=== PATIENT | female | born 1995 | race Caucasian/White ===

== ENCOUNTER 2019-07-26 04:01 | Emergency (ER) | payer BC, SELFPAY ==
[2019-07-26] VITALS (8 sets, daily range): BP systolic 132–150; BP diastolic 93–110; PULSE 84; RESP 18; TEMP 36.7; O2SAT 95–98; BMI 46.5
--- NOTE | 2019-07-26 04:10 | ED_ITS ---
Entered by Kiki Amaya, acting as scribe for Adrianna Mcdaniel HPI - Chest Pain General: Chief Complaint: Chest Pain Stated Complaint: CP Time Seen by Provider: 07/26/19 04:09 Source: patient and family Mode of arrival: ambulatory History of Present Illness: HPI narrative: 23 y/o female presents to the ED with complaint of chest pain. Pt states she has GERD and has been seen here several times for the same complaint. Pt states none of the medications have helped. This pain is intermittent and sharp in nature. MD complaint: chest pain Timing of current episode: episodic Severity: mild Quality: sharp Associated symptoms: Deny abdominal pain, diaphoresis, dyspnea, fever(s), nausea or vomiting Risk Factors: Thoracic aortic dissection risk factors: none Review of Systems Const: Denies: fever, chills, body aches, fatigue, malaise or diaphoresis Eyes: Denies: change in vision or blurry vision ENMT: Denies: throat pain, painful swallowing, hoarseness, ear pain, ear discharge, Change in hearing or nasal discharge Card: Reports: other (see HPI) Resp: Reports: other (pt has a chronic cough due to smoking); Denies: shortness of breath, wheezing, coughing up blood or chest congestion GI: Denies: abdominal pain, nausea, vomiting, vomiting blood, coffee grounds in vomit, diarrhea, constipation, cramping, blood in stool or black tarry stool : Denies: flank pain, painful urination, urinary frequency, urinary urgency, decreased urine ouput, urinary incontinence or blood in urine Musc: Denies: neck pain, back pain, extremity pain, extremity swelling, joint pain, joint swelling, joint warmth or joint stiffness Skin/Breast: Denies: rash, skin tenderness or yellow skin Neuro: Denies: headache, numbness in extremities, weakness in extremities, ch anges in sensation, lack of coordination, difficulty walking, dizziness, vertigo or confusion Endo: Denies: excessive thirst, tired all the time, cold intolerance, excessive sweating, flushing or hot flashes George/Lymph: Denies: easy bruising, easy bleeding, petechiae or enlarged lymph nodes All/Imm: Denies: hives, throat swelling, tongue swelling, facial swelling or acute wheezing PFSH ED PFSH: Statuses (acute, chronic, etc) shown below reflect problem list status as previously entered and may not be historically accurate Medical History Anxiety (Acute) Blind left eye (Acute) Migraine without aura and without status migrainosus, not intractable (Acute) Surgical History History of tonsillectomy and adenoidectomy (Acute) Family History Grandmother Cancer High cholesterol Family/Other Cancer Grandfather Cataract Father Heart attack Mother Fibromyalgia Arthritis Bulging disc Gastroesophageal reflux disease Social History Smoking and tobacco status: current every day smoker cigarettes Packs smoked per day: 1 Second hand smoke exposure: Yes Smoking risk assessment/counseling performed?: No Alcohol intake: current Alcohol intake frequency: holidays/special occasions only Alcohol type: hard liquor Desire information about alcohol rehabilitation?: No Desire information about substance/drug rehabilitation?: No Counseling given: No Last substance use date: 07/05/19 Other details last substance use: weed Adopted: No Caregiver/support person: No Lives independently: Yes Household members: spouse Marital status: Highest education level completed: Some College, No Degree service: No Current occupational status: employed History of recent travel: No Sexually active: Yes Current gender identity: Female Special alex needs: No Agree to transfusion: Yes Female Reproductive History: Date of last menstrual period: 06/23/19 Physical Exam Const: COMMON NORMALS: no apparent distress, oriented x3, no limitations, healthy appearing and well nourished EXAM LIMITATIONS: no altered mental status GENERAL APPEARANCE: cooperative, well kempt and well developed ORIENTATION/CONSCIOUSNESS: Yes awake HENMT: COMMON NORMALS: normocephalic, head/scalp atraumatic, hearing grossly normal bilaterally, external ears normal, EAC's normal, external nose normal and moist oral mucous membranes HEAD & SCALP: normal to inspection, normocephalic and atraumatic FACE & SINUS: normal facial exam and face symmetric NOSE: external nose normal and nares normal EXTERNAL EAR: Yes external ears normal EXTERNAL AUDITORY CANAL: EAC's normal MOUTH: oral and palatal mucosa normal and tongue normal Eye: COMMON NORMALS: PERRL, EOMs intact bilaterally, conjunctivae normal and no scleral icterus GENERAL EYE: normal appearance of both eyes and normal light reflex CONJUNCTIVA: Yes conjunctivae normal SCLERA: sclerae normal CORNEA: Yes corneas normal PUPIL: Yes PERRL DIRECT OPHTHALMOSCOPY: Yes normal light reflex Neck/C-Spine: COMMON NORMALS: full ROM, no lymphadenopathy, supple, no meningeal signs and no JVD GENERAL: Yes normal visual inspection and Yes trachea midline CERVICAL SPINE: Yes cervical ROM normal Resp: COMMON NORMALS: normal respiratory effort, no retractions, no use of accessory muscles and clear to auscultation bilaterally EFFORT & INSPECTION: Yes able to speak in complete sentences AUSCULTATION: clear to auscultation bilaterally Cardio: COMMON NORMALS: no JVD, regular rate, regular rhythm, S1 normal heart sound, S2 normal heart sound, no gallops, no clicks, no murmurs and no rub JUGULAR VENOUS DISTENTION: no JVD RATE: regular rate RHYTHM: regular rhythm HEART SOUNDS: S1 normal and S2 normal GI: COMMON NORMALS: soft to palpation, non-tender, no hepatosplenomegaly and no masses INSPECTION: Yes normal to inspection PALPATION: Yes soft and Yes no hepatosplenomegaly : COMMON NORMALS: Yes no CVA tenderness BLADDER/KIDNEY EXAM: Yes no CVA tenderness Back/Pelvis: COMMON NORMALS: no CVA tenderness, thoracic and lumbar spine normal to inspection, no thoracic nor lumbar tenderness and thoraco-lumbar ROM normal Extremity: COMMON NORMALS: normal to inspection, full ROM, normal capillary refill, no joint enlargement, no clubbing, cyanosis or edema and no calf tenderness Neuro: COMMON NORMALS: oriented x3, CN's II-XII intact bilaterally, moves all extremities, no focal motor deficits and no sensory deficits noted MENINGEAL SIGNS: Yes no meningeal signs Psych: COMMON NORMALS: mental status grossly normal, thought process normal, cooperative, affect normal, speech normal and activity/motor behavior normal APPEARANCE: Yes well kempt SPEECH: Yes normal speech THOUGHT PROCESS: normal thought process Skin: COMMON NORMALS: no rashes or lesions noted, skin turgor normal, no jaundice, no petechiae and no mottling GENERAL SKIN EXAM: no rashes or lesions noted and turgor normal Course Vital Signs: Vital signs: Vital Signs Temperature 98.1 F 07/26/19 04:09 Pulse Rate 84 07/26/19 04:09 Respiratory Rate 18 07/26/19 04:09 Blood Pressure 132/93 07/26/19 04:50 Pulse Oximetry 98 07/26/19 04:50 MDM - Chest Pain MDM Narrative: Medical decision making narrative: Patient comes in with recurrent pain in her chest. It is made worse with movement. She is been here multiple times for this in the past and she states nothing really seems to help. Her greatest complaint is that of worsening pain with movement. I will go and place her on Motrin but also give her something here for anxiety. She declines any further evaluation and care including lab work and IV. She will follow-up with her regular doctor and possibly Dr. Mock for consideration of EGD. Imaging Data^: CXR: My impression: No acute cardiopulmonary findings. EKG Data^: EKG 1: Attestation: I personally reviewed and interpreted this EKG as follows: Interpretation: Normal sinus rhythm at 77 beats a minute, normal KS interval, normal QRS, no acute ST segment changes. Normal EKG. Discharge Plan Discharge Patient Disposition: Home, Self-Care Clinical Impression: Atypical chest pain, Costochondritis Condition: Stable Prescriptions: No Action norgestimate-ethinyl estradiol [Tri-Estarylla] 0.18/0.215/0.25 mg-35 mcg (28) tablet 1 tab PO ONCE RF: 0 pantoprazole [Protonix] 20 mg tablet,delayed release (DR/EC) 40 mg PO ONCE RF: 0 hydroxyzine HCl 25 mg tablet 25 mg PO TID PRNRF: 0 Discharge Orders: Discharge Order (Routine); Ordered 07/26/19 Ordered By: Adrianna Mcdaniel Referrals: Tommie Mock MD [Physician] - 4-7 days Diandra Ponce FNP [Primary Care Provider] - Discharge Diet: Advance as tolerated Discharge Activity: Increase activity as tolerated Activity Restrictions/Additional Instructions: Please return to the ER immediately for any of the signs or symptoms listed on your discharge instruction sheets, worsening/changing of your symptoms, you are not getting better as quickly as expected, or for ANY other cause or concerns. Coding Level of Care Code ED Halal Butcher for Chg Fwd Exam Problem Focused The documentation recorded by the Jose Luis barnard Ashley, accurately reflects the service I personally performed and the decisions made by Jonas martines Eli N Jul 26, 2019 04:01
--- NOTE | 2019-07-26 04:13 | XR_ITS ---
WS: [id number] PORTABLE CHEST HISTORY: CHEST PAIN COMPARISON: 05/09/2019 Lungs are clear and well expanded. No pleural effusion or pneumothorax. Cardiac size: Normal. Mediastinum/Aorta: Normal mediastinum. No osseous abnormality seen. XR/XR chest 1V portable [id number] IMPRESSION: Unremarkable portable chest.
--- NOTE | 2019-07-26 04:13 | ECG_ITS ---
Measurements Intervals [place] Rate: 77 P: 19 VA: 192 QRS: 13 QRSD: 96 T: 5 QT: 365 QTc: 415 SINUS RHYTHM No previous ECG available for comparison Electronically Signed On 07-26-2019 15:26:18 [employer] by Tee Mckeon M.D. [email or web address]
[2019-07-26] MEDS: CLONazepam 0.5 mg Tablet PO (04:40)
== END 2019-07-26 05:36 | disposition home or self-care (01) ==
PROVIDERS: Emergency Provider Emergency Medicine; Family Provider Nurse Practitioner; PCP Nurse Practitioner
DX: R07.89 Other chest pain (principal); M94.0 Chondrocostal junction syndrome [Tietze]; F17.210 Nicotine dependence, cigarettes, uncomplicated
CPT/HCPCS: 71045; 93005; 99282

== ENCOUNTER → 2019-08-03 11:08 | Outpatient (BNVA) | payer BC, SELFPAY | PROVIDERS: Family Provider Nurse Practitioner; PCP Nurse Practitioner; Visit Provider Nurse Practitioner | DX: R11.2 Nausea with vomiting, unspecified (principal); R19.7 Diarrhea, unspecified; K52.9 Noninfective gastroenteritis and colitis, unspecified | CPT/HCPCS: 87804 ==

== ENCOUNTER 2019-11-04 20:00 | Emergency (ER) | payer OTHER, SELFPAY ==
--- NOTE | 2019-11-04 20:03 | XR_ITS ---
WS: [id number] XR chest 2V* [id number] REASON FOR EXAM: cp FINDINGS: Comparisons were made to July 26, 2019. The lung daigle are well aerated. No pneumonia, pleural effusion, pulmonary edema, or mass effect. The hilum and apices normal. The lung show no osseous abnormality. XR/XR chest 2V* [id number] IMPRESSION: Negative chest for acute pathology
[2019-11-04 20:15] VITALS: BP 154/97; PULSE 100; RESP 20; TEMP 36.7; O2SAT 98; BMI 52.2
--- NOTE | 2019-11-04 20:27 | ED_ITS ---
HPI - Chest Pain General: Chief Complaint: Chest Pain Stated Complaint: chest discomfort Time Seen by Provider: 11/04/19 20:21 Source: patient Mode of arrival: ambulatory Limitations: no limitations History of Present Illness: HPI narrative: 23-year-old female who states she has had a sharp chest pain over the last week. She states the pain is worse if she coughs or moves and is tender to palpation. She denies any shortness of breath. She denies any fever. She denies any vomiting. MD complaint: chest pain Onset (ago): week(s) Timing of current episode: constant Prior episodes: Yes Pain location: substernal Pain radiation: none Severity: mild Quality: sharp Relieving factors: rest Exacerbating factors: movement Associated symptoms: Deny abdominal pain, dyspnea, fever(s), nausea or vomiting Review of Systems Const: Denies: fever, chills, body aches or change in appetite Eyes: Denies: blurry vision or eye discomfort ENMT: Denies: throat pain or dental pain Card: Reports: chest pain Resp: Denies: shortness of breath GI: Denies: abdominal pain, nausea, vomiting or diarrhea : Denies: painful urination Musc: Denies: neck pain or back pain Skin/Breast: Denies: rash Neuro: Denies: headache Psych: Denies: depression George/Lymph: Denies: easy bruising All/Imm: Denies: hives PFSH ED PFSH: Social History Smoking and tobacco status: current every day smoker cigarettes Packs smoked per day: 1 Second hand smoke exposure: Yes Smoking risk assessment/counseling performed?: No Alcohol intake: current Alcohol intake frequency: holidays/special occasions only Alcohol type: hard liquor Desire information about alcohol rehabilitation?: No Desire information about substance/drug rehabilitation?: No Counseling given: No Last substance use date: 07/05/19 Other details last substance use: weed Adopted: No Caregiver/support person: No Lives independently: Yes Household members: spouse Marital status: Highest education level completed: Some College, No Degree service: No Current occupational status: employed History of recent travel: No Sexually active: Yes Current gender identity: Female Special alex needs: No Agree to transfusion: Yes Female Reproductive History: Date of last menstrual period: 06/23/19 Physical Exam Const: COMMON NORMALS: no apparent distress, oriented x3 and healthy appearing HENMT: COMMON NORMALS: normocephalic and head/scalp atraumatic HEAD & SCALP: normocephalic and atraumatic Eye: COMMON NORMALS: PERRL and EOMs intact bilaterally PUPIL: Yes PERRL Neck/C-Spine: COMMON NORMALS: full ROM and supple Chest: COMMONS NORMALS: inspection of chest normal OTHER: point tender center of chest Resp: COMMON NORMALS: normal respiratory effort, no retractions, no use of acc essory muscles and clear to auscultation bilaterally AUSCULTATION: clear to auscultation bilaterally Cardio: COMMON NORMALS: regular rate, regular rhythm and no murmurs RATE: regular rate RHYTHM: regular rhythm GI: COMMON NORMALS: normal to inspection, nondistended, normoactive bowel sounds, soft to palpation, non-tender and no masses PALPATION: Yes soft Extremity: COMMON NORMALS: normal to inspection and full ROM Neuro: COMMON NORMALS: oriented x3, moves all extremities and no focal motor deficits Psych: COMMON NORMALS: mental status grossly normal, thought process normal and cooperative THOUGHT PROCESS: normal thought process Skin: COMMON NORMALS: no rashes or lesions noted and no wounds GENERAL SKIN EXAM: no rashes or lesions noted Course Vital Signs: Vital signs: Vital Signs Temperature 98.1 F 11/04/19 20:15 Pulse Rate 100 11/04/19 20:15 Respiratory Rate 20 H 11/04/19 20:15 Blood Pressure 154/97 11/04/19 20:15 Pulse Oximetry 98 11/04/19 20:15 MDM - Chest Pain MDM Narrative: Medical decision making narrative: Patient presents with chest pain that is atypical in nature. Is likely muscular as she is point tender on exam. Patient's EKG and x-ray are normal. Patient is stable for discharge and is return if worsening. She has no signs of cardiac cause or pulmonary embolism. Imaging Data^: CXR: Attestation: I personally reviewed and interpreted this imaging study as follows: My impression: no acute abnormalities EKG Data^: EKG 1: Attestation: I personally reviewed and interpreted this EKG as follows: EKG interpretation date: 11/04/19 EKG interpretation time: 20:29 Interpretation: nsr hr 97 qrs 100 qtc 383 Discharge Plan Discharge Patient Disposition: Home, Self-Care Clinical Impression: Chest pain Qualifiers: Chest pain type: other chest pain Qualified Code(s): R07.89 - Other chest pain Condition: Stable Prescriptions: New EC-Naprosyn 500 mg tablet,delayed release (DR/EC) 500 mg PO BID PRN (Reason: pain) Qty: 20 RF: 0 No Action norgestimate-ethinyl estradiol [Tri-Estarylla] 0.18/0.215/0.25 mg-35 mcg (28) tablet 1 tab PO ONCE RF: 0 metformin 500 mg tablet 500 mg PO QDAY RF: 0 Discharge Orders: Discharge Order (Routine); Ordered 11/04/19 Ordered By: Lori Duncan Referrals: Diandra Ponce FNP [Primary Care Provider] - Discharge Diet: Advance as tolerated Discharge Activity: Resume usual activity Patient Instructions: Chest Pain (ED) Coding Level of Care Code ED Fourth Officer for Kelin Fwd Exam Comprehensive
--- NOTE | 2019-11-04 20:50 | PC.NURSE ---
i agree with the chest pain assessment
[2019-11-04 20:54] VITALS: PULSE 92; RESP 16; O2SAT 97
== END 2019-11-04 20:55 | disposition home or self-care (01) ==
PROVIDERS: Emergency Provider Emergency Medicine; Family Provider Nurse Practitioner; PCP Nurse Practitioner
DX: R07.89 Other chest pain (principal); F17.210 Nicotine dependence, cigarettes, uncomplicated
CPT/HCPCS: 12345; 71046; 99281; 99283

== ENCOUNTER 2020-01-23 14:54 | Emergency (ER) | payer OTHER, SELFPAY ==
[2020-01-23 14:59] VITALS: PULSE 98; RESP 18; TEMP 37.2; O2SAT 96; BMI 51.8
--- NOTE | 2020-01-23 15:10 | XR_ITS ---
WS: [id number] PORTABLE CHEST HISTORY: chest pain COMPARISON: 11/04/2019 Lungs are clear and well expanded. No pleural effusion or pneumothorax. Cardiac size: Normal. Mediastinum/Aorta: Normal mediastinum. No osseous abnormality seen. XR/XR chest 1V portable [id number] IMPRESSION: Unremarkable portable chest.
--- NOTE | 2020-01-23 16:18 | W.ED.GENADLT ---
Documented by User: Franko Schaefer DO 01/25/20 05:57 HPI - General Adult General: Chief complaint: General Medical Stated complaint: hurts when pt breathes Time Seen by Provider: 01/23/20 16:18 History of Present Illness: HPI narrative: 24-year-old female comes in complaining burning lungs. She seen her PCP couple times has been treated with antibiotics and inhalers has not really had any results. She has no history of breathing problems no history of asthma or COPD she not had a fever at all she is not had any change in sputum she does smoke regularly and has a chronic productive cough that has not changed from her baseline. She not had any fever she not been around anyone is been tested positive for COVID. She is not on any inhalers at this point. [facility] ED PFSH: Medical History (Updated 01/23/20 @ 20:13 by Lori Duncan MD) Anxiety Blind left eye Migraine without aura and without status migrainosus, not intractable Surgical History History of tonsillectomy and adenoidectomy Family History Grandmother Cancer High cholesterol Family/Other Cancer Grandfather Cataract Father Heart attack Mother Fibromyalgia Arthritis Bulging disc Gastroesophageal reflux disease Social History Smoking and tobacco status: current every day smoker cigarettes Packs smoked per day: 1 Second hand smoke exposure: Yes Smoking risk assessment/counseling performed?: No Alcohol intake: current Alcohol intake frequency: holidays/special occasions only Alcohol type: hard liquor Desire information about alcohol rehabilitation?: No Desire information about substance/drug rehabilitation?: No Counseling given: No Last substance use date: 07/05/19 Other details last substance use: weed Adopted: No Caregiver/support person: No Lives independently: Yes Household members: spouse Marital status: Highest education level completed: Some College, No Degree service: No Current occupational status: employed History of recent travel: No Sexually active: Yes Current gender identity: Female Special alex needs: No Agree to transfusion: Yes Female Reproductive History: Date of last menstrual period: 06/23/19 Course Vital Signs: Vital signs: Vital Signs Temperature 98.9 F 01/23/20 14:59 Pulse Rate 81 07/22/20 20:06 Respiratory Rate 18 01/23/20 20:06 Blood Pressure 165/74 01/23/20 20:06 Pulse Oximetry 99 01/23/20 20:06 MDM - General Adult MDM Narrative: Medical decision making narrative: Care turned over to Dr. Duncan at change of shift. See his notes for final diagnosis and disposition Lab Data: Labs: Lab Results 01/23/20 01/23/20 01/23/20 Range/Units 16:19 16:19 16:20 WBC 10.3 H (4.0-10.0) 10^3/ uL RBC 4.37 (4.1-5.3) 10^6/u L Hgb 12.3 (11.5-15.3) g/dL Hct 38.7 (37.0-47.0) % MCV 88.6 (81-99) fL MCH 28.1 (28.0-34.0) pg MCHC 31.8 (30.0-36.0) g/dL RDW 13.2 (12.1-15.1) % Plt Count 354 (130-400) 10^3/c mm MPV 10.5 H (7.4-10.4) fL Neut % (Auto) 59.6 % Lymph % (Auto) 32.6 % [place] % (Auto) 4.0 % Eos % (Auto) 3.2 % Baso % (Auto) 0.3 % Neut # (Auto) 6.11 (1.8-7.7) 10^3/u L Lymph # (Auto) 3.3 (0.8-4.8) 10^3/u L [place] # (Auto) 0.4 (0.2-0.9) 10^3/u L Eos # (Auto) 0.3 (0.0-0.8) 10^3/u L Baso # (Auto) 0.0 (0.0-0.1) 10^3/u L Nucleated RBC % (a uto) 0 % Nucleated RBCs # 0.0 /100WBC D-Dimer 0.76 H (0-0.59) ug/mIFE U Sodium 140 (136-145) mmol/L Potassium 4.1 (3.5-5.1) mmol/L Chloride 103 (98-107) mmol/L Carbon Dioxide 25 (22-29) mmol/L Anion Gap 16.1 (5-19) BUN 11 (6-20) mg/dL Creatinine 0.5 (0.5-0.9) mg/dL GFR Calculation 154.3 H (90-130) mL/min Glucose 132 H (65-115) mg/dL Calculated Osmolal ity 288 (285-295) mOsm/k g Calcium 9.8 (8.5-10.5) mg/dL Total Bilirubin 0.2 (0.15-1.2) mg/dL AST 16 (0-32) U/L ALT 23 (0-33) U/L Alkaline Phosphata se 59 (35-105) IU/L Total Protein 6.7 (6.6-8.7) g/dL Albumin 4.3 (3.5-5.2) g/dL Globulin 2.4 (1.3-4.6) g/dL HCG, Qual (Negative) 01/23/20 Range/Units 18:55 WBC (4.0-10.0) 10^3/ uL RBC (4.1-5.3) 10^6/u L Hgb (11.5-15.3) g/dL Hct (37.0-47.0) % MCV (81-99) fL MCH (28.0-34.0) pg MCHC (30.0-36.0) g/dL RDW (12.1-15.1) % Plt Count (130-400) 10^3/c mm MPV (7.4-10.4) fL Neut % (Auto) % Lymph % (Auto) % [place] % (Auto) % Eos % (Auto) % Baso % (Auto) % Neut # (Auto) (1.8-7.7) 10^3/u L Lymph # (Auto) (0.8-4.8) 10^3/u L [place] # (Auto) (0.2-0.9) 10^3/u L Eos # (Auto) (0.0-0.8) 10^3/u L Baso # (Auto) (0.0-0.1) 10^3/u L Nucleated RBC % (a uto) % Nucleated RBCs # /100WBC D-Dimer (0-0.59) ug/mIFE U Sodium (136-145) mmol/L Potassium (3.5-5.1) mmol/L Chloride (98-107) mmol/L Carbon Dioxide (22-29) mmol/L Anion Gap (5-19) BUN (6-20) mg/dL Creatinine (0.5-0.9) mg/dL GFR Calculation (90-130) mL/min Glucose (65-115) mg/dL Calculated Osmolal ity (285-295) mOsm/k g Calcium (8.5-10.5) mg/dL Total Bilirubin (0.15-1.2) mg/dL AST (0-32) U/L ALT (0-33) U/L Alkaline Phosphata se (35-105) IU/L Total Protein (6.6-8.7) g/dL Albumin (3.5-5.2) g/dL Globulin (1.3-4.6) g/dL HCG, Qual Negative (Negative) Discharge Plan Discharge Patient Disposition: Home Clinical Impression: Chest pain Qualifiers: Chest pain type: chest pain on breathing Qualified Code(s): R07.1 - Chest pain on breathing Condition: Stable Prescriptions: New Naprosyn 500 mg tablet 500 mg PO BID PRN (Reason: pain) Qty: 20 RF: 0 No Action norgestimate-ethinyl estradiol [Tri-Estarylla] 0.18/0.215/0.25 mg-35 mcg (28) tablet 1 tab PO DAILY RF: 0 metformin 500 mg tablet 500 mg PO DAILY RF: 0 Discharge Orders: Discharge Order (Routine); Ordered 01/23/20 Ordered By: Lori Duncan Referrals: Diandra Ponce FNP [Primary Care Provider] - 1-3 days Discharge Diet: Advance as tolerated Discharge Activity: Resume usual activity Patient Instructions: Chest Pain (ED) Discharge Date/Time: 01/23/20 20:21 Coding Level of Care Code ED Rope Maker for Paramg Fwd Exam Comprehensive Documented by User: Lori Duncan MD 01/23/20 20:27 HPI - General Adult General: Chief complaint: General Medical Stated complaint: hurts when pt breathes Time Seen by Provider: 01/23/20 16:18 History of Present Illness: Associated symptoms: Deny chest pain, headache(s), nausea, rash or vomiting Review of Systems Const: Denies: fever(s), chills, body aches or change in appetite Eyes: Denies: blurry vision or eye discomfort ENMT: Denies: throat pain or dental pain Card: Denies: chest pain Resp: Reports: pain on inspiration GI: Denies: abdominal pain, nausea, vomiting or diarrhea : Denies: dysuria Musc: Denies: neck pain or back pain Skin/Breast: Denies: rash Neuro: Denies: headache(s) Psych: Denies: depression George/Lymph: Denies: easy bruising All/Imm: Denies: urticaria PFSH ED PFSH: Medical History (Updated 01/23/20 @ 20:13 by Lori Duncan MD) Anxiety Blind left eye Migraine without aura and without status migrainosus, not intractable Surgical History History of tonsillectomy and adenoidectomy Family History Grandmother Cancer High cholesterol Family/Other Cancer Grandfather Cataract Father Heart attack Mother Fibromyalgia Arthritis Bulging disc Gastroesophageal reflux disease Social History Smoking and tobacco status: current every day smoker cigarettes Packs smoked per day: 1 Second hand smoke exposure: Yes Smoking risk assessment/counseling performed?: No Alcohol intake: current Alcohol intake frequency: holidays/special occasions only Alcohol type: hard liquor Desire information about alcohol rehabilitation?: No Desire information about substance/drug rehabilitation?: No Counseling given: No Last substance use date: 07/05/19 Other details last substance use: weed Adopted: No Caregiver/support person: No Lives independently: Yes Household members: spouse Marital status: Highest education level completed: Some College, No Degree service: No Current occupational status: employed History of recent travel: No Sexually active: Yes Current gender identity: Female Special alex needs: No Agree to transfusion: Yes Physical Exam Const: COMMON NORMALS: no acute distress, patient oriented x3 and healthy appearing HENMT: COMMON NORMALS: normocephalic and atraumatic HEAD & SCALP: normocephalic and atraumatic Eye: COMMON NORMALS: Equal, round and reactive pupils present and EOMs intact bilaterally PUPIL: Yes Equal, round and reactive pupils present Neck/C-Spine: COMMON NORMALS: full ROM and supple Chest: COMMONS NORMALS: normal inspection of the chest and normal palpation of entire chest wall Resp: COMMON NORMALS: normal respiratory effort, No retractions, No use of accessory muscles and clear to auscultation bilaterally AUSCULTATION: clear to auscultation bilaterally Cardio: COMMON NORMALS: regular rate, regular rhythm and No murmurs present (Cardio) RATE: regular rate RHYTHM: regular rhythm GI: COMMON NORMALS: Normal to inspection, nondistended, normoactive bowel sounds present, Soft to palpation, non-tender and no masses PALPATION: Yes Soft to palpation Extremity: COMMON NORMALS: normal to inspection and full ROM Neuro: COMMON NORMALS: patient oriented x3, moves all extremities and no focal motor deficits Psych: COMMON NORMALS: mental status grossly normal, Normal thought process present and cooperative THOUGHT PROCESS: Normal thought process present Skin: COMMON NORMALS: no rashes or lesions noted and no wounds GENERAL SKIN EXAM: no rashes or lesions noted Course Vital Signs: Vital signs: Vital Signs Temperature 98.9 F 01/23/20 14:59 Pulse Rate 81 01/23/20 20:06 Respiratory Rate 18 01/23/20 20:06 Blood Pressure 165/74 01/23/20 20:06 Pulse Oximetry 99 01/23/20 20:06 MDM - General Adult MDM Narrative: Medical decision making narrative: Sharon presents here with pain with inspiration is likely pleurisy. CT shows no signs of pulmonary embolism or pneumonia. Will place patient on Naprosyn she is stable for discharge. She has no signs of cardiac cause. Lab Data: Labs: Lab Results 01/23/20 01/23/20 01/23/20 Range/Units 16:19 16:19 16:20 WBC 10.3 H (4.0-10.0) 10^3/ uL RBC 4.37 (4.1-5.3) 10^6/u L Hgb 12.3 (11.5-15.3) g/dL Hct 38.7 (37.0-47.0) % MCV 88.6 (81-99) fL MCH 28.1 (28.0-34.0) pg MCHC 31.8 (30.0-36.0) g/dL RDW 13.2 (12.1-15.1) % Plt Count 354 (130-400) 10^3/c mm MPV 10.5 H (7.4-10.4) fL Neut % (Auto) 59.6 % Lymph % (Auto) 32.6 % [place] % (Auto) 4.0 % Eos % (Auto) 3.2 % Baso % (Auto) 0.3 % Neut # (Auto) 6.11 (1.8-7.7) 10^3/u L Lymph # (Auto) 3.3 (0.8-4.8) 10^3/u L [place] # (Auto) 0.4 (0.2-0.9) 10^3/u L Eos # (Auto) 0.3 (0.0-0.8) 10^3/u L Baso # (Auto) 0.0 (0.0-0.1) 10^3/u L Nucleated RBC % (a uto) 0 % Nucleated RBCs # 0.0 /100WBC D-Dimer 0.76 H (0-0.59) ug/mIFE U Sodium 140 (136-145) mmol/L Potassium 4.1 (3.5-5.1) mmol/L Chloride 103 (98-107) mmol/L Carbon Dioxide 25 (22-29) mmol/L Anion Gap 16.1 (5-19) BUN 11 (6-20) mg/dL Creatinine 0.5 (0.5-0.9) mg/dL GFR Calculation 154.3 H (90-130) mL/min Glucose 132 H (65-115) mg/dL Calculated Osmolal ity 288 (285-295) mOsm/k g Calcium 9.8 (8.5-10.5) mg/dL Total Bilirubin 0.2 (0.15-1.2) mg/dL AST 16 (0-32) U/L ALT 23 (0-33) U/L Alkaline Phosphata se 59 (35-105) IU/L Total Protein 6.7 (6.6-8.7) g/dL Albumin 4.3 (3.5-5.2) g/dL Globulin 2.4 (1.3-4.6) g/dL HCG, Qual (Negative) 01/23/20 Range/Units 18:55 WBC (4.0-10.0) 10^3/ uL RBC (4.1-5.3) 10^6/u L Hgb (11.5-15.3) g/dL Hct (37.0-47.0) % MCV (81-99) fL MCH (28.0-34.0) pg MCHC (30.0-36.0) g/dL RDW (12.1-15.1) % Plt Count (130-400) 10^3/c mm MPV (7.4-10.4) fL Neut % (Auto) % Lymph % (Auto) % [place] % (Auto) % Eos % (Auto) % Baso % (Auto) % Neut # (Auto) (1.8-7.7) 10^3/u L Lymph # (Auto) (0.8-4.8) 10^3/u L [place] # (Auto) (0.2-0.9) 10^3/u L Eos # (Auto) (0.0-0.8) 10^3/u L Baso # (Auto) (0.0-0.1) 10^3/u L Nucleated RBC % (a uto) % Nucleated RBCs # /100WBC D-Dimer (0-0.59) ug/mIFE U Sodium (136-145) mmol/L Potassium (3.5-5.1) mmol/L Chloride (98-107) mmol/L Carbon Dioxide (22-29) mmol/L Anion Gap (5-19) BUN (6-20) mg/dL Creatinine (0.5-0.9) mg/dL GFR Calculation (90-130) mL/min Glucose (65-115) mg/dL Calculated Osmolal ity (285-295) mOsm/k g Calcium (8.5-10.5) mg/dL Total Bilirubin (0.15-1.2) mg/dL AST (0-32) U/L ALT (0-33) U/L Alkaline Phosphata se (35-105) IU/L Total Protein (6.6-8.7) g/dL Albumin (3.5-5.2) g/dL Globulin (1.3-4.6) g/dL HCG, Qual Negative (Negative) Imaging Data^: CT Chest: Attestation: I personally reviewed and interpreted this imaging study as follows: Radiologist's impression: [address] [address] [address] Scan Report Signed Patient: Sharon Camacho Unit #: [id number] : 1995 Age/Sex: 24 / F ADM Date: 01/23/20 Loc: ER Room/Bed: Attending Dr: Ordering Provider/Ordering MD: Franko Schaefer DO Date of Service: 01/23/20 Procedure(s): CT angio chest PE prot [id number] Accession Number(s): [id number] Report Number: [id number] PROCEDURE INFORMATION: Exam: CT Angiography Chest With Contrast Exam date and time: 01/23/2020 5:04 PM Age: 24 years old Clinical indication: Angina and shortness of breath; Additional info: Dyspnea, chest pain TECHNIQUE: Imaging protocol: Computed tomographic angiography of the chest with intravenous contrast. 3D rendering (Not supervised by radiologist): MIP and/or 3D reconstructed images were created by the technologist. Radiation optimization: All CT scans at this facility use at least one of these dose optimization techniques: automated exposure control; mA and/or kV adjustment per patient size (includes targeted exams where dose is matched to clinical indication); or iterative reconstruction. Contrast material: OMNI 350; Contrast volume: 65 ml; Contrast route: INTRAVENOUS (IV); COMPARISON: CR XR chest 1V portable [id number] 01/23/2020 3:35 PM RADIATION DOSE METRICS: Total DLP (mGy-cm): 624.56 FINDINGS: Pulmonary arteries: No visible pulmonary embolism/pulmonary arterial thrombus. Aorta: The thoracic aorta is nonaneurysmal. No visible intimal flap or dissection. Lungs: No visible active interstitial or alveolar airspace disease. Pleural space: Unremarkable. No pneumothorax. No pleural effusion. Heart: Unremarkable. No cardiomegaly. No pericardial effusion. Lymph nodes: No visible active middle mediastinal or hilar lymphadenopathy. Bones/joints: No visible active or acute osseous pathology. Soft tissues: Patient's obesity results in increased quantum mottle artifact which degrades image quality in detail assessment. Other findings: A total of 975 images acquired that will require assessment and interpretation. Upper abdominal contents within the field of view unremarkable. CT/CT angio chest PE protcl [id number] IMPRESSION: No visible pulmonary embolism/pulmonary arterial thrombus. Radiation Dose CTDIVOL = (mGy): DLP = 624.56 (mGy-cm) Discharge Plan Discharge Patient Disposition: Home Clinical Impression: Chest pain Qualifiers: Chest pain type: chest pain on breathing Qualified Code(s): R07.1 - Chest pain on breathing Condition: Stable Prescriptions: New Naprosyn 500 mg tablet 500 mg PO BID PRN (Reason: pain) Qty: 20 RF: 0 No Action norgestimate-ethinyl estradiol [Tri-Estarylla] 0.18/0.215/0.25 mg-35 mcg (28) tablet 1 tab PO DAILY RF: 0 metformin 500 mg tablet 500 mg PO DAILY RF: 0 Discharge Orders: Discharge Order (Routine); Ordered 01/23/20 Ordered By: Lori Duncan Referrals: Diandra Ponce FNP [Primary Care Provider] - 1-3 days Discharge Diet: Advance as tolerated Discharge Activity: Resume usual activity Patient Instructions: Chest Pain (ED) Discharge Date/Time: 01/23/20 20:21 Coding Level of Care Code ED Rope Maker for Chg Fwd Exam Comprehensive
[2020-01-23 16:26] LABS: Basophils % 0.3 %; Eosinophils # 0.3 10^3/uL (0.0-0.8); Eosinophils % 3.2 %; Hematocrit 38.7 % (37.0-47.0); Hemoglobin 12.3 g/dL (11.5-15.3); Lymphocytes # 3.3 10^3/uL (0.8-4.8); Lymphocytes % 32.6 %; Mean Corpuscular HGB Conc 31.8 g/dL (30.0-36.0); Mean Corpuscular Hemoglobin 28.1 pg (28.0-34.0); Mean Corpuscular Volume 88.6 fL (81-99); Mean Platelet Volume 10.5 fL (7.4-10.4); Monocytes # 0.4 10^3/uL (0.2-0.9); Neutrophils # 6.11 10^3/uL (1.8-7.7); Neutrophils % 59.6 %; Nucleated Red Blood Cells % 0 %; Platelet Count 354 10^3/cmm (130-400); Red Blood Count 4.37 10^6/uL (4.1-5.3); Red Cell Distribution Width 13.2 % (12.1-15.1); White Blood Count 10.3 10^3/uL (4.0-10.0)
[2020-01-23 16:40] LABS: D Dimer 0.76 ug/mIFEU (0-0.59)
[2020-01-23 16:46] LABS: Alanine Aminotransferase 23 U/L (0-33); Albumin Level 4.3 g/dL (3.5-5.2); Alkaline Phosphatase 59 IU/L (35-105); Anion Gap 16.1 (5-19); Aspartate Amino Transferase 16 U/L (0-32); Blood Urea Nitrogen 11 mg/dL (6-20); Calcium 9.8 mg/dL (8.5-10.5); Carbon Dioxide 25 mmol/L (22-29); Chloride 103 mmol/L (98-107); Globulin 2.4 g/dL (1.3-4.6); Glomerular Filtration Rate 154.3 mL/min (90-130); Glucose 132 mg/dL (65-115); Osmolality Calculated 288 mOsm/kg (285-295); Potassium 4.1 mmol/L (3.5-5.1); Sodium 140 mmol/L (136-145); Total Bilirubin 0.2 mg/dL (0.15-1.2); Total Protein 6.7 g/dL (6.6-8.7)
--- NOTE | 2020-01-23 17:00 | CTR_ITS ---
PROCEDURE INFORMATION: Exam: CT Angiography Chest With Contrast Exam date and time: 01/23/2020 5:04 PM Age: 24 years old Clinical indication: Angina and shortness of breath; Additional info: Dyspnea, chest pain TECHNIQUE: Imaging protocol: Computed tomographic angiography of the chest with intravenous contrast. 3D rendering (Not supervised by radiologist): MIP and/or 3D reconstructed images were created by the technologist. Radiation optimization: All CT scans at this facility use at least one of these dose optimization techniques: automated exposure control; mA and/or kV adjustment per patient size (includes targeted exams where dose is matched to clinical indication); or iterative reconstruction. Contrast material: OMNI 350; Contrast volume: 65 ml; Contrast route: INTRAVENOUS (IV); COMPARISON: CR XR chest 1V portable [id number] 01/23/2020 3:35 PM RADIATION DOSE METRICS: Total DLP (mGy-cm): 624.56 FINDINGS: Pulmonary arteries: No visible pulmonary embolism/pulmonary arterial thrombus. Aorta: The thoracic aorta is nonaneurysmal. No visible intimal flap or dissection. Lungs: No visible active interstitial or alveolar airspace disease. Pleural space: Unremarkable. No pneumothorax. No pleural effusion. Heart: Unremarkable. No cardiomegaly. No pericardial effusion. Lymph nodes: No visible active middle mediastinal or hilar lymphadenopathy. Bones/joints: No visible active or acute osseous pathology. Soft tissues: Patient's obesity results in increased quantum mottle artifact which degrades image quality in detail assessment. Other findings: A total of 975 images acquired that will require assessment and interpretation. Upper abdominal contents within the field of view unremarkable. CT/CT angio chest PE protcl [id number] IMPRESSION: No visible pulmonary embolism/pulmonary arterial thrombus. Radiation Dose CTDIVOL = (mGy): DLP = 624.56 (mGy-cm)
[2020-01-23 17:01] VITALS: BP 105/70; PULSE 94; RESP 22; O2SAT 94
[2020-01-23 19:21] VITALS: BP 115/93; PULSE 85; RESP 16; O2SAT 95
[2020-01-23 19:24] LABS: HCG, Serum Qual Negative (Negative)
--- NOTE | 2020-01-23 19:35 | PC.NURSE ---
Pt in radiology for CTA.
[2020-01-23] MEDS: iohexol 350 mg/mL 100 mL Btl IV (19:39)
[2020-01-23 20:06] VITALS: BP 165/74; PULSE 81; RESP 18; O2SAT 99
== END 2020-01-23 20:21 | disposition home or self-care (01) ==
PROVIDERS: Family Medicine; Physician Assistant; Emergency Provider Emergency Medicine; PCP Nurse Practitioner
DX: R07.1 Chest pain on breathing (principal); F17.210 Nicotine dependence, cigarettes, uncomplicated
CPT/HCPCS: 12345; 36415; 71045; 71275; 80053; 84703; 85025; 85378; 99282; 99284; Q9967

== ENCOUNTER 2020-02-10 20:52 | Emergency (ER) | payer OTHER, SELFPAY ==
[2020-02-10 21:11] VITALS: BP 145/106; PULSE 88; RESP 14; TEMP 37.4; O2SAT 98; BMI 51.8
--- NOTE | 2020-02-10 21:24 | XRR_ITS ---
PROCEDURE INFORMATION: Exam: XR Chest, 1 View Exam date and time: 02/10/2020 9:31 PM Age: 24 years old Clinical indication: Condition or disease; Lung condition and disease; Other: Uri; Patient HX: Sore throat x 5 days TECHNIQUE: Imaging protocol: XR of the chest Views: 1 view. COMPARISON: CR XR chest 1V portable [id number] 01/23/2020 3:35 PM FINDINGS: Lungs: Unremarkable. No consolidation. Pleural space: Unremarkable. No pleural effusion. No pneumothorax. Heart/Mediastinum: Unremarkable. No cardiomegaly. Bones/joints: No acute findings. XR/XR chest 1V portable [id number] IMPRESSION: No acute findings.
--- NOTE | 2020-02-10 21:24 | W.ED.URI ---
HPI - URI/Sore Throat General: Chief Complaint: Upper Respiratory Infection Stated Complaint: sore/swollen throat Time Seen by Provider: 02/10/20 21:09 Source: patient Mode of arrival: ambulatory Limitations: no limitations History of Present Illness: HPI Narrative: 44-year-old female who states she has had a sore throat over the last 5 days. She states also had some sharp chest pains and a recent cough that is resolved. Patient states her throat is a 7 out of 10 is worse with eating. She denies any difficulty swallowing. She denies any fever. Patient did get COVID swab yesterday. Denies any vomiting or diarrhea. Associated symptoms: Deny abdominal pain, chills, chest pain, diarrhea, fever(s), headache(s), nausea or vomiting Review of Systems Const: Denies: fever(s), chills, body aches or change in appetite Eyes: Denies: blurry vision or eye discomfort ENMT: Reports: throat pain and odynophagia Card: Denies: chest pain Resp: Reports: non-productive cough GI: Denies: abdominal pain, nausea, vomiting or diarrhea : Denies: dysuria Musc: Denies: neck pain or back pain Skin/Breast: Denies: rash Neuro: Denies: headache(s) Psych: Denies: depression George/Lymph: Denies: easy bruising All/Imm: Denies: urticaria PFSH ED PFSH: Medical History (Updated 02/10/20 @ 21:24 by Lori Duncan MD) Anxiety Blind left eye Migraine without aura and without status migrainosus, not intractable Surgical History History of tonsillectomy and adenoidectomy Family History Grandmother Cancer High cholesterol Family/Other Cancer Grandfather Cataract Father Heart attack Mother Fibromyalgia Arthritis Bulging disc Gastroesophageal reflux disease Social History Smoking and tobacco status: current every day smoker cigarettes Packs smoked per day: 1 Second hand smoke exposure: Yes Smoking risk assessment/counseling performed?: No Alcohol intake: current Alcohol intake frequency: holidays/special occasions only Alcohol type: hard liquor Desire information about alcohol rehabilitation?: No Desire information about substance/drug rehabilitation?: No Counseling given: No Last substance use date: 07/05/19 Other details last substance use: weed Adopted: No Caregiver/support person: No Lives independently: Yes Household members: spouse Marital status: Highest education level completed: Some College, No Degree service: No Current occupational status: employed History of recent travel: No Sexually active: Yes Current gender identity: Female Special alex needs: No Agree to transfusion: Yes Female Reproductive History: Date of last menstrual period: 06/23/19 Physical Exam Const: COMMON NORMALS: no acute distress, patient oriented x3 and healthy appearing HENMT: COMMON NORMALS: normocephalic and atraumatic HEAD & SCALP: normocephalic and atraumatic OTHER: Slight erythema to throat. No uvula deviation or signs of abscess. Patient is handling her secretions well. No cervical lymphadenopathy. Eye: COMMON NORMALS: Equal, round and reactive pupils present and EOMs intact bilaterally PUPIL: Yes Equal, round and reactive pupils present Neck/C-Spine: COMMON NORMALS: full ROM and supple Chest: COMMONS NORMALS: normal inspection of the chest and normal palpation of entire chest wall Resp: COMMON NORMALS: normal respiratory effort, No retractions, No use of accessory muscles and clear to auscultation bilaterally AUSCULTATION: clear to auscultation bilaterally Cardio: COMMON NORMALS: regular rate, regular rhythm and No murmurs present (Cardio) RATE: regular rate RHYTHM: regular rhythm GI: COMMON NORMALS: Normal to inspection, nondistended, normoactive bowel sounds present, Soft to palpation, non-tender and no masses PALPATION: Yes Soft to palpation Extremity: COMMON NORMALS: normal to inspection and full ROM Neuro: COMMON NORMALS: patient oriented x3, moves all extremities and no focal motor deficits Psych: COMMON NORMALS: mental status grossly normal, Normal thought process present and cooperative THOUGHT PROCESS: Normal thought process present Skin: COMMON NORMALS: no rashes or lesions noted and no wounds GENERAL SKIN EXAM: no rashes or lesions noted Course Vital Signs: Vital signs: Vital Signs Temperature 99.4 F 02/10/20 21:11 Pulse Rate 88 02/10/20 21:11 Respiratory Rate 14 02/10/20 21:11 Blood Pressure 145/106 02/10/20 21:11 Pulse Oximetry 98 02/10/20 21:11 MDM - URI/Sore Throat MDM Narrative: Medical decision making narrative: Patient presents here with a likely viral URI with a viral pharyngitis. She is well-appearing here and has no signs of abscess. Patient is to follow with her COVID test. Patient given Decadron here and is to take Naprosyn at home. She is stable for discharge and return if worsening. Imaging Data^: CXR: My impression: No acute abnormality Discharge Plan Discharge Patient Disposition: Home Clinical Impression: Pharyngitis Qualifiers: Pharyngitis/tonsillitis etiology: unspecified etiology Qualified Code(s): J02.9 - Acute pharyngitis, unspecified Condition: Stable Prescriptions: New Naprosyn 500 mg tablet 500 mg PO BID PRN (Reason: pain) Qty: 20 RF: 0 No Action norgestimate-ethinyl estradiol [Tri-Estarylla] 0.18/0.215/0.25 mg-35 mcg (28) tablet 1 tab PO DAILY RF: 0 metformin 500 mg tablet 500 mg PO DAILY RF: 0 Naprosyn 500 mg tablet 500 mg PO BID PRN (Reason: pain) Qty: 20 RF: 0 Discharge Orders: Discharge Order (Routine); Ordered 02/10/20 Ordered By: Lori Duncan Referrals: Diandra Ponce FNP [Primary Care Provider] - 1-3 days Discharge Diet: Advance as tolerated Discharge Activity: Resume usual activity Patient Instructions: Pharyngitis (ED) Coding Level of Care Code ED Candy Forming Machine Operator for Kelin Rivas
[2020-02-10] MEDS: dexamethasone 10 mg/mL INJ IM (21:36)
[2020-02-10 21:41] VITALS: BP 144/62; PULSE 82; RESP 18; O2SAT 98
== END 2020-02-10 21:42 | disposition home or self-care (01) ==
PROVIDERS: Emergency Provider Emergency Medicine; PCP Nurse Practitioner
DX: J02.9 Acute pharyngitis, unspecified (principal); F17.210 Nicotine dependence, cigarettes, uncomplicated
CPT/HCPCS: 12345; 71045; 96372; 99281; 99283; J1100

== ENCOUNTER → 2020-02-15 11:57 | Outpatient (BNVA) | payer OTHER, SELFPAY | PROVIDERS: PCP Nurse Practitioner; Referring Provider Family Medicine; Visit Provider Nurse Practitioner | DX: N89.8 Other specified noninflammatory disorders of vagina (principal); N99.89 Other postprocedural complications and disorders of genitourinary system; Z68.43 Body mass index [BMI] 50.0-59.9, adult; F17.210 Nicotine dependence, cigarettes, uncomplicated | CPT/HCPCS: 81000; 81025; 87086 ==

== ENCOUNTER 2020-03-09 20:44 | Emergency (ER) | payer OTHER, SELFPAY ==
[2020-03-09 21:11] VITALS: BP 165/118; PULSE 75; RESP 18; TEMP 36.6; O2SAT 98; BMI 51.8
[2020-03-09] MEDS: pantoprazole DR 40 mg Tablet PO (22:03)
--- NOTE | 2020-03-09 22:10 | ED_ITS ---
HPI - Abdominal Pain General: Chief Complaint: Abdominal Pain Stated Complaint: cp Time Seen by Provider: 03/09/20 21:44 History of Present Illness: HPI narrative: Patient come in here complaining about reflux heartburn pain while laying down. Says feel like acid coming up in her throat she would like to have a prescription to help with that. Been worked up here multiple times for abdominal pain gallbladder reflux has not followed through probably with prescriptions. MD elicited complaint: abdominal pain Onset (ago): month(s) Pain Consistency: intermittent Location: Epigastric Severity: mild Quality: burning Radiation: none Migration to: no migration Exacerbating factors: eating and other (Laying down) Relieving factors: medication and rest Associated Symptoms: Reports no associated symptoms and heartburn; Denies chills, fever(s), nausea and vomiting Review of Systems Const: Denies: fever(s), chills or body aches Eyes: Denies: change in vision or blurry vision ENMT: Denies: throat pain or nasal congestion Card: Denies: chest pain or dyspnea on exertion Resp: Denies: dyspnea, productive cough or non-productive cough GI: Reports: heartburn; Denies: abdominal pain, nausea or vomiting Musc: Denies: extremity pain Skin/Breast: Denies: rash Neuro: Denies: headache(s) Psych: Denies: anxiety or depression George/Lymph: Denies: easy bruising PFSH ED PFSH: Medical History (Updated 03/09/20 @ 22:09 by IVELISSE Stevens) Anxiety Blind left eye Migraine without aura and without status migrainosus, not intractable Surgical History History of tonsillectomy and adenoidectomy Family History Grandmother Cancer High cholesterol Family/Other Cancer Grandfather Cataract Father Heart attack Mother Fibromyalgia Arthritis Bulging disc Gastroesophageal reflux disease Social History Smoking and tobacco status: current every day smoker cigarettes Packs smoked per day: 1 Second hand smoke exposure: Yes Smoking risk assessment/counseling performed?: No Alcohol intake: current Alcohol intake frequency: holidays/special occasions only Alcohol type: hard liquor Desire information about alcohol rehabilitation?: No Desire information about substance/drug rehabilitation?: No Counseling given: No Last substance use date: 07/05/19 Other details last substance use: weed Adopted: No Caregiver/support person: No Lives independently: Yes Household members: spouse Marital status: Highest education level completed: Some College, No Degree service: No Current occupational status: employed History of recent travel: No Sexually active: Yes Current gender identity: Female Special alex needs: No Agree to transfusion: Yes Physical Exam Const: COMMON NORMALS: no acute distress, average body habitus and patient oriented x3 HENMT: COMMON NORMALS: normocephalic HEAD & SCALP: normal to inspection and normocephalic FACE & SINUS: normal facial exam Eye: COMMON NORMALS: conjunctivae normal GENERAL EYE: appearance normal, both eyes and all related structures CONJUNCTIVA: Yes conjunctivae normal Neck/C-Spine: COMMON NORMALS: no JVD Chest: COMMONS NORMALS: normal inspection of the chest Cardio: COMMON NORMALS: no JVD GI: COMMON NORMALS: Normal to inspection, nondistended, normoactive bowel sounds present PALPATION: Yes Tenderness to palpation present (GI) (Epigastric) Extremity: COMMON NORMALS: normal to inspection and full ROM Neuro: COMMON NORMALS: patient oriented x3 Course Vital Signs: Vital signs: Vital Signs Temperature 97.9 F 03/09/20 21:11 Pulse Rate 75 03/09/20 21:11 Respiratory Rate 18 03/09/20 21:11 Blood Pressure 165/118 03/09/20 21:11 Pulse Oximetry 98 03/09/20 21:11 Discharge Plan Discharge Patient Disposition: Home Clinical Impression: Chronic GERD Condition: Stable Prescriptions: New Protonix 40 mg tablet,delayed release (DR/EC) 40 mg PO DAILY Qty: 14 RF: 0 No Action metronidazole 500 mg tablet 500 mg PO BID 7 Days Qty: 14 RF: 0 metformin 500 mg tablet 500 mg PO DAILY RF: 0 Discharge Orders: Discharge Order (Routine); Ordered 03/09/20 Ordered By: Eugene Plunkett Referrals: Mallory Kelly FNP [Primary Care Provider] - Discharge Diet: As Directed Discharge Activity: Resume usual activity Patient Instructions: Diet for Ulcers and Gastritis (ED), Gastroesophageal Reflux Disease (ED) Activity Restrictions/Additional Instructions: Follow-up with medical provider as directed. Take medications as prescribed. Return to the ER or your medical provider if condition worsens. Please read and understand discharge instructions. If any questions ask please. Continue Protonix for at least another 6 weeks follow-up with your medical provider and see if they want to do any further testing make sure you follow a diet that is compatible with the GERD Monitor blood pressure taken twice daily and take 1 weeks with readings into your family provider Coding Level of Care Code ED [employer] Prom[employer] Specialist for Kelin Fwd Exam Comprehensive
[2020-03-09 22:29] VITALS: BP 141/93; PULSE 81; RESP 16; O2SAT 96
== END 2020-03-09 22:29 | disposition home or self-care (01) ==
PROVIDERS: Emergency Provider Nurse Practitioner Family; PCP Nurse Practitioner Family
DX: K21.9 Gastro-esophageal reflux disease without esophagitis (principal); F17.210 Nicotine dependence, cigarettes, uncomplicated
CPT/HCPCS: 12345; 99281; 99283

== ENCOUNTER 2020-03-16 18:32 | Emergency (ER) | payer OTHER, SELFPAY ==
--- NOTE | 2020-03-16 18:56 | XRR_ITS ---
PROCEDURE INFORMATION: Exam: XR Left Humerus Exam date and time: 03/16/2020 7:38 PM Age: 24 years old Clinical indication: Pain; Upper arm; Left TECHNIQUE: Imaging protocol: XR Left humerus Views: 2 or more views. COMPARISON: No relevant prior studies available. FINDINGS: Bones/joints: Normal. Soft tissues: Normal. XR/[place] [id number] IMPRESSION: No acute findings.
[2020-03-16 19:13] VITALS: BP 154/91; PULSE 86; RESP 16; TEMP 37.5; O2SAT 98; BMI 53.8
--- NOTE | 2020-03-16 19:16 | XRR_ITS ---
PROCEDURE INFORMATION: Exam: XR Left Forearm Exam date and time: 03/16/2020 7:34 PM Age: 24 years old Clinical indication: Pain; Lower or forearm; Left; Additional info: Injury TECHNIQUE: Imaging protocol: XR Left forearm. Views: 2 views. COMPARISON: No relevant prior studies available. FINDINGS: Bones/joints: Normal. Soft tissues: Normal. XR/XR forearm LT 2V [id number] IMPRESSION: No acute findings.
--- NOTE | 2020-03-16 19:17 | W.ED.UPPEXIN ---
HPI - Extremity Injury (Upper) General: Chief Complaint: Dizziness Stated Complaint: pain in L upper arm Time Seen by Provider: 03/16/20 19:13 Source: patient Mode of arrival: ambulatory Limitations: no limitations History of Present Illness: HPI narrative: 24-year-old female states started having left forearm pain just 1 to 2 hours ago. States that cramping type pain she rates a 2 out of 10. Denies any worsening or improving factors. Denies any fever or known injury. Associated symptoms: Denies neck pain Review of Systems Const: Denies: fever(s), chills, body aches or change in appetite Eyes: Denies: blurry vision or eye discomfort ENMT: Denies: throat pain or dental pain Card: Denies: chest pain Resp: Denies: dyspnea GI: Denies: abdominal pain, nausea, vomiting or diarrhea : Denies: dysuria Musc: Reports: extremity pain; Denies: neck pain or back pain Skin/Breast: Denies: rash Neuro: Denies: headache(s) Psych: Denies: depression George/Lymph: Denies: easy bruising All/Imm: Denies: urticaria PFSH ED PFSH: Medical History (Updated 03/16/20 @ 19:42 by Lori Duncan MD) Anxiety Blind left eye Migraine without aura and without status migrainosus, not intractable Surgical History History of tonsillectomy and adenoidectomy Family History Grandmother Cancer High cholesterol Family/Other Cancer Grandfather Cataract Father Heart attack Mother Fibromyalgia Arthritis Bulging disc Gastroesophageal reflux disease Social History Smoking and tobacco status: current every day smoker cigarettes Packs smoked per day: 1 Second hand smoke exposure: Yes Smoking risk assessment/counseling performed?: No Alcohol intake: current Alcohol intake frequency: holidays/special occasions only Alcohol type: hard liquor Desire information about alcohol rehabilitation?: No Desire information about substance/drug rehabilitation?: No Counseling given: No Last substance use date: 07/05/19 Other details last substance use: weed Adopted: No Caregiver/support person: No Lives independently: Yes Household members: spouse Marital status: Highest education level completed: Some College, No Degree service: No Current occupational status: employed History of recent travel: No Sexually active: Yes Current gender identity: Female Special alex needs: No Agree to transfusion: Yes Physical Exam Const: COMMON NORMALS: no acute distress, patient oriented x3 and healthy appearing HENMT: COMMON NORMALS: normocephalic and atraumatic HEAD & SCALP: normocephalic and atraumatic Eye: COMMON NORMALS: Equal, round and reactive pupils present and EOMs intact bilaterally PUPIL: Yes Equal, round and reactive pupils present Neck/C-Spine: COMMON NORMALS: full ROM and supple Chest: COMMONS NORMALS: normal inspection of the chest and normal palpation of entire chest wall Resp: COMMON NORMALS: normal respiratory effort, No retractions, No use of accessory muscles and clear to auscultation bilaterally AUSCULTATION: clear to auscultation bilaterally Cardio: COMMON NORMALS: regular rate, regular rhythm and No murmurs present (Cardio) RATE: regular rate RHYTHM: regular rhythm GI: COMMON NORMALS: Normal to inspection, nondistended, normoactive bowel sounds present, Soft to palpation, non-tender and no masses PALPATION: Yes Soft to palpation Extremity: COMMON NORMALS: normal to inspection and full ROM NARRATIVE EXTREMITY EXAM: Tenderness to left forearm with no deformity or erythema. Neuro: COMMON NORMALS: patient oriented x3, moves all extremities and no focal motor deficits Psych: COMMON NORMALS: mental status grossly normal, Normal thought process present and cooperative THOUGHT PROCESS: Normal thought process present Skin: COMMON NORMALS: no rashes or lesions noted and no wounds GENERAL SKIN EXAM: no rashes or lesions noted Course Vital Signs: Vital signs: Vital Signs Temperature 99.5 F 03/16/20 19:13 Pulse Rate 86 03/16/20 19:13 Respiratory Rate 16 03/16/20 19:13 Blood Pressure 154/91 03/16/20 19:13 Pulse Oximetry 98 03/16/20 19:13 MDM - Extremity Injury (Upper) MDM Narrative: Medical decision making narrative: Patient presents here with forearm pain. Patient has no sign DVT. Patient has no signs of abscess. X-ray is normal. Patient is stable for discharge and is return if worsening. Imaging Data^: xr l forearm: Attestation: I personally reviewed and interpreted this imaging study as follows: My impression: no acute abnormality Discharge Plan Discharge Patient Disposition: Home Clinical Impression: Arm pain, left Condition: Stable Prescriptions: No Action metronidazole 500 mg tablet 500 mg PO BID 7 Days Qty: 14 RF: 0 metformin 500 mg tablet 500 mg PO DAILY RF: 0 Protonix 40 mg tablet,delayed release (DR/EC) 40 mg PO DAILY Qty: 14 RF: 0 Discharge Orders: Discharge Order (Routine); Ordered 03/16/20 Ordered By: Lori Duncan Referrals: Mallory Kelly FNP [Primary Care Provider] - Discharge Diet: Advance as tolerated Discharge Activity: Resume usual activity Patient Instructions: Arthralgia (ED) Coding Level of Care Code ED Business Development Analyst for Chg Fwd Exam Comprehensive
[2020-03-16 20:52] VITALS: BP 120/62; PULSE 70; RESP 18; O2SAT 97
== END 2020-03-16 20:50 | disposition home or self-care (01) ==
PROVIDERS: Emergency Provider Emergency Medicine; PCP Nurse Practitioner Family
DX: M79.602 Pain in left arm (principal); F17.210 Nicotine dependence, cigarettes, uncomplicated
CPT/HCPCS: 12345; 73060; 73090; 99281; 99282

== ENCOUNTER → 2020-04-03 14:34 | Outpatient (BNVA) | payer OTHER, SELFPAY | PROVIDERS: PCP Nurse Practitioner Family; Visit Provider Nurse Practitioner Women's Health | DX: N91.1 Secondary amenorrhea (principal) | CPT/HCPCS: 84702 ==

== ENCOUNTER → 2020-04-11 14:22 | Outpatient (BNVA) | payer OTHER, SELFPAY | PROVIDERS: PCP Nurse Practitioner Family; Visit Provider Family Medicine | DX: Z20.828 Contact with and (suspected) exposure to other viral communicable diseases (principal) | CPT/HCPCS: 87635 ==

== ENCOUNTER 2020-04-14 05:14 | Emergency (ER) | payer OTHER, SELFPAY ==
[2020-04-14 05:20] VITALS: BP 148/82; PULSE 77; RESP 16; TEMP 36.8; O2SAT 100; BMI 53.3
--- NOTE | 2020-04-14 05:31 | ED_ITS ---
HPI - Anxiety General: Chief Complaint: Anxiety Stated Complaint: woke with trembling panicky Time Seen by Provider: 04/14/20 05:27 Source: patient Mode of arrival: ambulatory Limitations: no limitations History of Present Illness: HPI narrative: Sharon is a nice 24-year-old female who comes in complaining of severe anxiety. She states she is had several panic attacks throughout the night secondary to bad dreams. She just recently stopped taking sertraline for her anxiety because she did not think it was working. She states her symptoms tonight were that of feeling trembling and shaky along with palpitations. She had no chest pain or shortness of breath. She states it is just tremendous fear that is what bothers her. Because of this she is not been able to sleep but now she feels tired and exhausted. She denies any new complaints and states this is pretty standard for her. Associated symptoms: Reports nausea and palpitations; Deny chest pain, chills, confusion, diaphoresis, fever(s), headache(s), malaise, syncope or vomiting Review of Systems Const: Denies: fever(s), chills, body aches, fatigue, malaise or diaphoresis Eyes: Denies: change in vision, blurry vision, photophobia, eye discomfort, eye discharge, eye redness or yellow eyes ENMT: Denies: throat pain, odynophagia, hoarseness, swelling of lips/tongue, ear or mastoid pain, ear discharge, change in hearing or nasal discharge Card: Reports: palpitations; Denies: chest pain, irregular heart rhythm, edema, lightheadedness, syncope, pre-syncope, dyspnea on exertion or orthopnea Resp: Denies: dyspnea, productive cough, non-productive cough, wheezing, hemoptysis or chest congestion GI: Reports: nausea; Denies: abdominal pain, vomiting, hematemesis, coffee ground emesis, heartburn, diarrhea, constipation, GI cramping, hematochezia or melena : Denies: flank pain, dysuria, urinary frequency, urinary urgency or hematuria Musc: Denies: neck pain, back pain, extremity pain, extremity swelling, joint pain, joint swelling, joint redness, joint warmth or joint stiffness Skin/Breast: Denies: rash, pruritus, erythema, skin pain or skin tenderness Neuro: Denies: headache(s), numbness in extremities, weakness in extremities, sensory changes, lack of coordination, difficulty walking, dizziness, vertigo, confusion, Slurred speech present or seizure-like activity Psych: Reports: anxiety and sleeping less George/Lymph: Denies: easy bruising, easy bleeding, petechiae, purpura or enlarged lymph nodes All/Imm: Denies: urticaria, throat swelling, tongue swelling, facial swelling or acute wheezing PFSH ED PFSH: Medical History Anxiety Blind left eye Chronic GERD Migraine without aura and without status migrainosus, not intractable Secondary amenorrhea Surgical History History of tonsillectomy and adenoidectomy Family History Grandmother Breast cancer Great- maternal High cholesterol Maternal Hypertension Maternal Family/Other Diabetes Paternal aunt Hypertension Paternal Aunts and Uncles Stroke Paternal Great Aunt Grandfather Heart disease Paternal Denies family history of Colon cancer Ovarian cancer Bleeding disorder Uterine cancer Thyroid disease Social History Additional social history: - Tobacco use: current- 1 pack per day Alcohol use: Special occasions/holidays Drug use: Marijuana- twice/week Physical Exam Const: COMMON NORMALS: no acute distress, patient oriented x3, no limitations and alert GENERAL APPEARANCE: cooperative HENMT: COMMON NORMALS: normocephalic, atraumatic, external ears normal, EAC's normal and Normal external nose present HEAD & SCALP: normal to inspection, normocephalic and atraumatic FACE & SINUS: normal facial exam and face symmet lv NOSE: Normal external nose present and Normal nares present EXTERNAL EAR: Yes external ears normal EXTERNAL AUDITORY CANAL: EAC's normal MOUTH: Normal oral and palatal mucosa present, lip normal and tongue normal Eye: COMMON NORMALS: Equal, round and reactive pupils present and conjunctivae normal GENERAL EYE: appearance normal, both eyes and all related structures ALIGNMENT: Yes alignment normal PERIORBITAL: periorbital findings normal EYELID: eyelids normal CONJUNCTIVA: Yes conjunctivae normal SCLERA: sclerae normal PUPIL: Yes Equal, round and reactive pupils present Neck/C-Spine: COMMON NORMALS: full ROM, no lymphadenopathy, supple, no meningeal signs and no JVD GENERAL: Yes normal visual inspection and Yes trachea midline Chest: COMMONS NORMALS: normal inspection of the chest and normal palpation of entire chest wall Resp: COMMON NORMALS: normal respiratory effort, No retractions, No use of accessory muscles and clear to auscultation bilaterally EFFORT & INSPECTION: Yes able to speak in complete sentences and Yes symmetric chest movement AUSCULTATION: clear to auscultation bilaterally, no crackles, no rales, no rhonchi and no wheezes Cardio: COMMON NORMALS: no JVD, regular rate, regular rhythm, S1 normal heart sound present and S2 normal heart sound present RATE: regular rate RHYTHM: regular rhythm HEART SOUNDS: S1 normal heart sound present, S2 normal heart sound present, no click, no gallops, no murmurs and no rubs GI: COMMON NORMALS: Soft to palpation and No hepatosplenomegaly present PALPATION: Yes Soft to palpation, No Tenderness to palpation present (GI), No Guarding due to palpation present (GI), No Rigid due to palpation, Yes No hepat osplenomegaly present, No Hernia present, No Palpable mass present and No Pulsatile mass present : COMMON NORMALS: Yes no CVA tenderness BLADDER/KIDNEY EXAM: Yes no CVA tenderness EXTERNAL FEMALE EXAM: No Hernia present Back/Pelvis: COMMON NORMALS: no CVA tenderness, thoracic and lumbar spine normal to inspection, no thoracic nor lumbar tenderness and thoraco-lumbar ROM normal Extremity: COMMON NORMALS: normal to inspection, full ROM, capillary refill normal, no joint enlargement, no clubbing, cyanosis or edema and no calf tenderness Neuro: COMMON NORMALS: patient oriented x3, CN's II-XII intact bilaterally, moves all extremities, no focal motor deficits and no sensory deficits noted SENSORIUM/ORIENTATION: Yes alert MENINGEAL SIGNS: Yes no meningeal signs SPEECH: speech normal Psych: COMMON NORMALS: mental status grossly normal, Normal thought process present, cooperative, normal affect, speech normal and activity/motor behavior normal SPEECH: Yes normal speech THOUGHT PROCESS: Normal thought process present Skin: COMMON NORMALS: no rashes or lesions noted, turgor normal, no jaundice, no petechiae and no mottling GENERAL SKIN EXAM: no rashes or lesions noted and turgor normal Course Vital Signs: Vital signs: Vital Signs Temperature 98.2 F 04/14/20 05:20 Pulse Rate 77 04/14/20 05:20 Respiratory Rate 16 04/14/20 05:20 Blood Pressure 148/82 04/14/20 05:20 Pulse Oximetry 100 04/14/20 05:20 MDM - Anxiety MDM Narrative: Medical decision making narrative: Patient states this is a typical panic attack for her and the dreams are more precipitating it. Patient understands she will likely need to be on something else for her anxiety. This time she is declining any work-up and I do not believe one is absolutely necessary. She agrees to return should her symptoms change or worsen but at this time she is requesting discharge but with something to help her sleep. Discharge Plan Discharge Patient Disposition: Home Condition: Stable Prescriptions: New hydroxyzine HCl 25 mg tablet 25 mg PO QID PRN (Reason: anxiety) Qty: 30 RF: 0 No Action sertraline [Zoloft] 25 mg tablet 25 mg PO DAILY RF: 0 medroxyprogesterone [Provera] 10 mg tablet 10 mg PO QDAY Qty: 10 RF: 0 metformin 500 mg tablet 500 mg PO DAILY RF: 0 Protonix 40 mg tablet,delayed release (DR/EC) 40 mg PO DAILY Qty: 14 RF: 0 Discharge Orders: Discharge Order (Routine); Ordered 04/14/20 Ordered By: Adrianna Mcdaniel Referrals: Mallory Kelly FNP [Primary Care Provider] - 1-3 days Discharge Diet: Usual diet Discharge Activity: Increase activity as tolerated Patient Instructions: Anxiety (ED), Panic Attack Activity Restrictions/Additional Instructions: Please return to the ER immediately for any of the signs or symptoms listed on your discharge instruction sheets, worsening/changing of your symptoms, you are not getting better as quickly as expected, or for ANY other cause or concerns. Be certain to follow-up with your primary care provider as soon as possible to discuss a long-term medication for your anxiety. Coding Level of Care Code ED Hogshead Stripper for Kelin Fwradha Exam Comprehensive
[2020-04-14] MEDS: LORazepam 1 mg Tablet PO (05:45)
[2020-04-14 05:47] VITALS: BP 151/99; PULSE 78; RESP 14; O2SAT 99
== END 2020-04-14 05:49 | disposition home or self-care (01) ==
PROVIDERS: Emergency Provider Emergency Medicine; PCP Nurse Practitioner Family
DX: F41.9 Anxiety disorder, unspecified (principal); Z79.84 Long term (current) use of oral hypoglycemic drugs; F17.210 Nicotine dependence, cigarettes, uncomplicated
CPT/HCPCS: 12345; 99281

== ENCOUNTER → 2020-04-22 14:04 | Outpatient (BNVA) | payer OTHER, SELFPAY | PROVIDERS: PCP Nurse Practitioner Family; Visit Provider Nurse Practitioner Women's Health | DX: N91.2 Amenorrhea, unspecified (principal) | CPT/HCPCS: 76830 ==

== ENCOUNTER 2020-04-23 06:34 | Emergency (ER) | payer OTHER, SELFPAY ==
[2020-04-23 06:37] VITALS: BP 154/93; PULSE 112; RESP 20; TEMP 36.6; O2SAT 97; BMI 53.4
[2020-04-23 07:25] VITALS: BP 129/63; PULSE 86; RESP 17; O2SAT 98
--- NOTE | 2020-04-23 07:28 | W.ED.URI ---
HPI - URI/Sore Throat General: Chief Complaint: Upper Respiratory Infection Stated Complaint: swollen throat/SOB Time Seen by Provider: 04/23/20 06:37 History of Present Illness: HPI Narrative: 24-year-old female reports waking up with a sore throat and cough this morning some myalgias and headache and no vomiting or diarrhea cough is been nonproductive. She is not been around anyone with Covid that she knows of she denies any fever. MD elicited complaint: cough and sore throat Onset (ago): hour(s) Consistency: constant Severity: moderate Exacerbating factors: swallowing and speaking Relieving factors: nothing Associated symptoms: Reports headache(s), nasal congestion, nausea and sore throat; Deny abdominal pain, change in voice, chills, chest pain, congestion, cough, diarrhea, epistaxis, ear or mastoid pain, fever(s), myalgias, rash, rhinorrhea, short of breath, sinus pain, stiffness or vomiting Treatments prior to arrival: none Review of Systems Const: Denies: fever(s) or chills ENMT: Reports: nasal congestion; Denies: ear or mastoid pain, epistaxis or sinus pain Card: Denies: chest pain Resp: Denies: dyspnea, productive cough or non-productive cough GI: Reports: nausea; Denies: abdominal pain, vomiting or diarrhea : Denies: flank pain, difficulty voiding, dysuria, urinary frequency or urinary urgency Skin/Breast: Denies: rash or pruritus Neuro: Reports: headache(s) PFSH ED PFSH: Medical History Anxiety Blind left eye Chronic GERD Migraine without aura and without status migrainosus, not intractable Secondary amenorrhea Surgical History History of tonsillectomy and adenoidectomy Family History Grandmother Breast cancer Great- maternal High cholesterol Maternal Hypertension Maternal Family/Other Diabetes Paternal aunt Hypertension Paternal Aunts and Uncles Stroke Paternal Great Aunt Grandfather Heart disease Paternal Denies family history of Colon cancer Ovarian cancer Bleeding disorder Uterine cancer Thyroid disease Social History Additional social history: - Tobacco use: current- 1 pack per day Alcohol use: Special occasions/holidays Drug use: Marijuana- twice/week Physical Exam Const: COMMON NORMALS: no acute distress GENERAL APPEARANCE: cooperative and comfortable ORIENTATION/CONSCIOUSNESS: Yes awake, Yes oriented to person, Yes oriented to place and Yes oriented to time HENMT: COMMON NORMALS: normocephalic, atraumatic, hearing grossly normal bilaterally, external ears normal, EAC's normal, TM's normal bilaterally, Normal nasal mucous membranes and turbinates present, moist oral mucous membranes and oropharynx normal HEAD & SCALP: normocephalic and atraumatic NOSE: Normal nasal mucous membranes and turbinates present EXTERNAL EAR: Yes external ears normal EXTERNAL AUDITORY CANAL: EAC's normal TYMPANIC MEMBRANE: TM's normal bilaterally THROAT: posterior oropharynx abnormal erythema Eye: COMMON NORMALS: Equal, round and reactive pupils present, EOMs intact bilaterally, conjunctivae normal and no scleral icterus CONJUNCTIVA: Yes conjunctivae normal PUPIL: Yes Equal, round and reactive pupils present Neck/C-Spine: COMMON NORMALS: full ROM, no lymphadenopathy, supple and no JVD Lymph: LYMPHATIC: no lymphadenopathy noted and no lymphedema noted Resp: COMMON NORMALS: normal respiratory effort, No retractions, No use of accessory muscles and clear to auscultation bilaterally AUSCULTATION: clear to auscultation bilaterally Cardio: COMMON NORMALS: no JVD, regular rate, regular rhythm and No murmurs present (Cardio) RATE: regular rate RHYTHM: regular rhythm Extremity: COMMON NORMALS: normal to inspection, capillary refill normal, no clubbing, cyanosis or edema, no calf tenderness and no pedal edema Neuro: SENSORIUM/ORIENTATION: Yes oriented to person, Yes oriented to place and Yes oriented to time Skin: COMMON NORMALS: no rashes or lesions noted GENERAL SKIN EXAM: no rashes or lesions noted Course Vital Signs: Vital signs: Vital Signs Temperature 97.9 F 04/23/20 06:37 Pulse Rate 86 04/23/20 07:25 Respiratory Rate 17 04/23/20 07:25 Blood Pressure 129/63 04/23/20 07:25 Pulse Oximetry 98 04/23/20 07:25 MDM - URI/Sore Throat MDM Narrative: Medical decision making narrative: Throat does not look particularly swollen or abnormal on exam I suspect she has a little viral upper respiratory infection. She has worsening problems return discussed with the patient she still is able to swallow well. Follow-up with primary care return to the emergency room if needed. Lab Data: Labs: Lab Results 04/23/20 04/23/20 Range/Units 07:22 07:22 SARS-CoV-2 RNA (RT -PCR) Not detected (NOT DETECTED) Group A Strep Rapi d Negative (Negative) Discharge Plan Discharge Patient Disposition: Home Clinical Impression: Upper respiratory infection, viral Condition: Stable Prescriptions: No Action sertraline [Zoloft] 25 mg tablet 25 mg PO DAILY RF: 0 medroxyprogesterone [Provera] 10 mg tablet 10 mg PO QDAY Qty: 10 RF: 0 metformin 500 mg tablet 500 mg PO DAILY RF: 0 hydroxyzine HCl 25 mg tablet 25 mg PO QID PRN (Reason: anxiety) Qty: 30 RF: 0 Protonix 40 mg tablet,delayed release (DR/EC) 40 mg PO DAILY Qty: 14 RF: 0 Discharge Orders: Discharge Order (Routine); Ordered 04/23/20 Ordered By: Franko Schaefer Referrals: Mallory Kelly FNP [Primary Care Provider] - Discharge Activity: Increase activity as tolerated Activity Restrictions/Additional Instructions: Rapid strep test was negative. Your sore throat is most likely viral in origin. You were also tested for Covid. Recommend that you remain quarantined until the results are available. Discharge Date/Time: 04/23/20 08:09 Coding Level of Care Code ED Yarn Mercerizer Operator Helper for Kelin Fwradha Exam Comprehensive
--- NOTE | 2020-04-23 07:36 | XRR_ITS ---
PROCEDURE INFORMATION: Exam: XR Chest, 1 View Exam date and time: 04/23/2020 7:39 AM Age: 24 years old Clinical indication: Cough and dyspnea; Additional info: Dyspnea/cough TECHNIQUE: Imaging protocol: XR of the chest Views: 1 view. COMPARISON: CR XR chest 1V portable [id number] 02/10/2020 9:22 PM FINDINGS: Lungs: Unremarkable. No consolidation. Pleural space: Unremarkable. No pleural effusion. No pneumothorax. Heart/Mediastinum: Unremarkable. No cardiomegaly. Bones/joints: Unremarkable. XR/XR chest 1V portable [id number] IMPRESSION: No acute findings.
[2020-04-23 07:38] LABS: Rapid Strep A Test Negative (Negative)
[2020-04-27 07:12] LABS: Quest SARS-CoV-2 RNA NOT DETECTED (NOT DETECTED)
--- NOTE | 2020-04-27 10:42 | PC.NURSE ---
Pt called and notified of negative COVID result.
== END 2020-04-23 08:09 | disposition home or self-care (01) ==
PROVIDERS: Emergency Provider Family Medicine; PCP Nurse Practitioner Family
DX: J06.9 Acute upper respiratory infection, unspecified (principal); Z79.84 Long term (current) use of oral hypoglycemic drugs
CPT/HCPCS: 12345; 71045; 87081; 87635; 87880; 99282; 99283

== ENCOUNTER → 2020-05-01 09:56 | Outpatient (BNVA) | payer OTHER, SELFPAY | PROVIDERS: PCP Nurse Practitioner Family; Visit Provider Nurse Practitioner Women's Health | DX: Z01.812 Encounter for preprocedural laboratory examination (principal); N91.1 Secondary amenorrhea | CPT/HCPCS: 81025; 88305 ==

== ENCOUNTER 2020-06-01 23:23 | Emergency (ER) | payer OTHER, SELFPAY ==
[2020-06-01 23:27] VITALS: BP 137/93; PULSE 80; RESP 18; O2SAT 98; BMI 51.8
--- NOTE | 2020-06-01 23:35 | ECG_ITS ---
[facility] Test Date: 2020-06-01 Pat Name: Sharon Camacho Department: Room: Gender: Female Pit Manager: : 1995 Requested By: Lori Duncan Order Number: [id number] Richard MD: RADHA BELLO Measurements Intervals [place] Rate: 75 P: 20 [place]: 179 QRS: 29 QRSD: 110 T: 15 QT: 358 QTc: 401 Interpretive Statements SINUS RHYTHM Compared to ECG 07/26/2019 04:41:31 No significant changes Electronically Signed On 06-02-2020 17:31:25 HEMODIALYSIS CHARGE NURSE by RADHA BELLO [id number]
--- NOTE | 2020-06-01 23:35 | XRR_ITS ---
PROCEDURE INFORMATION: Exam: XR Chest, 1 View Exam date and time: 06/01/2020 11:38 PM Age: 24 years old Clinical indication: Chest pain; Type not specified; Patient HX: Covid symptoms; Additional info: Cp TECHNIQUE: Imaging protocol: XR of the chest Views: 1 view. COMPARISON: CR XR chest 1V portable [id number] 04/23/2020 7:37 AM FINDINGS: Lungs: Unremarkable. No consolidation. Pleural space: Unremarkable. No pleural effusion. No pneumothorax. Heart/Mediastinum: Unremarkable. No cardiomegaly. Bones/joints: Unremarkable. XR/XR chest 1V portable [id number] IMPRESSION: No acute findings.
[2020-06-01 23:53] VITALS: BP 151/94; PULSE 79; RESP 17; O2SAT 100
[2020-06-01] MEDS: lidocaine 2% viscous 15 ML, aluminum-mag hydrox-simethicon 30 ML, sucralfate oral liq 1 GM PO (23:53)
--- NOTE | 2020-06-01 23:54 | ED_ITS ---
HPI - Chest Pain General: Chief Complaint: Chest Pain Stated Complaint: chest pain Time Seen by Provider: 06/01/20 23:41 Source: patient Mode of arrival: ambulatory Limitations: no limitations History of Present Illness: HPI narrative: 24-year-old female who states she has been having chest pain over the last 2 days. She states that sharp pain that seems to come and go. States she has a history of reflux and anxiety and it feels similar. She denies any worsening or improving factors. She denies any shortness of breath. She denies any vomiting or diarrhea. MD complaint: chest pain Associated symptoms: Deny abdominal pain, dyspnea, fever(s), nausea or vomiting Review of Systems Const: Denies: fever(s), chills, body aches or change in appetite Eyes: Denies: blurry vision or eye discomfort ENMT: Denies: throat pain or dental pain Card: Reports: chest pain Resp: Denies: dyspnea GI: Denies: abdominal pain, nausea, vomiting or diarrhea : Denies: dysuria Musc: Denies: neck pain or back pain Skin/Breast: Denies: rash Neuro: Denies: headache(s) Psych: Denies: depression George/Lymph: Denies: easy bruising All/Imm: Denies: urticaria PFSH ED PFSH: Medical History (Updated 06/02/20 @ 00:41 by Lori Duncan MD) Anxiety Blind left eye Chronic GERD Migraine without aura and without status migrainosus, not intractable Secondary amenorrhea Surgical History History of tonsillectomy and adenoidectomy Family History Grandmother Breast cancer Great- maternal High cholesterol Maternal Hypertension Maternal Family/Other Diabetes Paternal aunt Hypertension Paternal Aunts and Uncles Stroke Paternal Great Aunt Grandfather Heart disease Paternal Denies family history of Colon cancer Ovarian cancer Bleeding disorder Uterine cancer Thyroid disease Social History Additional social history: - Tobacco use: current- 1 pack per day Alcohol use: Special occasions/holidays Drug use: Marijuana- twice/week Physical Exam Const: COMMON NORMALS: no acute distress, patient oriented x3 and healthy appearing HENMT: COMMON NORMALS: normocephalic and atraumatic HEAD & SCALP: normocephalic and atraumatic Eye: COMMON NORMALS: Equal, round and reactive pupils present and EOMs intact bilaterally PUPIL: Yes Equal, round and reactive pupils present Neck/C-Spine: COMMON NORMALS: full ROM and supple Chest: COMMONS NORMALS: normal inspection of the chest OTHER: point tender in center of chest Resp: COMMON NORMALS: normal respiratory effort, No retractions, No use of accessory muscles and clear to auscultation bilaterally AUSCULTATION: clear to auscultation bilaterally Cardio: COMMON NORMALS: regular rate, regular rhythm and No murmurs present (Cardio) RATE: regular rate RHYTHM: regular rhythm GI: COMMON NORMALS: Normal to inspection, nondistended, normoactive bowel sounds present, Soft to palpation, non-tender and no masses PALPATION: Yes Soft to palpation Extremity: COMMON NORMALS: normal to inspection and full ROM Neuro: COMMON NORMALS: patient oriented x3, moves all extremities and no focal motor deficits Psych: COMMON NORMALS: mental status grossly normal, Normal thought process present and cooperative THOUGHT PROCESS: Normal thought process present Skin: COMMON NORMALS: no rashes or lesions noted and no wounds GENERAL SKIN EXAM: no rashes or lesions noted Course Vital Signs: Vital signs: Vital Signs Pulse Rate 79 06/01/20 23:53 Respiratory Rate 17 06/01/20 23:53 Blood Pressure 151/94 06/01/20 23:53 Pulse Oximetry 100 06/01/20 23:53 MDM - Chest Pain MDM Narrative: Medical decision making narrative: Sharon presents with chest pain that is atypical in nature. Is likely muscular or GI related. Abdominal exam is benign. Patient's EKG and x-ray are normal. She is stable for discharge and is to follow-up with PCP and return if worsening. Imaging Data^: CXR: Attestation: I personally reviewed and interpreted this imaging study as follows: My impression: No acute abnormality EKG Data^: EKG 1: Attestation: I personally reviewed and interpreted this EKG as follows: EKG interpretation date: 06/02/20 EKG interpretation time: 23:35 Interpretation: nsr hr [address] or t wave abnormalities qrs 110 qtc 387 Discharge Plan Discharge Patient Disposition: Home Clinical Impression: Atypical chest pain Condition: Stable Prescriptions: No Action sertraline [Zoloft] 25 mg tablet 25 mg PO DAILY RF: 0 metformin 500 mg tablet 500 mg PO DAILY RF: 0 azithromycin 250 mg tablet See Rx Instructions PO .COMPLEX Qty: 6 RF: 0 prednisone 20 mg tablet 20 mg PO DAILY 5 Days Qty: 5 RF: 0 Discharge Orders: Discharge Order (Routine); Ordered 06/02/20 Ordered By: Lori Duncan Referrals: Mallory Kelly FNP [Primary Care Provider] - 1-3 days Discharge Diet: Advance as tolerated Discharge Activity: Resume usual activity Patient Instructions: Chest Pain (ED) Coding Level of Care Code ED Communications Department Head for Paramg Fwd Exam Comprehensive
[2020-06-02 00:48] VITALS: BP 148/90; PULSE 77; RESP 18; O2SAT 98
== END 2020-06-02 00:50 | disposition home or self-care (01) ==
PROVIDERS: Emergency Provider Emergency Medicine; PCP Nurse Practitioner Family
DX: R07.89 Other chest pain (principal); F17.210 Nicotine dependence, cigarettes, uncomplicated
CPT/HCPCS: 12345; 71045; 93005; 99281; 99283

== ENCOUNTER → 2020-06-13 14:51 | Outpatient (BNVA) | payer OTHER, SELFPAY | PROVIDERS: PCP Nurse Practitioner Family; Visit Provider Obstetrics & Gynecology | DX: N85.00 Endometrial hyperplasia, unspecified (principal) | CPT/HCPCS: 87635 ==

== ENCOUNTER 2020-06-15 18:55 | Emergency (ER) | payer OTHER, SELFPAY ==
[2020-06-15 19:01] VITALS: BP 139/92; PULSE 78; RESP 18; TEMP 37.2; O2SAT 98; BMI 51.6
--- NOTE | 2020-06-15 19:09 | ECG_ITS ---
[facility] Test Date: 2020-06-15 Pat Name: Sharon Camacho Department: Room: Gender: Female Multimedia Manager: : 1995 Requested By: Momo Al Order Number: [id number] Ramos MD: Edwina Weaver M.D. Measurements Intervals [place] Rate: 65 P: 28 CO: 174 QRS: 32 QRSD: 114 T: 19 QT: 364 QTc: 379 Interpretive Statements SINUS RHYTHM WITH SINUS ARRHYTHMIA MODERATE INTRAVENTRICULAR CONDUCTION DELAY [110+ ms QRS DURATION] NON SPECIFIC T WAVE ABNORMALITY Compared to ECG 06/01/2020 23:35:17 Intraventricular conduction delay now present Electronically Signed On 06-17-2020 19:54:35 PIANO MACHINE OPERATOR by Edwina Weaver M.D. [id number]
--- NOTE | 2020-06-15 19:09 | ED_ITS ---
HPI - General Adult General: Chief complaint: General Medical Stated complaint: heartburn/Gerd/would like GI cocktail Time Seen by Provider: 06/15/20 19:07 History of Present Illness: HPI narrative: Patient is a 24-year-old female comes to the ED with acid reflux. Patient has a history of GERD and takes omeprazole. She has been seen here in the ED for same symptoms in the past and says that the GI cocktail provides relief. She says symptoms started around midday today. The last thing she ate was hard-boiled eggs. Denies any nausea/vomiting, abdominal pain, fever, chills, diarrhea. She has been struggling with acid reflux for a while now and was on pantoprazole before and it was not helping then will switch to omeprazole and she still having problems with acid reflux. Pain is described as a burning that starts right at her stomach and goes up the middle of her chest. Associated symptoms: Deny chest pain, dyspnea, headache(s), nausea, rash, palpitations or vomiting Review of Systems Const: Denies: fever(s), chills or fatigue Eyes: Denies: change in vision or eye discomfort ENMT: Denies: throat pain, odynophagia, nasal discharge or nasal congestion Card: Denies: chest pain, palpitations, edema, swelling of feet/ankles, dyspnea on exertion or orthopnea Resp: Denies: dyspnea, productive cough or non-productive cough GI: Reports: heartburn; Denies: abdominal pain, nausea, vomiting, diarrhea, constipation or hematochezia : Denies: flank pain, dysuria or hematuria Musc: Denies: neck pain, back pain or extremity swelling Skin/Breast: Denies: rash or new lesions Neuro: Denies: headache(s), numbness in extremities or weakness in extremities PFS ED PFSH: Medical History Anxiety Blind left eye Chronic GERD Migraine without aura and without status migrainosus, not intractable Secondary amenorrhea Surgical History History of tonsillectomy and adenoidectomy Family History Grandmother Breast cancer Great- maternal High cholesterol Maternal Hypertension Maternal Family/Other Diabetes Paternal aunt Hypertension Paternal Aunts and Uncles Stroke Paternal Great Aunt Grandfather Heart disease Paternal Denies family history of Colon cancer Ovarian cancer Bleeding disorder Uterine cancer Thyroid disease Social History Additional social history: - Tobacco use: current- 1 pack per day Alcohol use: Special occasions/holidays Drug use: Marijuana- twice/week Female Reproductive History: Date of last menstrual period: 02/16/20 Physical Exam Const: COMMON NORMALS: no acute distress, patient oriented x3 and alert GENERAL APPEARANCE: cooperative and comfortable NUTRITIONAL APPEARANCE: obese HENMT: COMMON NORMALS: normocephalic HEAD & SCALP: normocephalic MOUTH: Normal oral and palatal mucosa present THROAT: posterior oropharynx normal and uvula midline Eye: COMMON NORMALS: Equal, round and reactive pupils present PUPIL: Yes Equal, round and reactive pupils present Neck/C-Spine: COMMON NORMALS: supple GENERAL: Yes normal visual inspection Resp: COMMON NORMALS: normal respiratory effort, No retractions, No use of accessory muscles and clear to auscultation bilaterally EFFORT & INSPECTION: Yes able to speak in complete sentences, No tachypneic and No respiratory distress AUSCULTATION: clear to auscultation bilaterally Cardio: COMMON NORMALS: regular rate, regular rhythm, S1 normal heart sound present, S2 normal heart sound present, No gallops present (Cardio), No clicks present (Cardio), No murmurs present (Cardio) and Peripheral pulses 2+ throughout RATE: regular rate RHYTHM: regular rhythm HEART SOUNDS: S1 normal heart sound present and S2 normal heart sound present PERIPHERAL PULSES: Peripheral pulses 2+ throughout GI: COMMON NORMALS: Normal to inspection, nondistended, normoactive bowel sounds present, Soft to palpation, non-tender and no masses PALPATION: Yes Soft to palpation : COMMON NORMALS: Yes no CVA tenderness BLADDER/KIDNEY EXAM: Yes no CVA tenderness Back/Pelvis: COMMON NORMALS: no CVA tenderness Extremity: COMMON NORMALS: normal to inspection and no pedal edema Neuro: COMMON NORMALS: patient oriented x3 and moves all extremities SENSORIUM/ORIENTATION: Yes alert Skin: GENERAL SKIN EXAM: dry skin Course Reevaluation(s): Reevaluation #1: After patient was given GI cocktail her symptoms greatly improved. Patient says she is ready to be discharged and will follow up with her PCP for further management of her chronic GERD symptoms. Time: 19:25 Vital Signs: Vital signs: Vital Signs Temperature 99.0 F 06/15/20 19:01 Pulse Rate 78 06/15/20 19:01 Respiratory Rate 16 06/15/20 19:28 Blood Pressure 139/92 06/15/20 19:01 Pulse Oximetry 98 06/15/20 19:01 MDM - General Adult MDM Narrative: Medical decision making narrative: Patient is a 24-year-old female comes to the ED with acid reflux. Patient has had acid reflux in the past and has been seen here in the ED for same complaint on March 09. Patient says the GI cocktail usually really helps her. Denies any abdominal pain nausea, vomiting, diarrhea or fevers. Exam showed no abdominal tenderness. EKG showed normal sinus rhythm with no ST segment elevation or depression seen. Patient was given GI cocktail and her symptoms improved greatly. She was discharged and sent with a prescription for Maalox and told to continue taking her omeprazole. Follow-up with PCP in 7 to 10 days for reevaluation. Return to ED precautions given. Patient understood and agreed with plan. EKG Data^: EKG 1: Attestation: I personally reviewed and interpreted this EKG as follows: EKG interpretation date: 06/15/20 Interpretation: Normal sinus rhythm, 65 bpm, no ST segment elevation or depression seen. Discharge Plan Discharge Patient Disposition: Home Clinical Impression: Chronic GERD Condition: Stable Prescriptions: New Maalox Maximum Strength 400-400-40 mg/5 mL suspension 10 ml PO Q6H PRN (Reason: indigestion) Qty: 3000 RF: 0 No Action sertraline [Zoloft] 25 mg tablet 25 mg PO DAILY RF: 0 omeprazole 20 mg tablet,delayed release (DR/EC) 20 mg PO DAILY RF: 0 metformin 500 mg tablet 500 mg PO DAILY RF: 0 Discharge Orders: Discharge ED (Routine); Ordered 06/15/20 Ordered By: Momo Al Referrals: Mallory Kelly FNP [Primary Care Provider] - Discharge Diet: Regular Discharge Activity: Resume usual activity Patient Instructions: Gastroesophageal Reflux Disease (ED) Activity Restrictions/Additional Instructions: Follow-up with medical provider as directed in 7-10 days for reevaluation. Take medications as prescribed. Return to the ER or your medical provider if condition worsens. Please read and understand discharge instructions. If any questions, please ask. Coding Level of Care Code ED Telephone Order Supervisor for Chg Fwd Exam Comprehensive
[2020-06-15] MEDS: lidocaine 2% viscous 15 ML, aluminum-mag hydrox-simethicon 30 ML, sucralfate oral liq 1 GM PO (19:21)
[2020-06-15 19:28] VITALS: RESP 16
== END 2020-06-15 19:29 | disposition home or self-care (01) ==
PROVIDERS: Emergency Provider Physician Assistant; PCP Nurse Practitioner Family
DX: K21.9 Gastro-esophageal reflux disease without esophagitis (principal); F17.210 Nicotine dependence, cigarettes, uncomplicated
CPT/HCPCS: 12345; 93005; 99281; 99282

== ENCOUNTER 2020-06-17 05:50 | Day surgery (SDC) | payer OTHER, SELFPAY ==
[2020-06-11 11:53] VITALS: BMI 52.3
--- NOTE | 2020-06-11 11:55 | SUR.PREOP ---
works in Emergency Room
--- NOTE | 2020-06-11 12:20 | SUR.PREOP ---
Anesthesia unable to see patient at preop. Will see day of surgery.
[2020-06-17 06:01] VITALS: BP 165/134; PULSE 100; RESP 18; TEMP 36.3; O2SAT 98
--- NOTE | 2020-06-17 06:28 | P.ANESASSM_ITS ---
Pre-Anesthetic Assessment Pre-Anesthetic Assessment: Height/Weight: Height 1.63 m Weight 138.346 kg Temp Pulse Resp BP Pulse Ox 97.3 F L 100 18 165/134 98 06/17/20 06:01 06/17/20 06:01 06/17/20 06:01 06/17/20 06:01 06/17/20 06:01 Preop Diagnosis: Endometrial hyperplasia without atypia Proposed Procedure: Operation Date: 06/17/20 07:00 Proposed Procedures p Hysteroscopy w/ poss Myosure [id number] N85.00(Not Applicable) - Hemant Silva MD s Dilation And Curettage (D&C), Paracervical block(Not Applicable) - Hemant Silva MD Familial anesthetic complications: None Was Beta Emilee taken within 24 ho urs: N/A Last intake: Intake Last Liquid Date 06/16/20 Last Liquid Time 23:30 Last Solid Date 06/16/20 Last Solid Time 20:30 Social: Social History: Tobacco and No alcohol Exam: Pre-Anes Outpt Exam: alert, oriented x 3, clear to auscultation bilaterally and regular rate & rhythm Airway: Cervical ROM: WNL MP: 4 Dentition: Full Pulmonary: Pulmonary: None reported Metabolic: Metabolic: Morbid obesity Comments: pcos Anesthetic Plan: ASA status: 3 Anesthesia: MAC Other: MAC with cervical block, advanced airway if unable to tolerate Risk of > 500 ml blood loss (7ml/kg in children): No PFSH Anesthesia PFSH: Medical History Anxiety Blind left eye Chronic GERD Migraine without aura and without status migrainosus, not intractable Secondary amenorrhea Surgical History History of tonsillectomy and adenoidectomy Family History Grandmother Breast cancer Great- maternal High cholesterol Maternal Hypertension Maternal Family/Other Diabetes Paternal aunt Hypertension Paternal Aunts and Uncles Stroke Paternal Great Aunt Grandfather Heart disease Paternal Denies family history of Colon cancer Ovarian cancer Bleeding disorder Uterine cancer Thyroid disease Social History Additional social history: - Tobacco use: current- 1 pack per day Alcohol use: Special occasions/holidays Drug use: Marijuana- twice/week Female Reproductive History: Date of last menstrual period: 02/16/20 Data Anesthesia Cardiac Studies: No Data to Display
[2020-06-17] MEDS: ketorolac 30 mg/mL INJ IVP (06:29)
[2020-06-17] MEDS: gabapentin 300 mg Capsule PO (06:29)
[2020-06-17] MEDS: sodium chloride 0.9% 1,000 ML 30 ML IV (06:30)
[2020-06-17] MEDS: midazolam 1 mg/mL INJ 2 mL 2 MG IVP (06:30)
[2020-06-17 06:34] LABS: Glucose Point of Care 99 mg/dL (70-110)
[2020-06-17 06:37] LABS: OR HCG Qualitative Urine Negative (Negative)
[2020-06-17 06:40] LABS: Basophils # 0.1 10^3/uL (0.0-0.1); Basophils % 0.4 %; Eosinophils # 0.4 10^3/uL (0.0-0.8); Eosinophils % 3.9 %; Hematocrit 40.2 % (37.0-47.0); Hemoglobin 12.6 g/dL (11.5-15.3); Lymphocytes # 4.6 10^3/uL (0.8-4.8); Lymphocytes % 41.2 %; Mean Corpuscular HGB Conc 31.3 g/dL (30.0-36.0); Mean Corpuscular Hemoglobin 28.4 pg (28.0-34.0); Mean Corpuscular Volume 90.5 fL (81-99); Mean Platelet Volume 10.7 fL (7.4-10.4); Monocytes # 0.5 10^3/uL (0.2-0.9); Monocytes % 4.4 %; Neutrophils # 5.62 10^3/uL (1.8-7.7); Neutrophils % 49.9 %; Nucleated Red Blood Cells % 0 %; Platelet Count 366 10^3/cmm (130-400); Red Blood Count 4.44 10^6/uL (4.1-5.3); Red Cell Distribution Width 13.3 % (12.1-15.1); White Blood Count 11.3 10^3/uL (4.0-10.0)
--- NOTE | 2020-06-17 06:41 | P.HPUD_ITS ---
Surgery/Procedure H&P Update DATE OF PROCEDURE: June 17, 2020 DATE H&P PERFORMED: 06/09/20 H&P UPDATE INFORMATION: I have reviewed H&P completed within last 30 days, I have examined patient prior to procedure, No changes to prior documentation and H&P is in [facility] [place] EMR on date indicated PREOP DIAGNOSIS: Endometrial hyperplasia without atypia PLANNED PROCEDURE: Operation Date: 06/17/20 07:00 Proposed Procedures p Hysteroscopy w/ poss Myosure [id number] N85.00(Not Applicable) - Hemant Silva MD s Dilation And Curettage (D&C), Paracervical block(Not Applicable) - Hemant olvera MD
[2020-06-17 07:58] VITALS: BP 133/93; PULSE 97; RESP 18; TEMP 36.5; O2SAT 100
--- NOTE | 2020-06-17 08:02 | ANE.PACU2 ---
Inpatient post-anesthesia follow up: Airway intact: Yes Vital signs: Temperature 97.3 F Pulse Rate 100 Respiratory Rate 18 Blood Pressure 165/134 Pulse Oximetry 98 Oxygen Delivery Me thod Room Air Oxygen Flow Rate Fraction of Inspir ed Oxygen Hydration adequate: Yes Nausea and vomiting: No Pain level: 1 Mental status: Baseline
--- NOTE | 2020-06-17 08:02 | PM.OP ---
Operative Report Date of procedure: June 17, 2020 Pre-op Diagnosis: Endometrial hyperplasia without atypia Post-op Diagnosis: Endometrial hyperplasia without atypia, Endometrial polyps Procedure Done: Hysteroscopy with dilation and curettage Specimens removed/disposition: Endometrial curettings Surgeon: Hemant Silva Medical Lab Technologist: None Anesthesia: General Estimated blood loss (mL): 5 Complications: None Findings: Thickened endometrial lining with small polyp-like structures throughout the cavity. Brief History: Patient is a 24-year-old female, nulligravida, who presented to the office due to not having periods. She was diagnosed with probable polycystic ovarian syndrome. Due to the prolonged time was without a menses, an endometrial biopsy had been performed. This that showed endometrial hyperplasia without atypia. Findings suspicious for some polyps were also noted on the biopsy. She also had an ultrasound which had shown a thickened lining with a possible polyp-like structure seen. As a result, she is presenting for hysteroscopy with D&C. Procedure: The patient was taken to the operating room where general anesthesia was obtained. She was prepped and draped in the usual sterile fashion in the dorsal supine position with legs in Augusto style stirrups. Sequential compression boots had been placed prior to starting the case. Patient had voided just before coming to the operating room. Exam under anesthesia was performed and the patient was noted to have no significant prolapse. A weighted speculum was placed in the vagina and the cervix was grasped with a single-tooth tenaculum. A paracervical block was performed with a total of 12 mL of 2% lidocaine with epinephrine used. The cervix was serially dilated until a operative hysteroscope could be passed. Crystalloid solution was used as a distention media. The endometrial cavity was inspected. She had a thickened endometrial lining with multiple small polyp-like structures throughout the cavity of the uterus. Sharp curettage was performed until no further tissue obtained. Hysteroscope was reinserted and cavity reinspected. The polyp-like structures were no longer present. The tenaculum was removed and there was minimal bleeding from the tenaculum site. Patient tolerated the procedure well. Sponge and needle counts were correct. DRAINS: None POSTOPERATIVE STATUS: The patient was transferred to the recovery room in satisfactory condition DISPOSITION: Discharge to home when criteria was met. FOLLOWUP APPOINTMENT: Followup appointment had been scheduled on 07/02/2020 in my office. MEDICATIONS: Tramadol 50 mg, 1 to 2 tablets every 6 hours as needed for pain, #10, 0 refills May use [id number] ibuprofen. May resume usual home medications.
[2020-06-17] MEDS: ondansetron 2 mg/ML SDV 2 mL 4 MG IVP (08:04)
[2020-06-17 08:05] VITALS: BP 135/87; PULSE 91; RESP 16; O2SAT 100
[2020-06-17 08:10] VITALS: BP 137/86; PULSE 88; RESP 17; TEMP 36.5; O2SAT 98
[2020-06-17 08:15] VITALS: BP 143/79; PULSE 84; RESP 18; TEMP 36.5; O2SAT 97
[2020-06-17 08:24] VITALS: BP 123/92; PULSE 88; RESP 18; O2SAT 98
--- NOTE | 2020-06-17 10:00 | ANE.PACU2 ---
Inpatient post-anesthesia follow up: Airway intact: Yes Vital signs: Temperature 97.7 F Pulse Rate 88 Respiratory Rate 18 Blood Pressure 123/92 Pulse Oximetry 98 Oxygen Delivery Me thod Room Air Oxygen Flow Rate 8 Fraction of Inspir ed Oxygen Hydration adequate: Yes Nausea and vomiting: No Pain level: 3 Mental status: Baseline
== END 2020-06-17 08:47 | disposition home or self-care (01) ==
PROVIDERS: Obstetrics & Gynecology; PCP Nurse Practitioner Family; Visit Provider Pathology Anatomic Pathology & Clinical Pathology
PROC: 0UDB8ZZ Extraction of Endometrium, Via Natural or Artificial Opening Endoscopic (ICD-10-PCS; CPT 58558; principal; 2020-06-17 07:00)
PROC: (CPT 58120; 2020-06-17 07:00)
DX: N85.00 Endometrial hyperplasia, unspecified (principal); F17.210 Nicotine dependence, cigarettes, uncomplicated
CPT/HCPCS: 58558; 12345; 36416; 81025; 82962; 84703; 85025; 88305; J0131; J1100; J1885; J2250; J2405; J2704; J2765; J3010; J7030

== ENCOUNTER 2020-06-23 00:15 | Emergency (ER) | payer OTHER, SELFPAY ==
[2020-06-23 00:20] VITALS: BP 125/94; PULSE 93; RESP 22; TEMP 36.5; O2SAT 98; BMI 51.6
--- NOTE | 2020-06-23 01:08 | W.ED.PSYCH ---
HPI - Psych General: Chief Complaint: Psychiatric Symptoms Stated Complaint: anxiety, possible panic attack Time Seen by Provider: 06/23/20 00:26 History of Present Illness: HPI Narrative: 24-year-old female with a history of anxiety disorder and panic attack. She presents after an episode at home, where she had began to feel increasing anxiety. She went to bed, and slept for around 20 minutes, but then awoke with palpitations, hyperventilation, and shaking. She was able to drive herself here, and is improved on arrival, but still somewhat anxious. She says she is no more depressed than usual, and does not having thoughts of harming herself or anyone else. complaint: other Onset (ago): minute(s) Duration: changing over time History of same: Yes Relieving factors: none Exacerbating factors: other Context: significant life stressor Associated psychiatric symptoms: depression Associated symptoms: Deny auditory hallucinations, visual hallucinations, homicidal ideation or suicidal ideation Review of Systems Const: Denies: fever(s) or chills Eyes: Denies: change in vision ENMT: Denies: odynophagia or sinus pain Card: Reports: chest pain (reports stable hx of gerd); Denies: palpitations or irregular heart rhythm Resp: Reports: dyspnea; Denies: productive cough, non-productive cough or wheezing GI: Denies: abdominal pain, nausea or vomiting : Denies: dysuria or hematuria Musc: Denies: neck pain or joint warmth Skin/Breast: Denies: rash or erythema Neuro: Denies: headache(s), dizziness or vertigo Psych: Denies: visual hallucinations, auditory hallucinations, suicidal ideation or homicidal ideation [facility] ED PFSH: Medical History (Updated 06/23/20 @ 01:08 by Carl Humphrey DO) Anxiety Blind left eye Chronic GERD Migraine without aura and without status migrainosus, not intractable Secondary amenorrhea Surgical History History of tonsillectomy and adenoidectomy Family History Grandmother Breast cancer Great- maternal High cholesterol Maternal Hypertension Maternal Family/Other Diabetes Paternal aunt Hypertension Paternal Aunts and Uncles Stroke Paternal Great Aunt Grandfather Heart disease Paternal Denies family history of Colon cancer Ovarian cancer Bleeding disorder Uterine cancer Thyroid disease Social History Additional social history: - Tobacco use: current- 1 pack per day Alcohol use: Special occasions/holidays Drug use: Marijuana- twice/week Female Reproductive History: Date of last menstrual period: 02/16/20 Physical Exam Const: GENERAL APPEARANCE: well developed and anxious (mild) ORIENTATION/CONSCIOUSNESS: Yes oriented to person, Yes oriented to place and Yes oriented to time HENMT: COMMON NORMALS: normocephalic, external ears normal and Normal external nose present HEAD & SCALP: normocephalic FACE & SINUS: normal facial exam NOSE: Normal external nose present and No nasal discharge present EXTERNAL EAR: Yes external ears normal Eye: COMMON NORMALS: Equal, round and reactive pupils present, EOMs intact bilaterally and conjunctivae normal EYELID: eyelids normal CONJUNCTIVA: Yes conjunctivae normal PUPIL: Yes Equal, round and reactive pupils present Neck/C-Spine: GENERAL: No tracheal deviation Chest: COMMONS NORMALS: normal inspection of the chest CHEST: No tenderness Resp: COMMON NORMALS: clear to auscultation bilaterally EFFORT & INSPECTION: No tachypneic, No respiratory distress, No retractions, No uses accessory muscles and No tracheal deviation AUSCULTATION: clear to auscultation bilaterally, no rhonchi, no wheezes and lung sounds not diminished Cardio: COMMON NORMALS: regular rate and regular rhythm RATE: regular rate RHYTHM: regular rhythm HEART SOUNDS: no murmurs PERIPHERAL PULSES: radial pulses present GI: INSPECTION: No abdominal distension AUSCULTATION: No Hyperactive bowel sounds present and No Hypoactive bowel sounds present PALPATION: No Guarding due to palpation present (GI) and No Rigid due to palpation PERCUSSION: no dullness to percussion and no tympanic to percussion Neuro: SENSORIUM/ORIENTATION: Yes oriented to person, Yes oriented to place and Yes oriented to time Psych: COMMON NORMALS: Normal thought process present, speech normal, denies hallucinations and denies suicidal ideation APPEARANCE: Yes grossly normal ATTITUDE: No agitated SPEECH: Yes normal speech MOOD & AFFECT: Yes anxious (mild) THOUGHT PROCESS: Normal thought process present THOUGHT CONTENT: Yes Normal thought content present ATTENTION/CONCENTRATION: Yes attention grossly intact and Yes concentration grossly intact MEMORY/COGNITION: Yes memory grossly intact and Yes cognition grossly intact INSIGHT: Good insight present (Psych) JUDGEMENT: Good judgement present (Psych) Skin: COMMON NORMALS: no rashes or lesions noted GENERAL SKIN EXAM: no rashes or lesions noted MDM - Psych MDM Narrative: Medical decision making narrative: EKG shows a normal sinus rhythm with a normal axis and a rate of 75. Her symptoms are essentially resolved, but she is worried about going home and getting them back. She will be dispensed Ativan 1 mg and oral form to take when she gets home to help her rest. She states that she usually feels better after a night's sleep. She will be prescribed 7 Ativan for breakthrough anxiety/panic as needed. She was encouraged to take her sertraline more regularly. Discharge Plan Discharge Patient Disposition: Home Clinical Impression: Acute anxiety Condition: Stable Prescriptions: New lorazepam 1 mg tablet 1 mg PO DAILY PRN (Reason: anxiety) Qty: 7 RF: 0 No Action sertraline [Zoloft] 25 mg tablet 25 mg PO DAILY RF: 0 omeprazole 20 mg tablet,delayed release (DR/EC) 20 mg PO DAILY RF: 0 Maalox Maximum Strength 400-400-40 mg/5 mL suspension 10 ml PO Q6H PRN (Reason: indigestion) Qty: 3000 RF: 0 metformin 500 mg tablet 500 mg PO DAILY RF: 0 tramadol 50 mg Tablet 50 - 100 mg PO Q6H PRN (Reason: Moderate To Severe Pain) Qty: 10 RF: 0 Discharge Orders: Discharge ED (Routine); Ordered 06/23/20 Ordered By: Carl Humphrey Referrals: Mallory Kelly FNP [Primary Care Provider] - 4-7 days Discharge Diet: Advance as tolerated Discharge Activity: Increase activity as tolerated Patient Instructions: Anxiety (ED) Activity Restrictions/Additional Instructions: Return for any concerning symptoms Coding Level of Care Code ED Physician Support Coordinator for Kelin Rivas
[2020-06-23] MEDS: LORazepam 1 mg Tablet PO (01:16)
[2020-06-23 01:19] VITALS: BP 148/83; PULSE 95; RESP 17; TEMP 36.6; O2SAT 99
== END 2020-06-23 01:19 | disposition home or self-care (01) ==
PROVIDERS: Emergency Provider Emergency Medicine; PCP Nurse Practitioner Family
DX: F41.9 Anxiety disorder, unspecified (principal); F17.210 Nicotine dependence, cigarettes, uncomplicated
CPT/HCPCS: 12345; 99281; 99283

== ENCOUNTER 2020-06-29 01:13 | Emergency (ER) | payer OTHER, SELFPAY ==
[2020-06-29 01:33] VITALS: BP 135/96; PULSE 76; RESP 16; O2SAT 97; BMI 50.8
--- NOTE | 2020-06-29 02:52 | XRR_ITS ---
PROCEDURE INFORMATION: Exam: XR Chest, 1 View Exam date and time: 06/29/2020 2:59 AM Age: 24 years old Clinical indication: Dyspnea TECHNIQUE: Imaging protocol: XR of the chest Views: 1 view. COMPARISON: CR XR chest 1V portable [id number] 06/02/2020 12:35 AM FINDINGS: Lungs: Unremarkable. No consolidation. Pleural space: Unremarkable. No pleural effusion. No pneumothorax. Heart/Mediastinum: Unremarkable. No cardiomegaly. Bones/joints: Unremarkable. XR/XR chest 1V portable [id number] IMPRESSION: No acute findings.
--- NOTE | 2020-06-29 03:43 | W.ED.NAVMDI ---
HPI - Nausea/Vomiting/Diarrhea General: Chief complaint: Nausea/Vomiting/Diarrhea Stated complaint: nausea/vomiting Time Seen by Provider: 06/29/20 02:49 Source: patient Mode of arrival: ambulatory Limitations: no limitations History of Present Illness: HPI Narrative: Sharon is a nice 24-year-old female who comes in complaining of multiple complaints. She states that she has had numerous episodes of nausea vomiting today. She feels dizzy and lightheaded. States she has right-sided chest discomfort. States she feels weak and achy and poorly all over. Patient states any type of exertion or taxing physical activity makes her feel worse. Rest does make her feel some better. Patient states that she just felt worse and the vomiting became worse and that is primarily why she came in tonight. Patient denies having anything similar in the past. She denies any known known ill contacts. She denies any respiratory symptoms. Associated nausea: Yes Associated symtoms: Reports fatigue, malaise and nausea; Denies change in vision, chest pain, diaphoresis, dizziness, dysuria, headache(s), palpitations or syncope Review of Systems Const: Reports: body aches, fatigue and malaise; Denies: fever(s), chills or diaphoresis Eyes: Denies: change in vision, blurry vision, photophobia, eye discomfort, eye discharge, eye redness or yellow eyes ENMT: Denies: throat pain, odynophagia, hoarseness, swelling of lips/tongue, ear or mastoid pain, ear discharge, change in hearing or nasal discharge Card: Denies: chest pain, palpitations, irregular heart rhythm, edema, lightheadedness, syncope, pre-syncope, dyspnea on exertion or orthopnea Resp: Denies: dyspnea, productive cough, non-productive cough, wheezing, hemoptysis or chest congestion GI: Reports: nausea and vomiting; Denies: abdominal pain, hematemesis, coffee ground emesis, heartburn, diarrhea, constipation, GI cramping, hematochezia or melena : Denies: flank pain, dysuria, urinary frequency, urinary urgency or hematuria Musc: Denies: neck pain, back pain, extremity pain, extremity swelling, joint pain, joint swelling, joint redness, joint warmth or joint stiffness Skin/Breast: Denies: rash, pruritus, erythema, skin pain or skin tenderness Neuro: Denies: headache(s), numbness in extremities, weakness in extremities, sensory changes, lack of coordination, difficulty walking, dizziness, vertigo, confusion, Slurred speech present or seizure-like activity George/Lymph: Denies: easy bruising, easy bleeding, petechiae, purpura or enlarged lymph nodes All/Imm: Denies: urticaria, throat swelling, tongue swelling, facial swelling or acute wheezing PFSH ED PFSH: Medical History (Updated 06/29/20 @ 03:47 by Adrianna Mcdaniel) Anxiety Blind left eye Chronic GERD Migraine without aura and without status migrainosus, not intractable Secondary amenorrhea Surgical History History of tonsillectomy and adenoidectomy Family History Grandmother Breast cancer Great- maternal High cholesterol Maternal Hypertension Maternal Family/Other Diabetes Paternal aunt Hypertension Paternal Aunts and Uncles Stroke Paternal Great Aunt Grandfather Heart disease Paternal Denies family history of Colon cancer Ovarian cancer Bleeding disorder Uterine cancer Thyroid disease Social History Additional social history: - Tobacco use: current- 1 pack per day Alcohol use: Special occasions/holidays Drug use: Marijuana- twice/week Female Reproductive History: Date of last menstrual period: 02/16/20 Physical Exam Const: COMMON NORMALS: no acute distress, patient oriented x3, no limitations and alert GENERAL APPEARANCE: cooperative HENMT: COMMON NORMALS: normocephalic, atraumatic, external ears normal, EAC's normal and Normal external nose present HEAD & SCALP: normal to inspection, normocephalic and atraumatic FACE & SINUS: normal facial exam and face symmetric NOSE: Normal external nose present and Normal nares present EXTERNAL EAR: Yes external ears normal EXTERNAL AUDITORY CANAL: EAC's normal MOUTH: Normal oral and palatal mucosa present, lip normal and tongue normal Eye: COMMON NORMALS: Equal, round and reactive pupils present and conjunctivae normal GENERAL EYE: appearance normal, both eyes and all related structures ALIGNMENT: Yes alignment normal PERIORBITAL: periorbital findings normal EYELID: eyelids normal CONJUNCTIVA: Yes conjunctivae normal SCLERA: sclerae normal PUPIL: Yes Equal, round and reactive pupils present Neck/C-Spine: COMMON NORMALS: full ROM, no lymphadenopathy, supple, no meningeal signs and no JVD GENERAL: Yes normal visual inspection and Yes trachea midline Chest: COMMONS NORMALS: normal inspection of the chest and normal palpation of entire chest wall Resp: COMMON NORMALS: normal respiratory effort, No retractions, No use of accessory muscles and clear to auscultation bilaterally EFFORT & INSPECTION: Yes able to speak in complete sentences and Yes symmetric chest movement AUSCULTATION: clear to auscultation bilaterally, no crackles, no rales, no rhonchi and no wheezes Cardio: COMMON NORMALS: no JVD, regular rate, regular rhythm, S1 normal heart sound present and S2 normal heart sound present RATE: regular rate RHYTHM: regular rhythm HEART SOUNDS: S1 normal heart sound present, S2 normal heart sound present, no click, no gallops, no murmurs and no rubs GI: COMMON NORMALS: Soft to palpation and No hepatosplenomegaly present PALPATION: Yes Soft to palpation, No Tenderness to palpation present (GI), No Guarding due to palpation present (GI), No Rigid due to palpation, Yes No hepatosplenomegaly present, No Hernia present, No Palpable mass present and No Pulsatile mass present : COMMON NORMALS: Yes no CVA tenderness BLADDER/KIDNEY EXAM: Yes no CVA tenderness EXTERNAL FEMALE EXAM: No Hernia present Back/Pelvis: COMMON NORMALS: no CVA tenderness, thoracic and lumbar spine normal to inspection, no thoracic nor lumbar tenderness and thoraco-lumbar ROM normal Extremity: COMMON NORMALS: normal to inspection, full ROM, capillary refill normal, no joint enlargement, no clubbing, cyanosis or edema and no calf tenderness Neuro: COMMON NORMALS: patient oriented x3, CN's II-XII intact bilaterally, moves all extremities, no focal motor deficits and no sensory deficits noted SENSORIUM/ORIENTATION: Yes alert MENINGEAL SIGNS: Yes no meningeal signs SPEECH: speech normal Psych: COMMON NORMALS: mental status grossly normal, Normal thought process present, cooperative, normal affect, speech normal and activity/motor behavior normal SPEECH: Yes normal speech THOUGHT PROCESS: Normal thought process present Skin: COMMON NORMALS: no rashes or lesions noted, turgor normal, no jaundice, no petechiae and no mottling GENERAL SKIN EXAM: no rashes or lesions noted and turgor normal Course Vital Signs: Vital signs: Vital Signs Pulse Rate 75 06/29/20 04:26 Respiratory Rate 16 06/29/20 01:33 Blood Pressure 135/96 06/29/20 01:33 Pulse Oximetry 97 06/29/20 04:26 MDM - Nausea/Vomiting/Diarrhea MDM Narrative: Medical decision making narrative: 351 -the patient is feeling better and declines any further evaluation and care. At this point the only result I have is that of a chest x-ray. She understands that my her work-up is very limited and I cannot tell her that everything is okay without further evaluation and care but she refuses. She states she is tired and she wants to go home. Patient understands she is leaving AGAINST MEDICAL ADVICE but at this time based upon her exam and the work-up that I have that I do not see any life-threatening findings. Patient agrees to return should her symptoms change or worsen but at this time she request something for indigestion, nausea and to be discharged. Patient has been warned but she is also been welcomed to return. Imaging Data^: CXR: Attestation: I personally reviewed and interpreted this imaging study as follows: My impression: No acute cardiopulmonary findings. Discharge Plan Discharge Patient Disposition: Left Against Medical Advice Clinical Impression: Drug-induced nausea and vomiting Condition: Stable Prescriptions: New Zofran 4 mg tablet 4 mg PO Q6H PRN (Reason: nausea and vomiting) Qty: 20 RF: 0 No Action sertraline [Zoloft] 25 mg tablet 25 mg PO DAILY RF: 0 omeprazole 20 mg tablet,delayed release (DR/EC) 20 mg PO DAILY RF: 0 Maalox Maximum Strength 400-400-40 mg/5 mL suspension 10 ml PO Q6H PRN (Reason: indigestion) Qty: 3000 RF: 0 lorazepam 1 mg tablet 1 mg PO DAILY PRN (Reason: anxiety) Qty: 7 RF: 0 metformin 500 mg tablet 500 mg PO DAILY RF: 0 tramadol 50 mg Tablet 50 - 100 mg PO Q6H PRN (Reason: Moderate To Severe Pain) Qty: 10 RF: 0 Discharge Orders: Discharge ED (Routine); Ordered 06/29/20 Ordered By: Adrianna Mcdaniel Referrals: Mallory Kelly, [employer] SAL[employer] ACCOUNT EXECUTIVE [Primary Care Provider] - 1-3 days Discharge Diet: Advance as tolerated and Clear Liquid Discharge Activity: Increase activity as tolerated Patient Instructions: Acute Nausea and Vomiting (ED), Abdominal Pain (ED) Activity Restrictions/Additional Instructions: You're leaving AGAINST MEDICAL ADVICE and are at risk for or severe permanent disability by doing so. You are more than welcome to return at any time for recheck and for further evaluation and care suture change you change your mind. Coding Level of Care Code ED Consulting Technical Manager for Chg Fwd Exam Comprehensive
--- NOTE | 2020-06-29 03:47 | PC.NURSE ---
Pt refused IV, IV medications, EKG, and cardiac monitoring. Pt states I want the results of the chest xray and maybe something to take by mouth for nausea.
[2020-06-29] MEDS: ondansetron 4 MG Tablet 8 MG PO (04:19)
[2020-06-29] MEDS: lidocaine 2% viscous 15 ML, aluminum-mag hydrox-simethicon 30 ML, sucralfate oral liq 1 GM PO (04:19)
[2020-06-29 04:26] VITALS: PULSE 75; O2SAT 97
== END 2020-06-29 04:26 | disposition left against medical advice (07) ==
PROVIDERS: Emergency Provider Emergency Medicine; PCP Nurse Practitioner Family
DX: R11.2 Nausea with vomiting, unspecified (principal); Z53.21 Procedure and treatment not carried out due to patient leaving prior to being seen by health care provider; Z79.84 Long term (current) use of oral hypoglycemic drugs; F17.210 Nicotine dependence, cigarettes, uncomplicated
CPT/HCPCS: 12345; 71045; 99281; 99283; Q0162

== ENCOUNTER 2020-09-17 13:11 | Emergency (ER) | payer OTHER, SELFPAY ==
[2020-09-17 13:14] VITALS: BP 155/112; PULSE 81; RESP 16; TEMP 36.6; O2SAT 96; BMI 51.6
--- NOTE | 2020-09-17 13:32 | W.ED.ABDPA2 ---
HPI - Abdominal Pain General: Chief Complaint: Abdominal Pain Stated Complaint: ABD PAIN Time Seen by Provider: 09/17/20 13:22 Source: patient Mode of arrival: ambulatory Limitations: no limitations History of Present Illness: HPI narrative: She stopped her medications for about 2 weeks, then the symptoms started. She also has been taking more NSAIDs because she had swelling in her throat and she will needed the anti-inflammatory effect. MD elicited complaint: abdominal pain Onset (ago): week(s) (1.5) Pain Consistency: intermittent Location: Epigastric Severity: moderate Quality: stabbing Radiation: R flank Migration to: no migration Exacerbating factors: eating Relieving factors: nothing Associated Symptoms: Reports constipation, heartburn and nausea; Denies anorexia, belching, bloating, change in bowel habits, change in stool character, chills, coffee ground emesis, GI cramping, diarrhea, dyspepsia, dysuria, excessive flatus, fever(s), hematochezia, hematuria, hematemesis, fecal incontinence, loose stools, melena, poor appetite, syncope and vomiting Treatments prior to arrival: NSAIDs Related Data: Date of Last Menstrual Period: 08/20/20 Review of Systems General: Reports: 10 or more systems reviewed and unremarkable except in HPI and below Const: Denies: fever(s) or chills Eyes: Denies: change in vision or blurry vision ENMT: Denies: throat pain, enlarged tonsils, odynophagia, hoarseness, mouth pain or swelling of lips/tongue Card: Denies: syncope Resp: Denies: dyspnea, productive cough or non-productive cough GI: Reports: nausea, heartburn and constipation; Denies: vomiting, hematemesis, coffee ground emesis, diarrhea, bloating, GI cramping, belching, excessive flatus, fecal incontinence, change in bowel habits, change in stool character, hematochezia or melena : Denies: dysuria or hematuria Musc: Denies: neck pain, back pain or extremity swelling Skin/Breast: Denies: rash, pruritus or erythema Neuro: Denies: headache(s), numbness in extremities or weakness in extremities Endo: Denies: polyuria, polydipsia or tired all the time PFS ED PFSH: Medical History Anxiety Blind left eye Chronic GERD Migraine without aura and without status migrainosus, not intractable Secondary amenorrhea Surgical History History of tonsillectomy and adenoidectomy Status post hysteroscopy (06/17/20) With D&C. 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 [place] [facility] [place] Family History Grandmother Breast cancer Great- maternal High cholesterol Maternal Hypertension Maternal Family/Other Diabetes Paternal aunt Hypertension Paternal Aunts and Uncles Stroke Paternal Great Aunt Grandfather Heart disease Paternal Denies family history of Colon cancer Ovarian cancer Bleeding disorder Uterine cancer Thyroid disease Social History Smoking and tobacco status: current every day smoker cigarettes Packs smoked per day: 1 Alcohol intake: current Alcohol intake frequency: holidays/special occasions only Substance/Drug Use: current Substance/Drug use frequency: Special occassions/opportunity only Substance/Drug use type: Marijuana Additional social history: - Tobacco use: current- 1 pack per day Alcohol use: Special occasions/holidays Drug use: Marijuana- twice/week Female Reproductive History: Date of last menstrual period: 08/20/20 Physical Exam Const: COMMON NORMALS: no acute distress, average body habitus, patient oriented x3, no limitations, healthy appearing, alert and well nourished HENMT: COMMON NORMALS: normocephalic, atraumatic and moist oral mucous membranes HEAD & SCALP: normocephalic and atraumatic Neck/C-Spine: COMMON NORMALS: no meningeal signs and no JVD Resp: COMMON NORMALS: normal respiratory effort, No retractions, No use of accessory muscles, clear to auscultation bilaterally and percussion normal AUSCULTATION: clear to auscultation bilaterally PERCUSSION: percussion normal Cardio: COMMON NORMALS: no JVD, regular rate, regular rhythm, S1 normal heart sound present, S2 normal heart sound present, No gallops present (Cardio), No clicks present (Cardio), No murmurs present (Cardio), No rub (Cardio) and Peripheral pulses 2+ throughout RATE: regular rate RHYTHM: regular rhythm HEART SOUNDS: S1 normal heart sound present and S2 normal heart sound present PERIPHERAL PULSES: Peripheral pulses 2+ throughout GI: COMMON NORMALS: Normal to inspection, nondistended, normoactive bowel sounds present, Soft to palpation, No hepatosplenomegaly present, no masses and no bruits PALPATION: Yes Soft to palpation, Yes Tenderness to palpation present (GI) (epigastric) and Yes No hepatosplenomegaly present : COMMON NORMALS: Yes no CVA tenderness BLADDER/KIDNEY EXAM: Yes no CVA tenderness Back/Pelvis: COMMON NORMALS: no CVA tenderness Extremity: COMMON NORMALS: normal to inspection, full ROM, capillary refill normal, no calf tenderness and no pedal edema Neuro: COMMON NORMALS: patient oriented x3 SENSORIUM/ORIENTATION: Yes alert MENINGEAL SIGNS: Yes no meningeal signs Skin: COMMON NORMALS: no rashes or lesions noted, no wounds, turgor normal, no jaundice, no petechiae and no mottling GENERAL SKIN EXAM: no rashes or lesions noted and turgor normal Course Reevaluation(s): Reevaluation #1: Discussed her lab findings with her. Negative for acute findings. We will manage her as a case of acute gastritis. She already is on 20 mg of omeprazole daily. She is advised to increase it to 40 mg daily for about 2 weeks and will add sucralfate to her medications. She is advised to return for any concerns. She voiced understanding and is in agreement with the plan. Time: 15:15 Vital Signs: Vital signs: Vital Signs Temperature 97.9 F 09/17/20 13:14 Pulse Rate 81 09/17/20 13:14 Respiratory Rate 20 H 09/17/20 15:25 Blood Pressure 146/105 09/17/20 15:25 Pulse Oximetry 96 09/17/20 13:14 MDM - Abdominal Pain MDM Narrative: Medical decision making narrative: 24-year-old female patient with clinical features consistent with acute gastritis. She has epigastric pain for about 1-1/2 weeks, labs are unremarkable and she had been taking NSAIDs. No indication for imaging at this time. She is discharged home with a prescription for sucralfate, she is already on omeprazole 20 mg daily and advised that she increase to 40 mg daily for 2 weeks. Medical Records: Attestation: I reviewed the patient's medical records. Lab Data: Attestation: I reviewed the patient's lab results. Labs: Lab Results 09/17/20 09/17/20 09/17/20 Range/Units 13:45 13:45 13:45 WBC 11.8 H (4.0-10.0) 10^3/ uL RBC 4.30 (4.1-5.3) 10^6/u L Hgb 12.1 (11.5-15.3) g/dL Hct 38.0 (37.0-47.0) % MCV 88.4 (81-99) fL MCH 28.1 (28.0-34.0) pg MCHC 31.8 (30.0-36.0) g/dL RDW 13.2 (12.1-15.1) % Plt Count 375 (130-400) 10^3/c mm MPV 10.4 (7.4-10.4) fL Neut % (Auto) 63.5 % Lymph % (Auto) 27.7 % [place] % (Auto) 3.5 % Eos % (Auto) 4.7 % Baso % (Auto) 0.3 % Neut # (Auto) 7.52 (1.8-7.7) 10^3/u L Lymph # (Auto) 3.3 (0.8-4.8) 10^3/u L [place] # (Auto) 0.4 (0.2-0.9) 10^3/u L Eos # (Auto) 0.6 (0.0-0.8) 10^3/u L Baso # (Auto) 0.0 (0.0-0.1) 10^3/u L Nucleated RBC % (a uto) 0 % Nucleated RBCs # 0.0 /100WBC Sodium 138 (136-145) mmol/L Potassium 3.5 (3.5-5.1) mmol/L Chloride 103 (98-107) mmol/L Carbon Dioxide 23 (22-29) mmol/L Anion Gap 15.5 (5-19) BUN 6 (6-20) mg/dL Creatinine 0.5 (0.5-0.9) mg/dL GFR Calculation 154.3 H (90-130) mL/min Glucose 76 (65-115) mg/dL Calculated Osmolal ity 282 L (285-295) mOsm/k g Calcium 8.7 (8.5-10.5) mg/dL Total Bilirubin 0.4 (0.15-1.2) mg/dL AST 13 (0-32) U/L ALT 24 (0-33) U/L Alkaline Phosphata se 71 (35-105) IU/L C-Reactive Protein 38.1 H (0.0-4.9) mg/L Total Protein 7.2 (6.6-8.7) g/dL Albumin 3.7 (3.5-5.2) g/dL Globulin 3.5 (1.3-4.6) g/dL Lipase 11 L (13-60) U/L HCG, Qual Negative (Negative) Urine Color (Yellow) Urine Appearance (CLEAR) Urine pH (5-7) Ur Specific Gravit y (1.005-1.030) Urine Protein (Negative) Urine Glucose (UA) (Normal) Urine Ketones (Negative) Urine Blood (Negative) Urine Nitrate (Negative) Urine Bilirubin (Negative) Urine Urobilinogen (Negative) mg/dL Ur Leukocyte Ileana ase (Negative) Urine RBC (0-2) /hpf Urine WBC (0-5) /hpf Ur Squamous Epith Cells (0-5) /hpf Amorphous Sediment Urine Bacteria (NONE) /hpf 09/17/20 Range/Units 14:00 WBC (4.0-10.0) 10^3/ uL RBC (4.1-5.3) 10^6/u L Hgb (11.5-15.3) g/dL Hct (37.0-47.0) % MCV (81-99) fL MCH (28.0-34.0) pg MCHC (30.0-36.0) g/dL RDW (12.1-15.1) % Plt Count (130-400) 10^3/c mm MPV (7.4-10.4) fL Neut % (Auto) % Lymph % (Auto) % [place] % (Auto) % Eos % (Auto) % Baso % (Auto) % Neut # (Auto) (1.8-7.7) 10^3/u L Lymph # (Auto) (0.8-4.8) 10^3/u L [place] # (Auto) (0.2-0.9) 10^3/u L Eos # (Auto) (0.0-0.8) 10^3/u L Baso # (Auto) (0.0-0.1) 10^3/u L Nucleated RBC % (a uto) % Nucleated RBCs # /100WBC Sodium (136-145) mmol/L Potassium (3.5-5.1) mmol/L Chloride (98-107) mmol/L Carbon Dioxide (22-29) mmol/L Anion Gap (5-19) BUN (6-20) mg/dL Creatinine (0.5-0.9) mg/dL GFR Calculation (90-130) mL/min Glucose (65-115) mg/dL Calculated Osmolal ity (285-295) mOsm/k g Calcium (8.5-10.5) mg/dL Total Bilirubin (0.15-1.2) mg/dL AST (0-32) U/L ALT (0-33) U/L Alkaline Phosphata se (35-105) IU/L C-Reactive Protein (0.0-4.9) mg/L Total Protein (6.6-8.7) g/dL Albumin (3.5-5.2) g/dL Globulin (1.3-4.6) g/dL Lipase (13-60) U/L HCG, Qual (Negative) Urine Color Yellow (Yellow) Urine Appearance Cloudy (CLEAR) Urine pH 6.5 (5-7) Ur Specific Gravit y 1.015 (1.005-1.030) Urine Protein Neg (Negative) Urine Glucose (UA) Norm (Normal) Urine Ketones 2+ H (Negative) Urine Blood Neg (Negative) Urine Nitrate Negative (Negative) Urine Bilirubin Neg (Negative) Urine Urobilinogen 1 H (Negative) mg/dL Ur Leukocyte Ileana ase Negative (Negative) Urine RBC 0-4 H (0-2) /hpf Urine WBC None (0-5) /hpf Ur Squamous Epith Cells 15-25 H (0-5) /hpf Amorphous Sediment Not Reportable Urine Bacteria 1+ H (NONE) /hpf Discharge Plan Discharge Patient Disposition: Home Clinical Impression: Acute gastritis Qualifiers: Gastritis type: unspecified gastritis Gastritis bleeding: without bleeding Qualified Code(s): K29.00 - Acute gastritis without bleeding Condition: Stable Prescriptions: New sucralfate 1 gram tablet 1 g PO TID 14 Days Qty: 42 RF: 0 Continued omeprazole 20 mg tablet,delayed release (DR/EC) 20 mg PO DAILY RF: 0 norgestimate-ethinyl estradiol [Sprintec (28)] 0.25-35 mg-mcg tablet 1 tab PO DAILY Qty: 28 RF: 12 aspirin 325 mg Tablet 325 mg PO PRN RF: 0 brompheniramine-PPA 12-75 mg Tablet Extended Release 12 Hr 2 tab PO PRN RF: 0 ProAir HFA 90 mcg/actuation Hfa Aerosol Inhaler 2 puff INHALATION Q4H PRN (Reason: Shortness Of Breath) RF: 0 sertraline 50 mg tablet 50 mg PO DAILY RF: 0 metformin 500 mg tablet 500 mg PO DAILY RF: 0 Discharge Orders: Discharge ED (Routine); Ordered 09/17/20 Ordered By: Sridevi Vail Referrals: Mallory Kelly FNP [Primary Care Provider] - 1-3 days Discharge Diet: As Directed Discharge Activity: Increase activity as tolerated Patient Instructions: Gastritis (ED), Diet for Ulcers and Gastritis (ED) Activity Restrictions/Additional Instructions: Return for any new or worsening symptoms. Follow-up with your primary care provider within 3 days. Follow the diet as instructed, the diet plan is with your discharge instructions. Take medication as prescribed. Increase omeprazole to 40 mg a day for 2 weeks, then you can reduce it back to 20 mg. Coding Level of Care Code ED Risk Control Product Liability Director for [facility] Exam Comprehensive
[2020-09-17 13:57] LABS: Basophils % 0.3 %; Eosinophils # 0.6 10^3/uL (0.0-0.8); Eosinophils % 4.7 %; Hemoglobin 12.1 g/dL (11.5-15.3); Lymphocytes # 3.3 10^3/uL (0.8-4.8); Lymphocytes % 27.7 %; Mean Corpuscular HGB Conc 31.8 g/dL (30.0-36.0); Mean Corpuscular Hemoglobin 28.1 pg (28.0-34.0); Mean Corpuscular Volume 88.4 fL (81-99); Mean Platelet Volume 10.4 fL (7.4-10.4); Monocytes # 0.4 10^3/uL (0.2-0.9); Monocytes % 3.5 %; Neutrophils # 7.52 10^3/uL (1.8-7.7); Neutrophils % 63.5 %; Nucleated Red Blood Cells % 0 %; Platelet Count 375 10^3/cmm (130-400); Red Cell Distribution Width 13.2 % (12.1-15.1); White Blood Count 11.8 10^3/uL (4.0-10.0)
[2020-09-17 14:11] LABS: HCG, Serum Qual Negative (Negative)
[2020-09-17 14:18] LABS: Alanine Aminotransferase 24 U/L (0-33); Albumin Level 3.7 g/dL (3.5-5.2); Alkaline Phosphatase 71 IU/L (35-105); Anion Gap 15.5 (5-19); Aspartate Amino Transferase 13 U/L (0-32); Blood Urea Nitrogen 6 mg/dL (6-20); C Reactive Protein 38.1 mg/L (0.0-4.9); Calcium 8.7 mg/dL (8.5-10.5); Carbon Dioxide 23 mmol/L (22-29); Chloride 103 mmol/L (98-107); Globulin 3.5 g/dL (1.3-4.6); Glomerular Filtration Rate 154.3 mL/min (90-130); Glucose 76 mg/dL (65-115); Lipase 11 U/L (13-60); Osmolality Calculated 282 mOsm/kg (285-295); Potassium 3.5 mmol/L (3.5-5.1); Sodium 138 mmol/L (136-145); Total Bilirubin 0.4 mg/dL (0.15-1.2); Total Protein 7.2 g/dL (6.6-8.7)
[2020-09-17 14:45] LABS: Add Urine Microscopic? YES; Bilirubin Urine Neg (Negative); Blood Urine Neg (Negative); Glucose Urine UA Norm (Normal); Ketones Urine 2+ (Negative); Leukocyte Esterase Urine Negative (Negative); Nitrate Urine Negative (Negative); Protein Urine Neg (Negative); Specific Gravity, Urine 1.015 (1.005-1.030); Urine Appearance Cloudy (CLEAR); Urine Color Yellow (Yellow); Urobilinogen Urine 1 mg/dL (Negative); pH Urine 6.5 (5-7)
[2020-09-17 15:07] LABS: Add Urine Culture? No; Bacteria Urine 1+ /hpf; RBC Urine 0-4 /hpf (0-2); Squamous Epithelial Cell Urine 15-25 /hpf (0-5)
[2020-09-17 15:25] VITALS: BP 146/105; RESP 20
== END 2020-09-17 15:22 | disposition home or self-care (01) ==
PROVIDERS: Emergency Provider Family Medicine; PCP Nurse Practitioner Family
DX: K29.00 Acute gastritis without bleeding (principal); Z79.82 Long term (current) use of aspirin; F17.210 Nicotine dependence, cigarettes, uncomplicated
CPT/HCPCS: 80053; 81001; 83690; 84703; 85025; 86140; 99282

== ENCOUNTER 2020-10-03 08:09 | Emergency (ER) | payer OTHER, SELFPAY ==
[2020-10-03 08:20] VITALS: BP 119/96; PULSE 86; RESP 18; TEMP 37.2; O2SAT 96; BMI 51.5
[2020-10-03 08:24] VITALS: BP 119/96; PULSE 80; RESP 18; TEMP 37.2; O2SAT 98
--- NOTE | 2020-10-03 08:24 | ED_ITS ---
HPI - Nausea/Vomiting/Diarrhea General: Chief complaint: Nausea/Vomiting/Diarrhea Stated complaint: N/V/D, L SIDE AB PAIN Time Seen by Provider: 10/03/20 08:11 Source: patient Mode of arrival: ambulatory Limitations: no limitations History of Present Illness: HPI Narrative: 24-year-old female patient presents to the emergency department with complaints of nausea vomiting diarrhea since this morning. She reports woke up nauseated, vomited x1 with one episode of diarrhea. History of GERD/gastritis, remains on the mop resolved, however, she did not take her medication yesterday. She reports ate [employer] around 4 PM yesterday then ate a burrito prior to going to bed. Denies hematemesis or hematochezia. She reports left upper quadrant pain, feels as a gas bubble in her abdomen, she reports heartburn symptoms this morning along with nausea. She denies fever chills. She reports recent adjustment from her chiropractor for upper back pain, approximately 3 days ago. She reports regular adjustments by her chiropractor. MD elicited complaint: nausea, vomiting, diarrhea and abdominal pain Pertinent past history: other (Gastritis, GERD) Onset (ago): hour(s) (3) Description of vomiting: food contents and bilious Description of diarrhea: watery Associated nausea: Yes Associated abdominal pain: Yes Location of pain: Epigastric Pain consistency: intermittent Severity: mild Quality: cramping and aching Exacerbating factors: none Relieving factors: none Associated symtoms: Reports nausea; Denies chest pain, diaphoresis, dysuria, epistaxis, fatigue, headache(s), malaise or palpitations Treatment prior to arrival: none Review of Systems General: Reports: 10 or more systems reviewed and unremarkable except in HPI and below Const: Denies: fever(s), chills, fatigue, malaise or diaphoresis Eyes: Denies: blurry vision or eye redness ENMT: Reports: nasal discharge, nasal congestion and other (reports seasonal allgeries); Denies: throat pain, dental pain, disequilibrium, epistaxis or post nasal drip Card: Denies: chest pain, palpitations, irregular heart rhythm, edema, swelling of feet/ankles, lightheadedness, dyspnea on exertion or orthopnea Resp: Denies: dyspnea, productive cough, non-productive cough, wheezing, pain on inspiration or chest congestion GI: Reports: abdominal pain (LUQ), nausea, vomiting, heartburn, diarrhea and GI cramping; Denies: dysphagia, constipation, excessive flatus, change in bowel habits or melena : Denies: difficulty voiding or dysuria Musc: Denies: neck pain, back pain, joint pain, joint stiffness, muscle cramps or muscle weakness Skin/Breast: Denies: rash or pruritus Neuro: Denies: headache(s), weakness in extremities or behavioral changes George/Lymph: Denies: easy bruising PFSH ED PFSH: Medical History Anxiety Blind left eye Chronic GERD Migraine without aura and without status migrainosus, not intractable Secondary amenorrhea Surgical History History of tonsillectomy and adenoidectomy Status post hysteroscopy (06/17/20) With D&C. 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 Performed [place] Dr. Silva at [facility] [place], [place]. Family History Grandmother Breast cancer Great- maternal High cholesterol Maternal Hypertension Maternal Family/Other Diabetes Paternal aunt Hypertension Paternal Aunts and Uncles Stroke Paternal Great Aunt Grandfather Heart disease Paternal Denies family history of Colon cancer Ovarian cancer Bleeding disorder Uterine cancer Thyroid disease Social History Smoking and tobacco status: current every day smoker cigarettes Packs smoked per day: 1 Alcohol intake: current Alcohol intake frequency: holidays/special occasions only Additional social history: - Tobacco use: current- 1 pack per day Alcohol use: Special occasions/holidays Drug use: Marijuana- twice/week Female Reproductive History: Date of last menstrual period: 08/20/20 Physical Exam Const: COMMON NORMALS: no acute distress, patient oriented x3, healthy appearing, alert and well nourished GENERAL APPEARANCE: cooperative, comfortable, well kempt, well developed and well hydrated NUTRITIONAL APPEARANCE: thin ORIENTATION/CONSCIOUSNESS: Yes awake, Yes oriented to person, Yes oriented to place and Yes oriented to time HENMT: COMMON NORMALS: normocephalic, atraumatic, external ears normal, EAC's normal, Normal external nose present and moist oral mucous membranes HEAD & SCALP: normal to inspection, normocephalic and atraumatic FACE & SINUS: normal facial exam and face symmetric NOSE: Normal external nose present EXTERNAL EAR: Yes external ears normal EXTERNAL AUDITORY CANAL: EAC's normal MOUTH: Normal oral and palatal mucosa present, lip normal and tongue normal THROAT: posterior oropharynx normal, tonsils normal and uvula midline Eye: COMMON NORMALS: Equal, round and reactive pupils present and EOMs intact bilaterally GENERAL EYE: appearance normal, both eyes and all related structures PUPIL: Yes Equal, round and reactive pupils present Neck/C-Spine: COMMON NORMALS: full ROM and no lymphadenopathy GENERAL: Yes normal visual inspection and Yes trachea midline CERVICAL SPINE: Yes cervical ROM normal Lymph: LYMPHATIC: no lymphadenopathy noted Chest: COMMONS NORMALS: normal inspection of the chest CHEST: Yes Symmetrical chest wall rise and Yes tenderness costal cartilage Laterality: left (pain reproduced with palpation of the left lower ribs) Costal cartilage location (left): 8th-9th rib, 9th-10th rib, 10th-11th rib and 11th-12 rib Resp: COMMON NORMALS: normal respiratory effort, No retractions, No use of accessory muscles and clear to auscultation bilaterally EFFORT & INSPECTION: Yes able to speak in complete sentences AUSCULTATION: clear to auscultation bilaterally Cardio: COMMON NORMALS: regular rate, regular rhythm, S1 normal heart sound present, S2 normal heart sound present and Peripheral pulses 2+ throughout RATE: regular rate RHYTHM: regular rhythm HEART SOUNDS: S1 normal heart sound present and S2 normal heart sound present PERIPHERAL PULSES: Peripheral pulses 2+ throughout GI: COMMON NORMALS: Soft to palpation INSPECTION: Yes normal to inspection, No abdominal wall ecchymosis, No abdominal distension and Yes central obesity AUSCULTATION: Yes normoactive bowel sounds PALPATION: Yes Soft to palpation and Yes Tenderness to palpation present (GI) Details: LUQ : COMMON NORMALS: Yes no CVA tenderness BLADDER/KIDNEY EXAM: Yes no CVA tenderness Back/Pelvis: COMMON NORMALS: no CVA tenderness, thoracic and lumbar spine normal to inspection and no thoracic nor lumbar tenderness Extremity: COMMON NORMALS: normal to inspection, full ROM, capillary refill normal, no clubbing, cyanosis or edema, no calf tenderness and no pedal edema GENERAL: Yes normal exam except as noted Neuro: COMMON NORMALS: patient oriented x3 and no focal motor deficits SENSORIUM/ORIENTATION: Yes alert, Yes oriented to person and Yes oriented to place MOTOR EXAM: 5/5 motor strength present throughout Psych: COMMON NORMALS: mental status grossly normal, Normal thought process present and cooperative APPEARANCE: Yes well kempt ACTIVITY/MOTOR BEHAVIOR: Yes appropriate eye contact THOUGHT PROCESS: Normal thought process present Skin: COMMON NORMALS: no rashes or lesions noted, no wounds, turgor normal, no petechiae and no mottling GENERAL SKIN EXAM: no rashes or lesions noted, elasticity normal and turgor normal Course Vital Signs: Vital signs: Vital Signs Temperature 99.0 F 10/03/20 08:24 Pulse Rate 76 10/03/20 10:00 Respiratory Rate 18 10/03/20 10:00 Blood Pressure 123/84 10/03/20 10:00 Pulse Oximetry 97 10/03/20 10:00 MDM - Nausea/Vomiting/Diarrhea MDM Narrative: Medical decision making narrative: 24-year-old female patient presents to the emergency room with 3-hour onset of nausea vomiting diarrhea, she only had one occurrence of nausea vomiting and diarrhea, negative hematochezia, hematemesis. She denied nausea upon exam, she reports recent adjustment of her upper back by her chiropractor, she was noted to have moderate tenderness along the left lateral and anterior lower ribs. Pain was worse with movement and reproduced with palpation. She did not take her PPI for chronic GERD x2 days, today or yesterday. She ate spicy meal yesterday, [employer] and [employer]. She was able to tolerate p.o. fluids here in the ED. She had alleviation of heartburn symptom with GI cocktail, Toradol alleviated rib pain. She had improved and was requesting to go home. Vital signs were stable, she is not tachycardic and O2 saturation was normal. She did not experience shortness of breath/dyspnea or chest pain. She was advised to continue current medications with encouraged compliance of PPI. Prilosec was increased to 40 mg daily x14 days with prescription of Carafate. She was also provided naproxen for rib pain. Advised to withhold chiropractic adjustments until rib pain improved. Lab Data: Labs: Lab Results 10/03/20 10/03/20 10/03/20 Range/Units 08:50 08:50 08:50 WBC 10.1 H (4.0-10.0) 10^3/ uL RBC 4.35 (4.1-5.3) 10^6/u L Hgb 12.3 (11.5-15.3) g/dL Hct 39.5 (37.0-47.0) % MCV 90.8 (81-99) fL MCH 28.3 (28.0-34.0) pg MCHC 31.1 (30.0-36.0) g/dL RDW 13.4 (12.1-15.1) % Plt Count 325 (130-400) 10^3/c mm MPV 10.5 H (7.4-10.4) fL Neut % (Auto) 62.3 % Lymph % (Auto) 29.6 % Teller % (Auto) 3.7 % Eos % (Auto) 3.9 % Baso % (Auto) 0.3 % Neut # (Auto) 6.28 (1.8-7.7) 10^3/u L Lymph # (Auto) 3.0 (0.8-4.8) 10^3/u L Teller # (Auto) 0.4 (0.2-0.9) 10^3/u L Eos # (Auto) 0.4 (0.0-0.8) 10^3/u L Baso # (Auto) 0.0 (0.0-0.1) 10^3/u L Nucleated RBC % (a uto) 0 % Nucleated RBCs # 0.0 /100WBC Sodium 138 (136-145) mmol/L Potassium 4.1 (3.5-5.1) mmol/L Chloride 102 (98-107) mmol/L Carbon Dioxide 24 (22-29) mmol/L Anion Gap 16.1 (5-19) BUN 11 (6-20) mg/dL Creatinine 0.4 L (0.5-0.9) mg/dL GFR Calculation 199.6 H (90-130) mL/min Glucose 104 (65-115) mg/dL Calculated Osmolal ity 286 (285-295) mOsm/k g Lactate 0.9 (0.5-2.2) mmol/L Calcium 9.0 (8.5-10.5) mg/dL Total Bilirubin 0.2 (0.15-1.2) mg/dL AST 10 (0-32) U/L ALT 16 (0-33) U/L Alkaline Phosphata se 63 (35-105) IU/L Total Protein 7.6 (6.6-8.7) g/dL Albumin 3.8 (3.5-5.2) g/dL Globulin 3.8 (1.3-4.6) g/dL Lipase 14 (13-60) U/L HCG, Qual (Negative) 10/03/20 Range/Units 08:50 WBC (4.0-10.0) 10^3/ uL RBC (4.1-5.3) 10^6/u L Hgb (11.5-15.3) g/dL Hct (37.0-47.0) % MCV (81-99) fL MCH (28.0-34.0) pg MCHC (30.0-36.0) g/dL RDW (12.1-15.1) % Plt Count (130-400) 10^3/c mm MPV (7.4-10.4) fL Neut % (Auto) % Lymph % (Auto) % Teller % (Auto) % Eos % (Auto) % Baso % (Auto) % Neut # (Auto) (1.8-7.7) 10^3/u L Lymph # (Auto) (0.8-4.8) 10^3/u L Teller # (Auto) (0.2-0.9) 10^3/u L Eos # (Auto) (0.0-0.8) 10^3/u L Baso # (Auto) (0.0-0.1) 10^3/u L Nucleated RBC % (a uto) % Nucleated RBCs # /100WBC Sodium (136-145) mmol/L Potassium (3.5-5.1) mmol/L Chloride (98-107) mmol/L Carbon Dioxide (22-29) mmol/L Anion Gap (5-19) BUN (6-20) mg/dL Creatinine (0.5-0.9) mg/dL GFR Calculation (90-130) mL/min Glucose (65-115) mg/dL Calculated Osmolal ity (285-295) mOsm/k g Lactate (0.5-2.2) mmol/L Calcium (8.5-10.5) mg/dL Total Bilirubin (0.15-1.2) mg/dL AST (0-32) U/L ALT (0-33) U/L Alkaline Phosphata se (35-105) IU/L Total Protein (6.6-8.7) g/dL Albumin (3.5-5.2) g/dL Globulin (1.3-4.6) g/dL Lipase (13-60) U/L HCG, Qual Negative (Negative) Discharge Plan Discharge Patient Disposition: Home Clinical Impression: Chronic GERD, Gastroenteritis, Acute costochondritis Condition: Stable Prescriptions: New Carafate 1 gram tablet 1 g PO Q6H Qty: 30 RF: 0 Zofran 4 mg tablet 4 mg PO Q4H 5 Days Qty: 14 RF: 0 naproxen 500 mg tablet 500 mg PO BID PRN (Reason: pain) Qty: 10 RF: 0 omeprazole 40 mg capsule,delayed release(DR/EC) 40 mg PO DAILY Qty: 14 RF: 0 Discontinued omeprazole 20 mg tablet,delayed release (DR/EC) 20 mg PO DAILY PRN (Reason: Heartburn) RF: 0 sucralfate [Carafate] 1 gram Tablet 1 g PO TID RF: 0 No Action aspirin 325 mg Tablet 325 mg PO PRN RF: 0 sertraline 50 mg tablet 50 mg PO DAILY RF: 0 metformin 500 mg tablet 500 mg PO DAILY RF: 0 Estarylla 0.25-35 mg-mcg tablet 1 tab PO DAILY RF: 0 Discharge Orders: Discharge ED (Routine); Ordered 10/03/20 Ordered By: Latesha Bose Referrals: Mallory Kelly, HOSPITAL CLINIC ASSISTANT [Primary Care Provider] - Discharge Diet: Advance as tolerated and Clear Liquid Discharge Activity: Limit activity as instructed Patient Instructions: Diet for Ulcers and Gastritis (ED), Costochondritis (ED), Gastroenteritis (ED), Opioid Safety Activity Restrictions/Additional Instructions: Follow-up with your primary care in 2 to 3 days if not improved Return to the emergency department if you develop worsening chest pain, inability to breathe or other concerning symptoms Clear liquid diet x12 hours then advance as tolerated, avoid fried greasy fatty spicy foods as this will increase your risk of experiencing stomach pain Take omeprazole, 40 mg p.o. daily, take 30 minutes prior to am meal Coding Level of Care Code ED Quantitative Researcher for Kelin Fwd Exam Comprehensive
[2020-10-03] MEDS: lidocaine 2% viscous 15 ML, aluminum-mag hydrox-simethicon 30 ML, sucralfate oral liq 1 GM PO (08:57)
[2020-10-03] MEDS: lactated ringers 500 ML 999 ML IV (08:58)
[2020-10-03 09:03] LABS: Basophils % 0.3 %; Eosinophils # 0.4 10^3/uL (0.0-0.8); Eosinophils % 3.9 %; Hematocrit 39.5 % (37.0-47.0); Hemoglobin 12.3 g/dL (11.5-15.3); Lymphocytes % 29.6 %; Mean Corpuscular HGB Conc 31.1 g/dL (30.0-36.0); Mean Corpuscular Hemoglobin 28.3 pg (28.0-34.0); Mean Corpuscular Volume 90.8 fL (81-99); Mean Platelet Volume 10.5 fL (7.4-10.4); Monocytes # 0.4 10^3/uL (0.2-0.9); Monocytes % 3.7 %; Neutrophils # 6.28 10^3/uL (1.8-7.7); Neutrophils % 62.3 %; Nucleated Red Blood Cells % 0 %; Platelet Count 325 10^3/cmm (130-400); Red Blood Count 4.35 10^6/uL (4.1-5.3); Red Cell Distribution Width 13.4 % (12.1-15.1); White Blood Count 10.1 10^3/uL (4.0-10.0)
[2020-10-03 09:18] LABS: Lactate (Lactic Acid level) 0.9 mmol/L (0.5-2.2)
[2020-10-03 09:19] LABS: Alanine Aminotransferase 16 U/L (0-33); Albumin Level 3.8 g/dL (3.5-5.2); Alkaline Phosphatase 63 IU/L (35-105); Anion Gap 16.1 (5-19); Aspartate Amino Transferase 10 U/L (0-32); Blood Urea Nitrogen 11 mg/dL (6-20); Carbon Dioxide 24 mmol/L (22-29); Chloride 102 mmol/L (98-107); Globulin 3.8 g/dL (1.3-4.6); Glomerular Filtration Rate 199.6 mL/min (90-130); Glucose 104 mg/dL (65-115); Lipase 14 U/L (13-60); Osmolality Calculated 286 mOsm/kg (285-295); Potassium 4.1 mmol/L (3.5-5.1); Sodium 138 mmol/L (136-145); Total Bilirubin 0.2 mg/dL (0.15-1.2); Total Protein 7.6 g/dL (6.6-8.7)
[2020-10-03 09:20] LABS: HCG, Serum Qual Negative (Negative)
[2020-10-03] MEDS: ketorolac 30 mg/mL INJ IVP (09:44)
[2020-10-03] MEDS: famotidine 20 mg/2 mL INJ 40 MG IVP (09:44)
[2020-10-03 10:00] VITALS: BP 123/84; PULSE 76; RESP 18; O2SAT 97
[2020-10-03 10:16] LABS: Add Urine Microscopic? NO
[2020-10-03 10:22] LABS: Bilirubin Urine Neg (Negative); Blood Urine Neg (Negative); Glucose Urine UA Norm (Normal); Ketones Urine Negative (Negative); Leukocyte Esterase Urine Negative (Negative); Nitrate Urine Negative (Negative); Protein Urine Neg (Negative); Urine Appearance Clear (CLEAR); Urine Color Yellow (Yellow); Urobilinogen Urine Norm (Negative); pH Urine 6.5 (5-7)
[2020-10-03 11:01] VITALS: BP 116/69; PULSE 72; RESP 18; TEMP 37.2; O2SAT 98
== END 2020-10-03 11:04 | disposition home or self-care (01) ==
PROVIDERS: Emergency Provider Nurse Practitioner Family; PCP Nurse Practitioner Family
DX: K21.9 Gastro-esophageal reflux disease without esophagitis (principal); K52.9 Noninfective gastroenteritis and colitis, unspecified; M94.0 Chondrocostal junction syndrome [Tietze]; Z79.82 Long term (current) use of aspirin; F17.210 Nicotine dependence, cigarettes, uncomplicated
CPT/HCPCS: 80053; 81003; 83605; 83690; 84703; 85025; 96374; 96375; 99283; J1885; J3490

== ENCOUNTER 2020-12-17 23:25 | Emergency (ER) | payer OTHER, SELFPAY ==
[2020-12-17 23:29] VITALS: BP 141/95; PULSE 85; RESP 17; TEMP 36.9; O2SAT 96; BMI 51.6
--- NOTE | 2020-12-18 00:36 | ED_ITS ---
HPI - Headache General: Chief Complaint: Headache Stated Complaint: SILVA X 8 DAYS Time Seen by Provider: 12/17/20 23:42 Source: patient Mode of arrival: ambulatory Limitations: no limitations History of Present Illness: HPI Narrative: Patient is a 25-year-old female who presents to ED today for complaints of a migraine headache over the past 8 days. Patient tells me she has experienced migraine headaches since the age of 12. She states she normally gets 2-3 migraines monthly. She does not take any preventative or abortive medications. She states she did see a specialist a long time ago but has not seen anybody in several years. She states headache feels identical to previous headaches and affects the left side of her head. She is having sensitivity to light and sound. MD elicited complaint: headache and migraine Pertinent past history: migraines Onset (ago): day(s) Onset description: gradually Location: left, frontal, temporal and occipital Severity: moderate Pain scale (0-10): 6 Exacerbating factors: light and noise Relieving factors: rest and sleep Associated symptoms: Reports no associated symptoms; Deny chest pain, fever(s), malaise, nausea, rash or vomiting Review of Systems Const: Denies: fever(s), chills, body aches, fatigue or malaise Eyes: Reports: photophobia; Denies: change in vision, blurry vision, floaters or seeing flashes ENMT: Denies: throat pain, odynophagia, nasal discharge, nasal congestion or sinus pain Card: Denies: chest pain or palpitations Resp: Denies: dyspnea GI: Denies: abdominal pain, nausea or vomiting Musc: Denies: neck pain Skin/Breast: Denies: rash Neuro: Reports: headache(s); Denies: numbness in extremities, weakness in extremities, sensory changes or dizziness PFS ED PFSH: Medical History Anxiety Blind left eye Chronic GERD Migraine without aura and without status migrainosus, not intractable Secondary amenorrhea Surgical History History of tonsillectomy and adenoidectomy Status post hysteroscopy (06/17/20) With D&C. 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 Performed by Dr. Silva at [facility] in [place], [place]. Family History Grandmother Breast cancer Great- maternal High cholesterol Maternal Hypertension Maternal Family/Other Diabetes Paternal aunt Hypertension Paternal Aunts and Uncles Stroke Paternal Great Aunt Grandfather Heart disease Paternal Denies family history of Colon cancer Ovarian cancer Bleeding disorder Uterine cancer Thyroid disease Social History (Reviewed 09/17/20 @ 13:37 by Sridevi Vail MD, [facility] [place]) Smoking and tobacco status: current every day smoker cigarettes Packs smoked per day: 1 Alcohol intake: current Alcohol intake frequency: holidays/special occasions only Additional social history: - Tobacco use: current- 1 pack per day Alcohol use: Special occasions/holidays Drug use: Marijuana- twice/week Female Reproductive History: Date of last menstrual period: 12/17/20 Physical Exam Const: COMMON NORMALS: no acute distress, patient oriented x3, no limitations and alert GENERAL APPEARANCE: cooperative NUTRITIONAL APPEARANCE: obese morbidly obese ORIENTATION/CONSCIOUSNESS: Yes awake, Yes oriented to person, Yes oriented to place and Yes oriented to time HENMT: COMMON NORMALS: normocephalic and atraumatic HEAD & SCALP: normocephalic and atraumatic Neck/C-Spine: COMMON NORMALS: full ROM, no lymphadenopathy and no meningeal signs Resp: COMMON NORMALS: normal respiratory effort Neuro: RON COMA SCALE: document GCS findings Media coma scale eye opening: Spontaneous Ron coma scale verbal response: Orientated Ron coma scale motor response: Obey commands Media coma scale total score: 15 COMMON NORMALS: patient oriented x3, CN's II-XII intact bilaterally, moves all extremities, no focal motor deficits, no sensory deficits noted and gait normal SENSORIUM/ORIENTATION: Yes alert, Yes oriented to person, Yes oriented to place and Yes oriented to time MENINGEAL SIGNS: Yes no meningeal signs Skin: COMMON NORMALS: no rashes or lesions noted GENERAL SKIN EXAM: no rashes or lesions noted Course Vital Signs: Vital signs: Vital Signs Temperature 98.5 F 12/17/20 23:29 Pulse Rate 85 12/17/20 23:29 Respiratory Rate 17 12/17/20 23:29 Blood Pressure 141/95 12/17/20 23:29 Pulse Oximetry 96 12/17/20 23:29 MDM - Headache MDM Narrative: Medical decision making narrative: SILVA has improved and patient feels comfortable going home at this time. Discharge Plan Discharge Patient Disposition: Home Clinical Impression: Migraine Qualifiers: Migraine type: unspecified Status migrainosus presence: with status migrainosus Intractability: not intractable Qualified Code(s): G43.901 - Migraine, unspecified, not intractable, with status migrainosus Condition: Stable Prescriptions: No Action aspirin 325 mg Tablet 325 mg PO PRN RF: 0 sertraline 50 mg tablet 50 mg PO DAILY RF: 0 metformin 500 mg tablet 500 mg PO DAILY RF: 0 Estarylla 0.25-35 mg-mcg tablet 1 tab PO DAILY RF: 0 Carafate 1 gram tablet 1 g PO Q6H Qty: 30 RF: 0 naproxen 500 mg tablet 500 mg PO BID PRN (Reason: pain) Qty: 10 RF: 0 omeprazole 40 mg capsule,delayed release(DR/EC) 40 mg PO DAILY Qty: 14 RF: 0 Discharge Orders: Discharge ED (Routine); Ordered 12/18/20 Ordered By: Lorene Frazier Referrals: Mallory Kelly FNP [Primary Care Provider] - Patient Instructions: Headache - Migraine (Adult) Coding Level of Care Code ED Atm Technician for Chg Fwd Exam Detailed
[2020-12-18] MEDS: sodium chloride 0.9% 1,000 ML 999 ML IV (01:15)
[2020-12-18] MEDS: ondansetron 2 mg/ML SDV 2 mL 4 MG IVP (01:30)
[2020-12-18] MEDS: dexamethasone 10 mg/mL INJ 8 MG IV (01:35)
[2020-12-18] MEDS: acetaminophen 1,000 MG/100 ML PIGGYBACK 400 MG IV (02:23)
[2020-12-18] MEDS: calcium carbonate 500 mg Chew Tablet PO (02:24)
[2020-12-18 02:45] VITALS: BP 100/78; PULSE 75; RESP 16; TEMP 36.9; O2SAT 98
== END 2020-12-18 02:49 | disposition home or self-care (01) ==
PROVIDERS: Emergency Provider Physician Assistant; PCP Nurse Practitioner Family
DX: G43.901 Migraine, unspecified, not intractable, with status migrainosus (principal); Z79.82 Long term (current) use of aspirin; Z79.84 Long term (current) use of oral hypoglycemic drugs; F17.210 Nicotine dependence, cigarettes, uncomplicated
CPT/HCPCS: 96361; 96374; 96375; 99283; J1100; J2405; J7030

== ENCOUNTER → 2020-12-24 10:11 | Outpatient (BNVA) | payer OTHER, SELFPAY | PROVIDERS: PCP Nurse Practitioner Family; Visit Provider Nurse Practitioner Women's Health | DX: N85.01 Benign endometrial hyperplasia (principal); Z30.011 Encounter for initial prescription of contraceptive pills | CPT/HCPCS: 81025; 88305 ==

== ENCOUNTER → 2021-01-22 12:14 | Outpatient (BNVA) | payer OTHER, SELFPAY | PROVIDERS: PCP Nurse Practitioner Family; Visit Provider Emergency Medicine | DX: Z20.822 Contact with and (suspected) exposure to COVID-19 (principal) | CPT/HCPCS: 87635 ==

== ENCOUNTER 2021-01-24 20:16 | Emergency (ER) | payer SELFPAY ==
[2021-01-24 21:56] VITALS: BP 140/95; PULSE 96; RESP 22; TEMP 37.4; O2SAT 97; BMI 51.0
[2021-01-24] MEDS: metoclopramide 5 mg/mL SDV 2 mL 10 MG IVP (23:16)
--- NOTE | 2021-01-24 23:22 | PC.NURSE ---
Patient refused IVP benadryl and IM benadryl then asked to be signed out AMA. Dr. Duncan notified.
--- NOTE | 2021-01-24 23:24 | W.ED.HA ---
HPI - Headache General: Chief Complaint: Headache Stated Complaint: COVID+: H/A, R EARACHE Time Seen by Provider: 01/24/21 22:51 Source: patient Mode of arrival: ambulatory Limitations: no limitations History of Present Illness: HPI Narrative: 25-year-old female states she has diagnosed Covid earlier this week and has been having anxiety about the Covid diagnosis since then. She states that today she started having a migraine headache and has a history of migraines. States headache is a 7 out of 10. Has photosensitivity. Denies this being the worst headache of her life and is started gradually. Denies any fever. Associated symptoms: Deny chest pain, fever(s), nausea, rash or vomiting Review of Systems Const: Denies: fever(s), chills, body aches or change in appetite Eyes: Denies: blurry vision or eye discomfort ENMT: Denies: throat pain or dental pain Card: Denies: chest pain Resp: Denies: dyspnea GI: Denies: abdominal pain, nausea, vomiting or diarrhea : Denies: dysuria Musc: Denies: neck pain or back pain Skin/Breast: Denies: rash Neuro: Reports: headache(s) Psych: Denies: depression George/Lymph: Denies: easy bruising All/Imm: Denies: urticaria PFSH ED PFSH: Medical History Anxiety Blind left eye Chronic GERD Migraine without aura and without status migrainosus, not intractable Secondary amenorrhea Surgical History History of tonsillectomy and adenoidectomy Status post hysteroscopy (06/17/20) With D&C. 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 Performed [place] Dr. Silva [place] [facility], [place]. Family History Grandmother Breast cancer Great- maternal High cholesterol Maternal Hypertension Maternal Family/Other Diabetes Paternal aunt Hypertension Paternal Aunts and Uncles Stroke Paternal Great Aunt Grandfather Heart disease Paternal Denies family history of Colon cancer Ovarian cancer Bleeding disorder Uterine cancer Thyroid disease Female Reproductive History: Date of last menstrual period: 12/17/20 Physical Exam Const: COMMON NORMALS: no acute distress, patient oriented x3 and healthy appearing HENMT: COMMON NORMALS: normocephalic and atraumatic HEAD & SCALP: normocephalic and atraumatic Eye: COMMON NORMALS: Equal, round and reactive pupils present and EOMs intact bilaterally PUPIL: Yes Equal, round and reactive pupils present Neck/C-Spine: COMMON NORMALS: full ROM and supple Chest: COMMONS NORMALS: normal inspection of the chest and normal palpation of entire chest wall Resp: COMMON NORMALS: normal respiratory effort, No retractions, No use of accessory muscles and clear to auscultation bilaterally AUSCULTATION: clear to auscultation bilaterally Cardio: COMMON NORMALS: regular rate, regular rhythm and No murmurs present (Cardio) RATE: regular rate RHYTHM: regular rhythm GI: COMMON NORMALS: Normal to inspection, nondistended, normoactive bowel sounds present, Soft to palpation, non-tender and no masses PALPATION: Yes Soft to palpation Extremity: COMMON NORMALS: normal to inspection and full ROM Neuro: COMMON NORMALS: patient oriented x3, moves all extremities and no focal motor deficits Psych: COMMON NORMALS: mental status grossly normal, Normal thought process present and cooperative THOUGHT PROCESS: Normal thought process present Skin: COMMON NORMALS: no rashes or lesions noted and no wounds GENERAL SKIN EXAM: no rashes or lesions noted Course Vital Signs: Vital signs: Vital Signs Temperature 99.4 F 01/24/21 21:56 Pulse Rate 96 01/24/21 21:56 Respiratory Rate 22 H 01/24/21 21:56 Blood Pressure 140/95 01/24/21 21:56 Pulse Oximetry 97 01/24/21 21:56 MDM - Headache MDM Narrative: Medical decision making narrative: Patient presents here with headache is likely a migraine headache along with some anxiety and Covid. Patient refused any Benadryl refused an IM injection and refused any antianxiety's. After patient got Reglan she states she is wants to go home. She is well-appearing here and vitals are normal. Patient left the ER. Discharge Plan Discharge Patient Disposition: Home Clinical Impression: Headache Qualifiers: Headache type: unspecified Headache chronicity pattern: unspecified pattern Intractability: not intractable Qualified Code(s): R51.9 - Headache, unspecified Condition: Stable Prescriptions: No Action Carafate 1 gram tablet 1 g PO Q6H PRNRF: 0 Estarylla 0.25-35 mg-mcg tablet 1 tab PO DAILY Qty: 84 RF: 3 sertraline 50 mg tablet 50 mg PO DAILY PRNRF: 0 metformin 500 mg tablet 500 mg PO DAILY RF: 0 omeprazole 40 mg capsule,delayed release(DR/EC) 40 mg PO DAILY Qty: 14 RF: 0 Discharge Orders: Discharge ED (Routine); Ordered 01/24/21 Ordered By: Lori Duncan Referrals: Mallory Kelly FNP [Primary Care Provider] - Patient Instructions: Opioid Safety Coding Level of Care Code ED Concrete [employer] [place] for Kelin Rivas
[2021-01-24 23:32] VITALS: PULSE 92; O2SAT 98
--- NOTE | 2021-01-24 23:32 | PC.NURSE ---
AMA form signed
== END 2021-01-24 23:34 | disposition home or self-care (01) ==
PROVIDERS: Emergency Provider Emergency Medicine; PCP Nurse Practitioner Family
DX: R51.9 Headache, unspecified (principal)
CPT/HCPCS: 96374; 99283; J2765

== ENCOUNTER → 2021-02-23 07:40 | Outpatient (BNVA) | payer SELFPAY | PROVIDERS: PCP Nurse Practitioner Family; Visit Provider Registered Nurse Neonatal Intensive Care | DX: Z11.3 Encounter for screening for infections with a predominantly sexual mode of transmission (principal); B37.3 Candidiasis of vulva and vagina | CPT/HCPCS: 81000; 87491; 87591; 87661 ==

== ENCOUNTER 2021-03-12 23:53 | Emergency (ER) | payer SELFPAY ==
--- NOTE | 2021-03-12 23:55 | XRR_ITS ---
PROCEDURE INFORMATION: Exam: XR Chest Exam date and time: 03/12/2021 11:55 PM Age: 25 years old Clinical indication: Chest pressure; Patient HX: Central chest pain. ; Additional info: Cp TECHNIQUE: Imaging protocol: XR of the chest. Views: 2 views. COMPARISON: CR XR chest 1V portable [id number] 06/29/2020 2:48 AM FINDINGS: Lungs: Unremarkable. No consolidation. Pleural spaces: Unremarkable. No pleural effusion. No pneumothorax. Heart/Mediastinum: Unremarkable. No cardiomegaly. Bones/joints: Unremarkable. XR/XR chest 2V* [id number] IMPRESSION: No acute findings.
--- NOTE | 2021-03-12 23:55 | ECG_ITS ---
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 Measurements Intervals Tracy Rate: 69 P: 22 [place]: 163 QRS: 30 QRSD: 93 T: 18 QT: 363 QTc: 390 Interpretive Statements SINUS RHYTHM Compared to ECG 06/15/2020 19:17:39 Sinus arrhythmia no longer present Intraventricular conduction delay no longer present T-wave abnormality no longer present Electronically Signed On 03-13-2021 20:33:45 CDT by Fredi Mcfadden M.D. [id number]
[2021-03-13 00:14] VITALS: BP 155/95; PULSE 66; RESP 17; TEMP 36.8; O2SAT 96; BMI 50.6
[2021-03-13 00:37] VITALS: BP 159/87; RESP 15; O2SAT 99
--- NOTE | 2021-03-13 00:41 | W.ED.CHESTPA ---
HPI - Chest Pain General: Chief Complaint: Chest Pain Stated Complaint: Chest Pain Time Seen by Provider: 03/12/21 23:55 Source: patient Mode of arrival: ambulatory Limitations: no limitations History of Present Illness: HPI narrative: 25-year-old female who states she has been having chest pain over the last 24 hours. States she is had reflux multiple times in the past states this feels similar. She states she did take a Tums though and had minimal relief. She denies any shortness of breath. Denies any radiation of her pains. States pain is sharp nature and rates it a 3 out of 10. She has had no vomiting. Associated symptoms: Deny abdominal pain, dyspnea, fever(s), nausea or vomiting Review of Systems Const: Denies: fever(s), chills, body aches or change in appetite Eyes: Denies: blurry vision or eye discomfort ENMT: Denies: throat pain or dental pain Card: Reports: chest pain Resp: Denies: dyspnea GI: Denies: abdominal pain, nausea, vomiting or diarrhea : Denies: dysuria Musc: Denies: neck pain or back pain Skin/Breast: Denies: rash Neuro: Denies: headache(s) Psych: Denies: depression George/Lymph: Denies: easy bruising All/Imm: Denies: urticaria PFSH ED PFSH: Medical History Anxiety Blind left eye Chronic GERD Migraine without aura and without status migrainosus, not intractable Secondary amenorrhea Surgical History History of tonsillectomy and adenoidectomy Status post hysteroscopy (06/17/20) With D&C. 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 Performed by Dr. Silva at [facility] in [place], [place]. Family History Grandmother Breast cancer Great- maternal High cholesterol Maternal Hypertension Maternal Family/Other Diabetes Paternal aunt Hypertension Paternal Aunts and Uncles Stroke Paternal Great Aunt Grandfather Heart disease Paternal Denies family history of Colon cancer Ovarian cancer Bleeding disorder Uterine cancer Thyroid disease Social History Smoking and tobacco status: current every day smoker Alcohol intake: current Female Reproductive History: Date of last menstrual period: 02/12/21 Physical Exam Const: COMMON NORMALS: no acute distress, patient oriented x3 and healthy appearing HENMT: COMMON NORMALS: normocephalic and atraumatic HEAD & SCALP: normocephalic and atraumatic Eye: COMMON NORMALS: Equal, round and reactive pupils present and EOMs intact bilaterally PUPIL: Yes Equal, round and reactive pupils present Neck/C-Spine: COMMON NORMALS: full ROM and supple Chest: COMMONS NORMALS: normal inspection of the chest and normal palpation of entire chest wall Resp: COMMON NORMALS: normal respiratory effort, No retractions, No use of accessory muscles and clear to auscultation bilaterally AUSCULTATION: clear to auscultation bilaterally Cardio: COMMON NORMALS: regular rate, regular rhythm and No murmurs present (Cardio) RATE: regular rate RHYTHM: regular rhythm GI: COMMON NORMALS: Normal to inspection, nondistended, normoactive bowel sounds present, Soft to palpation, non-tender and no masses PALPATION: Yes Soft to palpation Extremity: COMMON NORMALS: normal to inspection and full ROM Neuro: COMMON NORMALS: patient oriented x3, moves all extremities and no focal motor deficits Psych: COMMON NORMALS: mental status grossly normal, Normal thought process present and cooperative THOUGHT PROCESS: Normal thought process present Skin: COMMON NORMALS: no rashes or lesions noted and no wounds GENERAL SKIN EXAM: no rashes or lesions noted Course Vital Signs: Vital signs: Vital Signs Temperature 98.3 F 03/13/21 00:14 Pulse Rate 97 03/13/21 01:26 Respiratory Rate 16 03/13/21 01:26 Blood Pressure 115/93 03/13/21 01:26 Pulse Oximetry 97 03/13/21 01:26 MDM - Chest Pain MDM Narrative: Medical decision making narrative: Presents for chest pains atypical in nature. Patient is well-appearing here EKG and x-ray are normal. Her pain is relieved with a GI cocktail and she states the pain was similar to her previous reflux which I believe is causing her pain again. She is stable for discharge is to follow-up PCP and return if worsening. Imaging Data^: CXR: Attestation: I personally reviewed and interpreted this imaging study as follows: Radiologist's impression: no acute abnormality EKG Data^: EKG 1: Attestation: I personally reviewed and interpreted this EKG as follows: EKG interpretation date: 03/13/21 EKG interpretation time: 00:28 Interpretation: nsr hr [address] or t wave abnormalities qrs 93 qtc 382 Discharge Plan Discharge Patient Disposition: Home Clinical Impression: Chest pain Qualifiers: Chest pain type: unspecified Qualified Code(s): R07.9 - Chest pain, unspecified Condition: Stable Prescriptions: No Action Carafate 1 gram tablet 1 g PO Q6H PRNRF: 0 Estarylla 0.25-35 mg-mcg tablet 1 tab PO DAILY Qty: 84 RF: 3 fluconazole 150 mg tablet 150 mg PO Q3D Qty: 2 RF: 0 omeprazole 40 mg capsule,delayed release(DR/EC) 40 mg PO DAILY Qty: 14 RF: 0 Discharge Orders: Discharge ED (Routine); Ordered 03/13/21 Ordered By: Lori Duncan Referrals: Mallory Kelly FNP [Primary Care Provider] - 1-3 days Discharge Diet: Advance as tolerated Discharge Activity: Resume usual activity Patient Instructions: Chest Pain (ED) Coding Level of Care Code ED Expert Medical Writer for Chg Fwd Exam Comprehensive
[2021-03-13] MEDS: LORazepam 1 mg Tablet PO (01:22)
[2021-03-13] MEDS: lidocaine 2% viscous 15 ML, aluminum-mag hydrox-simethicon 30 ML, sucralfate oral liq 1 GM PO (01:23)
[2021-03-13 01:26] VITALS: BP 115/93; PULSE 97; RESP 16; O2SAT 97
[2021-03-13 01:48] VITALS: BP 146/78; PULSE 69; RESP 16; O2SAT 97
== END 2021-03-13 01:47 | disposition home or self-care (01) ==
PROVIDERS: Emergency Provider Emergency Medicine; PCP Nurse Practitioner Family
DX: R07.9 Chest pain, unspecified (principal); F17.210 Nicotine dependence, cigarettes, uncomplicated
CPT/HCPCS: 71046; 93005; 99283

== ENCOUNTER 2021-04-26 14:09 | Emergency (ER) | payer SELFPAY ==
[2021-04-26 14:25] VITALS: BP 156/95; PULSE 84; RESP 17; TEMP 36.9; O2SAT 95; BMI 50.6
--- NOTE | 2021-04-26 15:10 | XRR_ITS ---
PROCEDURE INFORMATION: Exam: XR Chest Exam date and time: 04/26/2021 3:10 PM Age: 25 years old Clinical indication: Cough; Additional info: Cough, congestion, fevers TECHNIQUE: Imaging protocol: XR of the chest. Views: 1 view. COMPARISON: CR (CHEST, ) 03/13/2021 12:13 AM FINDINGS: Lungs: Unremarkable. No consolidation. Pleural spaces: Unremarkable. No pleural effusion. No pneumothorax. Heart/Mediastinum: Unremarkable. No cardiomegaly. Bones/joints: Unremarkable. XR/XR chest 1V portable [id number] IMPRESSION: No acute findings. Radiation Dose CTDIVOL = (mGy): DLP = (mGy-cm)
--- NOTE | 2021-04-26 15:10 | ED_ITS ---
HPI - URI/Sore Throat General: Chief Complaint: COVID symptoms Stated Complaint: COVID SX:COUGH,NAUSEA,H/A,THROAT PAIN,CONGESTION Time Seen by Provider: 04/26/21 14:58 Source: patient Mode of arrival: ambulatory Limitations: no limitations History of Present Illness: HPI Narrative: Patient is a 25-year-old female here for concerns that I have COVID again . Patient states she was diagnosed with COVID approximately 3 months ago. She states over the past 3 days she has had a sore throat, rhinorrhea, nasal congestion, sinus pain/pressure, nonproductive cough, and a headache. She is also reporting subjective fevers. No sick contacts. No diarrhea. MD elicited complaint: fever, cough, sore throat, rhinorrhea, nasal congestion and sinus pain Onset (ago): day(s) Consistency: constant Description of mucous: clear Able to tolerate fluids by mouth: Yes Associated symptoms: Reports chills, fever(s), headache(s), nasal congestion and sinus pain; Deny abdominal pain, chest pain, diarrhea, ear or mastoid pain, nausea or vomiting Review of Systems Const: Reports: fever(s), chills and fatigue; Denies: body aches Eyes: Denies: change in vision or blurry vision ENMT: Reports: throat pain, odynophagia, nasal discharge, nasal congestion and sinus pain; Denies: ear or mastoid pain, ear discharge or change in hearing Card: Denies: chest pain, palpitations, irregular heart rhythm, edema, swelling of feet/ankles, lightheadedness, syncope, pre-syncope, dyspnea on exertion or orthopnea Resp: Reports: non-productive cough and chest congestion; Denies: dyspnea, productive cough, wheezing, stridor, pain on inspiration, change in phlegm color or hemoptysis GI: Denies: abdominal pain, nausea, vomiting or diarrhea Musc: Denies: neck pain, back pain, extremity pain or joint pain Skin/Breast: Denies: rash Neuro: Reports: headache(s); Denies: numbness in extremities, weakness in extremities, sensory changes or dizziness [facility] ED PFSH: Medical History Anxiety Blind left eye Chronic GERD Migraine without aura and without status migrainosus, not intractable Secondary amenorrhea Surgical History History of tonsillectomy and adenoidectomy Status post hysteroscopy (06/17/20) With D&C. 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 [place] [facility] [place]. Family History Grandmother Breast cancer Great- maternal High cholesterol Maternal Hypertension Maternal Family/Other Diabetes Paternal aunt Hypertension Paternal Aunts and Uncles Stroke Paternal Great Aunt Grandfather Heart disease Paternal Denies family history of Colon cancer Ovarian cancer Bleeding disorder Uterine cancer Thyroid disease Social History Smoking and tobacco status: current every day smoker Alcohol intake: current Female Reproductive History: Date of last menstrual period: 02/12/21 Physical Exam Const: COMMON NORMALS: no acute distress, patient oriented x3, no limitations and alert GENERAL APPEARANCE: cooperative NUTRITIONAL APPEARANCE: obese morbidly obese ORIENTATION/CONSCIOUSNESS: Yes awake, Yes oriented to person, Yes oriented to place and Yes oriented to time HENMT: COMMON NORMALS: normocephalic, atraumatic, hearing grossly normal bilaterally, external ears normal, EAC's normal, TM's normal bilaterally, Normal external nose present, Normal nasal mucous membranes and turbinates present, moist oral mucous membranes, dentition normal and gingiva normal HEAD & SCALP: normal to inspection, normocephalic and atraumatic FACE & SINUS: normal facial exam and sinus tenderness maxillary NOSE: Normal external nose present and Normal nasal mucous membranes and turbinates present EXTERNAL EAR: Yes external ears normal EXTERNAL AUDITORY CANAL: EAC's normal TYMPANIC MEMBRANE: TM's normal bilaterally MOUTH: Normal oral and palatal mucosa present, lip normal and tongue normal THROAT: tonsils normal, uvula midline and posterior oropharynx abnormal erythema; no peritonsillar mass and no postnasal drainage Eye: GENERAL EYE: appearance normal, both eyes and all related structures Neck/C-Spine: COMMON NORMALS: full ROM, no lymphadenopathy and no meningeal signs Resp: COMMON NORMALS: normal respiratory effort and clear to auscultation bilaterally AUSCULTATION: clear to auscultation bilaterally Cardio: COMMON NORMALS: regular rate and regular rhythm RATE: regular rate RHYTHM: regular rhythm Neuro: COMMON NORMALS: patient oriented x3 and CN's II-XII intact bilaterally SENSORIUM/ORIENTATION: Yes alert, Yes oriented to person, Yes oriented to place and Yes oriented to time MENINGEAL SIGNS: Yes no meningeal signs Skin: COMMON NORMALS: no rashes or lesions noted GENERAL SKIN EXAM: no rashes or lesions noted Course Vital Signs: Vital signs: Vital Signs Temperature 98.4 F 04/26/21 14:25 Pulse Rate 84 04/26/21 14:25 Respiratory Rate 17 04/26/21 14:25 Blood Pressure 156/95 04/26/21 14:25 Pulse Oximetry 98 04/26/21 15:48 MDM - URI/Sore Throat MDM Narrative: Medical decision making narrative: Patient here with complaints and symptoms consistent with a viral upper respiratory illness. Her vital signs are stable. CXR is normal. Rapid COVID is negative. Patient has had a previous COVID infection 3 months ago and re-infection rates are still incredibly low making a repeat infection very unlikely. Discussed how treatment is geared toward symptomatic relief and that antibiotics are not indicated. She states the cough seems to be her most bothersome symptom therefore will treat this. Return to ED precautions given. Lab Data: Attestation: I reviewed the patient's lab results. Labs: Lab Results 04/26/21 15:42 SARS-CoV-2 Ag (Rap id) Negative (Negative) Imaging Data^: CXR: My impression: NAD Discharge Plan Discharge Patient Disposition: Home Clinical Impression: Viral upper respiratory infection Condition: Stable Prescriptions: New promethazine-codeine 6.25-10 mg/5 mL syrup 5 ml PO Q6H PRN (Reason: cough) Qty: 118 RF: 0 No Action Carafate 1 gram tablet 1 g PO Q6H PRNRF: 0 Estarylla 0.25-35 mg-mcg tablet 1 tab PO DAILY Qty: 84 RF: 3 fluconazole 150 mg tablet 150 mg PO Q3D Qty: 2 RF: 0 omeprazole 40 mg capsule,delayed release(DR/EC) 40 mg PO DAILY Qty: 14 RF: 0 Discharge Orders: Discharge ED (Routine); Ordered 04/26/21 Ordered By: Lorene Frazier Referrals: Mallory Kelly FNP [Primary Care Provider] - Patient Instructions: Upper Respiratory Infection (ED) Coding Level of Care Code ED Distribution Manager for Chg Fwd Exam Comprehensive
[2021-04-26 15:48] VITALS: O2SAT 98
[2021-04-26 16:17] LABS: SARS Covid-2 Antigen Negative (Negative)
[2021-04-26 16:41] VITALS: BP 135/99; PULSE 80; RESP 16; O2SAT 98
== END 2021-04-26 16:42 | disposition home or self-care (01) ==
PROVIDERS: Emergency Provider Physician Assistant; PCP Nurse Practitioner Family
DX: J06.9 Acute upper respiratory infection, unspecified (principal); F17.200 Nicotine dependence, unspecified, uncomplicated; H54.7 Unspecified visual loss; K21.9 Gastro-esophageal reflux disease without esophagitis; F41.9 Anxiety disorder, unspecified; G43.909 Migraine, unspecified, not intractable, without status migrainosus; Z86.16 Personal history of COVID-19
CPT/HCPCS: 71045; 87426; 99282

== ENCOUNTER 2021-06-09 21:40 | Emergency (ER) | payer SELFPAY ==
[2021-06-09 21:48] VITALS: BP 136/80; PULSE 79; RESP 18; TEMP 36.3; O2SAT 97; BMI 48.9
[2021-06-09 22:21] LABS: Add Urine Microscopic? YES; Bacteria Urine TRACE /hpf; Bilirubin Urine Neg (Negative); Blood Urine 2+ (Negative); Calcium Oxalate Crystals Urine 0-4 /hpf; Glucose Urine UA Norm (Normal); Ketones Urine 1+ (Negative); Leukocyte Esterase Urine Negative (Negative); Mucus Urine 3+ /hpf; Nitrate Urine Negative (Negative); Protein Urine Neg (Negative); RBC Urine 0-4 /hpf (0-2); Urine Appearance Clear (CLEAR); Urine Color Yellow (Yellow); Urobilinogen Urine 4 mg/dL (Negative); WBC Urine 0-4 /hpf (0-5); pH Urine 5 (5-7)
[2021-06-09 22:22] LABS: Add Urine Culture? No; Hyaline Casts Urine 0-4 /lpf
--- NOTE | 2021-06-09 23:04 | ED_ITS ---
HPI - Abdominal Pain General: Chief Complaint: Abdominal Pain Stated Complaint: sever abd pain Time Seen by Provider: 06/09/21 22:20 History of Present Illness: HPI narrative: 25-year-old female comes in today with complaints of midepigastric abdominal pain that radiates to the right. Patient reports pain on and off for months. Patient has been treated in the past for GERD but states that this pain seems worse than usual. Patient denies any blood in vomit or stool. Patient appears well. Patient appears in mild to no pain at this time. Patient reports the pain is there at all time and eating makes it worse. Related Data: Date of Last Menstrual Period: 06/09/21 Review of Systems General: Reports: 10 or more systems reviewed and unremarkable except in HPI and below GI: Reports: abdominal pain PFSH ED PFSH: Medical History Anxiety Blind left eye Chronic GERD Migraine without aura and without status migrainosus, not intractable Secondary amenorrhea Surgical History History of tonsillectomy and adenoidectomy Status post hysteroscopy (06/17/20) With D&C. 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 [place] [facility] [place]. Family History Grandmother Breast cancer Great- maternal High cholesterol Maternal Hypertension Maternal Family/Other Diabetes Paternal aunt Hypertension Paternal Aunts and Uncles Stroke Paternal Great Aunt Grandfather Heart disease Paternal Denies family history of Colon cancer Ovarian cancer Bleeding disorder Uterine cancer Thyroid disease Social History Smoking and tobacco status: current every day smoker Alcohol intake: current Female Reproductive History: Date of last menstrual period: 06/09/21 Physical Exam Const: COMMON NORMALS: no acute distress and patient oriented x3 GENERAL APPEARANCE: cooperative HENMT: COMMON NORMALS: normocephalic HEAD & SCALP: normal to inspection and normocephalic MOUTH: Normal oral and palatal mucosa present THROAT: posterior oropharynx normal Eye: GENERAL EYE: appearance normal, both eyes and all related structures Neck/C-Spine: COMMON NORMALS: full ROM Lymph: LYMPHATIC: no lymphadenopathy noted Chest: COMMONS NORMALS: normal inspection of the chest Resp: COMMON NORMALS: normal respiratory effort EFFORT & INSPECTION: Yes able to speak in complete sentences Cardio: COMMON NORMALS: regular rate and regular rhythm RATE: regular rate RHYTHM: regular rhythm GI: COMMON NORMALS: Soft to palpation PALPATION: Yes Soft to palpation, Yes Tenderness to palpation present (GI) (Midepigastric and right upper quadrant with deep pressure), No Guarding due to palpation present (GI) and No Rebound tenderness present : COMMON NORMALS: Yes no CVA tenderness BLADDER/KIDNEY EXAM: Yes no CVA tenderness Back/Pelvis: COMMON NORMALS: no CVA tenderness and thoracic and lumbar spine normal to inspection Extremity: COMMON NORMALS: normal to inspection Neuro: COMMON NORMALS: patient oriented x3 and moves all extremities Psych: COMMON NORMALS: mental status grossly normal and cooperative Skin: COMMON NORMALS: no rashes or lesions noted GENERAL SKIN EXAM: no rashes or lesions noted Course Vital Signs: Vital signs: Vital Signs Temperature 97.4 F L 06/09/21 21:48 Pulse Rate 79 06/09/21 21:48 Respiratory Rate 18 06/09/21 21:48 Blood Pressure 136/80 06/09/21 21:48 Pulse Oximetry 97 06/09/21 21:48 MDM - Abdominal Pain MDM Narrative: Medical decision making narrative: GERDPatient comes in tonight with complaints of dyspepsia. Patient reports she chronically has GERD and has constant abdominal discomfort in the midepigastric region. Patient reports after she eats she has worsening pain and discomfort. Patient is obese. Vital signs are normal. On exam abdomen soft without any rebound tenderness or guarding. Patient does have some pain with deep palpation in the midepigastrium. Differential diagnosis includes but not limited to gallbladder disease,, dyspepsia, peptic ulcer disease, pancreatitis. Laboratory values were unremarkable. H. pylori was negative. Urinalysis showed a concentrated urine. Encourage patient to drink plenty of water. We will do a trial of Reglan for the next 2 weeks to see if we can help with patient's discomfort. Patient was strongly encouraged to follow-up with primary care for further evaluation and to include possible endoscopy exam. Patient reported understanding and agreed to plan. Lab Data: Labs: Lab Results 12/07/21 12/07/21 12/07/21 21:53 23:21 23:21 WBC 11.4 10^3/uL H 10 ^3/uL (4.0-10.0) RBC 4.67 10^6/uL 10^6 /uL (4.1-5.3) Hgb 13.5 g/dL g/dL (11.5-15.3) Hct 41.9 % % (37.0-47.0) MCV 89.7 fl fl (81-99) MCH 28.9 pg pg (28.0-34.0) MCHC 32.2 g/dL g/dL (30.0-36.0) RDW 13.4 % % (12.1-15.1) Plt Count 188 10^3/cmm 10^3 /cmm (130-400) MPV 11.0 fL H fL (7.4-10.4) Neut % (Auto) 51.3 % % Lymph % (Auto) 35.4 % % [place] % (Auto) 5.0 % % Eos % (Auto) 7.8 % % Baso % (Auto) 0.3 % % Neut # (Auto) 5.83 10^3/uL 10^3 /uL (1.8-7.7) Lymph # (Auto) 4.0 10^3/uL 10^3/ uL (0.8-4.8) [place] # (Auto) 0.6 10^3/uL 10^3/ uL (0.2-0.9) Eos # (Auto) 0.9 10^3/uL H 10^ 3/uL (0.0-0.8) Baso # (Auto) 0.0 10^3/uL 10^3/ uL (0.0-0.1) Nucleated RBC % (a uto) 0 % % Nucleated RBCs # 0.0 /100WBC /100W BC Sodium 142 mmol/L mmol/L (136-145) Potassium 4.4 mmol/L mmol/L (3.5-5.1) Chloride 105 mmol/L mmol/L (98-107) Carbon Dioxide 22 mmol/L mmol/L (22-29) Anion Gap 19.4 H (5-19) BUN 13 mg/dL mg/dL (6-20) Creatinine 0.6 mg/dL mg/dL (0.5-0.9) GFR Calculation 123.9 mL/min mL/m in (90-130) Glucose 103 mg/dL mg/dL (65-115) Calculated Osmolal ity 294 mOsm/kg mOsm/ kg (285-295) Calcium 9.3 mg/dL mg/dL (8.5-10.5) Total Bilirubin 0.2 mg/dL mg/dL (0.15-1.2) AST 9 U/L U/L (0-32) ALT 15 U/L U/L (0-33) Alkaline Phosphata se 74 IU/L IU/L (35-105) Total Protein 7.4 g/dL g/dL (6.6-8.7) Albumin 4.1 g/dL g/dL (3.5-5.2) Globulin 3.3 g/dL g/dL (1.3-4.6) Lipase 20 U/L U/L (13-60) HCG, Qual Urine Color Yellow (Yellow) Urine Appearance Clear (CLEAR) Urine pH 5 (5-7) Ur Specific Gravit y 1.030 (1.005-1.030) Urine Protein Neg (Negative) Urine Glucose (UA) Norm (Normal) Urine Ketones 1+ H (Negative) Urine Blood 2+ H (Negative) Urine Nitrate Negative (Negative) Urine Bilirubin Neg (Negative) Urine Urobilinogen 4 mg/dL H mg/dL (Negative) Ur Leukocyte Ileana ase Negative (Negative) Urine RBC 0-4 /hpf H /hpf (0-2) Urine WBC 0-4 /hpf H /hpf (0-5) Ur Squamous Epith Cells 10-15 /hpf H /hpf (0-5) Calcium Oxalate Cr ystal 0-4 /hpf H /hpf Amorphous Sediment Not Reportable Urine Bacteria Trace /hpf /hpf (NONE) Hyaline Casts 0-4 /lpf H /lpf Urine Mucus 3+ /hpf /hpf H. pylori IgG Anti body 06/09/21 06/09/21 23:21 23:21 WBC RBC Hgb Hct MCV MCH MCHC RDW Plt Count MPV Neut % (Auto) Lymph % (Auto) [place] % (Auto) Eos % (Auto) Baso % (Auto) Neut # (Auto) Lymph # (Auto) [place] # (Auto) Eos # (Auto) Baso # (Auto) Nucleated RBC % (a uto) Nucleated RBCs # Sodium Potassium Chloride Carbon Dioxide Anion Gap BUN Creatinine GFR Calculation Glucose Calculated Osmolal ity Calcium Total Bilirubin AST ALT Alkaline Phosphata se Total Protein Albumin Globulin Lipase HCG, Qual Negative (Negative) Urine Color Urine Appearance Urine pH Ur Specific Gravit y Urine Protein Urine Glucose (UA) Urine Ketones Urine Blood Urine Nitrate Urine Bilirubin Urine Urobilinogen Ur Leukocyte Ileana ase Urine RBC Urine WBC Ur Squamous Epith Cells Calcium Oxalate Cr ystal Amorphous Sediment Urine Bacteria Hyaline Casts Urine Mucus H. pylori IgG Anti body Negative (Negative) Discharge Plan Discharge Patient Disposition: Home Clinical Impression: Dyspepsia, Chronic GERD Condition: Stable Prescriptions: New metoclopramide HCl 10 mg tablet 10 mg PO Q6H Qty: 30 RF: 0 Continued omeprazole 40 mg capsule,delayed release(DR/EC) 40 mg PO DAILY Qty: 14 RF: 0 No Action Carafate 1 gram tablet 1 g PO Q6H PRNRF: 0 Estarylla 0.25-35 mg-mcg tablet 1 tab PO DAILY Qty: 84 RF: 3 fluconazole 150 mg tablet 150 mg PO Q3D Qty: 2 RF: 0 promethazine-codeine 6.25-10 mg/5 mL syrup 5 ml PO Q6H PRN (Reason: cough) Qty: 118 RF: 0 Discharge Orders: Discharge ED (Routine); Ordered 06/09/21 Ordered By: Jostin Jackson Referrals: Mallory Kelly FNP [Primary Care Provider] - Discharge Diet: Advance as tolerated Discharge Activity: Increase activity as tolerated Patient Instructions: GERD (Gastroesophageal Reflux Disease) (ED) Activity Restrictions/Additional Instructions: Home and rest. Drink plenty of fluids. Continue with omeprazole daily. Make sure to take omeprazole 30 minutes before your first meal of the day. It is important to eat 30 minutes after taking the omeprazole. Use Reglan 1 tablet 30 minutes before each meal, and 30 minutes before bedtime. Drink plenty of water. Follow-up with primary care for further evaluation and treatment. Return to the ER as needed. Coding Level of Care Code ED Shipping And Receiving Specialist for Kelin Fwd Exam Comprehensive
[2021-06-09 23:27] LABS: Basophils % 0.3 %; Eosinophils # 0.9 10^3/uL (0.0-0.8); Eosinophils % 7.8 %; Hematocrit 41.9 % (37.0-47.0); Hemoglobin 13.5 g/dL (11.5-15.3); Lymphocytes % 35.4 %; Mean Corpuscular HGB Conc 32.2 g/dL (30.0-36.0); Mean Corpuscular Hemoglobin 28.9 pg (28.0-34.0); Mean Corpuscular Volume 89.7 fl (81-99); Monocytes # 0.6 10^3/uL (0.2-0.9); Neutrophils # 5.83 10^3/uL (1.8-7.7); Neutrophils % 51.3 %; Nucleated Red Blood Cells % 0 %; Platelet Count 188 10^3/cmm (130-400); Positive C 1; Red Blood Count 4.67 10^6/uL (4.1-5.3); Red Cell Distribution Width 13.4 % (12.1-15.1); White Blood Count 11.4 10^3/uL (4.0-10.0)
[2021-06-09 23:39] LABS: HCG, Serum Qual Negative (Negative)
[2021-06-09 23:45] LABS: H. Pylori IgG Antibody Negative (Negative)
[2021-06-09 23:48] LABS: Alanine Aminotransferase 15 U/L (0-33); Albumin Level 4.1 g/dL (3.5-5.2); Alkaline Phosphatase 74 IU/L (35-105); Anion Gap 19.4 (5-19); Aspartate Amino Transferase 9 U/L (0-32); Blood Urea Nitrogen 13 mg/dL (6-20); Calcium 9.3 mg/dL (8.5-10.5); Carbon Dioxide 22 mmol/L (22-29); Chloride 105 mmol/L (98-107); Globulin 3.3 g/dL (1.3-4.6); Glomerular Filtration Rate 123.9 mL/min (90-130); Glucose 103 mg/dL (65-115); Lipase 20 U/L (13-60); Osmolality Calculated 294 mOsm/kg (285-295); Potassium 4.4 mmol/L (3.5-5.1); Sodium 142 mmol/L (136-145); Total Bilirubin 0.2 mg/dL (0.15-1.2); Total Protein 7.4 g/dL (6.6-8.7)
[2021-06-10 00:08] VITALS: BP 133/82; PULSE 78; RESP 16; O2SAT 97
== END 2021-06-10 00:10 | disposition home or self-care (01) ==
PROVIDERS: Emergency Medicine; Emergency Provider Nurse Practitioner Family; PCP Nurse Practitioner Family
DX: R10.13 Epigastric pain (principal); K21.9 Gastro-esophageal reflux disease without esophagitis; F17.210 Nicotine dependence, cigarettes, uncomplicated
CPT/HCPCS: 80053; 81001; 83690; 84703; 85025; 86677; 99281

== ENCOUNTER → 2021-06-23 11:49 | Outpatient (BNVA) | payer OTHER, SELFPAY | PROVIDERS: PCP Nurse Practitioner Family; Visit Provider Nurse Practitioner Women's Health | DX: N85.01 Benign endometrial hyperplasia (principal) | CPT/HCPCS: 81025; 88305 ==

== ENCOUNTER 2021-08-03 21:34 | Emergency (ER) | payer OTHER, SELFPAY ==
[2021-08-03 21:46] VITALS: BP 133/91; PULSE 81; RESP 18; TEMP 36.6; O2SAT 98; BMI 50.4
== END 2021-08-03 23:09 | disposition left against medical advice (07) ==
PROVIDERS: Emergency Provider Family Medicine; PCP Nurse Practitioner Family
DX: Z53.21 Procedure and treatment not carried out due to patient leaving prior to being seen by health care provider (principal)

== ENCOUNTER 2021-08-21 17:59 | Emergency (ER) | payer SELFPAY ==
[2021-08-21 18:10] VITALS: BP 151/96; PULSE 82; RESP 18; TEMP 36.7; O2SAT 98; BMI 50.5
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
[2021-08-21] MEDS: acetaminophen 500 mg Tablet 1000 MG PO (18:52)
[2021-08-21 19:14] VITALS: BP 150/92; PULSE 88; RESP 18; O2SAT 99
--- NOTE | 2021-08-24 09:28 | DCPLANNER ---
Addendum entered by Coty Mccarthy 08/28/21 09:31: Patient had a follow up appointment scheduled with ortho - patient did attend appointment. Addendum entered by Coty Mccarthy 08/25/21 06:40: Patient has a follow up appointment scheduled for , August 27, [address] at 8:[address] Edmonds at ortho. Clinic will call patient with appointment information. Original Note: assistant community manager had message to schedule a follow up appointment for patient with ortho. assistant community manager called the ortho clinic, spoke with Evangelina, gave clinic patients information. assistant community manager was told that patients information would be printed and reviewed. Clinic will call patient with appointment information.
== END 2021-08-21 19:15 | disposition home or self-care (01) ==
PROVIDERS: Emergency Provider Physician Assistant; PCP Nurse Practitioner Family
DX: S49.91XA Unspecified injury of right shoulder and upper arm, initial encounter (principal); F17.210 Nicotine dependence, cigarettes, uncomplicated; V69.9XXA Occupant (driver) (passenger) of heavy transport vehicle injured in unspecified traffic accident, initial encounter
CPT/HCPCS: 73030; 99283

== ENCOUNTER → 2021-08-26 08:06 | Outpatient (BNVA) | payer SELFPAY | PROVIDERS: PCP Nurse Practitioner Family; Referring Provider Physician Assistant; Visit Provider Specialist | DX: S49.91XA Unspecified injury of right shoulder and upper arm, initial encounter (principal); X58.XXXA Exposure to other specified factors, initial encounter | CPT/HCPCS: 73030 ==

== ENCOUNTER 2021-08-29 21:02 | Emergency (ER) | payer OTHER, SELFPAY ==
[2021-08-29 21:06] VITALS: BP 154/106; PULSE 105; RESP 20; TEMP 36.6; O2SAT 97; BMI 52.0
--- NOTE | 2021-08-29 21:17 | ECG_ITS ---
[facility] Test Date: 2021-08-29 Pat Name: Sharon Camacho Department: Room: Gender: Female Sql [employer] D[employer] Developer: : 1995 Requested By: Eugene Plunkett Order Number: [id number] Richard MD: Sylwia Wilson M.D. Measurements Intervals [place] Rate: 103 P: 49 [place]: 216 QRS: 29 QRSD: 92 T: 15 QT: 326 QTc: 427 Interpretive Statements SINUS TACHYCARDIA WITH FIRST DEGREE AV BLOCK POSSIBLE ANTERIOR MYOCARDIAL INFARCTION , PROBABLY OLD [30 ms Q WAVE IN V3/V4, OR R < 0.2 mV IN V4] Compared to ECG 03/13/2021 00:28:19 First degree AV block now present Myocardial infarct finding now present Sinus rhythm no longer present Electronically Signed On 08-30-2021 21:37:08 SPORTS ADMINISTRATOR by Sylwia Wilson M.D. [email or web address]
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
--- NOTE | 2021-08-29 21:17 | XRR_ITS ---
PROCEDURE INFORMATION: Exam: XR Chest Exam date and time: 08/29/2021 9:17 PM Age: 25 years old Clinical indication: Dyspnea; Additional info: SOB TECHNIQUE: Imaging protocol: XR of the chest. Views: 1 view. COMPARISON: CR XR chest 1V portable [id number] 04/26/2021 3:36 PM FINDINGS: Lungs: Unremarkable. No consolidation. Pleural spaces: Unremarkable. No pleural effusion. No pneumothorax. Heart/Mediastinum: Unremarkable. No cardiomegaly. Bones/joints: Unremarkable. XR/XR chest 1V portable [id number] IMPRESSION: No acute findings.
[2021-08-29] MEDS: LORazepam 0.5 mg Tablet PO (21:23)
== END 2021-08-29 22:09 | disposition home or self-care (01) ==
PROVIDERS: Emergency Provider Nurse Practitioner Family; PCP Nurse Practitioner Family
DX: F41.9 Anxiety disorder, unspecified (principal); F17.210 Nicotine dependence, cigarettes, uncomplicated
CPT/HCPCS: 71045; 93005; 99283

== ENCOUNTER → 2021-09-03 13:51 | Outpatient (BNVA) | payer OTHER, SELFPAY | PROVIDERS: PCP Nurse Practitioner Family; Visit Provider Physician Assistant | DX: M54.2 Cervicalgia (principal); M54.6 Pain in thoracic spine | CPT/HCPCS: 72050; 72070; 72110 ==

== ENCOUNTER 2021-09-15 06:00 | Outpatient (RCR) | payer OTHER, SELFPAY | END 2021-10-01 23:59 | disposition home or self-care (01) | LOC: SPT 06:00 | PROVIDERS: PCP Nurse Practitioner Family; Referring Provider Physician Assistant; Visit Provider Physician Assistant | DX: M54.2 Cervicalgia (principal); M54.9 Dorsalgia, unspecified | CPT/HCPCS: 97110; 97140; 97161 ==

== ENCOUNTER 2021-09-29 10:05 | Emergency (ER) | payer OTHER, SELFPAY ==
[2021-09-29 11:11] VITALS: BP 161/109; PULSE 107; RESP 22; TEMP 36.7; O2SAT 97; BMI 52.2
--- NOTE | 2021-09-29 11:14 | XR_ITS ---
WS: [id number] Exam: XR chest 2V* [id number] Date/Time of Exam: 09/29/2021 11:18 AM Reason For Exam: cough Comparison 08/29/2021. Findings: The lungs are clear and fully expanded. Costophrenic angles are sharp. No infiltrates. Bronchovascula r relief appears normal. Cardiac silhouette is unremarkable. Bony elements are intact. XR/XR chest 2V* [id number] IMPRESSION: Unremarkable chest radiograph.
--- NOTE | 2021-09-29 11:36 | W.ED.URI ---
HPI - URI/Sore Throat General: Chief Complaint: Upper Respiratory Infection Stated Complaint: fever; snotty nose; cough; burning lungs Time Seen by Provider: 09/29/21 10:18 History of Present Illness: Patient is a 25-year-old female comes to the ED with upper respiratory symptoms. Symptoms started yesterday. Patient is having some cold sweats, runny nose, cough and fever. She endorses having some mild shortness of breath as well. Cough is dry nonproductive. She did an at-home Covid test yesterday and it was negative. She did go to urgent care yesterday and was evaluated and discharged home with a prescription for azithromycin and Medrol Dosepak. She just started taking the steroid and antibiotic yesterday. Patient has had COVID-19 twice. Associated symptoms: Reports chills and fever(s); Deny abdominal pain, chest pain, diarrhea, headache(s), nasal congestion, nausea or vomiting Review of Systems Const: Reports: fever(s), chills and body aches; Denies: fatigue Eyes: Denies: change in vision or eye discomfort ENMT: Reports: nasal discharge; Denies: throat pain, odynophagia or nasal congestion Card: Denies: chest pain, palpitations, edema, swelling of feet/ankles, dyspnea on exertion or orthopnea Resp: Reports: dyspnea and non-productive cough; Denies: productive cough GI: Denies: abdominal pain, nausea, vomiting, diarrhea, constipation or hematochezia : Denies: flank pain, dysuria or hematuria Musc: Denies: neck pain, back pain or extremity swelling Skin/Breast: Denies: rash or new lesions Neuro: Denies: headache(s), numbness in extremities or weakness in extremities PFS ED PFSH: Medical History Anxiety Blind left eye Chronic GERD Migraine without aura and without status migrainosus, not intractable Secondary amenorrhea Surgical History History of tonsillectomy and adenoidectomy Status post hysteroscopy (06/17/20) With D&C. 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 Performed by Dr. Silva at [facility] [place], [place] Family History Grandmother Breast cancer Great- maternal High cholesterol Maternal Hypertension Maternal Family/Other Diabetes Paternal aunt Hypertension Paternal Aunts and Uncles Stroke Paternal Great Aunt Grandfather Heart disease Paternal Denies family history of Colon cancer Ovarian cancer Bleeding disorder Uterine cancer Thyroid disease Social History Smoking and tobacco status: current every day smoker Female Reproductive History: Date of last menstrual period: 07/25/21 Physical Exam Const: COMMON NORMALS: no acute distress, patient oriented x3 and alert GENERAL APPEARANCE: cooperative and comfortable HENMT: COMMON NORMALS: normocephalic HEAD & SCALP: normocephalic MOUTH: Normal oral and palatal mucosa present THROAT: posterior oropharynx normal and uvula midline Neck/C-Spine: COMMON NORMALS: supple GENERAL: Yes normal visual inspection Resp: COMMON NORMALS: normal respiratory effort, No retractions, No use of accessory muscles and clear to auscultation bilaterally AUSCULTATION: clear to auscultation bilaterally Cardio: COMMON NORMALS: regular rate, regular rhythm, S1 normal heart sound present, S2 normal heart sound present, No gallops present (Cardio), No clicks present (Cardio), No murmurs present (Cardio) and Peripheral pulses 2+ throughout RATE: regular rate RHYTHM: regular rhythm HEART SOUNDS: S1 normal heart sound present and S2 normal heart sound present PERIPHERAL PULSES: Peripheral pulses 2+ throughout GI: COMMON NORMALS: Normal to inspection, nondistended, normoactive bowel sounds present, Soft to palpation, non-tender and no masses PALPATION: Yes Soft to palpation : COMMON NORMALS: Yes no CVA tenderness BLADDER/KIDNEY EXAM: Yes no CVA tenderness Back/Pelvis: COMMON NORMALS: no CVA tenderness Extremity: COMMON NORMALS: normal to inspection Neuro: COMMON NORMALS: patient oriented x3 and moves all extremities SENSORIUM/ORIENTATION: Yes alert Skin: GENERAL SKIN EXAM: dry skin Course Vital Signs: Vital signs: Vital Signs Temperature 98.1 F 09/29/21 11:11 Pulse Rate 94 09/29/21 11:42 Respiratory Rate 18 09/29/21 11:42 Blood Pressure 161/109 09/29/21 11:42 Pulse Oximetry 97 09/29/21 11:42 MDM - URI/Sore Throat Medical Decision Making Patient is a 25-year-old female comes to the ED with upper respiratory symptoms. Symptoms started yesterday. She went and saw urgent care yesterday as well and they put her on a steroid and antibiotic. Vitals are stable. Patient appears in no acute distress or pain. Lungs are clear to auscultation bilaterally. Influenza A positive. Covid negative. Chest x-ray shows no acute findings or infiltrates. Patient was diagnosed with influenza A and discharged home. She was told to continue taking her previously prescribed meds. Return to ED precautions given. Follow-up with PCP in the next 7 to 10 days reevaluation. Patient understood and agreed with plan. Lab Data I reviewed the patient's lab results. Radiology Impressions Chest X-Ray 09/29/21 11:14 IMPRESSION: Unremarkable chest radiograph. Laboratory Results Nasal Influ A H1 2009 PCR Not detected (NOT DETECT) 09/29/21 11:50 Coronavirus 229E (PCR) Not detected (NOT DETECT) 09/29/21 11:50 Influenza A (H1) PCR Not detected (NOT DETECT) 09/29/21 11:50 Influenza A (H3) PCR Detected (NOT DETECT) A 09/29/21 11:50 Influenza Type A Ag Cancelled 09/29/21 11:51 Influenza Type A (PCR) Detected (NOT DETECT) A 09/29/21 11:50 Influenza Type B Ag Cancelled 09/29/21 11:51 Influenza Type B (PCR) Not detected (NOT DETECT) 09/29/21 11:50 SARS-CoV-2 (PCR) Not detected (NOT DETECT) 09/29/21 11:50 Discharge Plan Discharge Patient Disposition: Home Clinical Impression: Influenza A, Viral syndrome Condition: Stable Prescriptions: No Action azithromycin 250 mg tablet See Rx Instructions PO .COMPLEX Qty: 6 0RF Rx Instructions: take 500 mg today (day 1), then 250 mg for 4 days (days 2-5) PO methylprednisolone [Medrol (Rahul)] 4 mg tablets,dose pack See Rx Instructions PO PER PKG DIR Qty: 21 0RF Rx Instructions: PO PER PKG DIR albuterol sulfate [Ventolin HFA] 90 mcg/actuation HFA aerosol inhaler 2 puff inhalation Q6H PRN (Reason: shortness of breath or wheezing) Qty: 8.5 0RF norgestimate-ethinyl estradiol [Estarylla] 0.25-35 mg-mcg tablet 1 tab PO DAILY Qty: 28 0RF Discharge Orders: Discharge ED (Routine); Ordered 09/29/21 Ordered By: Momo Al Referrals: Mallory Kelly FNP [Primary Care Provider] - Discharge Diet: Regular Discharge Activity: Increase activity as tolerated Patient Instructions: Viral Syndrome (ED) Activity Restrictions/Additional Instructions: Follow-up with medical provider as directed in the next 7 to 10 days reevaluation. Your influenza and Covid test are pending and results should be back within the next couple hours. Call [facility] later today to find out test results. Continue taking your previously prescribed antibiotic and steroid. Use your previously prescribed albuterol inhaler as needed for any shortness of breath. Return to the ER or your medical provider if condition worsens. Please read and understand discharge instructions. Thank you for choosing [facility] for your healthcare needs today. Please realize this is an emergency room and that we are providing you with a medical screening exam and this may not be complete and all inclusive of all the testing and or work up that you may need to determine your ailment or severity of your illness. It is very important that you follow up as instructed or that you return to the Emergency Department should you have concerns or if your condition changes or worsens in any way. Coding Level of Care Code ED Case Liner for Kelin Rivas Exam Comprehensive
[2021-09-29 11:42] VITALS: BP 161/109; PULSE 94; RESP 18; O2SAT 97
[2021-09-29 13:40] LABS: Adenovirus Not Detected (NOT DETECT); Chlamydia Pneumoniae Not Detected (NOT DETECT); Coronavirus 229E,HKU1,NL63,OC4 Not Detected (NOT DETECT); Human Metapneumovirus Not Detected (NOT DETECT); Human Rhinovirus/Enterovirus Not Detected (NOT DETECT); Influenza A Detected (NOT DETECT); Influenza A H1 Not Detected (NOT DETECT); Influenza A H1-2009 Not Detected (NOT DETECT); Influenza A H3 Detected (NOT DETECT); Influenza B Not Detected (NOT DETECT); Mycoplasma Pneumoniae Not Detected (NOT DETECT); Parainfluenza Virus Type 1 Not Detected (NOT DETECT); Parainfluenza Virus Type 2 Not Detected (NOT DETECT); Parainfluenza Virus Type 3 Not Detected (NOT DETECT); Parainfluenza Virus Type 4 Not Detected (NOT DETECT); Respiratory Syncytial Virus A Not Detected (NOT DETECT); Respiratory Syncytial Virus B Not Detected (NOT DETECT); SARS-COV-2 Not Detected (NOT DETECT)
[2021-09-29 13:44] LABS: Influenza A Detected (NOT DETECT); Influenza A H1 Not Detected (NOT DETECT); Influenza A H1-2009 Not Detected (NOT DETECT); Influenza A H3 Detected (NOT DETECT); Influenza B Not Detected (NOT DETECT); Results from GENMARK
== END 2021-09-29 11:56 | disposition home or self-care (01) ==
PROVIDERS: Emergency Medicine; Emergency Provider Physician Assistant; PCP Nurse Practitioner Family
DX: J10.1 Influenza due to other identified influenza virus with other respiratory manifestations (principal); Z86.16 Personal history of COVID-19; F17.200 Nicotine dependence, unspecified, uncomplicated
CPT/HCPCS: 71046; 87631; 87635; 99282

== ENCOUNTER 2021-10-02 06:00 | Outpatient (RCR) | payer OTHER, SELFPAY | END 2021-10-31 23:59 | disposition home or self-care (01) | LOC: SPT 06:00 | PROVIDERS: PCP Nurse Practitioner Family; Referring Provider Physician Assistant; Visit Provider Physician Assistant | DX: M54.2 Cervicalgia (principal); M54.6 Pain in thoracic spine | CPT/HCPCS: 97110 ==

== ENCOUNTER 2021-10-26 10:58 | Outpatient (CLI) | payer OTHER, SELFPAY ==
--- NOTE | 2021-10-26 11:07 | MR_ITS ---
WS: [id number] MRI RIGHT SHOULDER NONCONTRAST TECHNIQUE: Sagittal T2, coronal T1, T2 and proton density imaging. Axial gradient PDE imaging. CLINICAL INFORMATION: S49.90XA - Unspecified injury of shoulder and upper arm, ... COMPARISON: None. FINDINGS: Some imaging is limited due to positioning. Mild degenerative arthritis at the AC joint. Mild downsloping acromion. Distal supraspinatus and infr aspinatus appear normal. Normal subscapularis. Normal teres minor. Rotator cuff is intact. Normal biceps tendon in the bicipital groove. Normal biceps labral anchor. Somewhat diminutive biceps tendon. Normal intra-articular biceps tendon. Normal bone marrow signal in the humerus and glenoid. Glenoid labrum appears grossly normal. Normal soft tissues. MR/MR shoulder RT wo con* [id number] IMPRESSION: 1. Mild degenerative arthritis AC joint with mild downsloping acromion. 2. Normal supraspinatus and infraspinatus. No acute rotator cuff tears. 3. Somewhat diminutive biceps tendon appears intact within the bicipital groov e. Normal biceps labral anchor. 4. Glenoid labrum appears grossly normal. 5. Normal bone marrow signal in the humerus and glenoid.
== END 2021-10-26 10:59 | disposition home or self-care (01) ==
PROVIDERS: PCP Nurse Practitioner Family; Visit Provider Specialist
DX: S49.91XA Unspecified injury of right shoulder and upper arm, initial encounter (principal); X58.XXXA Exposure to other specified factors, initial encounter; M19.011 Primary osteoarthritis, right shoulder
CPT/HCPCS: 73221

== ENCOUNTER 2021-11-01 | Outpatient (RCR) | payer OTHER, SELFPAY | END 2021-12-01 23:59 | disposition home or self-care (01) | LOC: SPT | PROVIDERS: PCP Nurse Practitioner Family; Referring Provider Physician Assistant; Visit Provider Physician Assistant | DX: M54.2 Cervicalgia (principal); M54.9 Dorsalgia, unspecified | CPT/HCPCS: 97110; 97140 ==

== ENCOUNTER 2021-11-11 21:10 | Emergency (ER) | payer OTHER, SELFPAY ==
[2021-11-11 21:22] VITALS: BP 139/86; PULSE 84; RESP 18; TEMP 36.6; O2SAT 98; BMI 54.2
--- NOTE | 2021-11-11 21:36 | CTR_ITS ---
PROCEDURE INFORMATION: Exam: CT Head Without Contrast Exam date and time: 11/11/2021 9:59 PM Age: 25 years old Clinical indication: Pain; Headache not specified; Patient HX: -head pressure on and off since 3 pm today; Additional info: Headache-pressure at top of head TECHNIQUE: Imaging protocol: Computed tomography of the head without contrast. Radiation optimization: All CT scans at this facility use at least one of these dose optimization techniques: automated exposure control; mA and/or kV adjustment per patient size (includes targeted exams where dose is matched to clinical indication); or iterative reconstruction. COMPARISON: CT head wo con* [id number] 09/28/2018 7:31 PM RADIATION DOSE METRICS: Total DLP (mGy-cm): 804.9 FINDINGS: Brain: Normal. No hemorrhage. Unremarkable white matter. No mass effect. Cerebral ventricles: No ventriculomegaly. Paranasal sinuses: Visualized sinuses are unremarkable. No fluid levels. Mastoid air cells: Visualized mastoid air cells are well aerated. Bones/joints: Unremarkable. No acute fracture. Soft tissues: Unremarkable. CT/CT head wo con* [id number] IMPRESSION: No acute intracranial abnormality.
--- NOTE | 2021-11-11 21:36 | W.ED.GENADLT ---
HPI - General Adult General: Chief complaint: General Medical Stated complaint: D/pressure built up head Time Seen by Provider: 11/11/21 21:28 History of Present Illness: Patient is a 25-year-old female comes to the ED with a headache. She has a history of migraines and says this does not feel like her typical migraine. Symptoms started this afternoon. She describes the headache as pressure that pulsates into the top of her head. Pain comes and goes and is not constant. Here in the ED she is not having any current pain. Denies any head trauma or any other injury to cause symptoms. She is not taking any medications for her headache today. Denies any vision changes, numbness tingling or weakness to 1 side of body or face. Associated symptoms: Reports headache(s); Deny chest pain, dyspnea, nausea, rash, palpitations or vomiting Review of Systems Const: Denies: fever(s), chills or fatigue Eyes: Denies: change in vision or eye discomfort ENMT: Denies: throat pain, odynophagia, nasal discharge or nasal congestion Card: Denies: chest pain, palpitations, edema, swelling of feet/ankles, dyspnea on exertion or orthopnea Resp: Denies: dyspnea, productive cough or non-productive cough GI: Denies: abdominal pain, nausea, vomiting, diarrhea, constipation or hematochezia : Denies: flank pain, dysuria or hematuria Musc: Denies: neck pain, back pain or extremity swelling Skin/Breast: Denies: rash or new lesions Neuro: Reports: headache(s); Denies: numbness in extremities or weakness in extremities PFS ED PFSH: Medical History Anxiety Blind left eye Chronic GERD Migraine without aura and without status migrainosus, not intractable Secondary amenorrhea Surgical History History of tonsillectomy and adenoidectomy Status post hysteroscopy (06/17/20) With D&C. 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 Performed by Dr. Silva at [facility] in [place], [place]. Family History Grandmother Breast cancer Great- maternal High cholesterol Maternal Hypertension Maternal Family/Other Diabetes Paternal aunt Hypertension Paternal Aunts and Uncles Stroke Paternal Great Aunt Grandfather Heart disease Paternal Denies family history of Colon cancer Ovarian cancer Bleeding disorder Uterine cancer Thyroid disease Social History Smoking and tobacco status: current every day smoker Female Reproductive History: Date of last menstrual period: 11/11/21 Physical Exam Const: COMMON NORMALS: no acute distress, patient oriented x3 and alert GENERAL APPEARANCE: cooperative and comfortable HENMT: COMMON NORMALS: normocephalic HEAD & SCALP: normocephalic MOUTH: Normal oral and palatal mucosa present THROAT: posterior oropharynx normal and uvula midline Eye: COMMON NORMALS: Equal, round and reactive pupils present and conjunctivae normal CONJUNCTIVA: Yes conjunctivae normal PUPIL: Yes Equal, round and reactive pupils present Neck/C-Spine: COMMON NORMALS: supple GENERAL: Yes normal visual inspection Resp: COMMON NORMALS: normal respiratory effort, No retractions, No use of accessory muscles and clear to auscultation bilaterally AUSCULTATION: clear to auscultation bilaterally Cardio: COMMON NORMALS: regular rate, regular rhythm, S1 normal heart sound present, S2 normal heart sound present, No gallops present (Cardio), No clicks present (Cardio), No murmurs present (Cardio) and Peripheral pulses 2+ throughout RATE: regular rate RHYTHM: regular rhythm HEART SOUNDS: S1 normal heart sound present and S2 normal heart sound present PERIPHERAL PULSES: Peripheral pulses 2+ throughout GI: COMMON NORMALS: Normal to inspection, nondistended, normoactive bowel sounds present, Soft to palpation, non-tender and no masses PALPATION: Yes Soft to palpation : COMMON NORMALS: Yes no CVA tenderness BLADDER/KIDNEY EXAM: Yes no CVA tenderness Back/Pelvis: COMMON NORMALS: no CVA tenderness Extremity: COMMON NORMALS: normal to inspection Neuro: COMMON NORMALS: patient oriented x3, CN's II-XII intact bilaterally, moves all extremities, no focal motor deficits and no sensory deficits noted SENSORIUM/ORIENTATION: Yes alert COORDINATION/BALANCE: [id number] test normal SPEECH: speech normal GAIT: Yes Normal gait present SENSORY EXAM: Yes extremities (intact) MOTOR EXAM: 5/5 motor strength present throughout COORDINATION: [id number] test normal Skin: GENERAL SKIN EXAM: dry skin Course Vital Signs: Vital signs: Vital Signs Temperature 97.9 F 11/11/21 21:22 Pulse Rate 84 11/11/21 21:22 Respiratory Rate 18 11/11/21 21:22 Blood Pressure 139/86 11/11/21 21:22 Pulse Oximetry 98 11/11/21 21:22 [facility] - General Adult Medical Decision Making Patient is a 25-year-old female comes to the ED with a headache. She says this is unlike any headache she is ever had before. Vitals are stable. Patient appears nontoxic and in no acute distress or pain. Exam of patient is benign and neuro exam shows no deficits. CT of head shows no acute findings. Patient was diagnosed with a headache and discharged home. She was told to follow-up with her PCP in the next week for reevaluation. Return to ED precautions given. Patient understood and agree with plan. Lab Data Radiology Impressions Head CT 11/11/21 21:36 IMPRESSION: No acute intracranial abnormality. Discharge Plan Discharge Patient Disposition: Home Clinical Impression: Headache Qualifiers: Headache type: unspecified Headache chronicity pattern: acute headache Intractability: not intractable Qualified Code(s): R51.9 - Headache, unspecified Condition: Stable Prescriptions: No Action sucralfate [Carafate] 1 gram tablet 1 g PO QID 30 Days Qty: 120 0RF pantoprazole [Protonix] 20 mg tablet,delayed release (DR/EC) 20 mg PO DAILY Qty: 30 0RF aloe vera Gel 1 applic topical 6XD Qty: 170 0RF norgestimate-ethinyl estradiol [Estarylla] 0.25-35 mg-mcg tablet 1 tab PO DAILY Qty: 28 0RF Discharge Orders: Discharge ED (Routine); Ordered 11/11/21 Ordered By: Momo Al Referrals: Mallory Kelly FNP [Primary Care Provider] - Discharge Diet: Regular Discharge Activity: Increase activity as tolerated Patient Instructions: Headache Activity Restrictions/Additional Instructions: Follow-up with medical provider as directed in the next 5 to 7 days reevaluation.Take [id number] Tylenol or Motrin for any headaches. Return to the ER or your medical provider if condition worsens. Please read and understand discharge instructions. Thank you for choosing [facility] for your healthcare needs today. Please realize this is an emergency room and that we are providing you with a medical screening exam and this may not be complete and all inclusive of all the testing and or work up that you may need to determine your ailment or severity of your illness. It is very important that you follow up as instructed or that you return to the Emergency Department should you have concerns or if your condition changes or worsens in any way. Coding Level of Care Code ED Loan Review Analyst for Paramg Fwd Exam Comprehensive
[2021-11-11] MEDS: meclizine 25 mg tablet PO (22:51)
[2021-11-11 23:11] VITALS: BP 134/82; PULSE 79; RESP 16; TEMP 36.6; O2SAT 97
[2021-11-11 23:23] LABS: Glucose Point of Care 100 mg/dL (70-110)
== END 2021-11-11 23:12 | disposition home or self-care (01) ==
PROVIDERS: Emergency Provider Physician Assistant; PCP Nurse Practitioner Family
DX: R51.9 Headache, unspecified (principal); F17.200 Nicotine dependence, unspecified, uncomplicated
CPT/HCPCS: 36416; 70450; 82962; 99283; J8597

== ENCOUNTER 2021-11-17 10:00 | Emergency (ER) | payer OTHER, SELFPAY ==
[2021-11-17 10:16] VITALS: BP 174/125; PULSE 62; RESP 18; O2SAT 98; BMI 53.1
[2021-11-17 10:20] VITALS: BP 164/105; PULSE 70; RESP 22; TEMP 36.6; O2SAT 96
[2021-11-17 10:50] VITALS: BP 115/51; PULSE 55; RESP 18; O2SAT 99
--- NOTE | 2021-11-17 11:22 | ECG_ITS ---
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 Measurements Intervals [place] Rate: 73 P: 15 [place]: 182 QRS: 21 QRSD: 97 T: 9 QT: 382 QTc: 421 Interpretive Statements SINUS RHYTHM Compared to ECG 08/29/2021 21:10:55 Sinus tachycardia no longer present First degree AV block no longer present Myocardial infarct finding no longer present Electronically Signed On 11-17-2021 17:10:20 CDT by Fredi Mcfadden M.D. [id number]
--- NOTE | 2021-11-17 11:22 | XRR_ITS ---
PROCEDURE INFORMATION: Exam: XR Chest Exam date and time: 11/17/2021 11:49 AM Age: 25 years old Clinical indication: Chest pain/angina pectoris. TECHNIQUE: Imaging protocol: XR of the chest. Views: 1 view. COMPARISON: CR XR chest 2V* [id number] 09/29/2021 11:23 AM FINDINGS: Lungs: No pulmonary consolidation. Pleural spaces: No pleural effusion. No pneumothorax. Heart/Mediastinum: The cardiac silhouette is unremarkable. No gross evidence of pneumomediastinum. Bones/joints: No gross fracture. XR/XR chest 1V portable [id number] IMPRESSION: No acute cardiopulmonary abnormality identified.
--- NOTE | 2021-11-17 11:23 | W.ED.GENADLT ---
Documented by User: JAS Ansari 11/18/21 07:01 [facility] - General Adult General: Chief complaint: Dizziness Stated complaint: Dizziness Time Seen by Provider: 11/17/21 10:05 Source: patient Mode of arrival: ambulatory Limitations: no limitations History of Present Illness: Patient is a 25-year-old female with a history of PCOS, GERD, anxiety, and morbid obesity here for for complaints of dizziness and chest pain. Patient states she has had intermittent chest pains for 2 years now. She seems frustrated that she keeps getting diagnosed with GERD as she does not feel like this is an appropriate diagnosis. She states she has been on pantoprazole and sucralfate without much relief. She states pain seems to wax and wane and cannot find any aggravating or alleviating factors to her discomfort. It is not provoked by exertion. She does not have any shortness of breath or difficulty breathing. She states that she sometimes will get palpitations and feel anxious when she starts developing chest pains. Has never had any form of outpatient evaluation or further work-up for this. She does states she has been seen in the ED several times seems overall fairly dissatisfied with her care here previously. Patient tells me today she began feeling dizzy which made her concerned. Patient's gait is not affected and she was able to ambulate back to her room without assistance. She does not complain of visual changes. No tinnitus, hearing loss, ear pain. No neurologic complaints. Associated symptoms: Reports chest pain and palpitations; Deny dyspnea, headache(s), malaise, nausea, rash, syncope or vomiting Review of Systems Const: Denies: fever(s), chills, body aches, fatigue or malaise Card: Reports: chest pain and palpitations; Denies: edema, swelling of feet/ankles, syncope, pre-syncope, dyspnea on exertion, orthopnea, leg pain with exertion or acrocyanosis Resp: Denies: dyspnea, productive cough, non-productive cough, pain on inspiration, hemoptysis or chest congestion GI: Reports: heartburn; Denies: abdominal pain, nausea, vomiting or diarrhea : Denies: flank pain, dysuria or hematuria Musc: Denies: neck pain, back pain, extremity pain or joint pain Skin/Breast: Denies: rash Neuro: Reports: dizziness; Denies: headache(s), numbness in extremities, weakness in extremities, sensory changes, difficulty walking, frequent falls or difficulty communicating thoughts PFSH ED PFSH: Medical History Anxiety Blind left eye Chronic GERD Migraine without aura and without status migrainosus, not intractable Secondary amenorrhea Surgical History History of tonsillectomy and adenoidectomy Status post hysteroscopy (06/17/20) With D&C. 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 Performed by Dr. Silva at [facility] in [place], [place]. Family History Grandmother Breast cancer Great- maternal High cholesterol Maternal Hypertension Maternal Family/Other Diabetes Paternal aunt Hypertension Paternal Aunts and Uncles Stroke Paternal Great Aunt Grandfather Heart disease Paternal Denies family history of Colon cancer Ovarian cancer Bleeding disorder Uterine cancer Thyroid disease Social History Smoking and tobacco status: current every day smoker Female Reproductive History: Date of last menstrual period: 11/11/21 Physical Exam Const: COMMON NORMALS: no acute distress, patient oriented x3, no limitations and alert GENERAL APPEARANCE: cooperative NUTRITIONAL APPEARANCE: obese morbidly obese ORIENTATION/CONSCIOUSNESS: Yes awake, Yes oriented to person, Yes oriented to place and Yes oriented to time HENMT: COMMON NORMALS: normocephalic and atraumatic HEAD & SCALP: normal to inspection, normocephalic and atraumatic Eye: GENERAL EYE: appearance normal, both eyes and all related structures OTHER: no nystagmus Chest: COMMONS NORMALS: normal inspection of the chest OTHER: patient does have pain to palpation of anterior chest although states this does not directly reproduce all of her chest discomfort Resp: COMMON NORMALS: normal respiratory effort and clear to auscultation bilaterally AUSCULTATION: clear to auscultation bilaterally Cardio: COMMON NORMALS: regular rate and regular rhythm RATE: regular rate RHYTHM: regular rhythm GI: COMMON NORMALS: Normal to inspection, nondistended, normoactive bowel sounds present, Soft to palpation, non-tender, No hepatosplenomegaly present and no masses PALPATION: Yes Soft to palpation and Yes No hepatosplenomegaly present Extremity: COMMON NORMALS: normal to inspection, full ROM, no clubbing, cyanosis or edema, no calf tenderness and no pedal edema GENERAL: Yes normal exam except as noted Neuro: RON COMA SCALE: document GCS findings [place] coma scale eye opening: Spontaneous [place] coma scale verbal response: Orientated Ron coma scale motor response: Obey commands [place] coma scale total score: 15 COMMON NORMALS: patient oriented x3, moves all extremities, no focal motor deficits, no sensory deficits noted and gait normal SENSORIUM/ORIENTATION: Yes alert, Yes oriented to person, Yes oriented to place and Yes oriented to time Skin: COMMON NORMALS: no rashes or lesions noted GENERAL SKIN EXAM: no rashes or lesions noted Course Vital Signs: Vital signs: Vital Signs Temperature 98 F 11/17/21 14:11 Pulse Rate 75 11/17/21 14:11 Respiratory Rate 18 11/17/21 14:11 Blood Pressure 164/96 11/17/21 14:11 Pulse Oximetry 100 11/17/21 14:11 [facility] - General Adult Lab Data : 11/17/21 11:55 11/17/21 11:55 Radiology Impressions Chest X-Ray 11/17/21 11:22 IMPRESSION: No acute cardiopulmonary abnormality identified. Laboratory Results WBC 9.6 10^3/uL (4.0-10.0) 11/17/21 11:55 RBC 4.64 10^6/uL (4.1-5.3) 11/17/21 11:55 Hgb 13.3 g/dL (11.5-15.3) 11/17/21 11:55 Hct 41.6 % (37.0-47.0) 11/17/21 11:55 MCV 89.7 fl (81-99) 11/17/21 11:55 MCH 28.7 pg (28.0-34.0) 11/17/21 11:55 MCHC 32.0 g/dL (30.0-36.0) 11/17/21 11:55 RDW 13.4 % (12.1-15.1) 11/17/21 11:55 Plt Count 303 10^3/cmm (130-400) 11/17/21 11:55 MPV 10.8 fL (7.4-10.4) H 11/17/21 11:55 Neut % (Auto) 61.6 % 11/17/21 11:55 Lymph % (Auto) 30.5 % 11/17/21 11:55 [place] % (Auto) 4.5 % 11/17/21 11:55 Eos % (Auto) 2.9 % 11/17/21 11:55 Baso % (Auto) 0.2 % 11/17/21 11:55 Neut # (Auto) 5.93 10^3/uL (1.8-7.7) 11/17/21 11:55 Lymph # (Auto) 2.9 10^3/uL (0.8-4.8) 11/17/21 11:55 [place] # (Auto) 0.4 10^3/uL (0.2-0.9) 11/17/21 11:55 Eos # (Auto) 0.3 10^3/uL (0.0-0.8) 11/17/21 11:55 Baso # (Auto) 0.0 10^3/uL (0.0-0.1) 11/17/21 11:55 Nucleated RBC % (auto) 0 % 11/17/21 11:55 Nucleated RBCs # 0.0 /100WBC 11/17/21 11:55 Sodium 137 mmol/L (136-145) 11/17/21 11:55 Potassium 4.0 mmol/L (3.5-5.1) 11/17/21 11:55 Chloride 103 mmol/L (98-107) 11/17/21 11:55 Carbon Dioxide 23 mmol/L (22-29) 11/17/21 11:55 Anion Gap 15.0 (5-19) 11/17/21 11:55 BUN 8 mg/dL (6-20) 11/17/21 11:55 Creatinine 0.4 mg/dL (0.5-0.9) L 11/17/21 11:55 GFR Calculation 197.8 mL/min (90-130) H 11/17/21 11:55 Glucose 106 mg/dL (65-115) 11/17/21 11:55 Calculated Osmolality 283 mOsm/kg (285-295) L 11/17/21 11:55 Calcium 8.5 mg/dL (8.5-10.5) 11/17/21 11:55 Total Bilirubin 0.3 mg/dL (0.15-1.2) 11/17/21 11:55 AST 14 U/L (0-32) 11/17/21 11:55 ALT 16 U/L (0-33) 11/17/21 11:55 Alkaline Phosphatase 75 IU/L (35-105) 11/17/21 11:55 Troponin T Baseline 6 ng/L (0-10) 11/17/21 11:55 Troponin T 120 Minute 6.00 ng/L (0-10) 11/17/21 12:50 Delta Troponin T 0 ABS# (0-10) 11/17/21 12:50 Total Protein 7.2 g/dL (6.6-8.7) 11/17/21 11:55 Albumin 4.2 g/dL (3.5-5.2) 11/17/21 11:55 Globulin 3.0 g/dL (1.3-4.6) 11/17/21 11:55 HCG, Qual Negative (Negative) 11/17/21 11:55 Discharge Plan Discharge Patient Disposition: Home Clinical Impression: Vertigo Condition: Stable Prescriptions: No Action sucralfate [Carafate] 1 gram tablet 1 g PO QID 30 Days Qty: 120 0RF pantoprazole [Protonix] 20 mg tablet,delayed release (DR/EC) 20 mg PO DAILY Qty: 30 0RF norgestimate-ethinyl estradiol [Estarylla] 0.25-35 mg-mcg tablet 1 tab PO DAILY Qty: 28 0RF albuterol sulfate 90 mcg/actuation Hfa Aerosol Inhaler 2 puff INHALATION 6XD PRN (Reason: Shortness Of Breath) 0RF Discharge Orders: Discharge ED (Routine); Ordered 11/17/21 Ordered By: Sweta Brooks Referrals: Mallory Kelly, PATIENT OFFICE REP [Primary Care Provider] - Discharge Diet: Usual diet Discharge Activity: Resume usual activity Patient Instructions: Opioid Safety Activity Restrictions/Additional Instructions: Rest tonight increase water eat lots of green, leafy vegetables, and antioxidant rich foods Consider functional medicine approach to your care Sign Out Sign Out Data: Patient Sign Out occurred on 11/17/21 at 12:41. Patient's care was discussed, and care was transferred from to Sweta Brooks. Coding Level of Care Code ED Security Control Center Operator for Chg Fwd Exam Comprehensive Documented by User: Sweta Fowlerlivan 11/17/21 14:08 HPI - General Adult General: Chief complaint: Dizziness Stated complaint: Dizziness Time Seen by Provider: 11/17/21 10:05 PFSH ED PFSH: Medical History Anxiety Blind left eye Chronic GERD Migraine without aura and without status migrainosus, not intractable Secondary amenorrhea Surgical History History of tonsillectomy and adenoidectomy Status post hysteroscopy (06/17/20) With D&C. 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 Performed by Dr. Silva at [facility] in [place], [place]. Family History Grandmother Breast cancer Great- maternal High cholesterol Maternal Hypertension Maternal Family/Other Diabetes Paternal aunt Hypertension Paternal Aunts and Uncles Stroke Paternal Great Aunt Grandfather Heart disease Paternal Denies family history of Colon cancer Ovarian cancer Bleeding disorder Uterine cancer Thyroid disease Social History Smoking and tobacco status: current every day smoker Physical Exam Neuro: RON COMA SCALE: document GCS findings Ron coma scale total score: 15 Course ED course: Pt second EKG shows NSR. Trop is not elevated. She does still state she feels dizzy and has a headache. The meclizine helped some so we will proceed with valium that will also help with her ongoing anxiety. Vital Signs: Vital signs: Vital Signs Temperature 98 F 11/17/21 14:11 Pulse Rate 75 11/17/21 14:11 Respiratory Rate 18 11/17/21 14:11 Blood Pressure 164/96 11/17/21 14:11 Pulse Oximetry 100 11/17/21 14:11 MDM - General Adult Medical Decision Making We will proceed with DC. Pt had some resolution with her dizziness with meclizine. Antihistamines suggested as well as further work up. She states she has PCOS and heavy periods and was just off of her period which could have also caused some of her symptoms. Her BP was initially very elevated due to anxiety but prior to DC it was WNL. Suggest she follow up with PCP for more insight to her symptoms as nothing acute today is of concern other than vertigo which has mostly resolved. Lab Data : 11/17/21 11:55 11/17/21 11:55 Radiology Impressions Chest X-Ray 11/17/21 11:22 IMPRESSION: No acute cardiopulmonary abnormality identified. Laboratory Results WBC 9.6 10^3/uL (4.0-10.0) 11/17/21 11:55 RBC 4.64 10^6/uL (4.1-5.3) 11/17/21 11:55 Hgb 13.3 g/dL (11.5-15.3) 11/17/21 11:55 Hct 41.6 % (37.0-47.0) 11/17/21 11:55 MCV 89.7 fl (81-99) 11/17/21 11:55 MCH 28.7 pg (28.0-34.0) 11/17/21 11:55 MCHC 32.0 g/dL (30.0-36.0) 11/17/21 11:55 RDW 13.4 % (12.1-15.1) 11/17/21 11:55 Plt Count 303 10^3/cmm (130-400) 11/17/21 11:55 MPV 10.8 fL (7.4-10.4) H 11/17/21 11:55 Neut % (Auto) 61.6 % 11/17/21 11:55 Lymph % (Auto) 30.5 % 11/17/21 11:55 [place] % (Auto) 4.5 % 11/17/21 11:55 Eos % (Auto) 2.9 % 11/17/21 11:55 Baso % (Auto) 0.2 % 11/17/21 11:55 Neut # (Auto) 5.93 10^3/uL (1.8-7.7) 11/17/21 11:55 Lymph # (Auto) 2.9 10^3/uL (0.8-4.8) 11/17/21 11:55 [place] # (Auto) 0.4 10^3/uL (0.2-0.9) 11/17/21 11:55 Eos # (Auto) 0.3 10^3/uL (0.0-0.8) 11/17/21 11:55 Baso # (Auto) 0.0 10^3/uL (0.0-0.1) 11/17/21 11:55 Nucleated RBC % (auto) 0 % 11/17/21 11:55 Nucleated RBCs # 0.0 /100WBC 11/17/21 11:55 Sodium 137 mmol/L (136-145) 11/17/21 11:55 Potassium 4.0 mmol/L (3.5-5.1) 11/17/21 11:55 Chloride 103 mmol/L (98-107) 11/17/21 11:55 Carbon Dioxide 23 mmol/L (22-29) 11/17/21 11:55 Anion Gap 15.0 (5-19) 11/17/21 11:55 BUN 8 mg/dL (6-20) 11/17/21 11:55 Creatinine 0.4 mg/dL (0.5-0.9) L 11/17/21 11:55 GFR Calculation 197.8 mL/min (90-130) H 11/17/21 11:55 Glucose 106 mg/dL (65-115) 11/17/21 11:55 Calculated Osmolality 283 mOsm/kg (285-295) L 11/17/21 11:55 Calcium 8.5 mg/dL (8.5-10.5) 11/17/21 11:55 Total Bilirubin 0.3 mg/dL (0.15-1.2) 11/17/21 11:55 AST 14 U/L (0-32) 11/17/21 11:55 ALT 16 U/L (0-33) 11/17/21 11:55 Alkaline Phosphatase 75 IU/L (35-105) 11/17/21 11:55 Troponin T Baseline 6 ng/L (0-10) 11/17/21 11:55 Troponin T 120 Minute 6.00 ng/L (0-10) 11/17/21 12:50 Delta Troponin T 0 ABS# (0-10) 11/17/21 12:50 Total Protein 7.2 g/dL (6.6-8.7) 11/17/21 11:55 Albumin 4.2 g/dL (3.5-5.2) 11/17/21 11:55 Globulin 3.0 g/dL (1.3-4.6) 11/17/21 11:55 HCG, Qual Negative (Negative) 11/17/21 11:55 Discharge Plan Discharge Patient Disposition: Home Clinical Impression: Vertigo Condition: Stable Prescriptions: No Action sucralfate [Carafate] 1 gram tablet 1 g PO QID 30 Days Qty: 120 0RF pantoprazole [Protonix] 20 mg tablet,delayed release (DR/EC) 20 mg PO DAILY Qty: 30 0RF norgestimate-ethinyl estradiol [Estarylla] 0.25-35 mg-mcg tablet 1 tab PO DAILY Qty: 28 0RF albuterol sulfate 90 mcg/actuation Hfa Aerosol Inhaler 2 puff INHALATION 6XD PRN (Reason: Shortness Of Breath) 0RF Discharge Orders: Discharge ED (Routine); Ordered 11/17/21 Ordered By: Sweta Brooks Referrals: Mallory Kelly FNP [Primary Care Provider] - Discharge Diet: Usual diet Discharge Activity: Resume usual activity Patient Instructions: Opioid Safety Activity Restrictions/Additional Instructions: Rest tonight increase water eat lots of green, leafy vegetables, and antioxidant rich foods Consider functional medicine approach to your care Sign Out Sign Out Data: Patient Sign Out occurred on 11/17/21 at 12:41. Patient's care was discussed, and care was transferred from to Sweta Brooks. Coding Level of Care Code ED Security Control Center Operator for Kelin Fwd Exam Comprehensive
[2021-11-17] MEDS: sodium chloride 0.9% 1,000 ML 999 ML IV (11:38)
[2021-11-17] MEDS: meclizine 25 mg tablet 50 MG PO (11:39)
[2021-11-17 11:50] VITALS: BP 107/51; PULSE 49; RESP 18; O2SAT 99
[2021-11-17 12:13] LABS: Basophils % 0.2 %; Eosinophils # 0.3 10^3/uL (0.0-0.8); Eosinophils % 2.9 %; Hematocrit 41.6 % (37.0-47.0); Hemoglobin 13.3 g/dL (11.5-15.3); Lymphocytes # 2.9 10^3/uL (0.8-4.8); Lymphocytes % 30.5 %; Mean Corpuscular Hemoglobin 28.7 pg (28.0-34.0); Mean Corpuscular Volume 89.7 fl (81-99); Mean Platelet Volume 10.8 fL (7.4-10.4); Monocytes # 0.4 10^3/uL (0.2-0.9); Monocytes % 4.5 %; Neutrophils # 5.93 10^3/uL (1.8-7.7); Neutrophils % 61.6 %; Nucleated Red Blood Cells % 0 %; Platelet Count 303 10^3/cmm (130-400); Red Blood Count 4.64 10^6/uL (4.1-5.3); Red Cell Distribution Width 13.4 % (12.1-15.1); White Blood Count 9.6 10^3/uL (4.0-10.0)
[2021-11-17 12:30] LABS: HCG, Serum Qual Negative (Negative)
[2021-11-17 12:38] LABS: Troponin(5th) Baseline 6 ng/L (0-10)
[2021-11-17 12:40] LABS: Alanine Aminotransferase 16 U/L (0-33); Albumin Level 4.2 g/dL (3.5-5.2); Alkaline Phosphatase 75 IU/L (35-105); Blood Urea Nitrogen 8 mg/dL (6-20); Calcium 8.5 mg/dL (8.5-10.5); Carbon Dioxide 23 mmol/L (22-29); Chloride 103 mmol/L (98-107); Glomerular Filtration Rate 197.8 mL/min (90-130); Glucose 106 mg/dL (65-115); Osmolality Calculated 283 mOsm/kg (285-295); Sodium 137 mmol/L (136-145); Total Bilirubin 0.3 mg/dL (0.15-1.2); Total Protein 7.2 g/dL (6.6-8.7)
[2021-11-17 12:45] LABS: Aspartate Amino Transferase 14 U/L (0-32)
--- NOTE | 2021-11-17 13:22 | ECG_ITS ---
[facility] Test Date: 2021-11-17 Pat Name: Sharon Camacho Department: Room: Gender: Female Pastry Wrapper: : 1995 Requested By: Lorene Frazier Order Number: [id number] Ramos MD: Fredi Mcfadden M.D. Measurements Intervals [place] Rate: 66 P: 16 WV: 198 QRS: 13 QRSD: 93 T: 6 QT: 391 QTc: 413 Interpretive Statements SINUS RHYTHM Compared to ECG 11/17/2021 11:29:18 No significant changes Electronically Signed On 11-17-2021 17:15:39 CDT by Fredi Mcfadden M.D. [id number]
[2021-11-17 13:38] VITALS: BP 123/66; PULSE 45; RESP 18; O2SAT 96
[2021-11-17] MEDS: diazePAM 2 mg Tablet PO (13:40)
[2021-11-17 14:11] VITALS: BP 164/96; PULSE 75; RESP 18; TEMP 36.6; O2SAT 100
[2021-11-17 14:22] LABS: Troponin 5 2HR Delta 0 ABS# (0-10)
== END 2021-11-17 14:20 | disposition home or self-care (01) ==
PROVIDERS: Physician Assistant; Emergency Provider Nurse Practitioner Family; PCP Nurse Practitioner Family
DX: R42 Dizziness and giddiness (principal)
CPT/HCPCS: 71045; 80053; 84484; 84703; 85025; 93005; 96360; 99284; J7030; J8597

== ENCOUNTER 2021-12-02 06:00 | Outpatient (RCR) | payer OTHER, SELFPAY | END 2021-12-31 23:59 | disposition home or self-care (01) | LOC: SPT 06:00 | PROVIDERS: PCP Nurse Practitioner Family; Referring Provider Physician Assistant; Visit Provider Physician Assistant | DX: M54.2 Cervicalgia (principal); M54.6 Pain in thoracic spine | CPT/HCPCS: 97110 ==

== ENCOUNTER 2021-12-13 00:27 | Emergency (ER) | payer OTHER, SELFPAY ==
[2021-12-13 00:35] VITALS: BP 145/88; PULSE 89; RESP 18; TEMP 36.5; O2SAT 98; BMI 52.7
--- NOTE | 2021-12-13 00:38 | ECG_ITS ---
[facility] Test Date: 2021-12-13 Pat Name: Sharon Camacho Department: Room: Gender: Female Bedspread Folder: : 1995 Requested By: Lori Duncan Order Number: [id number] Richard MD: Sylwia Wilson M.D. Measurements Intervals [place] Rate: 78 P: 47 [place]: 195 QRS: 63 QRSD: 94 T: 52 QT: 372 QTc: 425 Interpretive Statements SINUS RHYTHM Compared to ECG 11/17/2021 13:23:44 No significant changes Electronically Signed On 12-13-2021 21:13:01 CDT by Sylwia Wilson M.D. [email or web address] [email or web address].[email or web address]/store/[id number]
--- NOTE | 2021-12-13 00:39 | W.ED.DIZZY ---
HPI - Dizziness General: Chief Complaint: Dizziness Stated Complaint: D/N/V Time Seen by Provider: 12/13/21 00:34 Source: patient Mode of arrival: ambulatory Limitations: no limitations History of Present Illness: HPI Narrative: 26-year-old female who has a history of chronic dizziness states she been having worsening dizziness today with severe nausea. She states she has not vomited but she still feels extremely nauseous and Feel like the room is spinning. States its worse with sudden movements improved with rest she denies any abdominal pain she has had some slight chest pain she states. Denies any shortness of breath or headache. Associated symptoms: Reports nausea; Denies chest pain or chills Review of Systems Const: Denies: fever(s), chills, body aches or change in appetite Eyes: Denies: blurry vision or eye discomfort ENMT: Denies: throat pain or dental pain Card: Denies: chest pain Resp: Denies: dyspnea GI: Reports: nausea : Denies: dysuria Musc: Denies: neck pain or back pain Skin/Breast: Denies: rash Neuro: Reports: dizziness Psych: Denies: depression George/Lymph: Denies: easy bruising All/Imm: Denies: urticaria PFSH ED PFSH: Medical History Anxiety Blind left eye Chronic GERD Migraine without aura and without status migrainosus, not intractable Secondary amenorrhea Surgical History History of tonsillectomy and adenoidectomy Status post hysteroscopy (06/17/20) With D&C. 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 Performed by Dr. Silva at [facility] in [place], [place]. Family History Grandmother Breast cancer Great- maternal High cholesterol Maternal Hypertension Maternal Family/Other Diabetes Paternal aunt Hypertension Paternal Aunts and Uncles Stroke Paternal Great Aunt Grandfather Heart disease Paternal Denies family history of Colon cancer Ovarian cancer Bleeding disorder Uterine cancer Thyroid disease Social History Smoking and tobacco status: current every day smoker Female Reproductive History: Date of last menstrual period: 11/12/21 Physical Exam Const: COMMON NORMALS: no acute distress, patient oriented x3 and healthy appearing HENMT: COMMON NORMALS: normocephalic and atraumatic HEAD & SCALP: normocephalic and atraumatic Eye: COMMON NORMALS: Equal, round and reactive pupils present and EOMs intact bilaterally PUPIL: Yes Equal, round and reactive pupils present Neck/C-Spine: COMMON NORMALS: full ROM and supple Chest: COMMONS NORMALS: normal inspection of the chest and normal palpation of entire chest wall Resp: COMMON NORMALS: normal respiratory effort, No retractions, No use of accessory muscles and clear to auscultation bilaterally AUSCULTATION: clear to auscultation bilaterally Cardio: COMMON NORMALS: regular rate, regular rhythm and No murmurs present (Cardio) RATE: regular rate RHYTHM: regular rhythm GI: COMMON NORMALS: Normal to inspection, nondistended, normoactive bowel sounds present, Soft to palpation, non-tender and no masses PALPATION: Yes Soft to palpation Extremity: COMMON NORMALS: normal to inspection and full ROM Neuro: COMMON NORMALS: patient oriented x3, moves all extremities and no focal motor deficits Psych: COMMON NORMALS: mental status grossly normal, Normal thought process present and cooperative THOUGHT PROCESS: Normal thought process present Skin: COMMON NORMALS: no rashes or lesions noted and no wounds GENERAL SKIN EXAM: no rashes or lesions noted Course Vital Signs: Vital signs: Vital Signs Temperature 97.7 F 12/13/21 00:35 Pulse Rate 82 12/13/21 01:10 Respiratory Rate 20 H 12/13/21 01:10 Blood Pressure 149/93 12/13/21 01:10 Pulse Oximetry 94 12/13/21 01:10 [facility] - Dizziness Medical Decision Making Patient presents with dizziness that is chronic in nature she feels improved here after Zofran and Valium will prescribe her Zofran and Antivert for home her blood work here is normal she been able to tolerate p.o. here. She is to follow-up with PCP and return if worsening. Lab Data : 12/13/21 01:06 12/13/21 01:06 Laboratory Results WBC 13.0 10^3/uL (4.0-10.0) H 12/13/21 01:06 RBC 4.45 10^6/uL (4.1-5.3) 12/13/21 01:06 Hgb 13.1 g/dL (11.5-15.3) 12/13/21 01:06 Hct 37.8 % (37.0-47.0) 12/13/21 01:06 MCV 84.9 fl (81-99) 12/13/21 01:06 MCH 29.4 pg (28.0-34.0) 12/13/21 01:06 MCHC 34.7 g/dL (30.0-36.0) 12/13/21 01:06 RDW 13.0 % (12.1-15.1) 12/13/21 01:06 Plt Count 339 10^3/cmm (130-400) 12/13/21 01:06 MPV 10.3 fL (7.4-10.4) 12/13/21 01:06 Lymph % (Auto) Not Reportable 12/13/21 01:06 [place] % (Auto) Not Reportable 12/13/21 01:06 Lymph # (Auto) Not Reportable 12/13/21 01:06 [place] # (Auto) Not Reportable 12/13/21 01:06 Total Counted 100 (0-100) 12/13/21 01:06 Atypical Lymphs % 4.0 % (0-5) 12/13/21 01:06 Absolute Neutrophils 6.6 10^3/cmm (1.4-6.5) H 12/13/21 01:06 Segmented Neutrophils 51 % 12/13/21 01:06 Abs Segm Neuts (Man) 6.6 10/cmm (1.6-7.1) 12/13/21 01:06 Band Neutrophils 0.0 % 12/13/21 01:06 Abs Band Neuts (Man) 0.0 10^3/cmm (0.0-1.2) 12/13/21 01:06 Absolute Lymphocytes 5.6 10^3/cmm (1.2-3.4) H 12/13/21 01:06 Lymphocytes (Manual) 39 % 12/13/21 01:06 Monocytes (Manual) 5.0 % 12/13/21 01:06 Absolute Monocytes 0.7 10^3/cmm (0.1-0.6) H 12/13/21 01:06 Eosinophils (Manual) 1 % 12/13/21 01:06 Absolute Eosinophils 0.1 10^3/cmm (0.0-0.7) 12/13/21 01:06 Basophils (Manual) 0.0 % 12/13/21 01:06 Absolute Basophils 0.0 10^3/cmm (0.0-0.2) 12/13/21 01:06 Platelet Estimate Normal (Normal) 12/13/21 01:06 Sodium 139 mmol/L (136-145) 12/13/21 01:06 Potassium 4.1 mmol/L (3.5-5.1) 12/13/21 01:06 Chloride 102 mmol/L (98-107) 12/13/21 01:06 Carbon Dioxide 23 mmol/L (22-29) 12/13/21 01:06 Anion Gap 18.1 (5-19) 12/13/21 01:06 BUN 14 mg/dL (6-20) 12/13/21 01:06 Creatinine 0.5 mg/dL (0.5-0.9) 12/13/21 01:06 GFR Calculation 151.6 mL/min (90-130) H 12/13/21 01:06 Glucose 96 mg/dL (65-115) 12/13/21 01:06 Calculated Osmolality 288 mOsm/kg (285-295) 12/13/21 01:06 Calcium 9.4 mg/dL (8.5-10.5) 12/13/21 01:06 Total Bilirubin 0.3 mg/dL (0.15-1.2) 12/13/21 01:06 AST 11 U/L (0-32) 12/13/21 01:06 ALT 14 U/L (0-33) 12/13/21 01:06 Alkaline Phosphatase 73 IU/L (35-105) 12/13/21 01:06 Total Protein 7.3 g/dL (6.6-8.7) 12/13/21 01:06 Albumin 4.0 g/dL (3.5-5.2) 12/13/21 01:06 Globulin 3.3 g/dL (1.3-4.6) 12/13/21 01:06 Lipase 16 U/L (13-60) 12/13/21 01:06 HCG, Qual Negative (Negative) 12/13/21 01:06 Urine Color Colorless (Yellow) 12/13/21 01:00 Urine Appearance Clear (CLEAR) 12/13/21 01:00 Urine pH 6.5 (5-7) 12/13/21 01:00 Ur Specific Gallion 1.005 (1.005-1.030) 12/13/21 01:00 Urine Protein Neg (Negative) 12/13/21 01:00 Urine Glucose (UA) Norm (Normal) 12/13/21 01:00 Urine Ketones Negative (Negative) 12/13/21 01:00 Urine Blood Neg (Negative) 12/13/21 01:00 Urine Nitrate Negative (Negative) 12/13/21 01:00 Urine Bilirubin Neg (Negative) 12/13/21 01:00 Urine Urobilinogen Norm mg/dL (Negative) 12/13/21 01:00 Ur Leukocyte Esterase Negative (Negative) 12/13/21 01:00 EKG Data EKG 1: I personally reviewed and interpreted this EKG as follows: EKG interpretation date: 12/13/21 EKG interpretation time: 01:18 Interpretation: nsr hr [address] or t wave abnormalities qrs 94 qtc 405 Discharge Plan Discharge Patient Disposition: Home Clinical Impression: Dizziness, Nausea Condition: Stable Prescriptions: New ondansetron 4 mg tablet,disintegrating 4 mg PO Q6H PRN (Reason: nausea and vomiting) Qty: 14 0RF Antivert 50 mg tablet 50 mg PO BID PRN (Reason: dizziness) Qty: 20 0RF No Action sucralfate [Carafate] 1 gram tablet 1 g PO QID 30 Days Qty: 120 0RF pantoprazole [Protonix] 20 mg tablet,delayed release (DR/EC) 20 mg PO DAILY Qty: 30 0RF norgestimate-ethinyl estradiol [Estarylla] 0.25-35 mg-mcg tablet 1 tab PO DAILY Qty: 28 0RF albuterol sulfate 90 mcg/actuation Hfa Aerosol Inhaler 2 puff INHALATION 6XD PRN (Reason: Shortness Of Breath) 0RF Discharge Orders: Discharge ED (Routine); Ordered 12/13/21 Ordered By: Lori Duncan Referrals: Mallory Kelly FNP [Primary Care Provider] - 1-3 days Discharge Diet: Advance as tolerated Discharge Activity: Resume usual activity Patient Instructions: Acute Nausea and Vomiting (ED) Coding Level of Care Code ED Gauge And Weigh Machine Operator for Chg Fwd Exam Comprehensive
[2021-12-13] MEDS: ondansetron 2 mg/ML SDV 2 mL 4 MG IVP (01:06)
[2021-12-13 01:10] VITALS: BP 149/93; PULSE 82; RESP 20; O2SAT 94
[2021-12-13 01:12] LABS: Add Urine Microscopic? NO; Charge for UA Resulting for Rev
[2021-12-13 01:12] LABS: Hematocrit 37.8 % (37.0-47.0); Hemoglobin 13.1 g/dL (11.5-15.3); Mean Corpuscular HGB Conc 34.7 g/dL (30.0-36.0); Mean Corpuscular Hemoglobin 29.4 pg (28.0-34.0); Mean Corpuscular Volume 84.9 fl (81-99); Mean Platelet Volume 10.3 fL (7.4-10.4); Platelet Count 339 10^3/cmm (130-400); Red Blood Count 4.45 10^6/uL (4.1-5.3)
[2021-12-13] MEDS: sodium chloride 0.9% 1,000 ML 999 ML IV (01:12)
[2021-12-13] MEDS: meclizine 25 mg tablet 50 MG PO (01:12)
[2021-12-13 01:16] LABS: Bilirubin Urine Neg (Negative); Blood Urine Neg (Negative); Glucose Urine UA Norm (Normal); Ketones Urine Negative (Negative); Leukocyte Esterase Urine Negative (Negative); Nitrate Urine Negative (Negative); Protein Urine Neg (Negative); Specific Gravity, Urine 1.005 (1.005-1.030); Urine Appearance Clear (CLEAR); Urine Color Colorless (Yellow); Urobilinogen Urine Norm (Negative); pH Urine 6.5 (5-7)
[2021-12-13 01:26] LABS: Absolute Eosinophils 0.1 10^3/cmm (0.0-0.7); Absolute Segmented Neutrophil 6.6 10/cmm (1.6-7.1); Eosinophils 1 %; Lymphocytes 39 %; Lymphocytes Absolute 5.6 10^3/cmm (1.2-3.4); Monocytes Absolute 0.7 10^3/cmm (0.1-0.6); Segmented Neutrophils 51 %; Total Cells Counted 100 (0-100)
[2021-12-13 01:27] LABS: Absolute Neutrophil 6.6 10^3/cmm (1.4-6.5); Platelet Estimate Normal (Normal)
[2021-12-13 01:30] VITALS: BP 135/98; PULSE 86; RESP 18; O2SAT 99
[2021-12-13 01:33] LABS: Alanine Aminotransferase 14 U/L (0-33); Alkaline Phosphatase 73 IU/L (35-105); Anion Gap 18.1 (5-19); Aspartate Amino Transferase 11 U/L (0-32); Blood Urea Nitrogen 14 mg/dL (6-20); Calcium 9.4 mg/dL (8.5-10.5); Carbon Dioxide 23 mmol/L (22-29); Chloride 102 mmol/L (98-107); Globulin 3.3 g/dL (1.3-4.6); Glomerular Filtration Rate 151.6 mL/min (90-130); Glucose 96 mg/dL (65-115); Lipase 16 U/L (13-60); Osmolality Calculated 288 mOsm/kg (285-295); Potassium 4.1 mmol/L (3.5-5.1); Sodium 139 mmol/L (136-145); Total Bilirubin 0.3 mg/dL (0.15-1.2); Total Protein 7.3 g/dL (6.6-8.7)
[2021-12-13 01:34] LABS: HCG, Serum Qual Negative (Negative)
[2021-12-13] MEDS: diazePAM 5 mg Tablet PO (01:51)
[2021-12-13 02:20] VITALS: BP 135/98; PULSE 86; RESP 18; O2SAT 99
== END 2021-12-13 02:21 | disposition home or self-care (01) ==
PROVIDERS: Emergency Provider Emergency Medicine; PCP Nurse Practitioner Family
DX: R42 Dizziness and giddiness (principal); R11.0 Nausea
CPT/HCPCS: 80053; 81003; 83690; 84703; 85007; 85025; 93005; 96361; 96374; 99284; J2405; J7030; J8597

== ENCOUNTER 2021-12-26 00:15 | Emergency (ER) | payer OTHER, SELFPAY ==
[2021-12-26 00:26] VITALS: BP 166/100; PULSE 86; RESP 24; TEMP 36.4; O2SAT 98; BMI 53.1
== END 2021-12-26 01:42 | disposition left against medical advice (07) ==
PROVIDERS: Emergency Provider Family Medicine; PCP Nurse Practitioner Family
DX: Z53.21 Procedure and treatment not carried out due to patient leaving prior to being seen by health care provider (principal); R07.9 Chest pain, unspecified

== ENCOUNTER 2022-01-01 06:00 | Outpatient (RCR) | payer OTHER, SELFPAY | END 2022-01-31 23:59 | disposition home or self-care (01) | LOC: SPT 06:00 | PROVIDERS: PCP Nurse Practitioner Family; Referring Provider Physician Assistant; Visit Provider Physician Assistant | DX: R42 Dizziness and giddiness (principal); R55 Syncope and collapse | CPT/HCPCS: 83036; 83525; 88175 ==

== ENCOUNTER 2022-01-18 08:01 | Outpatient (CLI) | payer OTHER, SELFPAY ==
--- NOTE | 2022-01-18 08:00 | USCV_ITS ---
Sharon Camacho Age: 26 Gender: F : 1995 Exam Date: 01/18/2022 08:26 Ordering Phys: Whitney Antunez Technologist: Althea Snow Exam Location: [facility] [place] Indication: postural dizziness, w/ presyncopy BP: 140 / 80 HR: 62 Rhythm: Sinus Technical Quality: Adequate MEASUREMENTS (Male / Female) Normal Values 2D ECHO LV Diastolic Diameter PLAX 3.9 cm 4.2 - 5.9 / 3.9 - 5.3 cm LV Systolic Diameter PLAX 2.6 cm IVS Diastolic Thickness 1.2 cm 0.6 - 1.0 / 0.6 - 0.9 cm IVS Systolic Thickness 1.4 cm LVPW Diastolic Thickness 1.7 cm 0.6 - 1.0 / 0.6 - 0.9 cm LVPW Systolic Thickness 1.8 cm LVOT Diameter 2.1 cm LV Ejection Fraction 2D Teich 61.7 % LV Ejection Fraction MOD 2C 71.0 % LV Ejection Fraction 2C AL 70.9 % LA Diameter 2.8 cm LA Width 3.3 cm LA Height 4.6 cm RA Width 4.4 cm RA Height 4.2 cm Aorta at Sinotubular Diameter 2.9 cm IVC Diameter 1.2 cm DOPPLER AV Peak Velocity 132.0 cm/s LVOT Peak Velocity 133.0 cm/s AV Area Cont Eq vti 3.1 cm squared AV Area Cont Eq pk 3.5 cm squared MV Peak Velocity 108.0 cm/s MV Area PHT 3.9 cm squared Mitral E to A Ratio 1.7 MV E' Velocity 64.5 cm/s Mitral E to MV E' Ratio 9.1 Mitral E to LV E' Lateral Ratio 7.5 Mitral E to LV E' Septal Ratio 11.4 TR Peak Velocity 78.3 cm/s TR Peak Gradient 2.5 mmHg Right Atrial Pressure 3.0 mmHg Pulmonary Artery Systolic Pressu 5.5 mmHg PV Peak Velocity 75.0 cm/s RV Acceleration Time 0.1 s FINDINGS Left Ventricle Normal left ventricular size. LV systolic function is normal with EF of 55-60%. No regional wall motion abnormalities. Normal diastolic filling pattern. Right Ventricle The right ventricle is normal in size and function. Right Atrium The right atrium is normal in size. Left Atrium The left atrium is normal in size. Mitral Valve Structurally normal mitral valve without significant stenosis or prolapse. There is no mitral regurgitation. Aortic Valve Structurally normal aortic valve without significant sclerosis or stenosis. There is no aortic regurgitation. Tricuspid Valve Structurally normal tricuspid valve without significant stenosis. Trace tricuspid regurgitation. Pulmonary artery systolic pressure is normal. Pulmonic Valve Grossly normal Pericardium Normal pericardium without effusion. Aorta Normal ascending aorta dimension. IVC CONCLUSIONS LV systolic function is normal with EF of 55-60% Diastolic function is normal No significant valvular heart disease Trace tricuspid regurgitation. No comparison studies are available Fredi Mcfadden MD (Electronically Signed) Final Date: 18 January 2022 15:18 S
== END 2022-01-18 08:02 | disposition home or self-care (01) ==
PROVIDERS: PCP Nurse Practitioner Family; Visit Provider Physician Assistant
DX: R42 Dizziness and giddiness (principal); R55 Syncope and collapse
CPT/HCPCS: 83516; 84439; 84443; 84480; 86376; 86800; 93306

== ENCOUNTER 2022-05-15 16:11 | Emergency (ER) | payer OTHER, SELFPAY ==
[2022-05-15] VITALS (9 sets, daily range): BP systolic 111–150; BP diastolic 67–106; PULSE 58–90; RESP 16–18; TEMP 36.8; O2SAT 89–100; BMI 44.6
--- NOTE | 2022-05-15 16:35 | ED_ITS ---
HPI - Dizziness General: Chief Complaint: Dizziness Stated Complaint: dizziness Time Seen by Provider: 05/15/22 16:25 Source: patient Mode of arrival: ambulatory History of Present Illness: HPI Narrative: 26-year-old female who presents to the emergency room with complaints of dizziness. No syncopal episode while she was dancing in her apartment she got mild headache and nausea. She is recently started on steroids and antibiotics for presumed sinus infection he picked the prescription up but she has not started it yet. She denies any fever sweats or chills. MD elicited complaint: dizziness and lightheadedness Onset (ago): minute(s) Timing: sudden onset Severity: moderate Description: lightheadedness Exacerbating factors: nothing Relieving factors: nothing Associated symptoms: Denies change in hearing, chest pain, chills, cough, diaphoresis, ear discharge, ear pressure, fevers/chills, headache(s), malaise, nausea, nasal congestion, palpitations, rash, short of breath, syncope, tinnitus or vomiting Associated neuro symptoms: Deny confusion, difficulty speaking, dysphagia, diplopia, extremity weakness, facial numbness, facial weakness, gait changes, numbness in extremities or visual changes Review of Systems Const: Denies: chills, malaise or diaphoresis ENMT: Denies: ear discharge, change in hearing, tinnitus or nasal congestion Card: Denies: chest pain, palpitations or syncope Resp: Denies: dyspnea, productive cough or non-productive cough GI: Denies: nausea, vomiting or dysphagia : Denies: flank pain, difficulty voiding, dysuria, urinary frequency or urinary urgency Skin/Breast: Denies: rash or pruritus Neuro: Denies: headache(s), numbness in extremities or confusion PFSH ED PFSH: Medical History Anxiety Blind left eye Chronic GERD Migraine without aura and without status migrainosus, not intractable Secondary amenorrhea Surgical History History of tonsillectomy and adenoidectomy Status post hysteroscopy (06/17/20) With D&C. 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 Performed by Dr. Silva at [facility] in [place], [place]. Family History Grandmother Breast cancer Great- maternal High cholesterol Maternal Hypertension Maternal Family/Other Diabetes Paternal aunt Hypertension Paternal Aunts and Uncles Stroke Paternal Great Aunt Grandfather Heart disease Paternal Denies family history of Colon cancer Ovarian cancer Bleeding disorder Uterine cancer Thyroid disease Social History Smoking and tobacco status: never smoked Female Reproductive History: Date of last menstrual period: 11/12/21 Spontaneous abortions: No Physical Exam Const: COMMON NORMALS: no acute distress GENERAL APPEARANCE: cooperative and comfortable ORIENTATION/CONSCIOUSNESS: Yes awake, Yes oriented to person, Yes oriented to place and Yes oriented to time HENMT: COMMON NORMALS: normocephalic, atraumatic and hearing grossly normal bilaterally HEAD & SCALP: normocephalic and atraumatic Resp: COMMON NORMALS: normal respiratory effort, No retractions, No use of accessory muscles and clear to auscultation bilaterally AUSCULTATION: clear to auscultation bilaterally Cardio: COMMON NORMALS: regular rate, regular rhythm and No murmurs present (Cardio) RATE: regular rate RHYTHM: regular rhythm GI: COMMON NORMALS: Soft to palpation and No hepatosplenomegaly present AUSCULTATION: Yes normoactive bowel sounds PALPATION: Yes Soft to palpation, No Tenderness to palpation present (GI), No Guarding due to palpation present (GI) and Yes No hepatosplenomegaly present Extremity: COMMON NORMALS: normal to inspection, capillary refill normal, no clubbing, cyanosis or edema, no calf tenderness and no pedal edema Neuro: SENSORIUM/ORIENTATION: Yes oriented to person, Yes oriented to place and Yes oriented to time Skin: COMMON NORMALS: no rashes or lesions noted GENERAL SKIN EXAM: no rashes or lesions noted Course Vital Signs: Vital signs: Vital Signs Temperature 98.2 F 05/15/22 16:18 Pulse Rate 58 L 05/15/22 18:52 Respiratory Rate 18 05/15/22 18:59 Blood Pressure 139/77 05/15/22 18:52 Pulse Oximetry 99 05/15/22 18:30 Oxygen Delivery Me thod 05/15/22 16:18 MDM - Dizziness Medical Decision Making Near syncopal episode resolves. She may have just had some orthostatic hypotension. She has no other significant findings labs imaging and EKGs reviewed we will discharge patient home. Follow-up with her primary care. Medical Records I reviewed the patient's medical records. Lab Data I reviewed the patient's lab results. 05/15/22 17:16 05/15/22 17:19 Laboratory Results WBC 10.0 10^3/uL (4.0-10.0) 05/15/22 17:16 Corrected WBC Cancelled 05/15/22 17:09 RBC 4.48 10^6/uL (4.1-5.3) 05/15/22 17:16 Hgb 13.2 g/dL (11.5-15.3) 05/15/22 17:16 Hct 40.8 % (37.0-47.0) 05/15/22 17:16 MCV 91.1 fl (81-99) 05/15/22 17:16 MCH 29.5 pg (28.0-34.0) 05/15/22 17:16 MCHC 32.4 g/dL (30.0-36.0) 05/15/22 17:16 RDW 13.3 % (12.1-15.1) 05/15/22 17:16 Plt Count 294 10^3/cmm (130-400) 05/15/22 17:16 MPV 10.7 fL (7.4-10.4) H 05/15/22 17:16 Gran % Cancelled 05/15/22 17:09 Neut % (Auto) 64.2 % 05/15/22 17:16 Lymph % (Auto) 28.9 % 05/15/22 17:16 [place] % (Auto) 4.5 % 05/15/22 17:16 Eos % (Auto) 1.9 % 05/15/22 17:16 Baso % (Auto) 0.3 % 05/15/22 17:16 Neut # (Auto) 6.44 10^3/uL (1.8-7.7) 05/15/22 17:16 Lymph # (Auto) 2.9 10^3/uL (0.8-4.8) 05/15/22 17:16 [place] # (Auto) 0.5 10^3/uL (0.2-0.9) 05/15/22 17:16 Eos # (Auto) 0.2 10^3/uL (0.0-0.8) 05/15/22 17:16 Baso # (Auto) 0.0 10^3/uL (0.0-0.1) 05/15/22 17:16 Absolute Gran (auto) Cancelled 05/15/22 17:09 Nucleated RBC % (auto) 0 % 05/15/22 17:16 Nucleated RBCs # 0.0 /100WBC 05/15/22 17:16 Sodium 137 mmol/L (136-145) 05/15/22 17:19 Potassium 3.4 mmol/L (3.5-5.1) L 05/15/22 17:19 Chloride 102 mmol/L (98-107) 05/15/22 17:19 Carbon Dioxide 24 mmol/L (22-29) 05/15/22 17:19 Anion Gap 14.4 (5-19) 05/15/22 17:19 BUN 10 mg/dL (6-20) 05/15/22 17:19 Creatinine 0.5 mg/dL (0.5-0.9) 05/15/22 17:19 GFR Calculation 151.6 mL/min (90-130) H 05/15/22 17:19 Glucose 110 mg/dL (65-115) 05/15/22 17:19 Calculated Osmolality 284 mOsm/kg (285-295) L 05/15/22 17:19 Calcium 9.6 mg/dL (8.5-10.5) 05/15/22 17:19 HCG, Qual Negative (Negative) 05/15/22 17:16 Discharge Plan Discharge Patient Disposition: Home Clinical Impression: Near syncope Condition: Stable Prescriptions: No Action sucralfate [Carafate] 1 gram tablet 1 g PO QID 30 Days Qty: 120 0RF pantoprazole [Protonix] 20 mg tablet,delayed release (DR/EC) 20 mg PO DAILY Qty: 30 0RF hydroxyzine HCl 25 mg tablet 25 mg PO BID PRN citalopram 10 mg tablet 10 mg PO DAILY azithromycin 250 mg tablet See Rx Instructions PO .COMPLEX Qty: 6 0RF Rx Instructions: take 500 mg today (day 1), then 250 mg for 4 days (days 2-5) PO methylprednisolone [Medrol (Rahul)] 4 mg tablets,dose pack See Rx Instructions PO PER PKG DIR Qty: 21 0RF Rx Instructions: PO PER PKG DIR albuterol sulfate [Ventolin HFA] 90 mcg/actuation HFA aerosol inhaler 2 puff inhalation Q6H Qty: 8.5 0RF norgestimate-ethinyl estradiol [Estarylla] 0.25-35 mg-mcg tablet 1 tab PO DAILY Qty: 28 0RF Discharge Orders: Discharge ED (Routine); Ordered 05/15/22 Ordered By: Carl Humphrey Referrals: Mallory Kelly FNP [Primary Care Provider] - 1-3 days Patient Instructions: Near Syncope (ED) Coding Level of Care Code ED Wood Filler for Chg Fwd Exam Detailed
[2022-05-15 17:22] LABS: Basophils % 0.3 %; Eosinophils # 0.2 10^3/uL (0.0-0.8); Eosinophils % 1.9 %; Hematocrit 40.8 % (37.0-47.0); Hemoglobin 13.2 g/dL (11.5-15.3); Lymphocytes # 2.9 10^3/uL (0.8-4.8); Lymphocytes % 28.9 %; Mean Corpuscular HGB Conc 32.4 g/dL (30.0-36.0); Mean Corpuscular Hemoglobin 29.5 pg (28.0-34.0); Mean Corpuscular Volume 91.1 fl (81-99); Mean Platelet Volume 10.7 fL (7.4-10.4); Monocytes # 0.5 10^3/uL (0.2-0.9); Monocytes % 4.5 %; Neutrophils # 6.44 10^3/uL (1.8-7.7); Neutrophils % 64.2 %; Nucleated Red Blood Cells % 0 %; Platelet Count 294 10^3/cmm (130-400); Red Blood Count 4.48 10^6/uL (4.1-5.3); Red Cell Distribution Width 13.3 % (12.1-15.1)
[2022-05-15] MEDS: sodium chloride 0.9% 1,000 ML 999 ML IV (17:36)
--- NOTE | 2022-05-15 17:36 | ECG_ITS ---
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 Measurements Intervals [place] Rate: 58 P: 29 AR: 172 QRS: 31 QRSD: 94 T: 13 QT: 378 QTc: 372 Interpretive Statements SINUS BRADYCARDIA Compared to ECG 12/13/2021 01:18:18 Sinus rhythm no longer present Electronically Signed On 05-16-2022 22:04:48 DRYWALL MECHANIC by Sylwia Wilson M.D. [id number]
[2022-05-15 17:44] LABS: Anion Gap 14.4 (5-19); Blood Urea Nitrogen 10 mg/dL (6-20); Calcium 9.6 mg/dL (8.5-10.5); Carbon Dioxide 24 mmol/L (22-29); Chloride 102 mmol/L (98-107); Glomerular Filtration Rate 151.6 mL/min (90-130); Glucose 110 mg/dL (65-115); Osmolality Calculated 284 mOsm/kg (285-295); Potassium 3.4 mmol/L (3.5-5.1); Sodium 137 mmol/L (136-145)
[2022-05-15 18:12] LABS: HCG, Serum Qual Negative (Negative)
== END 2022-05-15 18:59 | disposition home or self-care (01) ==
PROVIDERS: Emergency Provider Family Medicine; PCP Nurse Practitioner Family
DX: R55 Syncope and collapse (principal)
CPT/HCPCS: 80048; 84703; 85025; 93005; 96360; 99284; J7030

== ENCOUNTER 2022-08-08 15:22 | Emergency (ER) | payer OTHER, SELFPAY ==
[2022-08-08 15:26] VITALS: BP 125/81; PULSE 66; RESP 16; TEMP 36.4; O2SAT 96; BMI 43.2
--- NOTE | 2022-08-08 15:35 | ED_ITS ---
HPI - Fall General: Chief Complaint: Fall Stated Complaint: fall, back pain Time Seen by Provider: 08/08/22 15:24 Source: patient Mode of arrival: ambulatory History of Present Illness: 26-year-old female presents to the emergency room with complaint plaint of back pain she slipped and fell while getting out of her vehicle yesterday she felt like she hurt her left arm and leg and side, scraped her side or on the vehicle as she went down she is more set uncomfortable today as the day went on. Then she began having pain in her low back radiating around her trunk she is not had any difficulty with bowel or bladder no pain radiating to her legs no loss conscious no other injuries MD complaint: fall Onset (ago): hour(s) Fall from: standing Place fall occurred: home Loss of consciousness: None Prolonged down time: no Symptoms prior to fall: none Context: tripped/slipped Location of injury: back and abdomen Associated symptoms-after fall: Denies abdominal pain, chest pain, confusion, difficulty walking, headache(s), hematuria, lightheadedness, neck pain, numbness, short of breath, vertigo or weakness Review of Systems Const: Denies: fever(s), chills, body aches, change in appetite, fatigue or malaise ENMT: Denies: throat pain, ear or mastoid pain, nasal discharge or nasal congestion Card: Denies: chest pain or lightheadedness Resp: Denies: dyspnea, productive cough or non-productive cough GI: Denies: abdominal pain, nausea or vomiting : Denies: dysuria, urinary frequency, urinary urgency or hematuria Musc: Reports: back pain; Denies: neck pain Skin/Breast: Denies: rash or pruritus Neuro: Denies: headache(s), difficulty walking, vertigo or confusion PFSH ED PFSH: Medical History Anxiety Blind left eye Chronic GERD Migraine without aura and without status migrainosus, not intractable Secondary amenorrhea Surgical History History of tonsillectomy and adenoidectomy Status post hysteroscopy (06/17/20) With D&C. 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 Performed by Dr. Silva at [facility] in [place], [place]. Family History Grandmother Breast cancer Great- maternal High cholesterol Maternal Hypertension Maternal Family/Other Diabetes Paternal aunt Hypertension Paternal Aunts and Uncles Stroke Paternal Great Aunt Grandfather Heart disease Paternal Denies family history of Colon cancer Ovarian cancer Bleeding disorder Uterine cancer Thyroid disease Social History Smoking and tobacco status: never smoked Female Reproductive History: Date of last menstrual period: 11/12/21 Spontaneous abortions: No Physical Exam Const: GENERAL APPEARANCE: cooperative and comfortable ORIENTATION/CON SCIOUSNESS: Yes awake, Yes oriented to person, Yes oriented to place and Yes oriented to time HENMT: COMMON NORMALS: normocephalic, atraumatic and hearing grossly normal bilaterally HEAD & SCALP: normocephalic and atraumatic Lymph: LYMPHATIC: no lymphadenopathy noted and no lymphedema noted Resp: COMMON NORMALS: normal respiratory effort, No retractions, No use of accessory muscles and clear to auscultation bilaterally AUSCULTATION: clear to auscultation bilaterally Cardio: COMMON NORMALS: regular rate, regular rhythm and No murmurs present (Cardio) RATE: regular rate RHYTHM: regular rhythm GI: COMMON NORMALS: Soft to palpation and No hepatosplenomegaly present AUSCULTATION: Yes normoactive bowel sounds PALPATION: Yes Soft to palpation, No Tenderness to palpation present (GI), No Guarding due to palpation present (GI) and Yes No hepatosplenomegaly present Extremity: COMMON NORMALS: normal to inspection, capillary refill normal, no clubbing, cyanosis or edema, no calf tenderness and no pedal edema Neuro: SENSORIUM/ORIENTATION: Yes oriented to person, Yes oriented to place and Yes oriented to time OTHER: Straight leg negative negative sensation lower extremities normal Skin: COMMON NORMALS: no rashes or lesions noted GENERAL SKIN EXAM: no rashes or lesions noted Course Vital Signs: Vital signs: Vital Signs Temperature 97.5 F L 08/08/22 15:26 Pulse Rate 55 L 08/08/22 16:01 Respiratory Rate 16 08/08/22 15:26 Blood Pressure 136/89 08/08/22 16:01 Pulse Oximetry 99 08/08/22 16:01 Oxygen Delivery Me thod 08/08/22 16:01 MDM - Fall Medical Decision Making Lumbar spine films are negative. On exam there is no sign of nerve impingement. No other injury noted. Discussed with the patient discharged home steroid taper, anti-inflammatories and muscle relaxers Medical Records I reviewed the patient's medical records. Lab Data I reviewed the patient's lab results. Radiology Impressions Lumbar Spine X-Ray 08/08/22 15:38 IMPRESSION: No acute findings. Discharge Plan Discharge Patient Disposition: Home Clinical Impression: Back Pain Condition: Stable Prescriptions: New prednisone 20 mg tablet 20 mg PO TID Qty: 15 0RF Rx Instructions: 1 p.o. 3 times daily x3 days, 1 p.o. twice daily x2 days, 1 p.o. daily x2 days diclofenac sodium 75 mg tablet,delayed release (DR/EC) 75 mg PO Q12H PRN (Reason: pain) Qty: 20 0RF tizanidine 4 mg tablet 4 mg PO Q6H PRN (Reason: muscle spasticity) Qty: 20 0RF Rx Instructions: do not exceed 3 doses per 24 hrs Discontinued methylprednisolone [Medrol (Rahul)] 4 mg tablets,dose pack See Rx Instructions PO PER PKG DIR Qty: 21 0RF Rx Instructions: PO PER PKG DIR No Action sucralfate [Carafate] 1 gram tablet 1 g PO QID 30 Days Qty: 120 0RF pantoprazole [Protonix] 20 mg tablet,delayed release (DR/EC) 20 mg PO DAILY Qty: 30 0RF hydroxyzine HCl 25 mg tablet 25 mg PO BID PRN citalopram 10 mg tablet 10 mg PO DAILY azithromycin 250 mg tablet See Rx Instructions PO .COMPLEX Qty: 6 0RF Rx Instructions: take 500 mg today (day 1), then 250 mg for 4 days (days 2-5) PO albuterol sulfate [Ventolin HFA] 90 mcg/actuation HFA aerosol inhaler 2 puff inhalation Q6H Qty: 8.5 0RF norgestimate-ethinyl estradiol [Estarylla] 0.25-35 mg-mcg tablet 1 tab PO DAILY Qty: 28 0RF Discharge Orders: Discharge ED (Routine); Ordered 08/08/22 Ordered By: Franko Schaefer Referrals: Mallory Kelly FNP [Primary Care Provider] - Patient Instructions: Opioid Safety, Pain Management Activity Restrictions/Additional Instructions: You are seen today for low back pain after a fall there is no evidence of any fracture on your lumbar spine films. Recommend use diclofenac steroid taper tizanidine as needed follow-up with primary care doctor as needed return if you have further problems. Coding Level of Care Code ED Supervising Film Or Videotape Editor for Paramg Fwd Exam Comprehensive
--- NOTE | 2022-08-08 15:38 | XRR_ITS ---
PROCEDURE INFORMATION: Exam: XR Lumbosacral Spine Exam date and time: 08/08/2022 4:23 PM Age: 26 years old Clinical indication: Injury or trauma; Fall; Blunt trauma (contusions or hematomas); Additional info: Pain after fall TECHNIQUE: Imaging protocol: Radiologic exam of the lumbosacral spine. Views: 2 or 3 views. COMPARISON: CR XR lumbar spine min 4V [id number] 09/03/2021 1:59 PM FINDINGS: Bones/joints: Normal. No acute fracture. Normal alignment. Soft tissues: Unremarkable. XR/XR lumbar spine 2-3V* [id number] IMPRESSION: No acute findings.
[2022-08-08] MEDS: dexamethasone 10 mg/mL INJ IM (15:52)
[2022-08-08] MEDS: ketorolac 60 mg/2 mL INJ IM (15:52)
[2022-08-08 15:59] VITALS: BP 101/83; PULSE 61; O2SAT 99
[2022-08-08 16:01] VITALS: BP 136/89; PULSE 55; O2SAT 99
[2022-08-08 17:16] VITALS: BP 124/76; PULSE 60; O2SAT 98
== END 2022-08-08 17:15 | disposition home or self-care (01) ==
PROVIDERS: Emergency Provider Family Medicine; PCP Nurse Practitioner Family
DX: M54.9 Dorsalgia, unspecified (principal)
CPT/HCPCS: 72100; 96372; 99284; J1100; J1885

== ENCOUNTER 2022-10-04 00:14 | Emergency (ER) | payer OTHER, SELFPAY ==
[2022-10-04 00:19] VITALS: BP 147/86; PULSE 70; RESP 16; TEMP 36.8; O2SAT 96; BMI 39.4
--- NOTE | 2022-10-04 00:28 | W.ED.ANXIETY ---
HPI - Anxiety General: Chief Complaint: Anxiety Stated Complaint: Anxiety Time Seen by Provider: 10/04/22 00:28 History of Present Illness: 26-year-old female comes in today for complaints of chest discomfort and anxiety. Patient does admit to drinking heavily last night. Patient drank a lot of water today but this evening she felt chest discomfort and increased heartburn. This made patient more anxious and she came into the ER for further evaluation and treatment. Patient appears nontoxic. Patient appears in no acute distress. Patient takes no routine medicines. Patient reports that previous medications have not been effective for her anxiety. Patient does use medical marijuana. Associated symptoms: Reports chest pain; Deny fever(s) Review of Systems General: Reports: 10 or more systems reviewed and unremarkable except in HPI and below Const: Denies: fever(s) Eyes: Denies: change in vision ENMT: Denies: throat pain Card: Reports: chest pain Resp: Denies: dyspnea GI: Reports: heartburn : Denies: difficulty voiding Musc: Denies: back pain PFSH ED PFSH: Medical History Anxiety Blind left eye Chronic GERD Migraine without aura and without status migrainosus, not intractable Secondary amenorrhea Surgical History History of tonsillectomy and adenoidectomy Status post hysteroscopy (06/17/20) With D&C. 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 [place] [facility] [place]. Family History Grandmother Breast cancer Great- maternal High cholesterol Maternal Hypertension Maternal Family/Other Diabetes Paternal aunt Hypertension Paternal Aunts and Uncles Stroke Paternal Great Aunt Grandfather Heart disease Paternal Denies family history of Colon cancer Ovarian cancer Bleeding disorder Uterine cancer Thyroid disease Social History Smoking and tobacco status: never smoked Female Reproductive History: Date of last menstrual period: 09/20/22 Spontaneous abortions: No Physical Exam Const: COMMON NORMALS: alert HENMT: COMMON NORMALS: normocephalic HEAD & SCALP: normocephalic Neck/C-Spine: COMMON NORMALS: full ROM Chest: COMMONS NORMALS: normal palpation of entire chest wall Resp: COMMON NORMALS: normal respiratory effort and clear to auscultation bilaterally AUSCULTATION: clear to auscultation bilaterally Cardio: COMMON NORMALS: regular rate and regular rhythm RATE: regular rate RHYTHM: regular rhythm GI: COMMON NORMALS: Soft to palpation PALPATION: Yes Soft to palpation Extremity: COMMON NORMALS: no pedal edema Neuro: SENSORIUM/ORIENTATION: Yes alert Skin: COMMON NORMALS: no rashes or lesions noted GENERAL SKIN EXAM: no rashes or lesions noted Course Vital Signs: Vital signs: Vital Signs Temperature 98.2 F 10/04/22 00:19 Pulse Rate 70 10/04/22 02:19 Respiratory Rate 16 10/04/22 00:19 Blood Pressure 129/85 10/04/22 02:19 Pulse Oximetry 95 10/04/22 02:19 Oxygen Delivery Me thod 10/04/22 02:00 MDM - Anxiety Medical Decision Making 26-year-old female comes in today for complaints of chest discomfort and anxiety. On exam lungs are clear to auscultation. Heart rate was regular. Abdomen soft nontender. Vital signs are normal except for some elevation of blood pressure. Patient does admit to heavy drinking last night. Differential diagnosis includes but not limited to gastritis due to alcohol, anxiety, arrhythmia, electrolyte imbalance. EKG shows some bradycardia running in the 50s to 60s. CBC showed no anemia, patient was not , CMP showed no electrolyte abnormalities. Lipase was normal. Believe patient probably has some gastritis secondary to alcohol consumption. This is caused her anxiety to worsen. Incidentally patient does have a pretty slow heart rate that did drop into the 40s while in the ER. Patient did express concern of this and I recommended follow-up with cardiology for further discussion and possible evaluation. Patient was recommended to use cqbu-wed-hnqulxk medications for her gastritis. Encouraged avoiding alcohol. Recommend follow-up with primary care in 2 days for recheck. Return to ED for new concerns. Lab Data 10/04/22 01:05 10/04/22 01:39 Laboratory Results WBC 9.5 10^3/uL (4.0-10.0) 10/04/22 01:05 RBC 4.57 10^6/uL (4.1-5.3) 10/04/22 01:05 Hgb 13.5 g/dL (11.5-15.3) 10/04/22 01:05 Hct 42.5 % (37.0-47.0) 10/04/22 01:05 MCV 93.0 fl (81-99) 10/04/22 01:05 MCH 29.5 pg (28.0-34.0) 10/04/22 01:05 MCHC 31.8 g/dL (30.0-36.0) 10/04/22 01:05 RDW 12.9 % (12.1-15.1) 10/04/22 01:05 Plt Count 258 10^3/cmm (130-400) 10/04/22 01:05 MPV 11.3 fL (7.4-10.4) H 10/04/22 01:05 Neut % (Auto) 47.5 % 10/04/22 01:05 Lymph % (Auto) 43.2 % 10/04/22 01:05 [place] % (Auto) 5.2 % 10/04/22 01:05 Eos % (Auto) 3.5 % 10/04/22 01:05 Baso % (Auto) 0.4 % 10/04/22 01:05 Neut # (Auto) 4.50 10^3/uL (1.8-7.7) 10/04/22 01:05 Lymph # (Auto) 4.1 10^3/uL (0.8-4.8) 10/04/22 01:05 [place] # (Auto) 0.5 10^3/uL (0.2-0.9) 10/04/22 01:05 Eos # (Auto) 0.3 10^3/uL (0.0-0.8) 10/04/22 01:05 Baso # (Auto) 0.0 10^3/uL (0.0-0.1) 10/04/22 01:05 Nucleated RBC % (auto) 0 % 10/04/22 01:05 Nucleated RBCs # 0.0 /100WBC 10/04/22 01:05 Sodium 136 mmol/L (136-145) 10/04/22 01:39 Potassium Cancelled 10/04/22 01:05 Chloride 103 mmol/L (98-107) 10/04/22 01:39 Carbon Dioxide 22 mmol/L (22-29) 10/04/22 01:39 Anion Gap 14.2 (5-19) 10/04/22 01:39 BUN 9 mg/dL (6-20) 10/04/22 01:39 Creatinine Cancelled 10/04/22 01:05 GFR Calculation Cancelled 10/04/22 01:05 Glucose 97 mg/dL (65-115) 10/04/22 01:39 Calculated Osmolality Cancelled 10/04/22 01:05 Calcium 8.5 mg/dL (8.5-10.5) 10/04/22 01:39 Total Bilirubin 0.2 mg/dL (0.15-1.2) 10/04/22 01:39 AST 11 U/L (0-32) 10/04/22 01:39 ALT 12 U/L (0-33) 10/04/22 01:39 Alkaline Phosphatase 53 U/L (35-105) 10/04/22 01:39 Total Protein Cancelled 10/04/22 01:05 Albumin 3.7 g/dL (3.5-5.2) 10/04/22 01:39 Globulin 2.8 g/dL (1.3-4.6) 10/04/22 01:39 Lipase 15 U/L (13-60) 10/04/22 01:39 HCG, Qual Negative (Negative) 10/04/22 01:05 EKG Data EKG 1: EKG interpretation date: 10/04/22 EKG interpretation time: 01:06 Interpretation: EKG shows a sinus rhythm with a regular rate at [address] elevation is noted. No ectopy is noted. Computer interpretation notes a possible posterior fascicular block as compared to prior exam done on May 15, 2022. No ectopy is noted. Discharge Plan Discharge Patient Disposition: Home Clinical Impression: Atypical chest pain, Bradycardia with 51-60 beats per minute, Anxiety Gastritis Qualifiers: Gastritis type: unspecified gastritis Chronicity: acute Gastritis bleeding: without bleeding Qualified Code(s): K29.00 - Acute gastritis without bleeding Condition: Stable Prescriptions: No Action sucralfate [Carafate] 1 gram tablet 1 g PO QID 30 Days Qty: 120 0RF pantoprazole [Protonix] 20 mg tablet,delayed release (DR/EC) 20 mg PO DAILY Qty: 30 0RF hydroxyzine HCl 25 mg tablet 25 mg PO BID PRN citalopram 10 mg tablet 10 mg PO DAILY azithromycin 250 mg tablet See Rx Instructions PO .COMPLEX Qty: 6 0RF Rx Instructions: take 500 mg today (day 1), then 250 mg for 4 days (days 2-5) PO albuterol sulfate [Ventolin HFA] 90 mcg/actuation HFA aerosol inhaler 2 puff inhalation Q6H Qty: 8.5 0RF norgestimate-ethinyl estradiol [Estarylla] 0.25-35 mg-mcg tablet 1 tab PO DAILY Qty: 28 0RF prednisone 20 mg tablet 20 mg PO TID Qty: 15 0RF Rx Instructions: 1 p.o. 3 times daily x3 days, 1 p.o. twice daily x2 days, 1 p.o. daily x2 days diclofenac sodium 75 mg tablet,delayed release (DR/EC) 75 mg PO Q12H PRN (Reason: pain) Qty: 20 0RF tizanidine 4 mg tablet 4 mg PO Q6H PRN (Reason: muscle spasticity) Qty: 20 0RF Rx Instructions: do not exceed 3 doses per 24 hrs Discharge Orders: Discharge ED (Routine); Ordered 10/04/22 Ordered By: Jostin Jackson Referrals: Mallory Kelly FNP [Primary Care Provider] - Discharge Diet: Usual diet Discharge Activity: Increase activity as tolerated Patient Instructions: Chest Pain (ED) Activity Restrictions/Additional Instructions: Home and rest. Avoid alcohol consumption. Continue with routine medications as ordered. Follow-up with primary care in 2 to 3 days for recheck. Case management will contact you with a follow-up appointment with cardiology within the next 2 to 3 days. Return to ER for worsening symptoms such as severe chest pain, shortness of breath, or new concerns. Coding Level of Care Code ED Ux Architect for Kelin Rivas
--- NOTE | 2022-10-04 00:50 | ECG_ITS ---
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 Measurements Intervals [place] Rate: 60 P: 66 [place]: 156 QRS: 134 QRSD: 105 T: 104 QT: 393 QTc: 396 Interpretive Statements SINUS RHYTHM LEFT POSTERIOR FASCICULAR BLOCK [QRS AXIS > 109, INFERIOR Q] Compared to ECG 05/15/2022 17:36:57 Left posterior fascicular block now present Sinus bradycardia no longer present Electronically Signed On 10-04-2022 13:07:06 CDT by Fredi Mcfadden M.D. [id number]
[2022-10-04] MEDS: LORazepam 0.5 mg Tablet 0.25 MG PO (00:55)
[2022-10-04] MEDS: lidocaine 2% viscous 15 ML, aluminum-mag hydrox-simethicon 30 ML, sucralfate oral liq 1 GM PO (00:56)
[2022-10-04] MEDS: sodium chloride 0.9% 1,000 ML 999 ML IV (01:05)
[2022-10-04 01:16] LABS: Basophils % 0.4 %; Eosinophils # 0.3 10^3/uL (0.0-0.8); Eosinophils % 3.5 %; Hematocrit 42.5 % (37.0-47.0); Hemoglobin 13.5 g/dL (11.5-15.3); Lymphocytes # 4.1 10^3/uL (0.8-4.8); Lymphocytes % 43.2 %; Mean Corpuscular HGB Conc 31.8 g/dL (30.0-36.0); Mean Corpuscular Hemoglobin 29.5 pg (28.0-34.0); Mean Platelet Volume 11.3 fL (7.4-10.4); Monocytes # 0.5 10^3/uL (0.2-0.9); Monocytes % 5.2 %; Neutrophils % 47.5 %; Nucleated Red Blood Cells % 0 %; Platelet Count 258 10^3/cmm (130-400); Red Blood Count 4.57 10^6/uL (4.1-5.3); Red Cell Distribution Width 12.9 % (12.1-15.1); White Blood Count 9.5 10^3/uL (4.0-10.0)
[2022-10-04 01:33] LABS: HCG, Serum Qual Negative (Negative)
[2022-10-04 02:00] VITALS: BP 140/84; PULSE 60; O2SAT 96
[2022-10-04 02:08] LABS: Alanine Aminotransferase 12 U/L (0-33); Albumin Level 3.7 g/dL (3.5-5.2); Alkaline Phosphatase 53 U/L (35-105); Anion Gap 14.2 (5-19); Aspartate Amino Transferase 11 U/L (0-32); Blood Urea Nitrogen 9 mg/dL (6-20); Calcium 8.5 mg/dL (8.5-10.5); Carbon Dioxide 22 mmol/L (22-29); Chloride 103 mmol/L (98-107); Globulin 2.8 g/dL (1.3-4.6); Glomerular Filtration Rate 196.1 mL/min (90-130); Glucose 97 mg/dL (65-115); Lipase 15 U/L (13-60); Osmolality Calculated 281 mOsm/kg (285-295); Potassium 3.2 mmol/L (3.5-5.1); Sodium 136 mmol/L (136-145); Total Bilirubin 0.2 mg/dL (0.15-1.2); Total Protein 6.5 g/dL (6.6-8.7)
[2022-10-04 02:19] VITALS: BP 129/85; PULSE 70; O2SAT 95
[2022-10-04] MEDS: alum-mag-hydroxide-sime 30 mL UDC PO (02:23)
[2022-10-04] MEDS: famotidine 20 mg/2 mL INJ 40 MG IVP (02:24)
--- NOTE | 2022-10-04 11:18 | DCPLANNER ---
Addendum entered by Coty Mccarthy 11/29/22 11:08: Patient had a follow up appointment at [facility] - patient did attend appointment. Addendum entered by Coty Mccarthy 10/05/22 11:03: Patient has a follow up appointment scheduled for Tuesday, November 24, 2022 at 10:[address] Weaver at [facility]. Original Note: housing case manager had message to schedule a follow up appointment for patient with cardiology. housing case manager sent patients information to the front office staff at [facility]. Patients information will be printed and reviewed. Clinic will call patient with appointment information.
== END 2022-10-04 02:34 | disposition home or self-care (01) ==
PROVIDERS: Emergency Provider Nurse Practitioner Family; PCP Nurse Practitioner Family
DX: R07.89 Other chest pain (principal); K29.00 Acute gastritis without bleeding; R00.1 Bradycardia, unspecified; F41.9 Anxiety disorder, unspecified
CPT/HCPCS: 80053; 83690; 84703; 85025; 93005; 96361; 96374; 99284; J3490; J7030

== ENCOUNTER → 2022-10-23 14:26 | Outpatient (BNVA) | payer OTHER, SELFPAY | PROVIDERS: PCP Nurse Practitioner Family; Visit Provider Nurse Practitioner | DX: Z20.2 Contact with and (suspected) exposure to infections with a predominantly sexual mode of transmission (principal) | CPT/HCPCS: 87491; 87591 ==

== ENCOUNTER 2022-10-26 10:33 | Emergency (ER) | payer SELFPAY ==
[2022-10-26 10:49] VITALS: BP 136/86; PULSE 66; RESP 15; O2SAT 99; BMI 38.9
--- NOTE | 2022-10-26 11:08 | W.ED.SOB ---
HPI - SOB/Dyspnea General: Chief Complaint: Shortness of Breath/Dyspnea Stated Complaint: right lung burning pain Time Seen by Provider: 10/26/22 11:07 History of Present Illness: HPI Narrative: Ms. Camacho is a 26-year-old lady with history of tobaccoism presenting to the emergency department for reported right lung burning. She reports onset of symptoms gradually 2 days ago and has progressively worsened. Denies associated shortness of breath cough/other infectious symptoms. Does have a history of GERD but this feels different and she tried zuzm-ndy-fiiocca medications for that without significant relief. No other specific changes in health, exacerbating, or alleviating factors identified. Onset (ago): day(s) Timing: progressively worsening Severity: moderate Exacerbating factors: nothing Relieving factors: nothing Known history of: other (Tobacco smoking) Associated symptoms: Reports no associated symptoms Review of Systems General: Reports: 10 or more systems reviewed and unremarkable except in HPI and below PFSH ED PFSH: Medical History (Updated 11/03/22 @ 00:02 by TAYA Ladd) Anxiety Blind left eye Chronic GERD Migraine without aura and without status migrainosus, not intractable No pertinent past medical history neghx: htn,dm,thyroid,dvt/pe PCP: Mallory Kelly Secondary amenorrhea Surgical History History of tonsillectomy and adenoidectomy Status post hysteroscopy (06/17/20) With D&C. 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 Per[place] by Dr. Silva at [facility] in [place], [place]. Family History Grandmother Breast cancer Great- maternal High cholesterol Maternal Hypertension Maternal Family/Other Diabetes Paternal aunt Hypertension Paternal Aunts and Uncles Stroke Paternal Great Aunt Grandfather Heart disease Paternal Denies family history of Colon cancer Ovarian cancer Bleeding disorder Uterine cancer Thyroid disease Female Reproductive History: Spontaneous abortions: No Physical Exam Const: COMMON NORMALS: alert GENERAL APPEARANCE: cooperative and well developed HENMT: COMMON NORMALS: normocephalic and atraumatic HEAD & SCALP: normocephalic and atraumatic Eye: COMMON NORMALS: conjunctivae normal CONJUNCTIVA: Yes conjunctivae normal SCLERA: sclerae normal Neck/C-Spine: COMMON NORMALS: supple GENERAL: Yes trachea midline Resp: COMMON NORMALS: normal respiratory effort and clear to auscultation bilaterally EFFORT & INSPECTION: Yes able to speak in complete sentences AUSCULTATION: clear to auscultation bilaterally Cardio: COMMON NORMALS: regular rate and regular rhythm RATE: regular rate RHYTHM: regular rhythm GI: COMMON NORMALS: Soft to palpation PALPATION: Yes Soft to palpation and No Tenderness to palpation present (GI) PERCUSSION: normal to percussion Extremity: GENERAL: Yes normal exam except as noted and No edema Neuro: COMMON NORMALS: moves all extremities SENSORIUM/ORIENTATION: Yes alert and No Orientation impaired Psych: COMMON NORMALS: mental status grossly normal and Normal thought process present THOUGHT PROCESS: Normal thought process present Course Vital Signs: Vital signs: Vital Signs Pulse Rate 68 10/26/22 11:42 Respiratory Rate 15 10/26/22 13:00 Blood Pressure 136/86 10/26/22 10:49 Pulse Oximetry 100 10/26/22 13:00 Oxygen Delivery Me thod Room Air 10/26/22 11:40 MDM - SOB/Dyspnea Medical Decision Making 26-year-old lady with history of tobaccoism presenting with lung pain. Exam as above. Patient is nontoxic and not requiring supplemental oxygen. EKG demonstrates sinus rhythm with normal axis and intervals, there are nonspecific ST segment abnormalities, no STEMI. Patient is low risk by heart score. Negative rapid viral testing for flu and COVID. No other laboratory studies indicated given physical exam and clinical history provided. Chest x-ray with no lobar consolidation or pneumothorax. Patient improved with DuoNeb, GI cocktail, Toradol. Most likely etiology of patient's symptoms is atypical infection in the context of tobaccoism as well as possible GI component. Plan to treat with azithromycin. She does not require inpatient management at this time. She is able to tolerate p.o. intake. The results of ED evaluation were discussed with the patient including prescriptions and/or symptomatic cares (if applicable) including appropriate and responsible use, followup plan, and return precautions. The patient verbalized understanding and felt safe for discharge. Medical Records I reviewed the patient's medical records. Lab Data I reviewed the patient's lab results. Labs/Radiology: Radiology Impressions Chest X-Ray 10/26/22 11:33 IMPRESSION: Unremarkable chest radiograph. Laboratory Results Influenza Type A Ag negative (Negative) 10/26/22 12:00 Influenza Type B Ag negative (Negative) 10/26/22 12:00 SARS-CoV-2 Ag (Rapid) negative (Negative) 10/26/22 12:00 Discharge Plan Discharge Patient Disposition: Home Clinical Impression: Chest pain Condition: Stable Prescriptions: New azithromycin 250 mg tablet See Rx Instructions .ROUTE .COMPLEX Qty: 6 0RF Rx Instructions: For 250 mg dose pack: take 500 mg today (day 1), then 250 mg for 4 days (days 2-5) No Action norgestimate-ethinyl estradiol [Estarylla] 0.25-35 mg-mcg tablet 1 tab PO DAILY Qty: 84 0RF Discharge Orders: Discharge ED (Routine); Ordered 10/26/22 Ordered By: Heath Coulter Referrals: Mallory Kelly FNP [Primary Care Provider] - Discharge Diet: Usual diet Discharge Activity: Increase activity as tolerated Patient Instructions: Pleurisy (ED), Diet for Stomach Ulcers and Gastritis (ED), GERD (Gastroesophageal Reflux Disease) (ED) Activity Restrictions/Additional Instructions: Thank you for visiting the emergency department. You were seen and evaluated for lung pain. The exact cause your symptoms is unclear though may be related to lung irritation or atypical mild infection. I will prescribe steroids and azithromycin. I will also prescribe Protonix for possible reflux component. You may use lqis-arn-pesmqog medications such as acetaminophen and ibuprofen for pain however please do not exceed the daily recommended dosage as listed on the packaging and please keep in mind that many namebrand medications contain the same active ingredients. Please avoid these medications if previously instructed to do so by another physician due to other underlying medical condition. Please follow-up with your primary care provider. Return to the emergency department for uncontrolled symptoms or anything else that you are concerned about and feel needs emergency department evaluation. Coding Level of Care Code ED Driller Helper for Kelin Rivas
--- NOTE | 2022-10-26 11:33 | XR_ITS ---
WS: [id number] Exam: XR chest 2V* [id number] Date/Time of Exam: 10/26/2022 11:33 AM Reason For Exam: R Lung burning/pain Comparison 11/17/2021. Findings: The lungs are clear and fully expanded. Costophrenic angles are sharp. No infiltrates. Bronchovascula r relief appears normal. Cardiac silhouette is unremarkable. Bony elements are intact. XR/XR chest 2V* [id number] IMPRESSION: Unremarkable chest radiograph.
[2022-10-26] MEDS: ipratropium-albuterol 3 mL Neb INHALATION (11:39)
[2022-10-26 11:40] VITALS: PULSE 65; RESP 16; O2SAT 99
[2022-10-26 11:42] VITALS: PULSE 68
[2022-10-26] MEDS: lidocaine 2% viscous 15 ML, aluminum-mag hydrox-simethicon 30 ML, sucralfate oral liq 1 GM PO (11:55)
--- NOTE | 2022-10-26 11:56 | ECG_ITS ---
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 Measurements Intervals [place] Rate: 66 P: 25 [place]: 155 QRS: 19 QRSD: 95 T: 15 QT: 366 QTc: 383 Interpretive Statements SINUS RHYTHM POSSIBLE ANTERIOR MYOCARDIAL INFARCTION , PROBABLY OLD [30 ms Q WAVE IN V3/V4, OR R < 0.2 mV IN V4] Compared to ECG 10/04/2022 00:50:05 Myocardial infarct finding now present Left posterior fascicular block no longer present Electronically Signed On 10-26-2022 20:40:56 CDT by Fredi Mcfadden M.D. [id number]
[2022-10-26 12:39] LABS: Influenza A by IFA negative (Negative); Influenza B by IFA negative (Negative); SARS Covid-2 Antigen negative (Negative)
[2022-10-26 13:00] VITALS: RESP 15; O2SAT 100
== END 2022-10-26 13:01 | disposition home or self-care (01) ==
PROVIDERS: Emergency Provider Emergency Medicine; PCP Nurse Practitioner Family
DX: R07.9 Chest pain, unspecified (principal); Z20.822 Contact with and (suspected) exposure to COVID-19
CPT/HCPCS: 71046; 87426; 87804; 93005; 94640; 99285

== ENCOUNTER → 2023-01-18 10:35 | Outpatient (BNVA) | payer OTHER, SELFPAY | PROVIDERS: PCP Nurse Practitioner Family; Visit Provider Nurse Practitioner Women's Health | DX: Z12.4 Encounter for screening for malignant neoplasm of cervix (principal) | CPT/HCPCS: 88175 ==

== ENCOUNTER 2023-01-28 16:51 | Emergency (ER) | payer OTHER, SELFPAY ==
[2023-01-28 17:00] VITALS: BP 125/83; PULSE 84; RESP 16; TEMP 36.9; O2SAT 99; BMI 42.9
--- NOTE | 2023-01-28 17:08 | XRR_ITS ---
PROCEDURE INFORMATION: Exam: XR Chest Exam date and time: 01/28/2023 5:21 PM Age: 27 years old Clinical indication: Pain; Chest pressure; Additional info: Chest pain TECHNIQUE: Imaging protocol: Radiologic exam of the chest. Views: 1 view. COMPARISON: CR XR chest 2V* [id number] 10/26/2022 11:46 AM FINDINGS: Lungs: Unremarkable. No consolidation. Pleural spaces: Unremarkable. No pleural effusion. No pneumothorax. Heart/Mediastinum: Unremarkable. No cardiomegaly. Bones/joints: Visualized osseous structures show no acute abnormality. Minimal thoracic scoliosis. Other findings: No significant change from previous exam, allowing for difference in technique. XR/XR chest 1V portable [id number] IMPRESSION: No acute cardiopulmonary abnormality.
--- NOTE | 2023-01-28 17:08 | ECG_ITS ---
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 Measurements Intervals [place] Rate: 76 P: 37 [place]: 177 QRS: 28 QRSD: 94 T: 17 QT: 345 QTc: 388 Interpretive Statements SINUS RHYTHM Compared to ECG 10/26/2022 11:56:18 Myocardial infarct finding no longer present Electronically Signed On 01-28-2023 18:39:38 CDT by Sylwia Wilson M.D. [id number]
[2023-01-28 17:38] LABS: Basophils % 0.3 %; Eosinophils # 0.2 10^3/uL (0.0-0.8); Eosinophils % 2.4 %; Hematocrit 38.3 % (37.0-47.0); Hemoglobin 12.5 g/dL (11.5-15.3); Lymphocytes # 3.1 10^3/uL (0.8-4.8); Mean Corpuscular HGB Conc 32.6 g/dL (30.0-36.0); Mean Corpuscular Hemoglobin 29.9 pg (28.0-34.0); Mean Corpuscular Volume 91.6 fl (81-99); Mean Platelet Volume 10.1 fL (7.4-10.4); Monocytes # 0.5 10^3/uL (0.2-0.9); Monocytes % 5.3 %; Neutrophils # 5.25 10^3/uL (1.8-7.7); Neutrophils % 57.7 %; Nucleated Red Blood Cells % 0 %; Platelet Count 279 10^3/cmm (130-400); Red Blood Count 4.18 10^6/uL (4.1-5.3); Red Cell Distribution Width 12.4 % (12.1-15.1); White Blood Count 9.1 10^3/uL (4.0-10.0)
--- NOTE | 2023-01-28 17:52 | ED_ITS ---
HPI - Arrhythmia/Palpitations General: Chief Complaint: Arrhythmia/Palpitations Stated Complaint: High HR Time Seen by Provider: 01/28/23 17:07 History of Present Illness: Patient presents to the ER with complaints of her heart feel like is going to pound out of her chest. Patient said this started upon waking yesterday. Patient come to the ER but then left without being seen secondary to a long wait, she then went to [facility] where she had an EKG which the patient said was negative. Patient said this kept going on off and on all throughout the night and got worse today. Patient did not want to go with another night of this again so she decided to come here and be seen this time. Patient states this has happened multiple times in the past but usually not as long or as severe. Patient said her heart is not doing it currently. Patient denies any shortness of breath nausea vomiting diaphoresis etc. Review of Systems General: Reports: 10 or more systems reviewed and unremarkable except in HPI and below PFSH ED PFSH: Medical History Anxiety Blind left eye Chronic GERD Migraine without aura and without status migrainosus, not intractable No pertinent past medical history neghx: htn,dm,thyroid,dvt/pe PCP: Mallory Kelly Secondary amenorrhea Surgical History History of tonsillectomy and adenoidectomy Status post hysteroscopy (06/17/20) With D&C. 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 Performed by Dr. Silva at [facility] in [place], [place]. Family History Grandmother Breast cancer Great- maternal High cholesterol Maternal Hypertension Maternal Family/Other Diabetes Paternal aunt Hypertension Paternal Aunts and Uncles Stroke Paternal Great Aunt Grandfather Heart disease Paternal Father Myocardial infarction Mother Stroke Sister PFO (patent foramen ovale) Social History Smoking and tobacco status: current every day smoker cigarettes Packs smoked per day: 1 Years cigarettes smoked: 12 Female Reproductive History: Spontaneous abortions: No Physical Exam Const: COMMON NORMALS: no acute distress, average body habitus, patient oriented x3, no limitations, healthy appearing, alert and well nourished HENMT: COMMON NORMALS: normocephalic, atraumatic, hearing grossly normal bilaterally, external ears normal, Normal external nose present and moist oral mucous membranes HEAD & SCALP: normocephalic and atraumatic NOSE: Normal external nose present EXTERNAL EAR: Yes external ears normal Neck/C-Spine: COMMON NORMALS: full ROM, no lymphadenopathy, supple, no meningeal signs, no JVD and Thyroid normal THYROID: Thyroid normal Chest: COMMONS NORMALS: normal inspection of the chest and normal palpation of entire chest wall Resp: COMMON NORMALS: normal respiratory effort, No retractions, No use of accessory muscles and clear to auscultation bilaterally AUSCULTATION: clear to auscultation bilaterally Cardio: COMMON NORMALS: no JVD, regular rate, regular rhythm, S1 normal heart sound present, S2 normal heart sound present, No gallops present (Cardio), No clicks present (Cardio), No murmurs present (Cardio) and No rub (Cardio) RATE: regular rate RHYTHM: regular rhythm HEART SOUNDS: S1 normal heart sound present and S2 normal heart sound present GI: COMMON NORMALS: Normal to inspection, nondistended, normoactive bowel sounds present, Soft to palpation, non-tender, No hepatosplenomegaly present and no masses PALPATION: Yes Soft to palpation and Yes No hepatosplenomegaly present : COMMON NORMALS: Yes no CVA tenderness BLADDER/KIDNEY EXAM: Yes no CVA tenderness Back/Pelvis: COMMON NORMALS: no CVA tenderness Neuro: COMMON NORMALS: patient oriented x3 SENSORIUM/ORIENTATION: Yes alert MENINGEAL SIGNS: Yes no meningeal signs Course Vital Signs: Vital signs: Vital Signs Temperature 98.4 F 01/28/23 17:00 Pulse Rate 84 01/28/23 17:00 Respiratory Rate 16 01/28/23 17:00 Blood Pressure 125/83 01/28/23 17:00 Pulse Oximetry 99 01/28/23 17:00 Oxygen Delivery Me thod Room Air 01/28/23 17:00 MDM - Arrhythmia/Palpitations Medical Decision Making Patient presents to the ER with complaints of palpitations for the last 2 days. Lab work was obtained as well as EKG. While we were waiting for patient to present us with a urine specimen for urinalysis urine drug screen. Patient decided that she did not want to give us 1 and decided she was going to leave. It was discussed with patient that this is not a good idea as something acutely may be going on with her heart. Patient understood the risks and still chose to leave. Patient left AMA Differential Diagnosis Likely palpitations; Unlikely anxiety, sinus tachycardia, artial fibrillation, artial flutter, ventricular premature beats, supraventricular tachycardia, ventricular tachycardia or WPW Medical Records I reviewed the patient's medical records. Lab Data I reviewed the patient's lab results. 01/28/23 17:28 01/28/23 17: Radiology Impressions Chest X-Ray 01/28/23 17:08 IMPRESSION: No acute cardiopulmonary abnormality. Laboratory Results WBC 9.1 10^3/uL (4.0-10.0) 01/28/23 17: RBC 4.18 10^6/uL (4.1-5.3) 01/28/23 17: Hgb 12.5 g/dL (11.5-15.3) 01/28/23 17: Hct 38.3 % (37.0-47.0) 01/28/23 17: MCV 91.6 fl (81-99) 01/28/23 17: MCH 29.9 pg (28.0-34.0) 01/28/23 17: MCHC 32.6 g/dL (30.0-36.0) 01/28/23 17: RDW 12.4 % (12.1-15.1) 01/28/23 17: Plt Count 279 10^3/cmm (130-400) 01/28/23 17: MPV 10.1 fL (7.4-10.4) 01/28/23 17: Neut % (Auto) 57.7 % 01/28/23 17: Lymph % (Auto) 34.0 % 01/28/23: [place] % (Auto) 5.3 % 01/28/23 17: Eos % (Auto) 2.4 % 01/28/23 17: Baso % (Auto) 0.3 % 01/28/23 17: Neut # (Auto) 5.25 10^3/uL (1.8-7.7) 01/28/23: Lymph # (Auto) 3.1 10^3/uL (0.8-4.8) 01/28/23 17: [place] # (Auto) 0.5 10^3/uL (0.2-0.9) 01/28/23 17: Eos # (Auto) 0.2 10^3/uL (0.0-0.8) 01/28/23 17: Baso # (Auto) 0.0 10^3/uL (0.0-0.1) 01/28/23 17: Nucleated RBC % (auto) 0 % 01/28/23 17: Nucleated RBCs # 0.0 /100WBC 01/28/23 17: Sodium 138 mmol/L (136-145) 01/28/23 17: Potassium 3.8 mmol/L (3.5-5.1) 01/28/23 17: Chloride 104 mmol/L (98-107) 01/28/23 17: Carbon Dioxide 24 mmol/L (22-29) 01/28/23 17: Anion Gap 13.8 (5-19) 01/28/23 17: BUN 14 mg/dL (6-20) 01/28/23 17: Creatinine 0.5 mg/dL (0.5-0.9) 01/28/23 17: GFR Calculation 150.3 mL/min (90-130) H 01/28/23 17: Glucose 130 mg/dL (65-115) H 01/28/23 17:28 Calculated Osmolality 288 mOsm/kg (285-295) 01/28/23 17: Calcium 9.1 mg/dL (8.5-10.5) 01/28/23 17: Total Bilirubin 0.2 mg/dL (0.15-1.2) 01/28/23 17: AST 9 U/L (0-32) 01/28/23 17: ALT 10 U/L (0-33) 01/28/23 17: Alkaline Phosphatase 55 U/L (35-105) 01/28/23 17:28 Troponin T Baseline 6 ng/L (0-10) 01/28/23 17: Total Protein 6.4 g/dL (6.6-8.7) L 01/28/23 17:28 Albumin 3.9 g/dL (3.5-5.2) 01/28/23 17:28 Globulin 2.5 g/dL (1.3-4.6) 01/28/23 17:28 EKG Data EKG 1: I personally reviewed and interpreted this EKG as follows: EKG interpretation date: 01/28/23 EKG interpretation time: 17:13 Prior EKG tracings: not available for review Interpretation: EKG showed ventricular rate 76 bpm, W[place] interval 177, QRS duration 94, QTc 375, normal sinus rhythm and no ST-T wave changes Other EKG comments: Chest X-Ray 01/28/23 17:08 IMPRESSION: No acute cardiopulmonary abnormality. Discharge Plan Discharge Patient Disposition: Home Clinical Impression: Palpitations Condition: Stable Prescriptions: No Action acetaminophen 325 mg tablet 325 mg PO QID PRN calcium carbonate [Tums] 200 mg calcium (500 mg) tablet,chewable 200 mg PO QID PRN ibuprofen 200 mg tablet 200 mg PO Q6H PRN norgestimate-ethinyl estradiol [Estarylla] 0.25-35 mg-mcg tablet 1 tab PO DAILY Qty: 84 3RF Referrals: Mallory Kelly FNP [Primary Care Provider] - 1-3 days Patient Instructions: Against Medical Advice (ED) Coding Level of Care Code ED Nutrient Management Specialist for g Evelyn
[2023-01-28 18:05] LABS: Troponin(5th) Baseline 6 ng/L (0-10)
[2023-01-28 18:07] LABS: Alanine Aminotransferase 10 U/L (0-33); Albumin Level 3.9 g/dL (3.5-5.2); Alkaline Phosphatase 55 U/L (35-105); Anion Gap 13.8 (5-19); Aspartate Amino Transferase 9 U/L (0-32); Blood Urea Nitrogen 14 mg/dL (6-20); Calcium 9.1 mg/dL (8.5-10.5); Carbon Dioxide 24 mmol/L (22-29); Chloride 104 mmol/L (98-107); Globulin 2.5 g/dL (1.3-4.6); Glomerular Filtration Rate 150.3 mL/min (90-130); Glucose 130 mg/dL (65-115); Osmolality Calculated 288 mOsm/kg (285-295); Potassium 3.8 mmol/L (3.5-5.1); Sodium 138 mmol/L (136-145); Total Bilirubin 0.2 mg/dL (0.15-1.2); Total Protein 6.4 g/dL (6.6-8.7)
== END 2023-01-28 19:00 | disposition home or self-care (01) ==
PROVIDERS: Emergency Provider Emergency Medicine; PCP Nurse Practitioner Family
DX: R00.2 Palpitations (principal)
CPT/HCPCS: 36415; 71045; 80053; 84484; 85025; 93005; 99285

== ENCOUNTER 2023-01-28 19:01 | Emergency (ER) | payer OTHER, SELFPAY ==
[2023-01-28 19:26] VITALS: BP 136/99; PULSE 84; RESP 16; TEMP 36.6; O2SAT 98; BMI 42.9
[2023-01-28 19:54] LABS: Add Urine Microscopic? YES; Bilirubin Urine Neg (Negative); Blood Urine Neg (Negative); Glucose Urine UA Norm (Normal); Ketones Urine 1+ (Negative); Leukocyte Esterase Urine 1+ (Negative); Nitrate Urine Negative (Negative); Protein Urine Neg (Negative); Specific Gravity, Urine 1.025 (1.005-1.030); Urine Appearance Cloudy (CLEAR); Urine Color Yellow (Yellow); Urobilinogen Urine Norm (Negative); pH Urine 6 (5-7)
[2023-01-28 19:56] LABS: Add Urine Culture? Yes; Bacteria Urine 3+ /hpf; Mucus Urine 2+ /hpf; RBC Urine 0-4 /hpf (0-2); Squamous Epithelial Cell Urine 0-4 /hpf (0-5); WBC Urine 15-25 /hpf (0-5)
--- NOTE | 2023-01-28 19:56 | ED_ITS ---
HPI - Arrhythmia/Palpitations General: Chief Complaint: Arrhythmia/Palpitations Stated Complaint: irregular heart rate Time Seen by Provider: 01/28/23 19:31 History of Present Illness: Presents back to the ER right after leaving the ER AGAINST MEDICAL ADVICE for the exact same condition of heart palpitations. Review of Systems General: Reports: 10 or more systems reviewed and unremarkable except in HPI and below PFSH ED PFSH: Medical History Anxiety Blind left eye Chronic GERD Migraine without aura and without status migrainosus, not intractable No pertinent past medical history neghx: htn,dm,thyroid,dvt/pe PCP: Mallory Kelly Secondary amenorrhea Surgical History History of tonsillectomy and adenoidectomy Status post hysteroscopy (06/17/20) With D&C. 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 Performed by Dr. Silva at [facility] in [place], [place]. Family History Grandmother Breast cancer Great- maternal High cholesterol Maternal Hypertension Maternal Family/Other Diabetes Paternal aunt Hypertension Paternal Aunts and Uncles Stroke Paternal Great Aunt Grandfather Heart disease Paternal Father Myocardial infarction Mother Stroke Sister PFO (patent foramen ovale) Social History Smoking and tobacco status: current every day smoker cigarettes Packs smoked per day: 1 Years cigarettes smoked: 12 Female Reproductive History: Spontaneous abortions: No Physical Exam Const: COMMON NORMALS: no acute distress, average body habitus, patient oriented x3, no limitations, healthy appearing, alert and well nourished HENMT: COMMON NORMALS: normocephalic, atraumatic, hearing grossly normal bilaterally, external ears normal, Normal external nose present and moist oral mucous membranes HEAD & SCALP: normocephalic and atraumatic NOSE: Normal external nose present EXTERNAL EAR: Yes external ears normal Eye: COMMON NORMALS: Equal, round and reactive pupils present, EOMs intact bilaterally, conjunctivae normal and no scleral icterus CONJUNCTIVA: Yes conjunctivae normal PUPIL: Yes Equal, round and reactive pupils present Neck/C-Spine: COMMON NORMALS: full ROM, no lymphadenopathy, supple, no meningeal signs, no JVD and Thyroid normal THYROID: Thyroid normal Chest: COMMONS NORMALS: normal inspection of the chest and normal palpation of entire chest wall Resp: COMMON NORMALS: normal respiratory effort, No retractions, No use of accessory muscles and clear to auscultation bilaterally AUSCULTATION: clear to auscultation bilaterally Cardio: COMMON NORMALS: no JVD, regular rate, regular rhythm, S1 normal heart sound present, S2 normal heart sound present, No gallops present (Cardio), No clicks present (Cardio), No murmurs present (Cardio) and No rub (Cardio) RATE: regular rate RHYTHM: regular rhythm HEART SOUNDS: S1 normal heart sound present and S2 normal heart sound present GI: COMMON NORMALS: Normal to inspection, nondistended, normoactive bowel sounds present, Soft to palpation, non-tender, No hepatosplenomegaly present and no masses PALPATION: Yes Soft to palpation and Yes No hepatosplenomegaly present Neuro: COMMON NORMALS: patient oriented x3 SENSORIUM/ORIENTATION: Yes alert MENINGEAL SIGNS: Yes no meningeal signs Course Vital Signs: Vital signs: Vital Signs Temperature 98 F 01/28/23 19:26 Pulse Rate 84 01/28/23 19:26 Respiratory Rate 16 01/28/23 19:26 Blood Pressure 136/99 01/28/23 19:26 Pulse Oximetry 98 01/28/23 19:26 MDM - Arrhythmia/Palpitations Medical Decision Making Patient presents back to the ER immediately after leaving AMA for the exact same condition of heart palpitations. I reviewed the work-up from the previous visit as well as the urinalysis from this visit. All of which was essentially negative except for the urinalysis did show a urinary tract infection. Patient will be placed on ciprofloxacin and instructed to follow-up with her primary care practitioner for further evaluation and treatment of her palpitations. Lab Data Laboratory Results Urine Color Yellow (Yellow) 01/28/23 19: Urine Appearance Cloudy (CLEAR) A 01/28/23 19: Urine pH 6 (5-7) 01/28/23 19: Ur Specific [place] 1.025 (1.005-1.030) 01/28/23 19: Urine Protein Neg (Negative) 01/28/23 19: Urine Glucose (UA) Norm (Normal) 01/28/23 19:28 Urine Ketones 1+ (Negative) H 01/28/23 19:28 Urine Blood Neg (Negative) 01/28/23 19:28 Urine Nitrate Negative (Negative) 01/28/23 19:28 Urine Bilirubin Neg (Negative) 01/28/23 19:28 Urine Urobilinogen Norm mg/dL (Negative) 01/28/23 19:28 Ur Leukocyte Esterase 1+ (Negative) H 01/28/23 19:28 Urine RBC 0-4 /hpf (0-2) H 01/28/23 19:28 Urine WBC 15-25 /hpf (0-5) H 01/28/23 19:28 Ur Squamous Epith Cells 0-4 /hpf (0-5) H 01/28/23 19:28 Amorphous Sediment Not Reportable 01/28/23 19:28 Urine Bacteria 3+ /hpf (NONE) H 01/28/23 19:28 Urine Mucus 2+ /hpf 01/28/23 19:28 Discharge Plan Discharge Patient Disposition: Home Clinical Impression: Heart palpitations Urinary tract infection Qualifiers: Urinary tract infection type: acute cystitis Hematuria presence: without hematuria Qualified Code(s): N30.00 - Acute cystitis without hematuria Condition: Stable Prescriptions: New ciprofloxacin HCl 500 mg tablet 500 mg PO Q12H Qty: 20 0RF No Action acetaminophen 325 mg tablet 325 mg PO QID PRN calcium carbonate [Tums] 200 mg calcium (500 mg) tablet,chewable 200 mg PO QID PRN ibuprofen 200 mg tablet 200 mg PO Q6H PRN norgestimate-ethinyl estradiol [Estarylla] 0.25-35 mg-mcg tablet 1 tab PO DAILY Qty: 84 3RF Discharge Orders: Discharge ED (Routine); Ordered 01/28/23 Ordered By: Gualberto Waddell Referrals: Mallory Kelly FNP [Primary Care Provider] - Patient Instructions: Heart Palpitations (ED), Urinary Tract Infection in Women (ED) Activity Restrictions/Additional Instructions: Take all your medicine as directed. Please follow-up with your family practice physician in the next 7 to 10 days for further evaluation and treatment of your heart palpitations. Coding Level of Care Code ED Transfer Agent for Kelin Rivas
[2023-01-28] MEDS: ciprofloxacin 500 mg Tablet PO (20:12)
== END 2023-01-28 20:53 | disposition home or self-care (01) ==
PROVIDERS: Emergency Provider Emergency Medicine; PCP Nurse Practitioner Family
DX: R00.2 Palpitations (principal); N30.00 Acute cystitis without hematuria; Z79.899 Other long term (current) drug therapy
CPT/HCPCS: 81001; 87086; 99283

== ENCOUNTER → 2023-02-22 11:18 | Outpatient (BNVA) | payer OTHER, SELFPAY | PROVIDERS: PCP Nurse Practitioner Family; Visit Provider Nurse Practitioner Family | DX: R05.9 Cough, unspecified (principal) | CPT/HCPCS: 87426 ==

== ENCOUNTER 2023-03-17 12:37 | Emergency (ER) | payer OTHER, SELFPAY ==
--- NOTE | 2023-03-17 12:42 | XR_ITS ---
WS: [id number] Exam: XR chest 1V portable 10022 Date/Time of Exam: 03/17/2023 12:42 PM Reason For Exam: cough Findings: The lungs are clear and fully expanded. Costophrenic angles are sharp. No infiltrates. Bronchovascula r relief appears normal. Cardiac silhouette is unremarkable. Bony elements are intact. A metallic rin g is noted over the superior mediastinum and may represent artifact in the clothing but the exact sig nificance is undetermined. IMPRESSION: Unremarkable chest radiograph.
[2023-03-17 13:00] VITALS: BP 148/101; PULSE 96; TEMP 36.7; O2SAT 95; BMI 43.0
[2023-03-17 13:31] VITALS: PULSE 84; RESP 16; O2SAT 95
[2023-03-17] MEDS: ipratropium-albuterol 3 mL Neb INHALATION (13:34)
[2023-03-17 13:37] VITALS: PULSE 88
--- NOTE | 2023-03-17 13:48 | W.ED.URI ---
HPI - URI/Sore Throat General: Chief Complaint: Upper Respiratory Infection Stated Complaint: cough Time Seen by Provider: 03/17/23 13:12 History of Present Illness: 27-year-old female presents emergency room with cough for the past few days. Patient further reveals that she was initially seen and evaluated at a local urgent care and was given cough medication without any relief. She described the cough as nonproductive cough denies coughing up blood or vomiting blood. No chest pain, sick contacts or foreign travel. Patient reveals that she was recent diagnosed with COVID. Patient has any leg swelling, calf tenderness or leg pain. Associated symptoms: Deny chest pain Review of Systems General: Reports: 10 or more systems reviewed and unremarkable except in HPI and below Card: Reports: syncope and pre-syncope; Denies: chest pain, palpitations, irregular heart rhythm, edema, swelling of feet/ankles, lightheadedness, dyspnea on exertion, orthopnea, leg pain with exertion or acrocyanosis Resp: Reports: non-productive cough; Denies: wheezing, stridor, pain on inspiration, change in phlegm color, hemoptysis or chest congestion PFSH ED PFSH: Medical History Anxiety Blind left eye Chronic GERD Migraine without aura and without status migrainosus, not intractable No pertinent past medical history neghx: htn,dm,thyroid,dvt/pe PCP: Mallory Kelly Secondary amenorrhea Surgical History History of tonsillectomy and adenoidectomy Status post hysteroscopy (06/17/20) With D&C. 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 Performed by Dr. Silva at [facility] in [place], [place]. Family History Grandmother Breast cancer Great- maternal High cholesterol Maternal Hypertension Maternal Family/Other Diabetes Paternal aunt Hypertension Paternal Aunts and Uncles Stroke Paternal Great Aunt Grandfather Heart disease Paternal Father Myocardial infarction Mother Stroke Sister PFO (patent foramen ovale) Social History Smoking and tobacco status: current every day smoker cigarettes Packs smoked per day: 1 Years cigarettes smoked: 12 Female Reproductive History: Spontaneous abortions: No Physical Exam Const: COMMON NORMALS: no acute distress, average body habitus, patient oriented x3, no limitations, healthy appearing, alert and well nourished Neck/C-Spine: COMMON NORMALS: no JVD Lymph: LYMPHATIC: no lymphadenopathy noted Resp: AUSCULTATION: wheezes, breath sounds present, diminished lung sounds, no bronchial breath sounds, no egophony and no tactile fremitus Cardio: COMMON NORMALS: no JVD, regular rate, regular rhythm, S1 normal heart sound present, S2 normal heart sound present, No gallops present (Cardio), No clicks present (Cardio), No murmurs present (Cardio), No rub (Cardio) and Peripheral pulses 2+ throughout RATE: regular rate RHYTHM: regular rhythm HEART SOUNDS: S1 normal heart sound present and S2 normal heart sound present PERIPHERAL PULSES: Peripheral pulses 2+ throughout GI: COMMON NORMALS: Normal to inspection, nondistended, normoactive bowel sounds present, Soft to palpation, non-tender, No hepatosplenomegaly present, no masses and no bruits PALPATION: Yes Soft to palpation and Yes No hepatosplenomegaly present Extremity: COMMON NORMALS: normal to inspection, full ROM, capillary refill normal, no joint enlargement, no clubbing, cyanosis or edema, no calf tenderness and no pedal edema Neuro: COMMON NORMALS: patient oriented x3 SENSORIUM/ORIENTATION: Yes alert Course Vital Signs: Vital signs: Vital Signs Temperature 98.0 F 03/17/23 13:00 Pulse Rate 86 03/17/23 14:13 Respiratory Rate 16 03/17/23 13:31 Blood Pressure 158/97 03/17/23 14:13 Pulse Oximetry 94 03/17/23 14:13 Oxygen Delivery Me thod Room Air 03/17/23 13:31 MDM - URI/Sore Throat Medical Decision Making Patient made comfortable emergency room. Patient had x-ray which was reviewed and discussed with patient at length. Patient was given DuoNeb. He will be discharged home on antibiotics and steroid. Differential Diagnosis Likely upper respiratory infection, croup, otitis media, sinusitis, viral infection, bronchitis, influenza and pharyngitis Imaging Data Other Xray: My impression: No obvious acute findings. Discharge Plan Discharge Patient Disposition: Home Clinical Impression: Bronchitis Condition: Stable Prescriptions: New Medrol (Rahul) 4 mg tablets,dose pack 4 mg PO QAM Qty: 21 0RF azithromycin 250 mg tablet 250 mg PO DAILY 5 Days Qty: 6 0RF No Action acetaminophen 325 mg tablet 325 mg PO QID PRN (Reason: Pain) calcium carbonate [Tums] 200 mg calcium (500 mg) tablet,chewable 200 mg PO QID PRN (Reason: Acid Reflux) ibuprofen 200 mg tablet 200 mg PO Q6H PRN (Reason: Pain) norgestimate-ethinyl estradiol [Estarylla] 0.25-35 mg-mcg tablet 1 tab PO DAILY Qty: 84 3RF albuterol sulfate 90 mcg/actuation HFA aerosol inhaler 2 inh inhalation Q4H PRN (Reason: shortness of breath or wheezing) Qty: 6.7 0RF promethazine-DM 6.25-15 mg/5 mL syrup 5 ml PO Q4H PRN (Reason: cough) Qty: 118 0RF Rx Instructions: Do not exceed more than 30ml/24hour period (6 doses) cetirizine 10 mg tablet 10 mg PO DAILY 30 Days Qty: 30 0RF fluticasone propionate [Flonase Allergy Relief] 50 mcg/actuation spray,suspension 2 spray intranasal DAILY 7 Days Qty: 16 0RF Rx Instructions: administer into each nostril benzonatate 100 mg capsule 100 mg PO Q6H PRN (Reason: Cough) Discharge Orders: Discharge ED (Routine); Ordered 03/17/23 Ordered By: Antoinette Rodríguez Referrals: Mallory Kelly FNP [Primary Care Provider] - Discharge Diet: Advance as tolerated Discharge Activity: Resume usual activity Patient Instructions: Opioid Safety, Pain Management Stand Alone Forms: Work/School Release Coding Level of Care Code ED [employer] for Kelin Rivas
[2023-03-17 14:13] VITALS: BP 158/97; PULSE 86; O2SAT 94
== END 2023-03-17 14:14 | disposition home or self-care (01) ==
PROVIDERS: Emergency Provider Family Medicine; PCP Nurse Practitioner Family
DX: J40 Bronchitis, not specified as acute or chronic (principal); F17.210 Nicotine dependence, cigarettes, uncomplicated
CPT/HCPCS: 71045; 94640; 99283

== ENCOUNTER 2023-03-22 22:21 | Emergency (ER) | payer SELFPAY ==
[2023-03-22 22:25] VITALS: BP 138/82; PULSE 82; RESP 16; TEMP 37.1; O2SAT 98; BMI 43.9
--- NOTE | 2023-03-23 00:10 | ED_ITS ---
HPI - Anxiety General: Chief Complaint: Anxiety Stated Complaint: heart racing Time Seen by Provider: 03/22/23 23:35 Source: patient Mode of arrival: ambulatory Limitations: no limitations History of Present Illness: Patient is a 27-year-old female with a longstanding history of anxiety here for heart palpitations. Patient states she has had intermittent palpitations for a long time corresponding to her anxiety. She states this has been worked up numerous times including cardiology follow-up and Holter monitors. She states normally when she feels anxious and gets palpitations she takes her hydroxyzine which alleviates them. She states she did this earlier today and the palpitations continued thus prompting her visit today. Upon my initial examination patient tells me her palpitations have now stopped and she would like to go home. She does tell me she is experiencing some epigastric pain related to heartburn. She states she is supposed to be taking Pantoprazole and Carafate daily but does not. Patient states she does not want any formal work- up from the emergency department at this time and wants to go home but is requesting a GI cocktail prior to discharge. complaint: anxiety and other (Palpitations) Onset (ago): hour(s) Symptoms: palpitations Severity: moderate Quality: improving (Subsided upon arrival to the ED) Place: home History of similar episodes: Yes Relieving factors: other (Hydroxyzine) Exacerbating factors: nothing Associated symptoms: Reports palpitations (subsided now); Deny chest pain, chills, fever(s), headache(s), malaise, nausea, syncope or vomiting Review of Systems Const: Denies: fever(s), chills, body aches, fatigue or malaise Eyes: Denies: change in vision, blurry vision, photophobia, floaters or seeing flashes Card: Reports: palpitations (subsided now); Denies: chest pain, irregular heart rhythm, edema, swelling of feet/ankles, lightheadedness, syncope, pre-syncope, dyspnea on exertion, orthopnea, leg pain with exertion or acrocyanosis Resp: Denies: dyspnea, productive cough or pain on inspiration GI: Reports: abdominal pain and heartburn; Denies: nausea, vomiting, hematemesis, coffee ground emesis, diarrhea, GI cramping, pain on defecation, hematochezia or melena : Denies: flank pain, difficulty voiding, dysuria, urinary frequency, urinary urgency or urinary hesitancy Musc: Denies: neck pain, back pain, extremity pain, extremity swelling or joint pain Skin/Breast: Denies: rash Neuro: Denies: headache(s), numbness in extremities, weakness in extremities, sensory changes or dizziness PFSH ED PFSH: Medical History Anxiety Blind left eye Chronic GERD Migraine without aura and without status migrainosus, not intractable No pertinent past medical history neghx: htn,dm,thyroid,dvt/pe PCP: Mallory Kelly Secondary amenorrhea Surgical History History of tonsillectomy and adenoidectomy Status post hysteroscopy (06/17/20) With D&C. 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 Performed by Dr. Silva at [facility] in [place], [place]. Family History Grandmother Breast cancer Great- maternal High cholesterol Maternal Hypertension Maternal Family/Other Diabetes Paternal aunt Hypertension Paternal Aunts and Uncles Stroke Paternal Great Aunt Grandfather Heart disease Paternal Father Myocardial infarction Mother Stroke Sister PFO (patent foramen ovale) Social History Smoking and tobacco status: current every day smoker cigarettes Packs smoked per day: 1 Years cigarettes smoked: 12 Female Reproductive History: Date of last menstrual period: 02/22/23 Spontaneous abortions: No Physical Exam Const: COMMON NORMALS: no acute distress, patient oriented x3, no limitations and alert GENERAL APPEARANCE: cooperative NUTRITIONAL APPEARANCE: obese ORIENTATION/CONSCIOUSNESS: Yes awake, Yes oriented to person, Yes oriented to place and Yes oriented to time Chest: COMMONS NORMALS: normal inspection of the chest and normal palpation of entire chest wall Resp: COMMON NORMALS: normal respiratory effort and clear to auscultation bilaterally AUSCULTATION: clear to auscultation bilaterally Cardio: COMMON NORMALS: regular rate and regular rhythm RATE: regular rate RHYTHM: regular rhythm GI: COMMON NORMALS: Normal to inspection, nondistended, normoactive bowel sounds present and Soft to palpation PALPATION: Yes Soft to palpation, Yes Tenderness to palpation present (GI) (epigastric), No Guarding due to palpation present (GI) and No Rigid due to palpation Neuro: RON COMA SCALE: document GCS findings Crockett coma scale eye opening: Spontaneous Ron coma scale verbal response: Orientated Crockett coma scale motor response: Obey commands Ron coma scale total score: 15 COMMON NORMALS: patient oriented x3, moves all extremities, no focal motor deficits and no sensory deficits noted SENSORIUM/ORIENTATION: Yes alert, Yes oriented to person, Yes oriented to place and Yes oriented to time Course Vital Signs: Vital signs: Vital Signs Temperature 98.8 F 03/22/23 22:25 Pulse Rate 83 03/23/23 00:23 Respiratory Rate 16 03/23/23 00:23 Blood Pressure 157/88 03/23/23 00:23 Pulse Oximetry 97 03/23/23 00:23 Oxygen Delivery Me thod Room Air 03/22/23 22:25 MDM - Anxiety Medical Decision Making Patient states all of her palpitations have subsided. She does not want any further work-up for this. Patient states she has a history of chronic heartburn and is supposed to be taking medication for this but does not. She is requesting a GI cocktail and discharge. No radiology studies performed this visit Discharge Plan Discharge Patient Disposition: Home Clinical Impression: Chronic GERD, Anxiety Condition: Stable Prescriptions: No Action acetaminophen 325 mg tablet 325 mg PO QID PRN (Reason: Pain) calcium carbonate [Tums] 200 mg calcium (500 mg) tablet,chewable 200 mg PO QID PRN (Reason: Acid Reflux) ibuprofen 200 mg tablet 200 mg PO Q6H PRN (Reason: Pain) norgestimate-ethinyl estradiol [Estarylla] 0.25-35 mg-mcg tablet 1 tab PO DAILY Qty: 84 3RF albuterol sulfate 90 mcg/actuation HFA aerosol inhaler 2 inh inhalation Q4H PRN (Reason: shortness of breath or wheezing) Qty: 6.7 0RF promethazine-DM 6.25-15 mg/5 mL syrup 5 ml PO Q4H PRN (Reason: cough) Qty: 118 0RF Rx Instructions: Do not exceed more than 30ml/24hour period (6 doses) cetirizine 10 mg tablet 10 mg PO DAILY 30 Days Qty: 30 0RF fluticasone propionate [Flonase Allergy Relief] 50 mcg/actuation s pray,suspension 2 spray intranasal DAILY 7 Days Qty: 16 0RF Rx Instructions: administer into each nostril benzonatate 100 mg capsule 100 mg PO Q6H PRN (Reason: Cough) Medrol (Rahul) 4 mg tablets,dose pack 4 mg PO QAM Qty: 21 0RF Discharge Orders: Discharge ED (Routine); Ordered 03/23/23 Ordered By: Lorene Frazier Referrals: Mallory Kelly FNP [Primary Care Provider] - Coding Level of Care Code ED Copier And Printer Field Technician for Par[facility] Evelyn
[2023-03-23] MEDS: lidocaine 2% viscous 15 ML, aluminum-mag hydrox-simethicon 30 ML, sucralfate oral liq 1 GM PO (00:19)
[2023-03-23 00:23] VITALS: BP 157/88; PULSE 83; RESP 16; O2SAT 97
== END 2023-03-23 00:25 | disposition home or self-care (01) ==
PROVIDERS: Emergency Provider Physician Assistant; PCP Nurse Practitioner Family
DX: F41.9 Anxiety disorder, unspecified (principal); K21.9 Gastro-esophageal reflux disease without esophagitis; F17.210 Nicotine dependence, cigarettes, uncomplicated
CPT/HCPCS: 99283

== ENCOUNTER 2023-04-12 22:56 | Emergency (ER) | payer SELFPAY ==
[2023-04-12 23:13] VITALS: BP 145/104; PULSE 68; RESP 16; TEMP 36.8; O2SAT 97; BMI 43.7
--- NOTE | 2023-04-12 23:54 | ED_ITS ---
HPI - General Adult General: Chief complaint: General Medical Stated complaint: swollen lymph nodes everywhere Time Seen by Provider: 04/12/23 23:21 Source: patient Mode of arrival: ambulatory Limitations: no limitations History of Present Illness: Patient is a 27-year-old female here for concerns of two possible swollen lymph nodes. Patient states she has one left-sided neck lymph node that has been swollen for since she was diagnosed with COVID approximately 3 months ago. She states there is another area to the left side of her back that she was rubbing the other day and felt something and feels this is also a swollen lymph node. She has no systemic symptoms or complaints at this time. Onset (ago): month(s) Location: neck and back Relieving factors: none Exacerbating factors: none Associated symptoms: Reports no associated symptoms; Deny chest pain, dyspnea, headache(s), malaise or rash Treatments prior to arrival: none Review of Systems Const: Denies: fever(s), chills, body aches, change in appetite, change in weight, fatigue, malaise or night sweats ENMT: Denies: throat pain, odynophagia, ear or mastoid pain, nasal discharge or nasal congestion Card: Denies: chest pain Resp: Denies: dyspnea GI: Denies: abdominal pain Musc: Denies: neck pain, back pain, extremity pain or joint pain Skin/Breast: Denies: rash Neuro: Denies: headache(s), numbness in extremities, weakness in extremities, sensory changes or dizziness PFSH ED PFSH: Medical History Anxiety Blind left eye Chronic GERD Migraine without aura and without status migrainosus, not intractable No pertinent past medical history neghx: htn,dm,thyroid,dvt/pe PCP: Mallory Kelly Secondary amenorrhea Surgical History History of tonsillectomy and adenoidectomy Status post hysteroscopy (06/17/20) With D&C. 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 Performed by Dr. Silva at [facility] in [place], [place]. Family History Grandmother Breast cancer Great- maternal High cholesterol Maternal Hypertension Maternal Family/Other Diabetes Paternal aunt Hypertension Paternal Aunts and Uncles Stroke Paternal Great Aunt Grandfather Heart disease Paternal Father Myocardial infarction Mother Stroke Sister PFO (patent foramen ovale) Social History Smoking and tobacco status: current every day smoker cigarettes Packs smoked per day: 1 Years cigarettes smoked: 12 Female Reproductive History: Spontaneous abortions: No Physical Exam Const: COMMON NORMALS: no acute distress, patient oriented x3, no limitations and alert GENERAL APPEARANCE: cooperative NUTRITIONAL APPEARANCE: obese morbidly obese (BMI 43.8) ORIENTATION/CONSCIOUSNESS: Yes awake, Yes oriented to person, Yes oriented to place and Yes oriented to time HENMT: COMMON NORMALS: normocephalic, atraumatic and TM's normal bilaterally HEAD & SCALP: normal to inspection, normocephalic and atraumatic FACE & SINUS: normal facial exam TYMPANIC MEMBRANE: TM's normal bilaterally TH ROAT: posterior oropharynx normal Neck/C-Spine: COMMON NORMALS: full ROM and no meningeal signs GENERAL: Yes normal visual inspection OTHER: patient is able to palpate/concerned with a single supraclavicular lymph node-it takes her a while to find it as it is very small; upon palpation-this is a normal appearing lymph node that is not enlarged in any way or fixed/firm Resp: COMMON NORMALS: normal respiratory effort and clear to auscultation bilaterally AUSCULTATION: clear to auscultation bilaterally Cardio: COMMON NORMALS: regular rate and regular rhythm RATE: regular rate RHYTHM: regular rhythm Back/Pelvis: BACK IMAGE (FEMALE): 1. palpates a small area in the subcutaneous tissue of her back that she feels might also be a lymph node; upon palpation this most likely is some type of fibrous deposit/small lipoma Extremity: GENERAL: Yes normal exam except as noted Neuro: COMMON NORMALS: patient oriented x3, moves all extremities, no focal motor deficits and no sensory deficits noted SENSORIUM/ORIENTATION: Yes alert, Yes oriented to person, Yes oriented to place and Yes oriented to time MENINGEAL SIGNS: Yes no meningeal signs Skin: COMMON NORMALS: no rashes or lesions noted GENERAL SKIN EXAM: no rashes or lesions noted Course Vital Signs: Vital signs: Vital Signs Temperature 98.2 F 10/10/23 23:13 Pulse Rate 66 04/13/23 00:09 Respiratory Rate 18 04/13/23 00:09 Blood Pressure 145/104 04/12/23 23:13 Pulse Oximetry 97 04/13/23 00:09 MDM - General Adult Medical Decision Making Reassurance given. Single supraclavicular lymph node is not inflamed or enlarged in any way. Concerning area to her back in most likely just a fibro us/fatty deposit. Nothing further that needs to be done from an ED standpoint. She can follow up with PCP if she would like. No radiology studies performed this visit Discharge Plan Discharge Patient Disposition: Home Clinical Impression: Normal exam Condition: Stable Prescriptions: No Action acetaminophen 325 mg tablet 325 mg PO QID PRN (Reason: Pain) calcium carbonate [Tums] 200 mg calcium (500 mg) tablet,chewable 200 mg PO QID PRN (Reason: Acid Reflux) ibuprofen 200 mg tablet 200 mg PO Q6H PRN (Reason: Pain) norgestimate-ethinyl estradiol [Estarylla] 0.25-35 mg-mcg tablet 1 tab PO DAILY Qty: 84 3RF albuterol sulfate 90 mcg/actuation HFA aerosol inhaler 2 inh inhalation Q4H PRN (Reason: shortness of breath or wheezing) Qty: 6.7 0RF promethazine-DM 6.25-15 mg/5 mL syrup 5 ml PO Q4H PRN (Reason: cough) Qty: 118 0RF Rx Instructions: Do not exceed more than 30ml/24hour period (6 doses) cetirizine 10 mg tablet 10 mg PO DAILY 30 Days Qty: 30 0RF fluticasone propionate [Flonase Allergy Relief] 50 mcg/actuation spray,suspension 2 spray intranasal DAILY 7 Days Qty: 16 0RF Rx Instructions: administer into each nostril benzonatate 100 mg capsule 100 mg PO Q6H PRN (Reason: Cough) Medrol (Rahul) 4 mg tablets,dose pack 4 mg PO QAM Qty: 21 0RF Discharge Orders: Discharge ED (Routine); Ordered 04/12/23 Ordered By: Lorene Frazier Referrals: Mallory Kelly, EXTENDED INSURANCE CLERK [Primary Care Provider] - Coding Level of Care Code ED Clinical Application Consultant for Chg Evelyn
[2023-04-13 00:09] VITALS: PULSE 66; RESP 18; O2SAT 97
== END 2023-04-13 00:08 | disposition home or self-care (01) ==
PROVIDERS: Emergency Provider Physician Assistant; PCP Nurse Practitioner Family
DX: Z03.89 Encounter for observation for other suspected diseases and conditions ruled out (principal); F17.210 Nicotine dependence, cigarettes, uncomplicated
CPT/HCPCS: 99281

== ENCOUNTER 2023-05-20 17:12 | Emergency (ER) | payer OTHER, SELFPAY ==
[2023-05-20 17:23] VITALS: BP 129/83; PULSE 79; RESP 18; TEMP 36.6; O2SAT 99; BMI 47.1
--- NOTE | 2023-05-20 17:38 | ED_ITS ---
HPI - Arrhythmia/Palpitations General: Chief Complaint: Arrhythmia/Palpitations Stated Complaint: heart palp Time Seen by Provider: 05/20/23 17:32 History of Present Illness: Patient is a 27-year-old female with past medical history significant for anxiety, GERD, and migraines who presents to the emergency department for evaluation of palpitations, chest pain, and shortness of breath. Patient reports that her symptoms started approximately 3 days ago and has continued to progress since onset. Patient reports that the palpitations are random and will come and go throughout the day. Palpitations are not associated with activity. Patient reports that when she does feel the palpitations she gets short of breath and will have right-sided chest pain. Patient currently denies any symptoms at this time. Patient states that she quit smoking approximately 12 days ago but has been vaping intermittently. Patient also endorses marijuana use. LMP was approximately 3 weeks ago, however, the patient is unsure of the exact date. Patient states she is late for her current menstrual cycle. Patient does endorse taking oral contraceptive medication. She denies history of DVT/PE, recent surgeries, or long distance travels. She denies drinking or other recreational drug use. Patient states that she has had palpitations in the past that was associated with her anxiety. No other complaints at this time. Associated symptoms: Reports anxiety; Deny nausea or vomiting Review of Systems General: Reports: 10 or more systems reviewed and unremarkable except in HPI and below Const: Denies: fever(s), chills or body aches Eyes: Denies: change in vision, blurry vision or eye discharge ENMT: Denies: throat pain, hoarseness, ear or mastoid pain, ear discharge or nasal discharge Card: Reports: chest pain, palpitations and lightheadedness Resp: Reports: dyspnea; Denies: productive cough, non-productive cough or wheezing GI: Denies: abdominal pain, nausea, vomiting, diarrhea or constipation : Denies: dysuria or hematuria Musc: Denies: neck pain, back pain or extremity pain Skin/Breast: Denies: rash Neuro: Denies: headache(s) or vertigo Psych: Reports: anxiety [facility] ED PFSH: Medical History Anxiety Blind left eye Chronic GERD Migraine without aura and without status migrainosus, not intractable No pertinent past medical history neghx: htn,dm,thyroid,dvt/pe PCP: Mallory Kelly Secondary amenorrhea Surgical History History of tonsillectomy and adenoidectomy Status post hysteroscopy (06/17/20) With D&C. 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 [place] [facility] [place]. Family History Grandmother Breast cancer Great- maternal High cholesterol Maternal Hypertension Maternal Family/Other Diabetes Paternal aunt Hypertension Paternal Aunts and Uncles Stroke Paternal Great Aunt Grandfather Heart disease Paternal Father Myocardial infarction Mother Stroke Sister PFO (patent foramen ovale) Social History Smoking and tobacco/nicotine status: current every day tobacco/nicotine user cigarettes Packs smoked per day: 1 Years cigarettes smoked: 12 Female Reproductive History: Spontaneous abortions: No Physical Exam Const: COMMON NORMALS: no acute distress, patient oriented x3 and alert HENMT: COMMON NORMALS: normocephalic, atraumatic, moist oral mucous membranes and oropharynx normal HEAD & SCALP: normocephalic and atraumatic Eye: COMMON NORMALS: Equal, round and reactive pupils present, EOMs intact bilaterally and conjunctivae normal CONJUNCTIVA: Yes conjunctivae normal PUPIL: Yes Equal, round and reactive pupils present Neck/C-Spine: COMMON NORMALS: full ROM Chest: COMMONS NORMALS: normal inspection of the chest Resp: COMMON NORMALS: normal respiratory effort, No retractions, No use of accessory muscles and clear to auscultation bilaterally AUSCULTATION: clear to auscultation bilaterally Cardio: COMMON NORMALS: regular rate, regular rhythm, No gallops present (Cardio), No clicks present (Cardio), No murmurs present (Cardio) and No rub (Cardio) RATE: regular rate RHYTHM: regular rhythm GI: COMMON NORMALS: Normal to inspection, nondistended, normoactive bowel sounds present, Soft to palpation and non-tender PALPATION: Yes Soft to palpation Extremity: OTHER: Moving bilateral upper and lower extremities without weakness or deficit. Neuro: COMMON NORMALS: patient oriented x3 SENSORIUM/ORIENTATION: Yes alert OTHER: Sensation intact in the bilateral upper and lower extremities. Course Vital Signs: Vital signs: Vital Signs Temperature 97.8 F 05/20/23 17:23 Pulse Rate 72 05/20/23 19:44 Respiratory Rate 17 05/20/23 18:16 Blood Pressure 111/84 05/20/23 19:44 Pulse Oximetry 98 05/20/23 19:44 Oxygen Delivery Me thod Room Air 05/20/23 19:44 MDM - Arrhythmia/Palpitations Medical Decision Making Patient is a 27-year-old female with past medical history significant for anxiety, GERD, and migraines who presents to the emergency department for evaluation of palpitations, chest pain, and shortness of breath. On physical examination patient is nontoxic and in no acute distress. Vital signs remained stable throughout the ED course. EKG normal sinus rhythm. CBC, CMP, D-dimer, initial troponin, and urine unremarkable. Urinalysis showed no evidence of urinary tract infection. Chest x-ray showed no acute cardio pulmonary pathology. Patient states that her anxiety has been increasing. This is likely related to her symptoms. Patient also endorses vaping. Based off history and physical examination I do not believe the patient's symptoms are emergent and require further emergent evaluation at this time. I do not think acute coronary syndrome or pulmonary embolism is likely at this time. See handout over generalized instructions. Increase oral hydration. Call your primary care provider tomorrow with an update of your symptoms and to schedule appointment for further management/evaluation. Avoid smoking or vaping. Return to the emergency department for any rapid or worsening symptoms to include but n ot limited to chest pain, shortness of breath, worsening palpitations, lightheadedness, dizziness, nausea, vomiting, or as needed. Patient stated setting of all discharge instructions was agreeable to plan of care. I discussed patient's history, exam, and all findings with Dr. Waddell in the emergency department who agreed my assessment and plan. He did not feel the patient required admission or further evaluation at this time. Differential diagnosis includes but is not limited to acute coronary syndrome, pulmonary embolism, arrhythmia, electrolyte abnormality, anxiety Lab Data 05/20/23 18:15 05/20/23 18:15 Radiology Impressions Chest X-Ray 05/20/23 17:45 IMPRESSION: No acute findings. Laboratory Results WBC 8.08 10^3/uL (3.29-11.43) 05/20/23 18:15 RBC 4.24 10^6/uL (3.85-5.65) 05/20/23 18:15 Hgb 12.80 g/dL (11.27-16.99) 05/20/23 18:15 Hct 38.7 % (36-47) 05/20/23 18:15 MCV 91.3 fl (85-98) 05/20/23 18:15 MCH 30.2 pg (27-33) 05/20/23 18:15 MCHC 33.1 g/dL (30-55) 05/20/23 18:15 RDW 12.2 % (12.1-15.1) 05/20/23 18:15 Plt Count 240 10^3/cmm (157-399) 05/20/23 18:15 MPV 10.1 fL (7.4-10.4) 05/20/23 18:15 Neut % (Auto) 59.7 % 05/20/23 18:15 Lymph % (Auto) 31.9 % 05/20/23 18:15 [place] % (Auto) 5.4 % 05/20/23 18:15 Eos % (Auto) 2.4 % 05/20/23 18:15 Baso % (Auto) 0.2 % 05/20/23 18:15 Neut # (Auto) 4.82 10^3/uL (1.8-7.7) 05/20/23 18:15 Lymph # (Auto) 2.6 10^3/uL (0.8-4.8) 05/20/23 18:15 [place] # (Auto) 0.4 10^3/uL (0.2-0.9) 05/20/23 18:15 Eos # (Auto) 0.2 10^3/uL (0.0-0.8) 05/20/23 18:15 Baso # (Auto) 0.0 10^3/uL (0.0-0.1) 05/20/23 18:15 Nucleated RBC % (auto) 0 % 05/20/23 18:15 Nucleated RBCs # 0.0 /100WBC 05/20/23 18:15 D-Dimer 0.37 ug/mLFEU (0-0.59) 05/20/23 18:15 Sodium 139 mmol/L (136-145) 05/20/23 18:15 Potassium 4.1 mmol/L (3.5-5.1) 05/20/23 18:15 Chloride 104 mmol/L (98-107) 05/20/23 18:15 Carbon Dioxide 24 mmol/L (22-29) 05/20/23 18:15 Anion Gap 15.1 (5-19) 05/20/23 18:15 BUN 15 mg/dL (6-20) 05/20/23 18:15 Creatinine 0.5 mg/dL (0.5-0.9) 05/20/23 18:15 GFR Calculation 150.3 mL/min (90-130) H 05/20/23 18:15 Glucose 96 mg/dL (65-115) 05/20/23 18:15 Calculated Osmolality 289 mOsm/kg (285-295) 05/20/23 18:15 Calcium 9.1 mg/dL (8.5-10.5) 05/20/23 18:15 Total Bilirubin 0.2 mg/dL (0.15-1.2) 05/20/23 18:15 AST 11 U/L (0-32) 05/20/23 18:15 ALT 12 U/L (0-33) 05/20/23 18:15 Alkaline Phosphatase 59 U/L (35-105) 05/20/23 18:15 Troponin T Baseline < 6 ng/L (0-10) 05/20/23 18:15 Total Protein 6.9 g/dL (6.6-8.7) 05/20/23 18:15 Albumin 4.0 g/dL (3.5-5.2) 05/20/23 18:15 Globulin 2.9 g/dL (1.3-4.6) 05/20/23 18:15 HCG, Qual Negative (Negative) 05/20/23 18:39 Urine Color Light yellow (Yellow) 05/20/23 18:39 Urine Appearance Clear (CLEAR) 05/20/23 18:39 Urine pH 7 (5-7) 05/20/23 18:39 Ur Specific [place] 1.005 (1.005-1.030) 05/20/23 18:39 Urine Protein Neg (Negative) 05/20/23 18:39 Urine Glucose (UA) Norm (Normal) 05/20/23 18:39 Urine Ketones Negative (Negative) 05/20/23 18:39 Urine Blood 3+ (Negative) H 05/20/23 18:39 Urine Nitrate Negative (Negative) 05/20/23 18:39 Urine Bilirubin Neg (Negative) 05/20/23 18:39 Urine Urobilinogen Neg mg/dL (Negative) 05/20/23 18:39 Ur Leukocyte Esterase Trace (Negative) H 05/20/23 18:39 Urine RBC Rare /hpf (0-2) 05/20/23 18:39 Urine WBC Rare /hpf (0-5) 05/20/23 18:39 Ur Squamous Epith Cells 0-4 /hpf (0-5) H 05/20/23 18:39 Amorphous Sediment Not Reportable 05/20/23 18:39 Urine Bacteria 1+ /hpf (NONE) H 05/20/23 18:39 All radiology interpretation(s) finalized by discharge Discharge Plan Discharge Patient Disposition: Home Clinical Impression: Heart palpitations Condition: Stable Prescriptions: No Action acetaminophen 325 mg tablet 325 mg PO QID PRN (Reason: Pain) calcium carbonate [Tums] 200 mg calcium (500 mg) tablet,chewable 200 mg PO QID PRN (Reason: Acid Reflux) ibuprofen 200 mg tablet 200 mg PO Q6H PRN (Reason: Pain) norgestimate-ethinyl estradiol [Estarylla] 0.25-35 mg-mcg tablet 1 tab PO DAILY Qty: 84 3RF albuterol sulfate 90 mcg/actuation HFA aerosol inhaler 2 inh inhalation Q4H PRN (Reason: shortness of breath or wheezing) Qty: 6.7 0RF promethazine-DM 6.25-15 mg/5 mL syrup 5 ml PO Q4H PRN (Reason: cough) Qty: 118 0RF Rx Instructions: Do not exceed more than 30ml/24hour period (6 doses) cetirizine 10 mg tablet 10 mg PO DAILY 30 Days Qty: 30 0RF fluticasone propionate [Flonase Allergy Relief] 50 mcg/actuation spray,suspension 2 spray intranasal DAILY 7 Days Qty: 16 0RF Rx Instructions: administer into each nostril benzonatate 100 mg capsule 100 mg PO Q6H PRN (Reason: Cough) Medrol (Rahul) 4 mg tablets,dose pack 4 mg PO QAM Qty: 21 0RF Discharge Orders: Discharge ED (Routine); Ordered 05/20/23 Ordered By: Naif Lopez Referrals: Mallory Kelly FNP [Primary Care Provider] - Patient Instructions: Heart Palpitations Activity Restrictions/Additional Instructions: See handout over generalized instructions. Increase oral hydration. Call your primary care provider tomorrow with an update of your symptoms and to schedule appointment for further management/evaluation. Avoid smoking or vaping. Return to the emergency department for any rapid or worsening symptoms to include but not limited to chest pain, shortness of breath, worsening palpi tations, lightheadedness, dizziness, nausea, vomiting, or as needed. Coding Level of Care Code ED Cage Supervisor for Kelin Rivas
--- NOTE | 2023-05-20 17:45 | XRR_ITS ---
PROCEDURE INFORMATION: Exam: XR Chest Exam date and time: 05/20/2023 6:12 PM Age: 27 years old Clinical indication: Patient HX: Intermitten heart palpitations; Anxiety; HX heart palpitations with no found origin; HTN; Prediabetic; PT states that she switched from cigarettes to vaping and thinks this has something to do with it TECHNIQUE: Imaging protocol: Radiologic exam of the chest. Views: 2 views. COMPARISON: CR XR chest 1V portable [id number] 03/17/2023 12:57 PM FINDINGS: Lungs: Unremarkable. No consolidation. Pleural spaces: Unremarkable. No pleural effusion. No pneumothorax. Heart/Mediastinum: Unremarkable. No cardiomegaly. Bones/joints: Unremarkable. XR/XR chest 2V* [id number] IMPRESSION: No acute findings.
[2023-05-20 17:48] VITALS: BP 124/72; PULSE 79; RESP 16; O2SAT 97
[2023-05-20 18:16] VITALS: PULSE 80; RESP 17; O2SAT 99
[2023-05-20 18:25] LABS: Basophils % 0.2 %; Eosinophils # 0.2 10^3/uL (0.0-0.8); Eosinophils % 2.4 %; Hematocrit 38.7 % (36-47); Lymphocytes # 2.6 10^3/uL (0.8-4.8); Lymphocytes % 31.9 %; Mean Corpuscular HGB Conc 33.1 g/dL (30-55); Mean Corpuscular Hemoglobin 30.2 pg (27-33); Mean Corpuscular Volume 91.3 fl (85-98); Mean Platelet Volume 10.1 fL (7.4-10.4); Monocytes # 0.4 10^3/uL (0.2-0.9); Monocytes % 5.4 %; Neutrophils # 4.82 10^3/uL (1.8-7.7); Neutrophils % 59.7 %; Nucleated Red Blood Cells % 0 %; Platelet Count 240 10^3/cmm (157-399); Red Blood Count 4.24 10^6/uL (3.85-5.65); Red Cell Distribution Width 12.2 % (12.1-15.1); White Blood Count 8.08 10^3/uL (3.29-11.43)
--- NOTE | 2023-05-20 18:35 | PC.NURSE ---
Report taken from Aliya Armstrong RN.
[2023-05-20 18:55] LABS: D Dimer 0.37 ug/mLFEU (0-0.59)
[2023-05-20 19:00] LABS: Troponin(5th) Baseline < 6 ng/L (0-10)
[2023-05-20 19:03] LABS: Alanine Aminotransferase 12 U/L (0-33); Alkaline Phosphatase 59 U/L (35-105); Anion Gap 15.1 (5-19); Aspartate Amino Transferase 11 U/L (0-32); Blood Urea Nitrogen 15 mg/dL (6-20); Calcium 9.1 mg/dL (8.5-10.5); Carbon Dioxide 24 mmol/L (22-29); Chloride 104 mmol/L (98-107); Globulin 2.9 g/dL (1.3-4.6); Glomerular Filtration Rate 150.3 mL/min (90-130); Glucose 96 mg/dL (65-115); Osmolality Calculated 289 mOsm/kg (285-295); Potassium 4.1 mmol/L (3.5-5.1); Sodium 139 mmol/L (136-145); Total Bilirubin 0.2 mg/dL (0.15-1.2); Total Protein 6.9 g/dL (6.6-8.7)
[2023-05-20 19:18] LABS: Add Urine Microscopic? YES; Bilirubin Urine Neg (Negative); Blood Urine 3+ (Negative); Glucose Urine UA Norm (Normal); HCG Qualitative Urine. Negative (Negative); Ketones Urine Negative (Negative); Leukocyte Esterase Urine Trace (Negative); Nitrate Urine Negative (Negative); Protein Urine Neg (Negative); Specific Gravity, Urine 1.005 (1.005-1.030); Urine Appearance Clear (CLEAR); Urine Color Light yellow (Yellow); Urobilinogen Urine Neg (Negative); pH Urine 7 (5-7)
[2023-05-20 19:19] LABS: Add Urine Culture? No; Bacteria Urine 1+ /hpf; RBC Urine RARE /hpf (0-2); Squamous Epithelial Cell Urine 0-4 /hpf (0-5); WBC Urine RARE /hpf (0-5)
[2023-05-20 19:44] VITALS: BP 111/84; PULSE 72; O2SAT 98
[2023-05-20 20:03] VITALS: BP 125/93; PULSE 83; RESP 16; O2SAT 99
== END 2023-05-20 20:07 | disposition home or self-care (01) ==
PROVIDERS: Emergency Provider Physician Assistant; PCP Nurse Practitioner Family
DX: R00.2 Palpitations (principal); F17.210 Nicotine dependence, cigarettes, uncomplicated
CPT/HCPCS: 36415; 71046; 80053; 81001; 81025; 84484; 85025; 85378; 99284

== ENCOUNTER 2023-06-12 11:21 | Emergency (ER) | payer OTHER, SELFPAY | END 2023-06-12 11:36 | disposition home or self-care (01) | LOC: ER 11:35 | PROVIDERS: Emergency Provider Family Medicine; PCP Nurse Practitioner Family | DX: Z53.21 Procedure and treatment not carried out due to patient leaving prior to being seen by health care provider (principal) | CPT/HCPCS: 87426 ==

== ENCOUNTER → 2023-08-10 10:01 | Outpatient (BNVA) | payer SELFPAY | PROVIDERS: PCP Nurse Practitioner Family; Visit Provider Nurse Practitioner Family | DX: R09.81 Nasal congestion (principal); R68.89 Other general symptoms and signs | CPT/HCPCS: 87400 ==

== ENCOUNTER 2023-08-11 22:24 | Emergency (ER) | payer SELFPAY ==
--- NOTE | 2023-08-11 22:28 | XRR_ITS ---
PROCEDURE INFORMATION: Exam: XR Chest Exam date and time: 08/11/2023 10:37 PM Age: 27 years old Clinical indication: Other: High BP TECHNIQUE: Imaging protocol: Radiologic exam of the chest. Views: 1 view. COMPARISON: CR XR chest 2V* [id number] 05/20/2023 6:12 PM FINDINGS: Lungs: No focal consolidation. Pleural spaces: No evidence of pneumothorax. No evidence of pleural effusion. Heart/Mediastinum: Cardiomediastinal silhouette is within normal limits. Bones/joints: No evidence of acute osseous abnormality. XR/XR chest 1V portable [id number] IMPRESSION: 1. No acute cardiopulmonary abnormality.
[2023-08-11 22:29] VITALS: BP 166/93; PULSE 67; RESP 18; TEMP 37; O2SAT 94
--- NOTE | 2023-08-11 22:39 | ED_ITS ---
HPI - URI/Sore Throat 2 General: Chief Complaint: Upper Respiratory Infection Stated Complaint: BP Unstable Time Seen by Provider: 08/11/23 22:26 History of Present Illness: 27-year-old female comes in today with p ositive exposure to flu. Patient is also concerned due to elevation in her blood pressure. Patient has been taking some [id number] cough and cold medicine the past 2 days. The medicine contains phenylephrine. Patient is alert and oriented. Patient denies any other complaints besides flu symptoms. Associated symptoms: Reports fever(s) Review of Systems 2 General: Reports: 10 or more systems reviewed and unremarkable except in HPI and below Const: Reports: fever(s) and body aches PFSH ED 2 PFSH: Medical History No pertinent past medical history neghx: htn,dm,thyroid,dvt/pe PCP: Mallory Kelly Secondary amenorrhea Chronic GERD Anxiety Blind left eye Migraine without aura and without status migrainosus, not intractable Surgical History Status post hysteroscopy (06/17/20) With D&C. 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 Performed by Dr. Silva at [facility] in [place], [place]. History of tonsillectomy and adenoidectomy Family History Grandmother Breast cancer Great- maternal High cholesterol Maternal Hypertension Maternal Family/Other Diabetes Paternal aunt Hypertension Paternal Aunts and Uncles Stroke Paternal Great Aunt Grandfather Heart disease Paternal Father Myocardial infarction Mother Stroke Sister PFO (patent foramen ovale) Social History Smoking and tobacco/nicotine status: current every day tobacco/nicotine user cigarettes Packs smoked per day: 1 Years cigarettes smoked: 12 Female Reproductive History: Date of last menstrual period: 07/06/23 S pontaneous abortions: No Physical Exam 2 Const: COMMON NORMALS: alert HENMT: COMMON NORMALS: normocephalic HEAD & SCALP: normocephalic NOSE: N piotr discharge present Neck/C-Spine: COMMON NORMALS: full ROM Resp: COMMON NORMALS: normal respiratory effort and clear to auscultation bilaterally AUSCULTATION: clear to auscultation bilaterally Cardio: COMMON NORMALS: regular rate and regular rhythm RATE: regular rate RHYTHM: regular rhythm GI: COMMON NORMALS: Soft to palpation and non-tender PALPATION: Yes Soft to palpation : COMMON NORMALS: Yes no CVA tenderness BLADDER/KIDNEY EXAM: Yes no CVA tenderness Back/Pelvis: COMMON NORMALS: no CVA tenderness Extremity: COMMON NORMALS: full ROM Neuro: SENSORIUM/ORIENTATION: Yes alert Skin: COMMON NORMALS: turgor normal GENERAL SKIN EXAM: turgor normal Course 2 Vital Signs: Vital signs: Vital Signs Temperature 98.6 F 08/11/23 22:29 Pulse Rate 71 08/11/23 23:52 Respiratory Rate 18 08/11/23 23:52 Blood Pressure 140/98 08/11/23 23:52 Pulse Oximetry 97 08/11/23 23:52 Oxygen Delivery Me thod Room Air 08/11/23 23:32 MDM - URI/Sore Throat Medical Decision Making Patient comes in today for malaise and elevated blood pressure. Patient was exposed to influenza B. On exam lungs are clear to auscultation. Skin was warm and dry. Vital signs noted some elevation in blood pressure at 166/93. Patient is afebrile. Differential diagnosis includes influenza, adverse drug effect, uncontrolled hypertension. Review of the cough and cold medicine patient has been using for her flu symptoms designated some phenylephrine. Most likely this is contributing to patient's elevation in blood pressure. Recommend she stop the phenylephrine. CBC CMP was unremarkable. Chest x-ray showed no pneumonia or fluid overload. EKG was unremarkable. Patient tested positive for influenza B. Reviewed exam with patient recommended treatment for the flu and recommend follow-up with primary care for recheck of blood pressure. Patient reported understanding and agreed to plan. Lab Data 08/11/23 22:56 08/11/23 22:56 Radiology Impressions Chest X-Ray 08/11/23 22:28 IMPRESSION: 1. No acute cardiopulmonary abnormality. Laboratory Results WBC 6.27 10^3/uL (3.29-11.43) 08/11/23 22:56 RBC 4.02 10^6/uL (3.85-5.65) 08/11/23 22:56 Hgb 11.90 g/dL (11.27-16.99) 08/11/23 22:56 Hct 35.8 % (36-47) L 08/11/23 22:56 MCV 89.1 fl (85-98) 08/11/23 22:56 MCH 29.6 pg (27-33) 08/11/23 22:56 MCHC 33.2 g/dL (30-55) 08/11/23 22:56 RDW 12.2 % (12.1-15.1) 08/11/23 22:56 Plt Count 277 10^3/cmm (157-399) 08/11/23 22:56 MPV 10.0 fL (7.4-10.4) 08/11/23 22:56 Neut % (Auto) 44.3 % 08/11/23 22:56 Lymph % (Auto) 45.9 % 08/11/23 22:56 [place] % (Auto) 7.3 % 08/11/23 22:56 Eos % (Auto) 2.1 % 08/11/23 22:56 Baso % (Auto) 0.2 % 08/11/23 22:56 Neut # (Auto) 2.78 10^3/uL (1.8-7.7) 08/11/23 22:56 Lymph # (Auto) 2.9 10^3/uL (0.8-4.8) 08/11/23 22:56 [place] # (Auto) 0.5 10^3/uL (0.2-0.9) 08/11/23 22:56 Eos # (Auto) 0.1 10^3/uL (0.0-0.8) 08/11/23 22:56 Baso # (Auto) 0.0 10^3/uL (0.0-0.1) 08/11/23 22:56 Nucleated RBC % (auto) 0 % 08/11/23 22:56 Nucleated RBCs # 0.0 /100WBC 08/11/23 22:56 Sodium 138 mmol/L (136-145) 08/11/23 22:56 Potassium 4.1 mmol/L (3.5-5.1) 08/11/23 22:56 Chloride 103 mmol/L (98-107) 08/11/23 22:56 Carbon Dioxide 24 mmol/L (22-29) 08/11/23 22:56 Anion Gap 15.1 (5-19) 08/11/23 22:56 BUN 10 mg/dL (6-20) 08/11/23 22:56 Creatinine 0.5 mg/dL (0.5-0.9) 08/11/23 22:56 GFR Calculation 150.3 mL/min (90-130) H 08/11/23 22:56 Glucose 130 mg/dL (65-115) H 08/11/23 22:56 Calculated Osmolality 287 mOsm/kg (285-295) 08/11/23 22:56 Calcium 8.3 mg/dL (8.5-10.5) L 08/11/23 22:56 Total Bilirubin 0.2 mg/dL (0.15-1.2) 08/11/23 22:56 AST 15 U/L (0-32) 08/11/23 22:56 ALT 17 U/L (0-33) 08/11/23 22:56 Alkaline Phosphatase 59 U/L (35-105) 08/11/23 22:56 Total Protein 6.6 g/dL (6.6-8.7) 08/11/23 22:56 Albumin 3.8 g/dL (3.5-5.2) 08/11/23 22:56 Globulin 2.8 g/dL (1.3-4.6) 08/11/23 22:56 HCG, Qual Negative (Negative) 08/11/23 22:56 Influenza Type A Ag negative (Negative) 08/11/23 22:55 Influenza Type B Ag positive (Negative) H 08/11/23 22:55 SARS-CoV-2 Ag (Rapid) negative (Negative) 08/11/23 22:55 All radiology interpretation(s) finalized by discharge EKG Data EKG 1: EKG interpretation date: 08/11/23 EKG interpretation time: 23:00 Prior EKG tracings: not available for review Interpretation: EKG shows a sinus bradycardia with a mild sinus arrhythmia. Irregular rate at [address] elevation no ectopy is noted. No prior exam was available for comparison. Computer Generated Interpretation: Sinus bradycardia with sinus arrhythmia, borderline EKG, unconfirmed report Discharge Plan Discharge Patient Disposition: Home Clinical Impression: Influenza Condition: Stable Prescriptions: No Action acetaminophen 325 mg tablet 325 mg PO QID PRN (Reason: Pain) calcium carbonate [Tums] 200 mg calcium (500 mg) tablet,chewable 200 mg PO QID PRN (Reason: Acid Reflux) ibuprofen 200 mg tablet 200 mg PO Q6H PRN (Reason: Pain) norgestimate-ethinyl estradiol [Estarylla] 0.25-35 mg-mcg tablet 1 tab PO DAILY Qty: 84 3RF albuterol sulfate 90 mcg/actuation HFA aerosol inhaler 2 inh inhalation Q4H PRN (Reason: shortness of breath or wheezing) Qty: 6.7 0RF cetirizine 10 mg tablet 10 mg PO DAILY 30 Days Qty: 30 0RF fluticasone propionate [Flonase Allergy Relief] 50 mcg/actuation spray,suspension 2 spray intranasal DAILY 7 Days Qty: 16 0RF Rx Instructions: administer into each nostril hydroxyzine HCl 25 mg tablet 25 mg PO TID PRN Discharge Orders: Discharge ED (Routine); Ordered 08/11/23 Ordered By: Jostin Jackson Referrals: Mallory Kelly FNP [Primary Care Provider] - Discharge Diet: Usual diet Discharge Activity: Increase activity as tolerated Patient Instructions: Influenza (ED) Activity Restrictions/Additional Instructions: Home and rest. Drink plenty of water and fluids. Use acetaminophen as needed for fever and/or pain. Use plain Mucinex as needed for congestion and dry cough. Use Claritin 1 or 2 tablets twice a day as needed for nasal drainage. Follow-up with primary care for further instructions. Follow-up with primary care in 1 week for recheck of blood pressure. Return to ED for new concerns. Coding Level of Care Code ED Drafting Teacher for Kelin Rivas
--- NOTE | 2023-08-11 22:52 | ECG_ITS ---
[facility] Test Date: 2023-08-11 Pat Name: Sharon Camacho Department: Room: Gender: Female Process Controls Technician: : 1995 Requested By: Jostin Fu Order Number: [id number] Ramos MD: Fredi Mcfadden M.D. Measurements Intervals [place] Rate: 57 P: 40 [place]: 181 QRS: 64 QRSD: 96 T: 48 QT: 390 QTc: 382 Interpretive Statements SINUS BRADYCARDIA WITH SINUS ARRHYTHMIA Compared to ECG 01/28/2023 17:13:33 Sinus rhythm no longer present Electronically Signed On 08-12-2023 9:27:51 [place] by Fredi Mcfadden M.D. [id number]
[2023-08-11 23:05] LABS: Basophils % 0.2 %; Eosinophils # 0.1 10^3/uL (0.0-0.8); Eosinophils % 2.1 %; Hematocrit 35.8 % (36-47); Lymphocytes # 2.9 10^3/uL (0.8-4.8); Lymphocytes % 45.9 %; Mean Corpuscular HGB Conc 33.2 g/dL (30-55); Mean Corpuscular Hemoglobin 29.6 pg (27-33); Mean Corpuscular Volume 89.1 fl (85-98); Monocytes # 0.5 10^3/uL (0.2-0.9); Monocytes % 7.3 %; Neutrophils # 2.78 10^3/uL (1.8-7.7); Neutrophils % 44.3 %; Nucleated Red Blood Cells % 0 %; Platelet Count 277 10^3/cmm (157-399); Red Blood Count 4.02 10^6/uL (3.85-5.65); Red Cell Distribution Width 12.2 % (12.1-15.1); White Blood Count 6.27 10^3/uL (3.29-11.43)
[2023-08-11 23:14] LABS: HCG, Serum Qual Negative (Negative)
[2023-08-11 23:17] LABS: Influenza A by IFA negative (Negative); Influenza B by IFA positive (Negative)
[2023-08-11 23:30] LABS: Alanine Aminotransferase 17 U/L (0-33); Albumin Level 3.8 g/dL (3.5-5.2); Alkaline Phosphatase 59 U/L (35-105); Aspartate Amino Transferase 15 U/L (0-32); Blood Urea Nitrogen 10 mg/dL (6-20); Calcium 8.3 mg/dL (8.5-10.5); Carbon Dioxide 24 mmol/L (22-29); Chloride 103 mmol/L (98-107); Globulin 2.8 g/dL (1.3-4.6); Glomerular Filtration Rate 150.3 mL/min (90-130); Glucose 130 mg/dL (65-115); Osmolality Calculated 287 mOsm/kg (285-295); Sodium 138 mmol/L (136-145); Total Bilirubin 0.2 mg/dL (0.15-1.2); Total Protein 6.6 g/dL (6.6-8.7)
[2023-08-11 23:32] VITALS: BP 148/58; PULSE 60; O2SAT 94
[2023-08-11 23:32] LABS: SARS Covid-2 Antigen negative (Negative)
[2023-08-11 23:33] LABS: Anion Gap 15.1 (5-19); Potassium 4.1 mmol/L (3.5-5.1)
[2023-08-11 23:52] VITALS: BP 140/98; PULSE 71; RESP 18; O2SAT 97
== END 2023-08-12 00:02 | disposition home or self-care (01) ==
PROVIDERS: Emergency Provider Nurse Practitioner Family; PCP Nurse Practitioner Family
DX: J10.1 Influenza due to other identified influenza virus with other respiratory manifestations (principal); Z11.52 Encounter for screening for COVID-19; F17.210 Nicotine dependence, cigarettes, uncomplicated
CPT/HCPCS: 71045; 80053; 84703; 85025; 87426; 87804; 93005; 99285

== ENCOUNTER 2023-08-17 18:32 | Emergency (ER) | payer SELFPAY ==
[2023-08-17 18:36] VITALS: BP 162/99; PULSE 83; RESP 18; TEMP 36.7; O2SAT 98
--- NOTE | 2023-08-17 19:28 | ECG_ITS ---
[facility] Test Date: 2023-08-17 Pat Name: Sharon Camacho Department: Room: Gender: Female Mutual Fund Accountant: : 1995 Requested By: Jostin Fu Order Number: [id number] Ramos MD: Fredi Mcfadden M.D. Measurements Intervals [place] Rate: 78 P: 51 ND: 155 QRS: 71 QRSD: 87 T: 47 QT: 359 QTc: 411 Interpretive Statements SINUS RHYTHM Compared to ECG 08/11/2023 22:52:10 Sinus bradycardia no longer present Sinus arrhythmia no longer present Electronically Signed On 08-18-2023 12:05:05 MACHINE HEEL SEAT [employer]STER by Fredi Mcfadden M.D. [id number]
--- NOTE | 2023-08-17 19:38 | ED_ITS ---
HPI - Dizziness 2 General: Chief Complaint: Dizziness Stated Complaint: shaking in bilateral arms and legs Time Seen by Provider: 08/17/23 19:05 History of Present Illness: HPI Narrative: 27-year-old female comes in today with c omplaints of shaking in her arms and legs. Patient reports she had an episode at 3:00 and had taken a hydroxyzine with some relief. Patient then had a another episode around 7:00 and then proceeded to come into the ER. Patient appears nontoxic. Patient has been shaking at this time. Review of Systems 2 General: Reports: 10 or more systems reviewed and unremarkable except in HPI and below Neuro: Reports: other (Tremors) PFSH ED 2 PFSH: Medical History No pertinent past medical history neghx: htn,dm,thyroid,dvt/pe PCP: Mallory Kelly Secondary amenorrhea Chronic GERD Anxiety Blind left eye Migraine without aura and without status migrainosus, not intractable Surgical History Status post hysteroscopy (06/17/20) With D&C. 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 Performed by Dr. Silva at [facility] [place], [place]. History of tonsillectomy and adenoidectomy Family History Grandmother Breast cancer Great- maternal High cholesterol Maternal Hypertension Maternal Family/Other Diabetes Paternal aunt Hypertension Paternal Aunts and Uncles Stroke Paternal Great Aunt Grandfather Heart disease Paternal Father Myocardial infarction Mother Stroke Sister PFO (patent foramen ovale) Social History Smoking and tobacco/nicotine status: current every day tobacco/nicotine user cigarettes Packs smoked per day: 1 Years cigarettes smoked: 12 Female Reproductive History: Spontaneous abortions: No Physical Exam 2 Const: COMMON NORMALS: alert HENMT: COMMON NORMALS: normocephalic and atraumatic HEAD & SCALP: n ormocephalic and atraumatic Neck/C-Spine: COMMON NORMALS: full ROM Resp: COMMON NORMALS: normal respiratory effort and clear to auscultation bilaterally AUSCULTATION: clear to auscultation bilaterally Cardio: COMMON NORMALS: regular rate and regular rhythm RATE: regular rate RHYTHM: regular rhythm Extremity: COMMON NORMALS: normal to inspection Neuro: RON COMA SCALE: document GCS findings Ron coma scale eye opening: Spontaneous Shirley coma scale verbal response: Orientated Ron coma scale motor response: Obey commands Shirley coma scale total score: 15 S ENSORIUM/ORIENTATION: Yes alert Skin: COMMON NORMALS: turgor normal GENERAL SKIN EXAM: turgor normal Course 2 Vital Signs: Vital signs: Vital Signs Temperature 98.0 F 08/17/23 18:36 Pulse Rate 78 08/17/23 20:24 Respiratory Rate 18 08/17/23 18:36 Blood Pressure 121/76 08/17/23 20:24 Pulse Oximetry 98 08/17/23 20:24 Oxygen Delivery Me thod Room Air 08/17/23 19:46 MDM - Dizziness Medical Decision Making 27-year-old female comes in today for complaints of tremors. On exam patient has no tremors. Patient appears nontoxic. Vital signs are normal except for some elevated blood pressure. Differential diagnosis includes not limited to anxiety, worried well, electrolyte imbalance. Orthostatic blood pressures were normal. CBC was normal. No signs of severe illness or injury was noted. The patient probably has anxiety related tremors. Patient should follow-up with her primary care for further evaluation and treatment and possible referral to neurology. No signs of acute illness is noted. No signs of serious illness or injury is noted. Lab Data 08/17/23 20:09 Laboratory Results WBC 9.06 10^3/uL (3.29-11.43) 08/17/23 20:09 RBC 4.13 10^6/uL (3.85-5.65) 08/17/23 20:09 Hgb 12.30 g/dL (11.27-16.99) 08/17/23 20:09 Hct 38.0 % (36-47) 08/17/23 20:09 MCV 92.0 fl (85-98) 08/17/23 20:09 MCH 29.8 pg (27-33) 08/17/23 20:09 MCHC 32.4 g/dL (30-55) 08/17/23 20:09 RDW 12.2 % (12.1-15.1) 08/17/23 20:09 Plt Count 275 10^3/cmm (157-399) 08/17/23 20:09 MPV 10.0 fL (7.4-10.4) 08/17/23 20:09 Neut % (Auto) 57.1 % 08/17/23 20:09 Lymph % (Auto) 36.4 % 08/17/23 20:09 [place] % (Auto) 4.3 % 08/17/23 20:09 Eos % (Auto) 1.7 % 08/17/23 20:09 Baso % (Auto) 0.3 % 08/17/23 20:09 Neut # (Auto) 5.17 10^3/uL (1.8-7.7) 08/17/23 20:09 Lymph # (Auto) 3.3 10^3/uL (0.8-4.8) 08/17/23 20:09 [place] # (Auto) 0.4 10^3/uL (0.2-0.9) 08/17/23 20:09 Eos # (Auto) 0.2 10^3/uL (0.0-0.8) 08/17/23 20:09 Baso # (Auto) 0.0 10^3/uL (0.0-0.1) 08/17/23 20:09 Nucleated RBC % (auto) 0 % 08/17/23 20:09 Nucleated RBCs # 0.0 /100WBC 08/17/23 20:09 No radiology studies performed this visit Discharge Plan Discharge Patient Disposition: Home Clinical Impression: Benign essential tremor, Anxiety Condition: Stable Prescriptions: No Action acetaminophen 325 mg tablet 325 mg PO QID PRN (Reason: Pain) calcium carbonate [Tums] 200 mg calcium (500 mg) tablet,chewable 200 mg PO QID PRN (Reason: Acid Reflux) ibuprofen 200 mg tablet 200 mg PO Q6H PRN (Reason: Pain) norgestimate-ethinyl estradiol [Estarylla] 0.25-35 mg-mcg tablet 1 tab PO DAILY Qty: 84 3RF azithromycin 500 mg tablet 500 mg PO DAILY 5 Days Qty: 5 0RF albuterol sulfate 90 mcg/actuation HFA aerosol inhaler 2 inh inhalation Q4H PRN (Reason: shortness of breath or wheezing) Qty: 6.7 0RF cetirizine 10 mg tablet 10 mg PO DAILY 30 Days Qty: 30 0RF fluticasone propionate [Flonase Allergy Relief] 50 mcg/actuation spray,suspension 2 spray intranasal DAILY 7 Days Qty: 16 0RF Rx Instructions: administer into each nostril hydroxyzine HCl 25 mg tablet 25 mg PO TID PRN Discharge Orders: Discharge ED (Routine); Ordered 08/17/23 Ordered By: Jostin Jackson Referrals: Mallory Kelly FNP [Primary Care Provider] - Patient Instructions: Anxiety (ED) Activity Restrictions/Additional Instructions: Home and rest. Follow-up with primary care in the morning for recommendations of further evaluation and referral to neurology if warranted. Continue with routine medications as directed. Return to ED for new concerns. Coding Level of Care Code ED Senior Strategy Manager for Kelin Rivas
[2023-08-17 19:44] VITALS: BP 118/75; BP 130/78; BP 151/97
[2023-08-17 19:46] VITALS: PULSE 69; O2SAT 98
[2023-08-17 20:13] LABS: Basophils % 0.3 %; Eosinophils # 0.2 10^3/uL (0.0-0.8); Eosinophils % 1.7 %; Lymphocytes # 3.3 10^3/uL (0.8-4.8); Lymphocytes % 36.4 %; Mean Corpuscular HGB Conc 32.4 g/dL (30-55); Mean Corpuscular Hemoglobin 29.8 pg (27-33); Monocytes # 0.4 10^3/uL (0.2-0.9); Monocytes % 4.3 %; Neutrophils # 5.17 10^3/uL (1.8-7.7); Neutrophils % 57.1 %; Nucleated Red Blood Cells % 0 %; Platelet Count 275 10^3/cmm (157-399); Red Blood Count 4.13 10^6/uL (3.85-5.65); Red Cell Distribution Width 12.2 % (12.1-15.1); White Blood Count 9.06 10^3/uL (3.29-11.43)
[2023-08-17 20:24] VITALS: BP 121/76; PULSE 78; O2SAT 98
== END 2023-08-17 20:26 | disposition home or self-care (01) ==
PROVIDERS: Emergency Provider Nurse Practitioner Family; PCP Nurse Practitioner Family
DX: G25.0 Essential tremor (principal); F41.9 Anxiety disorder, unspecified; F17.210 Nicotine dependence, cigarettes, uncomplicated
CPT/HCPCS: 36415; 85025; 93005; 99284

== ENCOUNTER 2023-11-14 19:39 | Emergency (ER) | payer SELFPAY ==
[2023-11-14 19:44] VITALS: BP 137/82; PULSE 90; RESP 16; TEMP 36.5; O2SAT 96
[2023-11-14 20:29] LABS: Basophils % 0.3 %; Eosinophils # 0.1 10^3/uL (0.0-0.8); Eosinophils % 1.2 %; Hematocrit 39.1 % (36-47); Lymphocytes # 3.8 10^3/uL (0.8-4.8); Lymphocytes % 33.7 %; Mean Corpuscular HGB Conc 32.7 g/dL (30-55); Mean Corpuscular Hemoglobin 29.3 pg (27-33); Mean Corpuscular Volume 89.5 fl (85-98); Mean Platelet Volume 10.2 fL (7.4-10.4); Monocytes # 0.6 10^3/uL (0.2-0.9); Monocytes % 5.4 %; Neutrophils # 6.65 10^3/uL (1.8-7.7); Neutrophils % 59.2 %; Nucleated Red Blood Cells % 0 %; Platelet Count 318 10^3/cmm (157-399); Red Blood Count 4.37 10^6/uL (3.85-5.65); Red Cell Distribution Width 12.4 % (12.1-15.1); White Blood Count 11.22 10^3/uL (3.29-11.43)
--- NOTE | 2023-11-14 21:13 | W.ED.GIBLEED ---
Documented by User: JAS Cuevas 11/14/23 21:18 HPI - GI Bleed General: Chief complaint: GI Bleed Stated complaint: Blood in Stool Time Seen by Provider: 11/14/23 20:01 Source: patient Mode of arrival: ambulatory Limitations: no limitations History of Present Illness: Patient is a 27-year-old female presenting to the emergency department complaining of blood in stool onset tonight. Patient notes that she noticed blood in the toilet bowl as well as on toilet paper when she wiped. She only notes 1 episode of this, denies any diarrhea or other changes in stool consistency. She has never had this before, and is denying any pertinent medical history. She does note she has a significant history of anxiety and is worried about noticing the blood. She also is very anxious about a potential rectal exam. No history of hemorrhoids or anal fissures. She is not noting any fevers, abdominal pain, syncope, nausea or vomiting, or other symptoms at this time. No rectal trauma. No treatments prior to arrival. MD complaint: blood on toilet paper and blood streaked stool Onset (ago): hour(s) Pain Consistency: now resolved Associated symptoms: Reports no associated symptoms; Denies abdominal pain, chills, fever(s), headache(s), nausea, rash or vomiting Treatments Prior to Arrival: none Review of Systems General: Reports: 10 or more systems reviewed and unremarkable except in HPI and below Const: Denies: fever(s), chills or fatigue Eyes: Denies: change in vision ENMT: Denies: throat pain, ear or mastoid pain or nasal discharge Card: Denies: chest pain, palpitations, swelling of feet/ankles or lightheadedness Resp: Denies: dyspnea, productive cough or wheezing GI: Reports: hematochezia; Denies: abdominal pain, nausea, vomiting, diarrhea or constipation : Denies: flank pain, difficulty voiding, dysuria or urinary frequency Musc: Denies: neck pain, back pain or joint pain Skin/Breast: Denies: rash Neuro: Denies: headache(s), numbness in extremities or weakness in extremities Psych: Reports: anxiety PFSH ED PFSH: Medical History No pertinent past medical history neghx: htn,dm,thyroid,dvt/pe PCP: Mallory Kelly Secondary amenorrhea Chronic GERD Anxiety Blind left eye Migraine without aura and without status migrainosus, not intractable Surgical History Status post hysteroscopy (06/17/20) With D&C. 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 Performed by Dr. Silva at [facility] in [place], [place]. History of tonsillectomy and adenoidectomy Family History Grandmother Breast cancer Great- maternal High cholesterol Maternal Hypertension Maternal Family/Other Diabetes Paternal aunt Hypertension Paternal Aunts and Uncles Stroke Paternal Great Aunt Grandfather Heart disease Paternal Father Myocardial infarction Mother Stroke Sister PFO (patent foramen ovale) Social History Smoking and tobacco/nicotine status: current every day tobacco/nicotine user cigarettes Packs smoked per day: 1 Years cigarettes smoked: 12 Female Reproductive History: Spontaneous abortions: No Physical Exam Const: COMMON NORMALS: patient oriented x3, no limitations, healthy appearing, alert and well nourished GENERAL APPEARANCE: cooperative and anxious NUTRITIONAL APPEARANCE: obese morbidly obese ORIENTATION/CONSCIOUSNESS: Yes awake HENMT: COMMON NORMALS: normocephalic, atraumatic, hearing grossly normal bilaterally, external ears normal, Normal external nose present, Normal nasal mucous membranes and turbinates present and moist oral mucous membranes HEAD & SCALP: normocephalic and atraumatic NOSE: Normal external nose present and Normal nasal mucous membranes and turbinates present EXTERNAL EAR: Yes external ears normal Eye: COMMON NORMALS: Equal, round and reactive pupils present, EOMs intact bilaterally, conjunctivae normal and normal visual daigle by confrontation CONJUNCTIVA: Yes conjunctivae normal PUPIL: Yes Equal, round and reactive pupils present Neck/C-Spine: COMMON NORMALS: full ROM, supple, no meningeal signs and no JVD Resp: COMMON NORMALS: normal respiratory effort, No retractions, No use of accessory muscles and clear to auscultation bilaterally AUSCULTATION: clear to auscultation bilaterally, no crackles, no rales, no rhonchi and no wheezes Cardio: COMMON NORMALS: no JVD, regular rate, regular rhythm, S1 normal heart sound present, S2 normal heart sound present, No gallops present (Cardio), No clicks present (Cardio), No murmurs present (Cardio), No rub (Cardio) and Peripheral pulses 2+ throughout RATE: regular rate RHYTHM: regular rhythm HEART SOUNDS: S1 normal heart sound present and S2 normal heart sound present PERIPHERAL PULSES: Peripheral pulses 2+ throughout GI: COMMON NORMALS: Normal to inspection, nondistended, normoactive bowel sounds present, Soft to palpation, non-tender, No hepatosplenomegaly present and no masses INSPECTION: Yes central obesity AUSCULTATION: Yes normoactive bowel sounds PALPATION: Yes Soft to palpation, No Guarding due to palpation present (GI), No Rigid due to palpation and Yes No hepatosplenomegaly present RECTAL EXAM: visual inspection normal, normal sphincter tone, Internal hemorrhoid(s) present, No Rectal prolapse, no lesion(s) noted, no fissure noted, heme negative stool, hemorrhoids Internal hemorrhoid(s): Yes and no tenderness noted : COMMON NORMALS: Yes no CVA tenderness BLADDER/KIDNEY EXAM: Yes no CVA tenderness Back/Pelvis: COMMON NORMALS: no CVA tenderness Extremity: COMMON NORMALS: normal to inspection and full ROM Neuro: COMMON NORMALS: patient oriented x3, moves all extremities, no focal motor deficits and no sensory deficits noted SENSORIUM/ORIENTATION: Yes alert MENINGEAL SIGNS: Yes no meningeal signs Psych: COMMON NORMALS: mental status grossly normal, cooperative and speech normal SPEECH: Yes normal speech Skin: COMMON NORMALS: no rashes or lesions noted GENERAL SKIN EXAM: no rashes or lesions noted Course Vital Signs: Vital signs: Vital Signs Temperature 97.7 F 11/14/23 19:44 Pulse Rate 90 11/14/23 19:44 Respiratory Rate 16 11/14/23 19:44 Blood Pressure 137/82 11/14/23 19:44 Pulse Oximetry 96 11/14/23 19:44 Oxygen Delivery Me thod Room Air 11/14/23 19:44 MDM - GI Bleed Medical Decision Making Patient presents with 1 episode of blood in stool as well as toilet paper. Very anxious on exam, however rest of her vitals unremarkable. Guaiac negative stool obtained on rectal exam, internal hemorrhoids were palpated. CBC was unremarkable. Due to these findings and clinical examination, will prescribe patient hydrocortisone cream for internal hemorrhoids and instructions for other conservative therapies such as sitz bath. Also informed her to increase her diet and drink more water, as well as to not strain as hard with bowel movements as she does note that she does this sometimes. Due to lack of other historical symptoms or other concerning findings, will treat for internal hemorrhoids. However did inform patient if she continues to have episodes of bleeding or any worsening, that she needs to return for further evaluation. She endorses understanding. Patient will be discharged home. Lab Data 11/14/23 20: Laboratory Results WBC 11.22 10^3/uL (3.29-11.43) 11/14/23 20: RBC 4.37 10^6/uL (3.85-5.65) 11/14/23 20: Hgb 12.80 g/dL (11.27-16.99) 11/14/23 20:24 Hct 39.1 % (36-47) 11/14/23 20: MCV 89.5 fl (85-98) 11/14/23 20: MCH 29.3 pg (27-33) 11/14/23 20:24 MCHC 32.7 g/dL (30-55) 11/14/23 20:24 RDW 12.4 % (12.1-15.1) 11/14/23 20: Plt Count 318 10^3/cmm (157-399) 11/14/23 20:24 MPV 10.2 fL (7.4-10.4) 11/14/23 20: Neut % (Auto) 59.2 % 11/14/23 20: Lymph % (Auto) 33.7 % 11/14/23 20:24 [facility] % (Auto) 5.4 % 11/14/23 20:24 Eos % (Auto) 1.2 % 11/14/23 20:24 Baso % (Auto) 0.3 % 11/14/23 20: Neut # (Auto) 6.65 10^3/uL (1.8-7.7) 11/14/23 20:24 Lymph # (Auto) 3.8 10^3/uL (0.8-4.8) 11/14/23 20:24 [facility] # (Auto) 0.6 10^3/uL (0.2-0.9) 11/14/23 20:24 Eos # (Auto) 0.1 10^3/uL (0.0-0.8) 11/14/23 20:24 Baso # (Auto) 0.0 10^3/uL (0.0-0.1) 11/14/23 20:24 Nucleated RBC % (auto) 0 % 11/14/23 20:24 Nucleated RBCs # 0.0 /100WBC 11/14/23 20:24 No radiology studies performed this visit Discharge Plan Discharge Patient Disposition: Home Clinical Impression: Hemorrhoids Qualifiers: Hemorrhoid type: unspecified Qualified Code(s): K64.9 - Unspecified hemorrhoids Condition: Stable Prescriptions: New hydrocortisone 1 % cream 1 applic topical BID PRN (Reason: skin irritation) Qty: 28.35 0RF No Action acetaminophen 325 mg tablet 325 mg PO QID PRN (Reason: Pain) calcium carbonate [Tums] 200 mg calcium (500 mg) tablet,chewable 200 mg PO QID PRN (Reason: Acid Reflux) ibuprofen 200 mg tablet 200 mg PO Q6H PRN (Reason: Pain) azithromycin 500 mg tablet 500 mg PO DAILY 5 Days Qty: 5 0RF albuterol sulfate 90 mcg/actuation HFA aerosol inhaler 2 inh inhalation Q4H PRN (Reason: shortness of breath or wheezing) Qty: 6.7 0RF cetirizine 10 mg tablet 10 mg PO DAILY 30 Days Qty: 30 0RF fluticasone propionate [Flonase Allergy Relief] 50 mcg/actuation spray,suspension 2 spray intranasal DAILY 7 Days Qty: 16 0RF Rx Instructions: administer into each nostril hydroxyzine HCl 25 mg tablet 25 mg PO TID PRN norgestimate-ethinyl estradiol [Estarylla] 0.25-35 mg-mcg tablet See Rx Instructions .ROUTE .COMPLEX Qty: 84 0RF Dose Instruction: TAKE 1 TABLET BY MOUTH DAILY Rx Instructions: TAKE 1 TABLET BY MOUTH DAILY Discharge Orders: Discharge ED (Routine); Ordered 11/14/23 Ordered By: Esteban Peters Referrals: Mallory Kelly FNP [Primary Care Provider] - Discharge Diet: As Directed Discharge Activity: Increase activity as tolerated Patient Instructions: Hemorrhoids (ED) Activity Restrictions/Additional Instructions: Increase your fiber intake. Increase your fluid intake. Topical hydrocortisone as directed. Sitz bath as needed. Avoid strenuous straining with bowel movements. Follow-up with primary care as needed. Return with any new or concerning symptoms you may have. Coding Level of Care Code ED Retirement Specialist for Chg Fwd Documented by User: Franko Schaefer, 11/15/23 14:57 HPI - GI Bleed General: Chief complaint: GI Bleed Stated complaint: Blood in Stool Time Seen by Provider: 11/14/23 20:01 [facility] ED PFSH: Medical History No pertinent past medical history neghx: htn,dm,thyroid,dvt/pe PCP: Mallory Kelly Secondary amenorrhea Chronic GERD Anxiety Blind left eye Migraine without aura and without status migrainosus, not intractable Surgical History Status post hysteroscopy (06/17/20) With D&C. 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 Performed by Dr. Silva at [facility] in [place], [place]. History of tonsillectomy and adenoidectomy Family History Grandmother Breast cancer Great- maternal High cholesterol Maternal Hypertension Maternal Family/Other Diabetes Paternal aunt Hypertension Paternal Aunts and Uncles Stroke Paternal Great Aunt Grandfather Heart disease Paternal Father Myocardial infarction Mother Stroke Sister PFO (patent foramen ovale) Social History Smoking and tobacco/nicotine status: current every day tobacco/nicotine user cigarettes Packs smoked per day: 1 Years cigarettes smoked: 12 Course Vital Signs: Vital signs: Vital Signs Temperature 97.7 F 11/14/23 19:44 Pulse Rate 90 11/14/23 19:44 Respiratory Rate 16 11/14/23 19:44 Blood Pressure 137/82 11/14/23 19:44 Pulse Oximetry 96 11/14/23 19:44 Oxygen Delivery Me thod Room Air 11/14/23 19:44 MDM - GI Bleed Medical Decision Making Patient presents with 1 episode of blood in stool as well as toilet paper. Very anxious on exam, however rest of her vitals unremarkable. Guaiac negative stool obtained on rectal exam, internal hemorrhoids were palpated. CBC was unremarkable. Due to these findings and clinical examination, will prescribe patient hydrocortisone cream for internal hemorrhoids and instructions for other conservative therapies such as sitz bath. Also informed her to increase her diet and drink more water, as well as to not strain as hard with bowel movements as she does note that she does this sometimes. Due to lack of other historical symptoms or other concerning findings, will treat for internal hemorrhoids. However did inform patient if she continues to have episodes of bleeding or any worsening, that she needs to return for further evaluation. She endorses understanding. Patient will be discharged home. Chart reviewed Lab Data 11/14/23 20:24 Laboratory Results WBC 11.22 10^3/uL (3.29-11.43) 11/14/23 20:24 RBC 4.37 10^6/uL (3.85-5.65) 11/14/23 20:24 Hgb 12.80 g/dL (11.27-16.99) 11/14/23 20:24 Hct 39.1 % (36-47) 11/14/23 20:24 MCV 89.5 fl (85-98) 11/14/23 20:24 MCH 29.3 pg (27-33) 11/14/23 20:24 MCHC 32.7 g/dL (30-55) 11/14/23 20:24 RDW 12.4 % (12.1-15.1) 11/14/23 20:24 Plt Count 318 10^3/cmm (157-399) 11/14/23 20:24 MPV 10.2 fL (7.4-10.4) 11/14/23 20:24 Neut % (Auto) 59.2 % 11/14/23 20:24 Lymph % (Auto) 33.7 % 11/14/23 20:24 [facility] % (Auto) 5.4 % 11/14/23 20:24 Eos % (Auto) 1.2 % 11/14/23 20:24 Baso % (Auto) 0.3 % 11/14/23 20:24 Neut # (Auto) 6.65 10^3/uL (1.8-7.7) 11/14/23 20:24 Lymph # (Auto) 3.8 10^3/uL (0.8-4.8) 11/14/23 20:24 [facility] # (Auto) 0.6 10^3/uL (0.2-0.9) 11/14/23 20:24 Eos # (Auto) 0.1 10^3/uL (0.0-0.8) 11/14/23 20:24 Baso # (Auto) 0.0 10^3/uL (0.0-0.1) 11/14/23 20:24 Nucleated RBC % (auto) 0 % 11/14/23 20:24 Nucleated RBCs # 0.0 /100WBC 11/14/23 20:24 Discharge Plan Discharge Patient Disposition: Home Clinical Impression: Hemorrhoids Qualifiers: Hemorrhoid type: unspecified Qualified Code(s): K64.9 - Unspecified hemorrhoids Condition: Stable Prescriptions: New hydrocortisone 1 % cream 1 applic topical BID PRN (Reason: skin irritation) Qty: 28.35 0RF No Action acetaminophen 325 mg tablet 325 mg PO QID PRN (Reason: Pain) calcium carbonate [Tums] 200 mg calcium (500 mg) tablet,chewable 200 mg PO QID PRN (Reason: Acid Reflux) ibuprofen 200 mg tablet 200 mg PO Q6H PRN (Reason: Pain) azithromycin 500 mg tablet 500 mg PO DAILY 5 Days Qty: 5 0RF albuterol sulfate 90 mcg/actuation HFA aerosol inhaler 2 inh inhalation Q4H PRN (Reason: shortness of breath or wheezing) Qty: 6.7 0RF cetirizine 10 mg tablet 10 mg PO DAILY 30 Days Qty: 30 0RF fluticasone propionate [Flonase Allergy Relief] 50 mcg/actuation spray,suspension 2 spray intranasal DAILY 7 Days Qty: 16 0RF Rx Instructions: administer into each nostril hydroxyzine HCl 25 mg tablet 25 mg PO TID PRN norgestimate-ethinyl estradiol [Estarylla] 0.25-35 mg-mcg tablet See Rx Instructions .ROUTE .COMPLEX Qty: 84 0RF Dose Instruction: TAKE 1 TABLET BY MOUTH DAILY Rx Instructions: TAKE 1 TABLET BY MOUTH DAILY Discharge Orders: Discharge ED (Routine); Ordered 11/14/23 Ordered By: Esteban Peters Referrals: Mallory Kelly FNP [Primary Care Provider] - Discharge Diet: As Directed Discharge Activity: Increase activity as tolerated Patient Instructions: Hemorrhoids (ED) Activity Restrictions/Additional Instructions: Increase your fiber intake. Increase your fluid intake. Topical hydrocortisone as directed. Sitz bath as needed. Avoid strenuous straining with bowel movements. Follow-up with primary care as needed. Return with any new or concerning symptoms you may have. Coding Level of Care Code ED Retirement Specialist for Kelin Rivas
== END 2023-11-14 20:59 | disposition home or self-care (01) ==
PROVIDERS: Emergency Medicine; Emergency Provider Physician Assistant; PCP Nurse Practitioner Family
DX: K64.9 Unspecified hemorrhoids (principal); F17.210 Nicotine dependence, cigarettes, uncomplicated
CPT/HCPCS: 85025; 99283

== ENCOUNTER 2024-03-30 02:13 | Emergency (ER) | payer SELFPAY ==
[2024-03-30 02:23] VITALS: BP 137/113; PULSE 77; RESP 18; TEMP 36.7; O2SAT 98; BMI 56.7
[2024-03-30 02:27] VITALS: BP 137/113; PULSE 70; O2SAT 98
--- NOTE | 2024-03-30 02:46 | ECG_ITS ---
[facility] Test Date: 2024-03-30 Pat Name: Sharon Camacho Department: Room: Gender: Female Lathing Supervisor: : 1995 Requested By: Elidia Lucas Order Number: [id number] Ramos MD: Sylwia Wilson M.D. Measurements Intervals [place] Rate: 72 P: 14 NV: 176 QRS: 14 QRSD: 102 T: 4 QT: 361 QTc: 397 Interpretive Statements SINUS RHYTHM Compared to ECG 08/17/2023 19:28:37 No significant changes Electronically Signed On 03-30-2024 20:23:11 CDT by Sylwia Wilson M.D. [id number]
[2024-03-30 02:56] LABS: Basophils % 0.2 %; Eosinophils # 0.2 10^3/uL (0.0-0.8); Eosinophils % 1.9 %; Hematocrit 39.3 % (36-47); Lymphocytes # 3.8 10^3/uL (0.8-4.8); Lymphocytes % 44.4 %; Mean Corpuscular HGB Conc 33.1 g/dL (30-55); Mean Corpuscular Hemoglobin 29.1 pg (27-33); Mean Corpuscular Volume 87.9 fl (85-98); Mean Platelet Volume 9.9 fL (7.4-10.4); Monocytes # 0.5 10^3/uL (0.2-0.9); Monocytes % 5.8 %; Neutrophils # 4.09 10^3/uL (1.8-7.7); Neutrophils % 47.6 %; Nucleated Red Blood Cells % 0 %; Platelet Count 340 10^3/cmm (157-399); Red Blood Count 4.47 10^6/uL (3.85-5.65); Red Cell Distribution Width 12.5 % (12.1-15.1); White Blood Count 8.59 10^3/uL (3.29-11.43)
[2024-03-30 02:57] VITALS: BP 150/102; PULSE 84; O2SAT 97
[2024-03-30 03:07] LABS: ABG PCO2 37.3 mmHg (35-45); Alveolar-Arterial Oxygen Gradi 1.1 mmHg (5-10); Arterial Blood Gas Hematocrit 41.5 % (37-47); Base Excess ABG -1.7 mmol/L (-2.0-2.0); Bilirubin Urine Negative (Negative); Blood Gas Allen Test Pos; Blood Gas Sample Site Radial, right; Blood Gas Sample Type Arterial; Blood Urine Negative (Negative); Carboxyhemoglobin 0.8 %THgb (0.4-20.1); Glucose Urine UA Negative (Normal); HCO3 ABG 22.9 mmol/L (22-26); HGB O2 Sat 96.1 % (95-100); Ionized Calcium Level - ABG 1.2 mmol/L (1.1-1.4); Ketones Urine Negative (Negative); Leukocyte Esterase Urine Negative (Negative); Methemoglobin 0.9 % (0.4-1.5); Nitrate Urine Negative (Negative); Oxygen Device ROOM AIR; Oxygen Saturation ABG 97.8; PO2 ABG 92.4 mmHg (80.0-100.0); Potassium Level - ABG 3.9 mmol/L (3.5-5.0); Protein Urine Negative (Negative); Specific Gravity, Urine 1.008 (1.005-1.030); Total Hemoglobin 13.5 g/dL (12-16); Urine Appearance Clear (CLEAR); Urine Color Yellow (Yellow); Urobilinogen Urine 0.2 mg/dL (Negative)
[2024-03-30 03:10] LABS: Bacteria Urine None Seen /hpf; Hyaline Casts Urine 0-4 /lpf; RBC Urine 0-2 /hpf (0-2); Squamous Epithelial Cell Urine 0-5 /hpf (0-5); WBC Urine 0-5 /hpf (0-5)
--- NOTE | 2024-03-30 03:12 | W.ED.GENADLT ---
HPI - General Adult General: Chief complaint: General Medical Stated complaint: High Heart rate Time Seen by Provider: 03/30/24 02:30 History of Present Illness: 28-year-old female with a history of GERD, migraines, anxiety and obesity who presents emergency room after having palpitations and chills. Says she woke up from sleep and her hands were numb. [place] like her heart was beating very hard. She felt short of breath. She was having some issues with this earlier in the day at work. Related Data Home Medications Medication Instructions Recorded Confirmed acetaminophen 325 mg tablet 325 mg PO QID PRN Pain 11/24/22 01/25/24 ibuprofen 200 mg tablet 200 mg PO Q6H PRN Pain 11/24/22 01/25/24 hydroxyzine HCl 25 mg tablet 25 mg PO TID PRN 06/12/23 01/25/24 Previous Rx's Medication Instructions Recorded albuterol sulfate 90 mcg/actuation 2 inh inhalation Q4H PRN shortness 03/15/23 aerosol inhaler of breath or wheezing #6.7 grams norgestimate 0.25 mg-ethinyl See Rx Instructions .Route 01/25/24 estradiol 35 mcg tablet (Estarylla) .COMPLEX #84 tabs nystatin 100,000 unit/gram topical 1 applic topical QID #30 grams 01/25/24 powder Allergies Allergy/AdvReac Type Severity Reaction Status Date / Time amoxicillin Allergy swelling Verified 03/30/24 02:27 clindamycin Allergy ADR-Gastrointestinal Verified 03/30/24 02:27 Upset Penicillins Allergy swelling Verified 03/30/24 02:27 Review of Systems Narrative: Constitutional symptoms: Negative except as documented in HPI. Skin symptoms: Negative except as documented in HPI. Eye symptoms: Negative except as documented in HPI. ENMT symptoms: Negative except as documented in HPI. Respiratory symptoms: Negative except as documented in HPI. Cardiovascular symptoms: Negative except as documented in HPI. Gastrointestinal symptoms: Negative except as documented in HPI. Genitourinary symptoms: Negative except as documented in HPI. Musculoskeletal symptoms: Negative except as documented in HPI. Neurologic symptoms: Negative except as documented in HPI. Psychiatric symptoms: Negative except as documented in HPI. Endocrine symptoms: Negative except as documented in HPI. 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 Performed by Dr. Silva at [facility] in [place], [place]. History of tonsillectomy and adenoidectomy Family History Grandmother Breast cancer Great- maternal High cholesterol Maternal Hypertension Maternal Family/Other Diabetes Paternal aunt Hypertension Paternal Aunts and Uncles Stroke Paternal Great Aunt Grandfather Heart disease Paternal Father Myocardial infarction Mother Stroke Sister PFO (patent foramen ovale) Female Reproductive History: Spontaneous abortions: No Physical Exam Narrative: EXAM NARRATIVE: General: Alert, no acute distress. Skin: Warm, dry. Head: Normocephalic, atraumatic. Neck: Supple, trachea midline. Eye: Extraocular movements are intact. Ears, nose, mouth and throat: mucosa moist. Cardiovascular: Regular, Normal peripheral perfusion. Respiratory: Lungs are clear to auscultation, respirations are non-labored, breath sounds are equal, Symmetrical chest wall expansion. Gastrointestinal: Soft, Nontender, Non distended Musculoskeletal: Normal ROM, no deformity. Neurological: Alert and oriented, No focal neurological deficit observed. Psychiatric: Cooperative, appropriate mood & affect. Course Vital Signs: Vital signs: Vital Signs Temperature 98.0 F 03/30/24 02:23 Pulse Rate 79 03/30/24 03:27 Respiratory Rate 18 03/30/24 02:23 Blood Pressure 112/72 03/30/24 03:27 Pulse Oximetry 95 03/30/24 03:27 Oxygen Delivery Me thod Room Air 03/30/24 03:27 [facility] - General Adult Medical Decision Making Medical decision making: Differential diagnosis including but not limited to and based on the above HPI, review of systems and physical exam: for patient with palpitations: atrial fibrillation with rapid ventricular response. ventricular tachycardia. sinus tachycardia. PVCs. also concern for underlying issues causing tachycardia. Infection, electrolyte abnormalities and thyroid issues Orders placed to evaluate differential diagnosis based on the above differential, HPI and physical exam EKG: Time 246. Rate 72. Normal sinus rhythm, No ST-T changes, no ectopy, normal FL & QRS intervals, This was reviewed and interpreted by myself the ER physician at 2:50 AM Lab Review: Laboratory results were reviewed and interpreted by myself the emergency room physician. Lab work is fairly unremarkable. No leukocytosis. No anemia. No hypokalemia. No renal failure. BUN and creatinine are 14 and 0.5. Urinalysis is clear. I reviewed the patient's medical record. Reexamination: Patient remained stable. No increased work of breathing. No altered mental status. No focal motor deficits. Assessment and plan: Palpitations - Discharged home - Discussed plan with patient. Answered any questions. - Evaluation and treatment of this problem were appropriate in the emergency setting. Lab Data 03/30/24 02:49 03/30/24 02:49 Laboratory Results WBC 8.59 10^3/uL (3.29-11.43) 03/30/24 02:49 RBC 4.47 10^6/uL (3.85-5.65) 03/30/24 02:49 Hgb 13.00 g/dL (11.27-16.99) 03/30/24 02:49 Hct 39.3 % (36-47) 03/30/24 02:49 MCV 87.9 fl (85-98) 03/30/24 02:49 MCH 29.1 pg (27-33) 03/30/24 02:49 MCHC 33.1 g/dL (30-55) 03/30/24 02:49 RDW 12.5 % (12.1-15.1) 03/30/24 02:49 Plt Count 340 10^3/cmm (157-399) 03/30/24 02:49 MPV 9.9 fL (7.4-10.4) 03/30/24 02:49 Neut % (Auto) 47.6 % 03/30/24 02:49 Lymph % (Auto) 44.4 % 03/30/24 02:49 [place] % (Auto) 5.8 % 03/30/24 02:49 Eos % (Auto) 1.9 % 03/30/24 02:49 Baso % (Auto) 0.2 % 03/30/24 02:49 Neut # (Auto) 4.09 10^3/uL (1.8-7.7) 03/30/24 02:49 Lymph # (Auto) 3.8 10^3/uL (0.8-4.8) 03/30/24 02:49 [place] # (Auto) 0.5 10^3/uL (0.2-0.9) 03/30/24 02:49 Eos # (Auto) 0.2 10^3/uL (0.0-0.8) 03/30/24 02:49 Baso # (Auto) 0.0 10^3/uL (0.0-0.1) 03/30/24 02:49 Nucleated RBC % (auto) 0 % 03/30/24 02:49 Nucleated RBCs # 0.0 /100WBC 03/30/24 02:49 Specimen Type Arterial 03/30/24 02:56 Sample Site Radial, right 03/30/24 02:56 ABG pH 7.40 (7.35-7.45) 03/30/24 02:56 ABG pCO2 37.3 mmHg (35-45) 03/30/24 02:56 ABG pO2 92.4 mmHg (80.0-100.0) 03/30/24 02:56 ABG HCO3 22.9 mmol/L (22-26) 03/30/24 02:56 ABG O2 Saturation 97.8 03/30/24 02:56 ABG Base Excess -1.7 mmol/L (-2.0-2.0) 03/30/24 02:56 [place] Test Pos 03/30/24 02:56 A-a O2 Gradient 1.1 mmHg (5-10) L 03/30/24 02:56 Hematocrit 41.5 % (37-47) 03/30/24 02:56 Hgb O2 Saturation 96.1 % (95-100) 03/30/24 02:56 Carboxyhemoglobin 0.8 %THgb (0.4-20.1) 03/30/24 02:56 Methemoglobin 0.9 % (0.4-1.5) 03/30/24 02:56 Total Hemoglobin 13.5 g/dL (12-16) 03/30/24 02:56 Sodium 141.0 mmol/L (131-143) 03/30/24 02:56 Potassium 3.9 mmol/L (3.5-5.0) 03/30/24 02:56 Glucose 103.0 mg/dL (70-115) 03/30/24 02:56 Ionized Calcium 1.2 mmol/L (1.1-1.4) 03/30/24 02:56 O2 Delivery Device Room air 03/30/24 02:56 Casing Machine Operator ID [email or web address] 03/30/24 02:56 Sodium 136 mmol/L (136-145) 03/30/24 02:49 Potassium 4.1 mmol/L (3.5-5.1) 03/30/24 02:49 Chloride 101 mmol/L (98-107) 03/30/24 02:49 Carbon Dioxide 21 mmol/L (22-29) L 03/30/24 02:49 Anion Gap 18.1 (5-19) 03/30/24 02:49 BUN 14 mg/dL (6-20) 03/30/24 02:49 Creatinine 0.5 mg/dL (0.5-0.9) 03/30/24 02:49 GFR Calculation 149.1 mL/min (90-130) H 03/30/24 02:49 Glucose 99 mg/dL (65-115) 03/30/24 02:49 Calculated Osmolality 283 mOsm/kg (285-295) L 03/30/24 02:49 Calcium 9.3 mg/dL (8.5-10.5) 03/30/24 02:49 Troponin T Baseline < 6 ng/L (0-10) 03/30/24 02:49 Urine Color Yellow (Yellow) 03/30/24 02:56 Urine Appearance Clear (CLEAR) 03/30/24 02:56 Urine pH 6.0 (5-7) 03/30/24 02:56 Ur Specific [place] 1.008 (1.005-1.030) 03/30/24 02:56 Urine Protein Negative (Negative) 03/30/24 02:56 Urine Glucose (UA) Negative (Normal) 03/30/24 02:56 Urine Ketones Negative (Negative) 03/30/24 02:56 Urine Blood Negative (Negative) 03/30/24 02:56 Urine Nitrate Negative (Negative) 03/30/24 02:56 Urine Bilirubin Negative (Negative) 03/30/24 02:56 Urine Urobilinogen 0.2 mg/dL (Negative) 03/30/24 02:56 Ur Leukocyte Esterase Negative (Negative) 03/30/24 02:56 Urine RBC 0-2 /hpf (0-2) 03/30/24 02:56 Urine WBC 0-5 /hpf (0-5) 03/30/24 02:56 Ur Squamous Epith Cells 0-5 /hpf (0-5) 03/30/24 02:56 Amorphous Sediment Not Reportable 03/30/24 02:56 Urine Bacteria None seen /hpf (NONE) 03/30/24 02:56 Hyaline Casts 0-4 /lpf H 03/30/24 02:56 No radiology studies performed this visit Discharge Plan Discharge Patient Disposition: Home Clinical Impression: Palpitations Condition: Stable Prescriptions: No Action acetaminophen 325 mg tablet 325 mg PO QID PRN (Reason: Pain) ibuprofen 200 mg tablet 200 mg PO Q6H PRN (Reason: Pain) norgestimate-ethinyl estradiol [Estarylla] 0.25-35 mg-mcg tablet See Rx Instructions .ROUTE .COMPLEX Qty: 84 3RF Dose Instruction: TAKE 1 TABLET BY MOUTH DAILY Rx Instructions: TAKE 1 TABLET BY MOUTH DAILY nystatin 100,000 unit/gram powder 1 applic topical QID Qty: 30 0RF albuterol sulfate 90 mcg/actuation HFA aerosol inhaler 2 inh inhalation Q4H PRN (Reason: shortness of breath or wheezing) Qty: 6.7 0RF hydroxyzine HCl 25 mg tablet 25 mg PO TID PRN Discharge Orders: Discharge ED (Routine); Ordered 03/30/24 Ordered By: Elidia Celis Referrals: Mallory Kelly FNP [Primary Care Provider] - Discharge Diet: Usual diet Discharge Activity: Increase activity as tolerated Patient Instructions: Heart Palpitations (ED) Activity Restrictions/Additional Instructions: Thank you for choosing [facility] for your healthcare needs today. Please realize this is an emergency room and that we are providing you with a medical screening exam and this may not be complete and all inclusive of all the testing and or work up that you may need to determine your ailment or severity of your illness. You have been screened and evaluated and felt safe for discharge. Health conditions do change or evolve sometimes and as such it is important that you follow up with your Primary Doctor to be re checked, 3-5 days is a general good time frame for follow up. You are always welcome to return to the ED for re assessment if your symptoms are worsening or you have new concerns Coding Level of Care Code ED Board Lining Machine Operator for Kelin Rivas
[2024-03-30 03:20] LABS: Troponin(5th) Baseline < 6 ng/L (0-10)
[2024-03-30 03:27] VITALS: BP 112/72; PULSE 79; O2SAT 95
[2024-03-30 03:31] LABS: Anion Gap 18.1 (5-19); Blood Urea Nitrogen 14 mg/dL (6-20); Calcium 9.3 mg/dL (8.5-10.5); Carbon Dioxide 21 mmol/L (22-29); Chloride 101 mmol/L (98-107); Creatinine Clr Calc Pharmacy 240.9042; Glomerular Filtration Rate 149.1 mL/min (90-130); Glucose 99 mg/dL (65-115); Osmolality Calculated 283 mOsm/kg (285-295); Potassium 4.1 mmol/L (3.5-5.1); Sodium 136 mmol/L (136-145)
[2024-03-30 03:55] VITALS: BP 135/100; PULSE 72; O2SAT 97
== END 2024-03-30 03:57 | disposition home or self-care (01) ==
PROVIDERS: Emergency Provider Emergency Medicine; PCP Nurse Practitioner Family
DX: R00.2 Palpitations (principal)
CPT/HCPCS: 36415; 36600; 80048; 80051; 81001; 82330; 82805; 84484; 85025; 93005; 99284

== ENCOUNTER 2024-05-15 00:34 | Emergency (ER) | payer SELFPAY ==
[2024-05-15] VITALS (8 sets, daily range): BP systolic 98–158; BP diastolic 78–90; PULSE 70–88; RESP 17–20; TEMP 36.7; O2SAT 95–98; BMI 56.7
--- NOTE | 2024-05-15 00:51 | ED_ITS ---
HPI - Abdominal Pain 2 General: Chief Complaint: Abdominal Pain Stated Complaint: sharp stabbing low abd upper vag area Time Seen by Provider: 05/15/24 00:40 History of Present Illness: 28-year-old female who presents emergenc y room with suprapubic pain. She says it sherry movement. No nausea or vomiting. This started about 20 minutes ago. She has not noticed dysuria. No fevers. Pain became very severe so she came to the emergency room Related Data Date of Last Menstrual Period: 04/11/24 Home Medications Medication Instructions Recorded Confirmed acetaminophen 325 mg tablet 325 mg PO QID PRN Pain 11/24/22 01/25/24 ibuprofen 200 mg tablet 200 mg PO Q6H PRN Pain 11/24/22 01/25/24 hydroxyzine HCl 25 mg tablet 25 mg PO TID PRN 06/12/23 01/25/24 Previous Rx's Medication Instructions Recorded albuterol sulfate 90 mcg/actuation 2 inh inhalation Q4H PRN shortness 03/15/23 aerosol inhaler of breath or wheezing #6.7 grams norgestimate 0.25 mg-ethinyl See Rx Instructions .Route 01/25/24 estradiol 35 mcg tablet (Estarylla) .COMPLEX #84 tabs nystatin 100,000 unit/gram topical 1 applic topical QID #30 grams 01/25/24 powder cefdinir 300 mg capsule 300 mg PO BID 7 days #14 caps 05/15/24 Allergies Allergy/AdvReac Type Severity Reaction Status Date / Time amoxicillin Allergy swelling Verified 03/30/24 02:27 clindamycin Allergy ADR-Gastrointestinal Verified 03/30/24 02:27 Upset Penicillins Allergy swelling Verified 03/30/24 02:27 Review of Systems 2 Narrative: Constitutional symptoms: Negative except as documented in HPI. Skin symptoms: Negative except as documented in HPI. Eye symptoms: Negative except as documented in HPI. ENMT symptoms: Negative except as documented in HPI. Respiratory symptoms: Negative except as documented in HPI. Cardiovascular symptoms: Negative except as documented in HPI. Gastrointestinal symptoms: Negative except as documented in HPI. Genitourinary symptoms: Negative except as documented in HPI. Musculoskeletal symptoms: Negative except as documented in HPI. Neurologic symptoms: Negative except as documented in HPI. Psychiatric symptoms: Negative except as documented in HPI. Endocrine symptoms: Negative except as documented in HPI. 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 Performed by Dr. Silva at [facility] in [place], [place]. History of tonsillectomy and adenoidectomy Family History Grandmother Breast cancer Great- maternal High cholesterol Maternal Hypertension Maternal Family/Other Diabetes Paternal aunt Hypertension Paternal Aunts and Uncles Stroke Paternal Great Aunt Grandfather Heart disease Paternal Father Myocardial infarction Mother Stroke Sister PFO (patent foramen ovale) Female Reproductive History: Date of last menstrual period: 04/11/24 S pontaneous abortions: No Physical Exam 2 Narrative: EXAM NARRATIVE: General: Alert, no acute distress. Skin: Warm, dry. Head: Normocephalic, atraumatic. Neck: Supple, trachea midline. Eye: Extraocular movements are intact. Ears, nose, mouth and throat: mucosa moist. Cardiovascular: Regular, Normal peripheral perfusion. Respiratory: Lungs are clear to auscultation, respirations are non-labored, breath sounds are equal, Symmetrical chest wall expansion. Gastrointestinal: Soft, Nontender, Non distended Musculoskeletal: Normal ROM, no deformity. Neurological: Alert and oriented, No focal neurological deficit observed. Psychiatric: Cooperative, appropriate mood & affect. Course 2 Vital Signs: Vital signs: Vital Signs Temperature 98.1 F 05/15/24 00:38 Pulse Rate 83 05/15/24 01:30 Respiratory Rate 20 H 05/15/24 00:43 Blood Pressure 98/83 05/15/24 01:30 Pulse Oximetry 96 05/15/24 01:30 Oxygen Delivery Me thod Room Air 05/15/24 01:30 MDM - Abdominal Pain Medical Decision Making Medical decision making: Differential diagnosis including but not limited to and based on the above HPI, review of systems and physical exam: Concern for cystitis, colitis, nephrolithiasis, etc. CT of the abdomen pelvis: No acute process. This was reviewed and interpreted by myself the emergency room physician. I also reviewed the radiology report. Orders placed to evaluate differential diagnosis based on the above differential, HPI and physical exam Lab Review: Laboratory results were reviewed and interpreted by myself the emergency room physician. unremarkable. No leukocytosis. No renal failure. No anemia. Urine does show a few whites and 2+ bacteria so treating for urinary tract infection which would explain her symptoms. Patient's pain has improved some. Still present. She declined Toradol. She did receive Rocephin here in the emergency room I reviewed the patient's medical record. Reexamination: Patient remained stable. No increased work of breathing. No altered mental status. No focal motor deficits. Patient says her pain somewhat improved. She did declined Toradol. She did receive some Rocephin Assessment and plan: Cystitis ?IV Rocephin in the emergency room - Discharged home - Discussed findings and plan with patient. Answered any questions. - All laboratory values were reviewed and interpreted personally by myself, the ER physician - All imaging was reviewed and interpreted personally by myself, the ER physician. - Evaluation and treatment of this problem were appropriate in the emergency setting Lab Data 05/15/24 01:24 05/15/24 01:24 Labs/Radiology: Radiology Impressions Abdomen/Pelvis CT 05/15/24 00:52 IMPRESSION: No acute process in the abdomen or pelvis Laboratory Results WBC 10.33 10^3/uL (3.29-11.43) 05/15/24 01:24 RBC 3.91 10^6/uL (3.85-5.65) 05/15/24 01:24 Hgb 11.40 g/dL (11.27-16.99) 05/15/24:24 Hct 35.0 % (36-47) L 05/15/24:24 MCV 89.5 fl (85-98) 05/15/24:24 MCH 29.2 pg (27-33) 05/15/24:24 MCHC 32.6 g/dL (30-55) 05/15/24: RDW 12.6 % (12.1-15.1) 05/15/24 01:24 Plt Count 297 10^3/cmm (157-399) 05/15/24 01:24 MPV 10.1 fL (7.4-10.4) 05/15/24:24 Neut % (Auto) 56.9 % 05/15/24 01: Lymph % (Auto) 35.2 % 05/15/24 01:24 [place] % (Auto) 6.1 % 05/15/24 01:24 Eos % (Auto) 1.3 % 05/15/24:24 Baso % (Auto) 0.3 % 05/15/24: Neut # (Auto) 5.88 10^3/uL (1.8-7.7) 05/15/24:24 Lymph # (Auto) 3.6 10^3/uL (0.8-4.8) 05/15/24:24 [place] # (Auto) 0.6 10^3/uL (0.2-0.9) 05/15/24 01:24 Eos # (Auto) 0.1 10^3/uL (0.0-0.8) 05/15/24:24 Baso # (Auto) 0.0 10^3/uL (0.0-0.1) 05/15/24:24 Nucleated RBC % (auto) 0 % 05/15/24: Nucleated RBCs # 0.0 /100WBC 05/15/24:24 Sodium 135 mmol/L (136-145) L 05/15/24 01:24 Potassium 3.9 mmol/L (3.5-5.1) 05/15/24:24 Chloride 102 mmol/L (98-107) 05/15/24 01:24 Carbon Dioxide 23 mmol/L (22-29) 05/15/24 01:24 Anion Gap 13.9 (5-19) 05/15/24 01:24 BUN 7 mg/dL (6-20) 05/15/24 01:24 Creatinine 0.5 mg/dL (0.5-0.9) 05/15/24 01:24 GFR Calculation 149.1 mL/min (90-130) H 05/15/24 01:24 Glucose 129 mg/dL (65-115) H 05/15/24 01:24 Calculated Osmolality 280 mOsm/kg (285-295) L 05/15/24:24 Calcium 8.0 mg/dL (8.5-10.5) L 05/15/24:24 Total Bilirubin 0.2 mg/dL (0.15-1.2) 05/15/24: AST 9 U/L (0-32) 05/15/24:24 ALT 13 U/L (0-33) 05/15/24:24 Alkaline Phosphatase 70 U/L (35-105) 05/15/24: Total Protein 6.3 g/dL (6.6-8.7) L 05/15/24: Albumin 3.4 g/dL (3.5-5.2) L 05/15/24:24 Globulin 2.9 g/dL (1.3-4.6) 05/15/24 01: HCG, Qual Negative (Negative) 05/15/24:24 Urine Color Yellow (Yellow) 05/15/24: Urine Appearance Clear (CLEAR) 05/15/24: Urine pH 6.0 (5-7) 05/15/24: Ur Specific [place] 1.014 (1.005-1.030) 05/15/24: Urine Protein Negative (Negative) 05/15/24: Urine Glucose (UA) Negative (Normal) 05/15/24: Urine Ketones Negative (Negative) 05/15/24: Urine Blood Negative (Negative) 05/15/24 01: Urine Nitrate Negative (Negative) 05/15/24: Urine Bilirubin Negative (Negative) 05/15/24: Urine Urobilinogen 1.0 mg/dL (Negative) 05/15/24: Ur Leukocyte Esterase Trace (Negative) A 05/15/24 01:26 Urine RBC 0-2 /hpf (0-2) 05/15/24 01:26 Urine WBC 6-10 /hpf (0-5) 05/15/24:26 Ur Squamous Epith Cells 0-5 /hpf (0-5) 05/15/24 01:26 Amorphous Sediment Not Reportable 05/15/24 01:26 Urine Bacteria 2+ /hpf (NONE) H 05/15/24 01:26 Hyaline Casts 1.21 /lpf 05/15/24 01:26 All radiology interpretation(s) finalized by discharge Discharge Plan Discharge Patient Disposition: Home Clinical Impression: Cystitis Condition: Stable Prescriptions: New cefdinir 300 mg capsule 300 mg PO BID 7 Days Qty: 14 0RF No Action acetaminophen 325 mg tablet 325 mg PO QID PRN (Reason: Pain) ibuprofen 200 mg tablet 200 mg PO Q6H PRN (Reason: Pain) norgestimate-ethinyl estradiol [Estarylla] 0.25-35 mg-mcg tablet See Rx Instructions .ROUTE .COMPLEX Qty: 84 3RF Dose Instruction: TAKE 1 TABLET BY MOUTH DAILY Rx Instructions: TAKE 1 TABLET BY MOUTH DAILY nystatin 100,000 unit/gram powder 1 applic topical QID Qty: 30 0RF albuterol sulfate 90 mcg/actuation HFA aerosol inhaler 2 inh inhalation Q4H PRN (Reason: shortness of breath or wheezing) Qty: 6.7 0RF hydroxyzine HCl 25 mg tablet 25 mg PO TID PRN Discharge Orders: Discharge ED (Routine); Ordered 05/15/24 Ordered By: Elidia Ceils Referrals: Mallory Kelly FNP [Primary Care Provider] - Discharge Diet: Usual diet Discharge Activity: Resume usual activity Patient Instructions: Urinary Tract Infection in Women (ED), Opioid Safety, Pain Management Activity Restrictions/Additional Instructions: Thank you for choosing [facility] for your healthcare needs today. Please realize this is an emergency room and that we are providing you with a medical screening exam and this may not be complete and all inclusive of all the testing and or work up that you may need to determine your ailment or severity of your illness. You have been screened and evaluated and felt safe for discharge. Health conditions do change or evolve sometimes and as such it is important that you follow up with your Primary Doctor to be re checked, 3-5 days is a general good time frame for follow up. You are always welcome to return to the ED for re assessment if your symptoms are worsening or you have new concerns Coding Level of Care Code ED Ux Interaction Designer for Kelin Rivas
--- NOTE | 2024-05-15 00:52 | CTR_ITS ---
PROCEDURE INFORMATION: Exam: CT Abdomen And Pelvis With Contrast Exam date and time: 05/15/2024 1:56 AM Age: 28 years old Clinical indication: Abdominal pain; Generalized TECHNIQUE: Imaging protocol: Computed tomography of the abdomen and pelvis with contrast. Radiation optimization: All CT scans at this facility use at least one of these dose optimization techniques: automated exposure control; mA and/or kV adjustment per patient size (includes targeted exams where dose is matched to clinical indication); or iterative reconstruction. Contrast material: OMNI 350; Contrast volume: 100 ml; Contrast route: INTRAVENOUS (IV); COMPARISON: ES surgery / GI images 06/17/2020 7:05 AM RADIATION DOSE METRICS: Total DLP (mGy-cm): 1401.23 FINDINGS: Diaphragm: Small hiatal hernia. Liver: Normal. No mass. Gallbladder and biliary ducts: Normal. No calcified stones. No ductal dilation. Pancreas: Normal. No ductal dilation. Spleen: Normal. No splenomegaly. Adrenal glands: Normal. No mass. Kidneys and ureters: Normal. No hydronephrosis. Stomach and bowel: Unremarkable. No obstruction. No mucosal thickening. Appendix: No evidence of appendicitis. Intraperitoneal space: Unremarkable. No free air. No significant fluid collection. Vasculature: Unremarkable. No abdominal aortic aneurysm. Lymph nodes: Unremarkable. No enlarged lymph nodes. Urinary bladder: Unremarkable as visualized. Reproductive: Unremarkable as visualized. Bones/joints: Lumbar spine degenerative changes. No acute fracture. Soft tissues: Unremarkable. CT/CT abdomen pelvis w con* [id number] IMPRESSION: No acute process in the abdomen or pelvis
[2024-05-15 01:32] LABS: Basophils % 0.3 %; Eosinophils # 0.1 10^3/uL (0.0-0.8); Eosinophils % 1.3 %; Lymphocytes # 3.6 10^3/uL (0.8-4.8); Lymphocytes % 35.2 %; Mean Corpuscular HGB Conc 32.6 g/dL (30-55); Mean Corpuscular Hemoglobin 29.2 pg (27-33); Mean Corpuscular Volume 89.5 fl (85-98); Mean Platelet Volume 10.1 fL (7.4-10.4); Monocytes # 0.6 10^3/uL (0.2-0.9); Monocytes % 6.1 %; Neutrophils # 5.88 10^3/uL (1.8-7.7); Neutrophils % 56.9 %; Nucleated Red Blood Cells % 0 %; Platelet Count 297 10^3/cmm (157-399); Red Blood Count 3.91 10^6/uL (3.85-5.65); Red Cell Distribution Width 12.6 % (12.1-15.1); White Blood Count 10.33 10^3/uL (3.29-11.43)
[2024-05-15 01:36] LABS: Bilirubin Urine Negative (Negative); Blood Urine Negative (Negative); Glucose Urine UA Negative (Normal); Ketones Urine Negative (Negative); Leukocyte Esterase Urine Trace (Negative); Nitrate Urine Negative (Negative); Protein Urine Negative (Negative); Specific Gravity, Urine 1.014 (1.005-1.030); Urine Appearance Clear (CLEAR); Urine Color Yellow (Yellow)
[2024-05-15 01:41] LABS: Bacteria Urine 2+ /hpf; Hyaline Casts Urine 1.21 /lpf; RBC Urine 0-2 /hpf (0-2); Squamous Epithelial Cell Urine 0-5 /hpf (0-5)
[2024-05-15 01:44] LABS: HCG, Serum Qual Negative (Negative)
[2024-05-15 01:51] LABS: Alanine Aminotransferase 13 U/L (0-33); Albumin Level 3.4 g/dL (3.5-5.2); Alkaline Phosphatase 70 U/L (35-105); Anion Gap 13.9 (5-19); Aspartate Amino Transferase 9 U/L (0-32); Blood Urea Nitrogen 7 mg/dL (6-20); Carbon Dioxide 23 mmol/L (22-29); Chloride 102 mmol/L (98-107); Creatinine Clr Calc Pharmacy 240.9042; Globulin 2.9 g/dL (1.3-4.6); Glomerular Filtration Rate 149.1 mL/min (90-130); Glucose 129 mg/dL (65-115); Osmolality Calculated 280 mOsm/kg (285-295); Potassium 3.9 mmol/L (3.5-5.1); Sodium 135 mmol/L (136-145); Total Bilirubin 0.2 mg/dL (0.15-1.2); Total Protein 6.3 g/dL (6.6-8.7)
[2024-05-15] MEDS: iohexol 350 mg/mL 500 mL Btl (per mL) IV (01:58)
[2024-05-15] MEDS: cefTRIAXone 1,000 mg SDV 1000 MG IVP (03:25)
== END 2024-05-15 04:10 | disposition home or self-care (01) ==
PROVIDERS: Emergency Provider Emergency Medicine; PCP Nurse Practitioner Family
DX: N30.90 Cystitis, unspecified without hematuria (principal)
CPT/HCPCS: 36415; 74177; 80053; 81001; 84703; 85025; 96374; 99285; J0696

== ENCOUNTER 2024-12-15 20:21 | Emergency (ER) | payer OTHER, SELFPAY ==
--- NOTE | 2024-12-15 20:23 | XRR_ITS ---
PROCEDURE INFORMATION: Exam: XR Left Foot Exam date and time: 12/15/2024 9:26 PM Age: 29 years old Clinical indication: C/O left foot pain. No injury. ; Additional info: Trauma TECHNIQUE: Imaging protocol: Radiologic exam of the left foot. Views: 3 or more views. COMPARISON: No relevant prior studies available. FINDINGS: Bones/joints: Normal. No acute displaced fracture or dislocation. Soft tissues: Normal. XR/XR foot LT min 3V* [id number] IMPRESSION: No acute findings.
[2024-12-15 21:44] VITALS: BP 134/89; PULSE 102; RESP 16; O2SAT 96; BMI 61.1
--- NOTE | 2024-12-15 21:55 | W.ED.EXTPRO ---
HPI - Extremity Problem General: Chief complaint: Extremity Injury, Lower Stated complaint: L foot feels like it broken Time Seen by Provider: 12/15/24 21:21 History of Present Illness: Patient stated she was walking off of her [id number] porch, when her foot was squished back in a hot dog style . She had immediate pain and difficulty with ambulation. This occurred just prior to arrival. Associated symptoms: Deny chest pain or fever(s) Related Data Home Medications ?Medication ?Instructions ?Recorded ?Confirmed acetaminophen 325 mg tablet 325 mg PO QID PRN Pain 11/24/22 01/25/24 ibuprofen 200 mg tablet 200 mg PO Q6H PRN Pain 11/24/22 01/25/24 hydroxyzine HCl 25 mg tablet 25 mg PO TID PRN 06/12/23 01/25/24 Previous Rx's ?Medication ?Instructions ?Recorded albuterol sulfate 90 mcg/actuation 2 inh inhalation Q4H PRN shortness 03/15/23 aerosol inhaler of breath or wheezing #6.7 grams norgestimate 0.25 mg-ethinyl See Rx Instructions .Route 01/25/24 estradiol 0.035 mg tablet .COMPLEX #84 tabs (Estarylla) nystatin 100,000 unit/gram topical 1 applic topical QID #30 grams 01/25/24 powder Allergies Allergy/AdvReac Type Severity Reaction Status Date / Time amoxicillin Allergy swelling Verified 03/30/24 02:27 clindamycin Allergy ADR-Gastrointestinal Verified 03/30/24 02:27 Upset Penicillins Allergy swelling Verified 03/30/24 02:27 Review of Systems General: Reports: 10 or more systems reviewed and unremarkable except in HPI and below Const: Denies: fever(s), chills or body aches Card: Denies: chest pain or palpitations Resp: Denies: dyspnea or non-productive cough GI: Denies: abdominal pain, nausea or vomiting Musc: Reports: joint pain and joint swelling Neuro: Denies: headache(s) or numbness in extremities Psych: Denies: anxiety or depression PFS ED PFSH: Medical History (Updated 12/15/24 @ 22:00 by JAS Reagan) 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 Performed by Dr. Silva at [facility] [place], [place]. History of tonsillectomy and adenoidectomy Family History Grandmother Breast cancer Great- maternal High cholesterol Maternal Hypertension Maternal Family/Other Diabetes Paternal aunt Hypertension Paternal Aunts and Uncles Stroke Paternal Great Aunt Grandfather Heart disease Paternal Father Myocardial infarction Mother Stroke Sister PFO (patent foramen ovale) Female Reproductive History: Spontaneous abortions: No Physical Exam Const: COMMON NORMALS: no acute distress, average body habitus and patient oriented x3 HENMT: COMMON NORMALS: normocephalic and atraumatic HEAD & SCALP: normocephalic and atraumatic Lymph: LYMPHATIC: no lymphadenopathy noted Chest: COMMONS NORMALS: normal inspection of the chest Resp: COMMON NORMALS: normal respiratory effort and clear to auscultation bilaterally AUSCULTATION: clear to auscultation bilaterally Cardio: COMMON NORMALS: regular rate and regular rhythm RATE: regular rate RHYTHM: regular rhythm : COMMON NORMALS: Yes no CVA tenderness BLADDER/KIDNEY EXAM: Yes no CVA tenderness Back/Pelvis: COMMON NORMALS: no CVA tenderness Extremity: LEFT LOWER EXTREMITY: Yes lower leg and Yes foot & digits Left foot and digits: Yes inspection (Left lower extremity with ecchymosis to distal lateral foot), Yes palpation (Tenderness with palpation), Yes ROM (Decreased due to pain) and Yes tendon exam (Unable to evaluate due to pain) Neuro: COMMON NORMALS: patient oriented x3 Psych: COMMON NORMALS: mental status grossly normal, Normal thought process present and cooperative THOUGHT PROCESS: Normal thought process present Course Vital Signs: Vital signs: Vital Signs Pulse Rate 102 H 12/15/24 21:44 Respiratory Rate 16 12/15/24 21:44 Blood Pressure 134/89 12/15/24 21:44 Pulse Oximetry 96 12/15/24 21:44 Oxygen Delivery Me thod Room Air 12/15/24 21:44 MDM - Extremity (Nontraumatic) Medical Decision Making Patient is a 29-year-old female that had an injury to her left foot just prior to arrival. X-ray shows a small area that could be a stress fracture to distal metatarsal of her fourth, to her left foot, which does correlate to her area of pain. This could be an overread. Patient will be sent to orthopedics, referral has been made, for repeat x-ray, placed in hard shoe, and Inocencio wrap. Lab Data Radiology Impressions Foot X-Ray 12/15/24 20:23 IMPRESSION: No acute findings. XR interpretation done by ED provider, pending radiology final review ED provider radiology interpretation(s): 4th distal metatarsal head on medial side with stress fx Discharge Plan Discharge Patient Disposition: Home Clinical Impression: Closed fracture of head of metatarsal bone of left foot Qualifiers: Encounter type: initial encounter Qualified Code(s): S92.302A - Fracture of unspecified metatarsal bone(s), left foot, initial encounter for closed fracture Condition: Stable Prescriptions: No Action acetaminophen 325 mg tablet 325 mg PO QID PRN (Reason: Pain) ibuprofen 200 mg tablet 200 mg PO Q6H PRN (Reason: Pain) norgestimate-ethinyl estradiol [Estarylla] 0.25-35 mg-mcg tablet See Rx Instructions .ROUTE .COMPLEX Qty: 84 3RF Dose Instruction: TAKE 1 TABLET BY MOUTH DAILY Rx Instructions: TAKE 1 TABLET BY MOUTH DAILY nystatin 100,000 unit/gram powder 1 applic topical QID Qty: 30 0RF albuterol sulfate 90 mcg/actuation HFA aerosol inhaler 2 inh inhalation Q4H PRN (Reason: shortness of breath or wheezing) Qty: 6.7 0RF hydroxyzine HCl 25 mg tablet 25 mg PO TID PRN Discharge Orders: Discharge ED (Routine); Ordered 12/15/24 Ordered By: Ellie Hunter Referrals: Mallory Kelly FNP [Primary Care Provider, Unknown] Ashli Edmonds MD [Physician, Orthopedics] Discharge Diet: Usual diet Discharge Activity: Limit activity as instructed Patient Instructions: Suspected Fracture (ED), Opioid Safety, Pain Management Activity Restrictions/Additional Instructions: Follow-up with orthopedics, Dr. Chew, as listed above next week. Potential fracture of fourth metatarsal head. You will need a repeat x-ray of your foot. Wear hard shoe at all times, Inocencio wrap. You may utilize KT tape that you can find at [email or web address] Tylenol or ibuprofen for pain Ice, elevate to reduce pain and inflammation Return to ED for further issues Print Language: Khmer Coding Level of Care Code ED Eating Disorder Psychologist for Kelin Rivas
== END 2024-12-15 22:25 | disposition home or self-care (01) ==
PROVIDERS: Emergency Provider Physician Assistant; PCP Nurse Practitioner Family
DX: S92.302A Fracture of unspecified metatarsal bone(s), left foot, initial encounter for closed fracture (principal); X58.XXXA Exposure to other specified factors, initial encounter
CPT/HCPCS: 73630; 99283

== ENCOUNTER → 2024-12-24 08:28 | Outpatient (BNVA) | payer OTHER, SELFPAY | PROVIDERS: PCP Nurse Practitioner Family; Visit Provider Orthopaedic Surgery | DX: S93.602D Unspecified sprain of left foot, subsequent encounter (principal); X58.XXXD Exposure to other specified factors, subsequent encounter | CPT/HCPCS: 73630 ==

== ENCOUNTER 2024-12-25 13:06 | Outpatient (CLI) | payer OTHER, SELFPAY | END 2024-12-25 13:07 | disposition home or self-care (01) | LOC: SLEEP 13:10 | PROVIDERS: PCP Nurse Practitioner Family; Visit Provider Nurse Practitioner Family | DX: G47.33 Obstructive sleep apnea (adult) (pediatric) (principal) | CPT/HCPCS: G0399 ==

== ENCOUNTER 2025-02-06 14:32 | Outpatient (CLI) | payer OTHER, SELFPAY ==
--- NOTE | 2025-02-06 14:41 | CT_ITS ---
WS: [id number] CT HEAD NONCONTRAST HISTORY: CHRONIC DAILY HEADACHES TECHNIQUE: Contiguous axial imaging performed through the brain. Bone and soft tissue windows. Sagittal and coronal reformats reviewed. All CT scans at [facility] use at least one of these dose optimization techniques: automated exposure control; mA and/or kV adjustment per patient size (includes targeted exams where dose is matched to clinical indication); or iterative reconstruction. DLP: 1035.38 mGy.cm COMPARISON: 11/11/2021 No acute intracranial hemorrhage, midline shift or mass effect. No atrophy or prior infarcts or herniation. Ventricles: Normal size with no hydrocephalus. Paranasal sinuses: As visualized are clear. Mastoid air cells: Well pneumatized. Calvarium and scalp: Skull is intact with no soft tissue edema or swelling. CT/CT head wo con* [id number] IMPRESSION: Negative head CT.
== END 2025-02-06 14:33 | disposition home or self-care (01) ==
LOC: RAD 14:35
PROVIDERS: PCP Nurse Practitioner Family; Visit Provider Nurse Practitioner Family
DX: R51.9 Headache, unspecified (principal)
CPT/HCPCS: 70450

== ENCOUNTER 2025-03-12 07:43 | Outpatient (CLI) | payer OTHER, SELFPAY ==
--- NOTE | 2025-03-12 07:51 | USCV_ITS ---
Sharon Camacho Age: 29 Gender: F : 1995 Exam Date: 03/12/2025 08:00 Ordering Phys: Julieta Akins MD ([email or web address]) Technologist: [place] [facility] [place]: family hx of heart probs BP: 140 / 90 HR: Rhythm: Sinus Technical Quality: Adequate MEASUREMENTS (Male / Female) Normal Values 2D ECHO LVOT Diameter 2.1 cm LV Ejection Fraction MOD 4C 65.6 % LV Ejection Fraction MOD 2C 67.3 % LV Ejection Fraction 2C AL 67.3 % LA Diameter 3.7 cm RA Systolic Volume 4C AL 28.0 ml RA Systolic Volume 4C MOD 27.1 ml Aorta at Sinotubular Diameter 3.8 cm IVC Diameter 1.7 cm M-MODE LA Ao Ratio MM 1.5 AV Cusp Separation MM 2.2 cm FINDINGS Left Ventricle Normal left ventricular size, systolic function and wall thickness, with no regional wall motion abnormalities. Left ventricular ejection fraction is estimated at 50 %. No intracardiac shunt noted with bubble study. Right Ventricle Right Atrium Left Atrium Mitral Valve Aortic Valve Tricuspid Valve Pulmonic Valve Pericardium Aorta IVC CONCLUSIONS Normal left ventricular size, systolic function and wall thickness, with no regional wall motion abnormalities. Left ventricular ejection fraction is estimated at 50 %. No intracardiac shunt noted with bubble study. There is no pericardial effusion. Right atrial pressure is around 5 mm of mercury. Julieta Akins MD (Electronically Signed) Final Date: 24 March 2025 15:35 S
== END 2025-03-12 07:44 | disposition home or self-care (01) ==
LOC: RAD 07:45
PROVIDERS: PCP Nurse Practitioner Family; Visit Provider Nurse Practitioner Family
DX: R00.2 Palpitations (principal); R93.1 Abnormal findings on diagnostic imaging of heart and coronary circulation
CPT/HCPCS: C8924

== ENCOUNTER → 2025-03-25 13:11 | Outpatient (BNVA) | payer OTHER, SELFPAY | PROVIDERS: PCP Nurse Practitioner Family; Visit Provider Nurse Practitioner | DX: J98.8 Other specified respiratory disorders (principal) | CPT/HCPCS: 87426 ==